=== PATIENT | female | born 1980 | race Caucasian/White ===

== ENCOUNTER 2020-04-26 18:55 | Emergency (ER) | payer OTHER, SELFPAY ==
[2020-04-26 19:00] VITALS: BP 143/92; PULSE 100; RESP 16; TEMP 36.6; O2SAT 99
--- NOTE | 2020-04-26 19:39 | ED.GENADULT ---
HPI - General Adult General Chief complaint: Wound/Laceration <Marcela Santoyo PA-C - Last Filed: 04/26/20 20:49> Stated complaint: R FOOT WOUND <Marcela Santoyo PA-C - Last Filed: 04/26/20 20:49> Time Seen by Provider: 04/26/20 19:29 <Marcela Santoyo PA-C - Last Filed: 04/26/20 20:49> Mode of arrival: ambulatory <Marcela Santoyo PA-C - Last Filed: 04/26/20 20:49> Limitations: no limitations <Marcela Santoyo PA-C - Last Filed: 04/26/20 20:49> History of Present Illness HPI narrative: Patient is here for evaluation of a blister on the bottom of her right foot that is being treated with clindamycin. She was seen at several other facilities for this, it started approximately 1 week ago after [place] a water park. It is now swollen and painful, located on the bottom of her right foot at the base of her great toe. She denies any fever, it is painful to walk on <Marcela Santoyo PA-C - Last Filed: 04/26/20 20:49> Onset (ago): day(s) <Marcela Santoyo PA-C - Last Filed: 04/26/20 20:49> Associated symptoms: denies other symptoms <Marcela Santoyo PA-C - Last Filed: 04/26/20 20:49> Related Data Allergies/adverse reactions: Allergies Allergy/AdvReac Type Severity Reaction Status Date / Time Penicillins Allergy Unknown Verified 04/26/20 19:05 <Marcela Santoyo PA-C - Last Filed: 04/26/20 20:49> Review of Systems Review of Systems: All systems reviewed & are unremarkable except as noted in HPI and below <Marcela Santoyo PA-C - Last Filed: 04/26/20 20:49> PMFSH Past Medical History Medical History: Medical History HTN (hypertension) <Marcela Santoyo PA-C - Last Filed: 04/26/20 20:49> Surgical History Surgical History: Surgical History No significant past surgical history <Marcela Santoyo PA-C - Last Filed: 04/26/20 20:49> Social History Social History: Social History Smoking packs per day: 0.5 Smoking cigarettes per day: 10.0 Smoking status: Current every day smoker <Marcela Santoyo PA-C - Last Filed: 04/26/20 20:49> Exam Const: General: no acute distress <Marcela Santoyo PA-C - Last Filed: 04/26/20 20:49> Resp: Effort & Inspection: normal respiratory effort <Marcela Santoyo PA-C - Last Filed: 04/26/20 20:49> Skin: Wounds: wounds noted (right foot, plantar surface, base of great toe. erythema and swelling, fluc) <Marcela Santoyo PA-C - Last Filed: 04/26/20 20:49> Neuro: General: moves all extremities <Marcela Santoyo PA-C - Last Filed: 04/26/20 20:49> Psych: Mental Status: mental status grossly normal <Marcela Santoyo PA-C - Last Filed: 04/26/20 20:49> Course Vital Signs Vital signs: Vital Signs Temperature 97.9 F 04/26/20 19:00 Pulse Rate 100 04/26/20 19:00 Respiratory Rate 16 04/26/20 19:00 Blood Pressure 143/92 H 04/26/20 19:00 Pulse Oximetry 99 04/26/20 19:00 Temperature 97.9 F 04/26/20 19:00 Pulse Rate 80 04/26/20 21:29 Respiratory Rate 20 04/26/20 21:29 Blood Pressure 138/76 04/26/20 21:29 Pulse Oximetry 99 04/26/20 21:29 <Marcela Santoyo PA-C - Last Filed: 04/26/20 20:49> Vital Signs Temperature 97.9 F 04/26/20 19:00 Pulse Rate 100 04/26/20 19:00 Respiratory Rate 16 04/26/20 19:00 Blood Pressure 143/92 H 04/26/20 19:00 Pulse Oximetry 99 04/26/20 19:00 Temperature 97.9 F 04/26/20 19:00 Pulse Rate 80 04/26/20 21:29 Respiratory Rate 20 04/26/20 21:29 Blood Pressure 138/76 04/26/20 21:29 Pulse Oximetry 99 04/26/20 21:29 <Lotus Shepard MD - Last Filed: 04/27/20 00:54> Procedures Abscess I/D foot: Date of Incision: 04/26/20 <Marcela Santoyo PA-C - Last Filed: 04/26/20 20:49> Time of Incision: 20:42 <Marcela Benson
[2020-04-26] MEDS: LIDOCAINE/PRILOCAINE 2.5-2.5% KIT 1 EACH TOPICAL (19:56)
[2020-04-26 21:29] VITALS: BP 138/76; PULSE 80; RESP 20; O2SAT 99
== END 2020-04-26 21:30 | disposition home or self-care (01) ==
PROVIDERS: Emergency Provider Emergency Medicine; PCP Physician Assistant
DX: L02.611 Cutaneous abscess of right foot (principal); I10 Essential (primary) hypertension
CPT/HCPCS: 10060; 99282

== ENCOUNTER 2020-07-08 17:24 | Emergency (ER) | payer OTHER, SELFPAY ==
--- NOTE | ~2020-07-08 | XR_ITS ---
EXAMINATION: XR chest 1V portable EXAM DATE: 07/08/2020 17:45 INDICATION: Bilateral chest pain. High blood pressure. TECHNIQUE: Portable AP frontal chest x-ray was obtained. Comparison is made to prior examination from 09/19/2019. FINDINGS: The lungs are clear. There are no pleural effusions. The cardiomediastinal silhouette is within normal limits. There is no pneumothorax suspected. The bones and soft tissues are unremarkab le. IMPRESSION: No acute cardiopulmonary findings. Reviewed, dictated and finalized at location A.
[2020-07-08 17:27] VITALS: BP 167/112; PULSE 99; RESP 20; TEMP 36.6; O2SAT 100
--- NOTE | 2020-07-08 17:32 | ED.CHESTPAIN ---
HPI - Chest Pain General Chief Complaint: Recheck/Abnormal Lab/Rx Stated Complaint: hypertension Time Seen by Provider: 07/08/20 17:27 Source: patient Mode of arrival: ambulatory Limitations: no limitations History of Present Illness HPI narrative: Patient is a 39-year-old female who presents complaining of hypertension, chest pain, shortness of breath and headache starting this a.m. She reports a history of hypertension. She denies fever, nausea, vomiting or diarrhea. She reports medication compliance. She denies all other complaints. MD complaint: chest heaviness Related Data Allergies Allergy/AdvReac Type Severity Reaction Status Date / Time Penicillins Allergy Unknown Verified 04/26/20 19:05 Review of Systems Review of Systems: Narrative: CONSTITUTIONAL: Denies fever, chills, or sweats. EYES: Denies visual changes, redness, or discharge. ENT: Denies rhinorrhea, congestion, sore throat, or otalgia. CARDIOVASCULAR: Reports chest pain, denies palpitations or edema. RESPIRATORY: Denies cough, reports mild dyspnea. GASTROINTESTINAL: Denies abdominal pain, nausea, vomiting, or diarrhea. GENITOURINARY: Denies dysuria or hematuria. SKIN: Denies rash or itching. MUSCULOSKELETAL: Denies back pain, joint pain, or myalgia. NEUROLOGIC: Reports headache, denies numbness, dizziness, or weakness. PSYCHIATRIC: Denies anxiety or depression. 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 HEAD: Normocephalic, atraumatic. EYES: No redness or drainage. ENT: Mucous membranes pink and moist. NECK: AROM. Supple. No lymphadenopathy. CHEST: No respiratory distress. Clear to auscultation. HEART: Regular rate and rhythm. No murmur appreciated. Normal peripheral pulses. GI: Soft, nontender without rebound, or guarding. No distention. Bowel sounds normal in all quadrants. MUSCULOSKELETAL: No bony tenderness. EXTREMITIES: Normal range of motion. No edema. SKIN: Warm, dry, no rash. NEURO: No focal deficits. Alert and oriented x3. Gait steady. PSYCH: Normal affect. No signs of depression or anxiety. Course Vital Signs Vital signs: Vital Signs Temperature 36.6 C 07/08/20 17: Pulse Rate 99 07/08/20 17: Respiratory Rate 20 07/08/20 17:27 Blood Pressure 167/112 H 07/08/20 17:27 Pulse Oximetry 100 07/08/20 17:27 Temperature 36.6 C 07/08/20 17:27 Pulse Rate 99 07/08/20 17:27 Respiratory Rate 20 07/08/20 17:27 Blood Pressure 167/112 H 07/08/20 17:27 Pulse Oximetry 100 07/08/20 17:27 MDM - Chest Pain MDM Narrative Medical decision making narrative: EKG and troponin x 2 completed for patient. Patient has a heart score of 2. Patient reports that she feels better and chest pain is resolved at this time. Patient has yearly appointment with pcp in 2 days. Patient is stable for discharge to home with outpatient follow up. Patient is aware that if she has increased chest pain or sob that she needs to return for further evaluation. Differential Diagnosis Differential diagnosis: Likely atypical chest pain, chest pain and other Critical Care Time Critical Care Time Critical Care Time: No
--- NOTE | 2020-07-08 17:39 | ECG_ITS ---
Measurements Intervals [place] Rate: 87 P: 65 FL: 144 QRS: 55 QRSD: 92 T: 49 QT: 385 QTc: 465 Interpretive Statements SINUS RHYTHM LOW QRS VOLTAGE IN PRECORDIAL LEADS CANNOT RULE OUT SEPTAL INFARCT, AGE INDETERMINATE BORDERLINE T WAVE ABNORMALITY- ANT/INF LEADS ABNORMAL ECG Electronically Signed On 07-08-2020 20:42:44 CDT by Jesus Macias D.O.
--- NOTE | 2020-07-08 17:41 | PC.NURSE ---
patient told to go to [facility] because she had several blood pressure readings of SBP over 150. patient also reports some chest pain and shortness of breath
[2020-07-08 17:43] LABS: Basophils Absolute Auto 0.1 K/mm3 (0.0-0.1); Basophils Percent Auto 0.8 % (0.2-1.2); Eosinophils Absolute Auto 0.2 K/mm3 (0-0.3); Eosinophils Percent Auto 1.5 % (0-4.4); Hematocrit 37.9 % (37.0-47.0); Hemoglobin 12.6 g/dL (12.0-15.0); Immature Granulocyte Absolute 0.08 K/mm3 (0.00-0.031); Immature Granulocyte Percent A 0.6 % (0-0.5); Lymphocytes Absolute Auto 5.25 K/mm3 (0.9-3.2); Lymphocytes Percent Auto 41.6 % (18.3-44.2); Mean Corpuscular HGB Conc 33.2 g/dl (32-36); Mean Corpuscular Hemoglobin 31.8 pg (26-34); Mean Corpuscular Volume 95.7 fl (80-100); Mean Platelet Volume 9.6 fl (7.4-10.4); Monocytes Absolute Auto 1.7 K/mm3 (0.1-0.6); Monocytes Percent Auto 13.6 % (2.6-8.5); Neutrophils Absolute Auto 5.3 K/mm3 (1.3-6.7); Neutrophils Percent Auto 41.9 % (45.5-73.1); Platelet Count Result 576 k/mm3 (150-375); Red Blood Count 3.96 M/mm3 (4.2-5.4); Red Cell Distribution Width 15.9 % (11.5-14.5); White Blood Count 12.6 K/mm3 (4.5-10.0)
[2020-07-08] MEDS: ASPIRIN 81 MG CHEWABLE TABLET 324 MG PO (17:52)
[2020-07-08 18:10] LABS: Basophils Absolute Auto 0.1 K/mm3 (0.0-0.1); Basophils Percent Auto 0.7 % (0.2-1.2); Eosinophils Absolute Auto 0.2 K/mm3 (0-0.3); Eosinophils Percent Auto 1.7 % (0-4.4); Hematocrit 36.7 % (37.0-47.0); Hemoglobin 12.2 g/dL (12.0-15.0); Immature Granulocyte Absolute 0.11 K/mm3 (0.00-0.031); Immature Granulocyte Percent A 0.9 % (0-0.5); Lymphocytes Absolute Auto 5.35 K/mm3 (0.9-3.2); Lymphocytes Percent Auto 42.2 % (18.3-44.2); Mean Corpuscular HGB Conc 33.2 g/dl (32-36); Mean Corpuscular Hemoglobin 31.3 pg (26-34); Mean Corpuscular Volume 94.1 fl (80-100); Mean Platelet Volume 9.5 fl (7.4-10.4); Monocytes Absolute Auto 1.8 K/mm3 (0.1-0.6); Monocytes Percent Auto 13.9 % (2.6-8.5); Neutrophils Absolute Auto 5.2 K/mm3 (1.3-6.7); Neutrophils Percent Auto 40.6 % (45.5-73.1); Platelet Count Result 547 k/mm3 (150-375); Red Cell Distribution Width 15.9 % (11.5-14.5); White Blood Count 12.7 K/mm3 (4.5-10.0)
[2020-07-08 18:22] LABS: Alanine Aminotransferase 25 U/L (4-35); Albumin Level 4.6 g/dL (3.5-5.1); Alkaline Phosphatase 78 U/L (38-126); Anion Gap 7 mmol/L (8-16); Aspartate Amino Transferase 44 U/L (14-36); Bilirubin,Total 0.3 mg/dL (0.2-1.3); Blood Urea Nitrogen 2 mg/dL (7-17); Calcium 9.4 mg/dL (8.4-10.2); Carbon Dioxide 31 mmol/L (22-30); Chloride 94 mmol/L (98-107); Estimated Glomerular Filt Rate > 60; Glucose 98 mg/dL (65-105); Potassium 3.3 mmol/L (3.4-5.0); Sodium 132 mmol/L (137-145)
[2020-07-08 18:30] VITALS: BP 150/103; PULSE 83; RESP 20; O2SAT 99
[2020-07-08 18:33] LABS: Add Urine Microscopic? NO; Appearance Urine Clear (Clear); Bilirubin Urine Negative (Negative); Blood Urine Negative (Negative); Color Urine Yellow (Yellow); Glucose Urine UA Negative (Negative); Ketones Urine Negative (Negative); Leukocyte Esterase Ur Negative LEU/UL (Negative); Nitrate Urine Negative (Negative); Protein Urine Negative (Negative); Specific Grav Ur 1.005 (1.001-1.035); Urobilinogen Urine Negative mg/dL (<2.0)
[2020-07-08 18:34] LABS: Troponin I < 0.012 ng/mL (0.000-0.034)
[2020-07-08 19:15] VITALS: BP 154/96
[2020-07-08 20:08] LABS: D Dimer 0.24 ug/mL (<0.48)
[2020-07-08 20:37] LABS: Troponin I < 0.012 ng/mL (0.000-0.034)
[2020-07-08 20:50] VITALS: BP 148/73; PULSE 86
== END 2020-07-08 20:57 | disposition home or self-care (01) ==
PROVIDERS: Emergency Provider Nurse Practitioner; PCP Physician Assistant
DX: R07.9 Chest pain, unspecified (principal); I10 Essential (primary) hypertension; E89.0 Postprocedural hypothyroidism; F17.210 Nicotine dependence, cigarettes, uncomplicated
CPT/HCPCS: 36415; 71045; 80053; 81003; 81025; 84484; 85025; 85380; 93005; 96374; 99284; A9270; J0131

== ENCOUNTER 2021-03-10 17:51 | Emergency (ER) | payer OTHER, SELFPAY ==
--- NOTE | ~2021-03-10 | XR_ITS ---
EXAMINATION: XR hip LT min 3V w AP pelvis DATE: 03/10/2021 19:40 INDICATION: Left lower limb pain. TECHNIQUE: An anteroposterior view pelvis and 3 views of left hip were obtained. COMPARISON: None. FINDINGS: Bone alignment is normal. No fracture. There is mild osteoarthritis of the hips. IMPRESSION: 1. Mild osteoarthritis of the hips. Reviewed, dictated and finalized at location A.
[2021-03-10 18:03] VITALS: BP 140/84; PULSE 95; RESP 16; TEMP 36.6; O2SAT 98
[2021-03-10] MEDS: KETOROLAC (*BKC) 60 MG/2 ML VIAL 30 MG IM (19:55)
--- NOTE | 2021-03-10 20:02 | ED.GENADULT ---
HPI - General Adult General Chief complaint: Extremity Injury, Lower Stated complaint: Pain L upper leg with ambulation Time Seen by Provider: 03/10/21 18:56 Source: patient, family and RN notes reviewed Mode of arrival: ambulatory Limitations: no limitations History of Present Illness HPI narrative: Patient is a 40-year-old female who presents to emergency department for evaluation of left hip pain laterally that is been present for the last week patient believes she injured the hip getting out of her 's truck patient also has history of arthritis patient notes aching pain worse with activity and movement that does not radiate denies any swelling or deformity or similar occurrence in the past. Has been taking ibuprofen and Tylenol with minimal improvement Related Data Home Medications Medication Instructions Recorded Confirmed azathioprine 03/10/21 bupropion HCl PO 03/10/21 bupropion HCl mg PO 03/10/21 calcium carbonate-vitamin D3 tablet PO 03/10/21 cyanocobalamin (vitamin B-12) 03/10/21 estradiol mg 03/10/21 famotidine 03/10/21 fenofibrate mg 03/10/21 hydroxychloroquine 03/10/21 leflunomide mg 03/10/21 levothyroxine 03/10/21 losartan 03/10/21 multivitamin tablet 03/10/21 venlafaxine mg PO 03/10/21 venlafaxine mg PO 03/10/21 Allergies Allergy/AdvReac Type Severity Reaction Status Date / Time Penicillins Allergy Unknown Verified 03/10/21 19:26 Review of Systems Review of Systems: All systems reviewed & are unremarkable except as noted in HPI and below PMFSH Past Medical History Medical History (Updated 03/10/21 @ 20:06 by Chidi Graves PA-C) Arthritis HTN (hypertension) Surgical History Surgical History H/O partial thyroidectomy H/O splenectomy 2006 per patient History of hysterectomy Hx of cholecystectomy No significant past surgical history Family History Family History Other Hypertension Social History Social History Smoking packs per day: 0.5 Smoking cigarettes per day: 10.0 Smoking status: Current every day smoker Tobacco type: cigarettes Alcohol intake: current Substance use: never Exam Narrative: Exam Narrative: GENERAL: Well-appearing, well-nourished, and in no acute distress. HEAD: Normocephalic, atraumatic. EYES: PERRLA and EOMI. ENT: Nares clear, no rhinorrhea or epistaxis. Mucous membranes moist. CHEST: Clear to auscultation. No respiratory distress. No wheezes rales or rhonchi HEART: Regular rate and rhythm. No murmur heard. Normal peripheral pulses. EXTREMITIES: Normal range of motion. No edema. Tenderness of the left lateral thigh and hip with no deformities noted remainder of extremity nontender no deformity SKIN: Warm, dry, no rash. NEURO: No focal deficits. Alert and oriented x3. Cranial nerves II through XII grossly intact. Neurovascularly intact. Capillary refill less than 2 seconds PSYCH: Normal mood and affect. Course Course Emergency Course: Patient will be treated medically aware of case findings treatment plan and diagnosis provided with primary care and orthopedic follow-up agreeing to do so made aware of her imaging findings felt appropriate for outpatient reevaluation patient is agreeing with this plan and will be discharged with outpatient follow-up Vital Signs Vital signs: Vital Signs Temperature 97.8 F 03/10/21 18:03 Pulse Rate 95 03/10/21 18:03 Respiratory Rate 16 03/10/21 18:03 Blood Pressure 140/84 03/10/21 18:03 Pulse Oximetry 98 03/10/21 18:03 Temperature 97.8 F 03/10/21 18:03 Pulse Rate 95 03/10/21 18:03 Respiratory Rate 16 03/10/21 18:03 Blood Pressure 140/84 03/10/21 18:03 Pulse Oximetry 98 03/10/21 18:03 Medical Decision Making MDM Narrative Medical decision making narrative: Patients inj
== END 2021-03-10 20:41 | disposition home or self-care (01) ==
PROVIDERS: Emergency Provider Emergency Medicine; PCP Physician Assistant
DX: M25.552 Pain in left hip (principal); I10 Essential (primary) hypertension; E89.0 Postprocedural hypothyroidism; Z90.81 Acquired absence of spleen; F17.210 Nicotine dependence, cigarettes, uncomplicated; M16.0 Bilateral primary osteoarthritis of hip
CPT/HCPCS: 73502; 96372; 99283; J1885

== ENCOUNTER 2021-05-04 17:20 | Emergency (ER) | payer OTHER, SELFPAY ==
--- NOTE | ~2021-05-04 | CT_ITS ---
EXAMINATION: CT abdomen pelvis w con DATE: 05/05/2021 01:18 INDICATION: Abdominal pain TECHNIQUE: Computed tomography (CT) of the abdomen and pelvis was performed with 100 cc Omnipaque 350 intravenous contrast. The dose-length product was 447.20 mGy-cm. Automated exposure control and iter ative reconstruction technique were employed. COMPARISON: None. FINDINGS: Lung bases are unremarkable. Heart size normal. No significant pleural or pericardial effus ion. There is mild thickening of the stomach wall, likely due to underdistention. There are cholecyst ectomy clips. There is mild thickening of the ascending colon. No obstruction. No evidence for divert iculitis. There are surgical changes of the cecum, possibly prior appendectomy. No free air or free f luid. The liver, pancreas, adrenal glands and kidneys are unremarkable. The spleen is likely surgically abs ent. IMPRESSION: 1. Mild thickening of the ascending colon. Clinically correlate for colitis. Mild thickening of the s tomach, most likely due to underdistention, although gastritis should be considered in the appropriat e clinical setting. Reviewed, dictated and finalized at location A. IMPRESSION: 1. Mild thickening of the ascending colon. Clinically correlate for colitis. Mi ld thickening of the stomach, most likely due to underdistention, although uziel ritis should be considered in the appropriate clinical setting.
[2021-05-04 17:31] VITALS: BP 147/96; PULSE 99; RESP 20; TEMP 36.3; O2SAT 100
[2021-05-04 19:18] VITALS: BP 151/95; PULSE 95; RESP 18; TEMP 37.1; O2SAT 99
[2021-05-04 19:37] LABS: Basophils Absolute Auto 0.2 K/mm3 (0.0-0.1); Eosinophils Absolute Auto 0.4 K/mm3 (0-0.3); Eosinophils Percent Auto 2.3 % (0-4.4); Hematocrit 33.8 % (37.0-47.0); Hemoglobin 11.1 g/dL (12.0-15.0); Immature Granulocyte Absolute 0.24 K/mm3 (0.00-0.031); Immature Granulocyte Percent A 1.5 % (0-0.5); Lymphocytes Percent Auto 15.7 % (18.3-44.2); Mean Corpuscular HGB Conc 32.8 g/dl (32-36); Mean Corpuscular Hemoglobin 33.1 pg (26-34); Mean Corpuscular Volume 100.9 fl (80-100); Mean Platelet Volume 8.9 fl (7.4-10.4); Monocytes Absolute Auto 1.9 K/mm3 (0.1-0.6); Monocytes Percent Auto 11.6 % (2.6-8.5); Neutrophils Absolute Auto 10.8 K/mm3 (1.3-6.7); Neutrophils Percent Auto 67.9 % (45.5-73.1); Nucleated Red Blood Cells Absolute Auto 0.2 K/mm3 (0.0-0.012); Nucleated Red Blood Cells Perc 0.9 % (0.0-0.2); Platelet Count Result 866 k/mm3 (150-375); Red Blood Count 3.35 M/mm3 (4.2-5.4); Red Cell Distribution Width 19.1 % (11.5-14.5); White Blood Count 15.9 K/mm3 (4.5-10.0)
[2021-05-04 19:39] LABS: Add Urine Microscopic? NO; Appearance Urine Clear (Clear); Bilirubin Urine Negative (Negative); Blood Urine Negative (Negative); Color Urine Straw (Yellow); Glucose Urine UA Negative (Negative); Ketones Urine Negative (Negative); Leukocyte Esterase Ur Negative LEU/UL (Negative); Nitrate Urine Negative (Negative); Protein Urine Negative (Negative); Urobilinogen Urine Negative mg/dL (<2.0)
[2021-05-04 20:01] LABS: Alanine Aminotransferase 22 U/L (4-35); Albumin Level 4.5 g/dL (3.5-5.1); Alkaline Phosphatase 114 U/L (38-126); Anion Gap 7 mmol/L (8-16); Aspartate Amino Transferase 38 U/L (14-36); Bilirubin,Total 0.2 mg/dL (0.2-1.3); Blood Urea Nitrogen 3 mg/dL (7-17); Calcium 9.1 mg/dL (8.4-10.2); Carbon Dioxide 26 mmol/L (22-30); Chloride 97 mmol/L (98-107); Estimated Glomerular Filt Rate > 60; Glucose 117 mg/dL (65-110); Lipase 67 U/L (23-300); Potassium 2.8 mmol/L (3.4-5.0); Sodium 130 mmol/L (137-145)
[2021-05-04 20:05] LABS: Specific Grav Ur 1.002 (1.001-1.035)
[2021-05-05] MEDS: SODIUM CHLORIDE 0.9% IV 1,000 ML 999 ML IV CONT (01:04)
[2021-05-05] MEDS: ONDANSETRON INJ 4 MG/2 ML VIAL IV PUSH (01:05)
[2021-05-05 01:45] VITALS: BP 127/77; PULSE 95; RESP 18; O2SAT 100
--- NOTE | 2021-05-05 02:02 | ED.GENADULT ---
HPI - General Adult General Chief complaint: Abdominal Pain Stated complaint: LOOSE STOOLS Time Seen by Provider: 05/05/21 00:29 History of Present Illness HPI narrative: Patient is a 40-year-old female who presents the emergency department with chief complaint of abdominal pain. The patient reports she has history of Crohn's and reports that she has had some diarrhea and reports that her stool has been black. Patient states that her abdomen is been aching reports that she talk to her back hand to recommend that she come to the emergency department to be evaluated for possible GI bleed or infection. Patient reports symptoms are worse with movement and improved with rest Related Data Home Medications Medication Instructions Recorded Confirmed azathioprine 03/10/21 bupropion HCl PO 03/10/21 bupropion HCl mg PO 03/10/21 calcium carbonate-vitamin D3 tablet PO 03/10/21 cyanocobalamin (vitamin B-12) 03/10/21 estradiol mg 03/10/21 famotidine 03/10/21 fenofibrate mg 03/10/21 hydroxychloroquine 03/10/21 leflunomide mg 03/10/21 levothyroxine 03/10/21 losartan 03/10/21 multivitamin tablet 03/10/21 venlafaxine mg PO 03/10/21 venlafaxine mg PO 03/10/21 Allergies Allergy/AdvReac Type Severity Reaction Status Date / Time Penicillins Allergy Unknown Verified 05/05/21 00:34 Review of Systems Review of Systems: A 10 system review of systems was completed on the patient and is negative except for what is stated in the HPI. Nursing and ancillary documentation was reviewed. [facility] Past Medical History Medical History Arthritis HTN (hypertension) Surgical History Surgical History H/O partial thyroidectomy H/O splenectomy 2007 per patient History of hysterectomy Hx of cholecystectomy No significant past surgical history Family History Family History Other Hypertension Social History Social History Smoking packs per day: 0.5 Smoking cigarettes per day: 10.0 Smoking status: Current every day smoker Tobacco type: cigarettes Alcohol intake: current Alcohol use details: occasional Substance use: never Gender identity (if verbalized by the patient): Female Exam Narrative: GENERAL: Well-appearing, well-nourished, and in no acute distress. HEAD: Normocephalic, atraumatic. EYES: PERRLA and EOMI. ENT: Nares clear, no rhinorrhea or epistaxis. Mucous membranes moist. NECK: Supple. CHEST: Clear to auscultation. No respiratory distress. HEART: Regular rate and rhythm. No murmur heard. Normal peripheral pulses. ABDOMEN: Soft, nontender, nondistended, normal active bowel sounds. EXTREMITIES: Normal range of motion. No edema. SKIN: Warm, dry, no rash. NEURO: No focal deficits. Alert and oriented x3. PSYCH: Normal mood and affect. Course Vital Signs Vital signs: Vital Signs Temperature 36.3 C L 05/04/21 17:31 Pulse Rate 99 05/04/21 17:31 Respiratory Rate 20 05/04/21 17:31 Blood Pressure 147/96 H 05/04/21 17:31 Pulse Oximetry 100 05/04/21 17:31 Temperature 37.1 C 05/04/21 19:18 Pulse Rate 95 05/05/21 01:45 Respiratory Rate 18 05/05/21 01:45 Blood Pressure 127/77 05/05/21 01:45 Pulse Oximetry 100 05/05/21 01:45 Medical Decision Making Vital Signs Vital Signs: Vital Signs Temperature 36.3 C L 05/04/21 17:31 Pulse Rate 99 05/04/21 17:31 Respiratory Rate 20 05/04/21 17:31 Blood Pressure 147/96 H 05/04/21 17:31 Pulse Oximetry 100 05/04/21 17:31 Temperature 37.1 C 05/04/21 19:18 Pulse Rate 95 05/05/21 01:45 Respiratory Rate 18 05/05/21 01:45 Blood Pressure 127/77 05/05/21 01:45 Pulse Oximetry 100 05/05/21 01:45 Lab Data Result diagrams: 04/19
[2021-05-05] MEDS: CIPROFLOXACIN 500 MG TAB PO (03:06)
[2021-05-05] MEDS: metroNIDAZOLE 250 MG TABLET 500 MG PO (03:06)
--- NOTE | 2021-05-05 03:18 | PC.NURSE ---
pt not wanting to stay for all of the potassium to be infused. EDP aware and states it is okay to discharge her.
[2021-05-05 03:19] VITALS: BP 154/94; PULSE 102; RESP 19; O2SAT 100
== END 2021-05-05 03:21 | disposition home or self-care (01) ==
PROVIDERS: Emergency Medicine; Emergency Provider Emergency Medicine; PCP Physician Assistant
DX: K52.9 Noninfective gastroenteritis and colitis, unspecified (principal); K50.90 Crohn's disease, unspecified, without complications; I10 Essential (primary) hypertension; M19.90 Unspecified osteoarthritis, unspecified site; E89.0 Postprocedural hypothyroidism; Z90.81 Acquired absence of spleen; F17.220 Nicotine dependence, chewing tobacco, uncomplicated
CPT/HCPCS: 36415; 74177; 80053; 81003; 83690; 85025; 96365; 96366; 96375; 99284; A9270; J2405; J3480; J7030; Q9967

== ENCOUNTER 2022-02-23 15:48 | Emergency (ER) | payer OTHER, SELFPAY ==
--- NOTE | ~2022-02-23 | XR_ITS ---
EXAMINATION: XR chest 2V Exam Date/Time: 02/23/2022 18:20 CDT HISTORY: wheezing, LUQ pain,X3 DAYS,HX SMOKER Comparison: 07/08/2020. RESULT: Lines, tubes, and devices: None. Lungs and pleura: Clear. Cardiomediastinal silhouette: Stable cardiomediastinal silhouette. Other: No acute osseous or upper abdominal finding. IMPRESSION: No acute cardiopulmonary process. Reviewed, dictated and finalized at location K.
--- NOTE | ~2022-02-23 | CT_ITS ---
EXAMINATION: CT abdomen pelvis wo con DATE: 02/23/2022 17:44 INDICATION: Left upper quadrant abdominal pain for 2 days, nausea. Leukocytosis. History of diverticu litis and Crohn's disease. TECHNIQUE: Computed tomography (CT) of the abdomen and pelvis was performed without intravenous contr ast. Automated exposure control and iterative reconstruction technique were employed. Exam dose: 820 .15 mGy-cm total exam DLP. COMPARISON: 05/05/2021 CT abdomen pelvis FINDINGS: Minimal discoid atelectasis is noted in the lingula and the lower lobes. No infiltrate or c onsolidation at the included lower lung zones. Normal heart size. Small pericardial effusion. Diffuse hepatic steatosis. No hepatic space-occupying mass lesion is evident. Status post cholecystec chaya. No bile duct or pancreatic duct dilatation. No pancreatic mass lesion is noted. Focal high dens ity at the pancreatic tail is noted, also present on 05/05/2021, possibly surgical clips. Recommend co rrelation with surgical history. Normal morphology of the adrenal glands. No renal mass lesion or urinary tract calculus or hydroureteronephrosis is noted. The urinary bladder is unremarkable. Status post hysterectomy. Normal caliber of the abdominal aorta. There are scattered poorly right lower quadrant nonenlarged lymph nodes, also present on 05/05/2021. N o intraperitoneal or retroperitoneal or pelvic mass lesion or adenopathy or ascites. Postoperative change is noted at the proximal cecum, likely due to appendectomy. No bowel obstruction , pneumatosis or intraperitoneal free air. Bilateral L5 pars interarticularis defects without spondylolisthesis. No suspicious osteolytic or ost eoblastic lesions. IMPRESSION: Status post cholecystectomy and appendectomy Probable postoperative change of the pancreatic tail Hepatic steatosis Bilateral L5 pars interarticularis defects Reviewed, dictated and finalized at Location A. Reviewed, dictated and finalized at location A.
[2022-02-23 16:08] VITALS: BP 146/96; PULSE 108; RESP 18; TEMP 37.2; O2SAT 98
[2022-02-23 16:19] LABS: Basophils Absolute Auto 0.2 K/mm3 (0.0-0.1); Basophils Percent Auto 0.9 % (0.2-1.2); Eosinophils Absolute Auto 0.2 K/mm3 (0-0.3); Hematocrit 33.5 % (37.0-47.0); Hemoglobin 11.3 g/dL (12.0-15.0); Immature Granulocyte Absolute 0.23 K/mm3 (0.00-0.031); Immature Granulocyte Percent A 1.2 % (0-0.5); Lymphocytes Absolute Auto 3.19 K/mm3 (0.9-3.2); Lymphocytes Percent Auto 17.3 % (18.3-44.2); Mean Corpuscular HGB Conc 33.7 g/dl (32-36); Mean Corpuscular Hemoglobin 32.8 pg (26-34); Mean Corpuscular Volume 97.4 fl (80-100); Mean Platelet Volume 8.7 fl (7.4-10.4); Monocytes Absolute Auto 2.4 K/mm3 (0.1-0.6); Monocytes Percent Auto 12.9 % (2.6-8.5); Neutrophils Absolute Auto 12.3 K/mm3 (1.3-6.7); Neutrophils Percent Auto 66.7 % (45.5-73.1); Nucleated Red Blood Cells Absolute Auto 0.1 K/mm3 (0.0-0.012); Nucleated Red Blood Cells Perc 0.3 % (0.0-0.2); Platelet Count Result 638 k/mm3 (150-375); Red Blood Count 3.44 M/mm3 (4.2-5.4); Red Cell Distribution Width 15.6 % (11.5-14.5); White Blood Count 18.4 K/mm3 (4.5-10.0)
[2022-02-23 16:29] LABS: Alanine Aminotransferase 32 U/L (6-35); Albumin Level 3.9 g/dL (3.5-5.1); Alkaline Phosphatase 129 U/L (38-126); Anion Gap 4 mmol/L (8-16); Aspartate Amino Transferase 48 U/L (14-36); Bilirubin,Total 0.2 mg/dL (0.2-1.3); Blood Urea Nitrogen 4 mg/dL (7-17); Carbon Dioxide 28 mmol/L (22-30); Chloride 103 mmol/L (98-107); Estimated Glomerular Filt Rate > 60; Glucose 104 mg/dL (65-110); Lipase 266 U/L (23-300); Sodium 135 mmol/L (137-145)
--- NOTE | 2022-02-23 17:32 | ED.ABDPAIN ---
HPI - Abdominal Pain General Chief Complaint: Abdominal Pain <Violet Welch PA-C - Last Filed: 02/24/22 01:36> Stated Complaint: LUQ ABD PAIN <Violet Welch PA-C - Last Filed: 02/24/22 01:36> Time Seen by Provider: 02/23/22 17:18 <Violet Welch PA-C - Last Filed: 02/24/22 01:36> History of Present Illness HPI narrative: Patient is a 41-year-old female with a history of Crohn's disease, diverticulitis, Sjogren's, cholecystitis status postcholecystectomy, status post splenectomy, appendicitis status post appendectomy, here for evaluation of left-sided abdominal pain for the past 2 days. She states the pain began as a mild cramping sensation, but is progressed in severity and is now severe, worse after eating. Reports similar presentation with previous diverticulitis and crohns flareups. She has not attempted any medication for pain. Patient additionally reporting nausea but no vomiting, and she had 1 loose nonbloody stool today. No constipation, fevers, chills, chest pain, shortness of breath, sick contacts, new foods. Patient is following with a GI doctor at [place], Dr. Saba, and she was reportedly taken off her Crohn's medications about 1 month ago. She was reevaluated by this doctor last week, and the decision was made to restart her on different biologic medications for her Crohn's, which she is set to start next week. <Violet Welch PA-C - Last Filed: 02/24/22 01:36> Related Data Home Medications: Home Medications Medication Instructions Recorded Confirmed azathioprine 50 mg tablet 03/10/21 bupropion HCl 150 mg tablet,12 hr PO 03/10/21 sustained-release bupropion HCl 300 mg 24 hr tablet, mg PO 03/10/21 extended release calcium carbonate 600 mg-vitamin tablet PO 03/10/21 D3 10 mcg (400 unit) tablet cyanocobalamin (vitamin B-12) 03/10/21 1,000 mcg/mL injection solution estradiol 2 mg tablet mg 03/10/21 famotidine 40 mg tablet 03/10/21 fenofibrate 160 mg tablet mg 03/10/21 hydroxychloroquine 200 mg tablet 03/10/21 leflunomide 20 mg tablet mg 03/10/21 levothyroxine 137 mcg tablet 03/10/21 losartan 50 mg tablet 03/10/21 multivitamin tablet 03/10/21 venlafaxine 150 mg mg PO 03/10/21 capsule,extended release 24 hr venlafaxine 75 mg capsule,extended mg PO 03/10/21 release 24 hr <Violet Welch PA-C - Last Filed: 02/24/22 01:36> Allergies/Adverse Reactions: Allergies Allergy/AdvReac Type Severity Reaction Status Date / Time Penicillins Allergy Unknown Verified 05/05/21 00:34 <Violet Welch PA-C - Last Filed: 02/24/22 01:36> Review of Systems Review of Systems: Gen: Denies fevers or chills Eyes: Denies eye pain or visual change ENT: Denies congestion Respiratory: Denies shortness of breath or cough CV: Denies chest pain or palpitations GI: Reports abdominal pain, nausea, one loose stool. Denies emesis. : denies burning, urgency, frequency or hematuria Musculoskeletal: Denies back pain or muscle pain Neuro: Denies numbness, tingling, weakness or focal weakness Skin: Denies rash Except as documented, all other systems reviewed and negative <Violet Welch PA-C - Last Filed: 02/24/22 01:36> [facility] Past Medical History Medical History: Medical History Arthritis HTN (hypertension) <Violet Welch PA-C - Last Filed: 02/24/22 01:36> Surgical History Surgical History: Surgical History H/O partial thyroidectomy H/O splenectomy 2007 per patient History of hysterectomy Hx of cholecystectomy No significant past surgical history <Violet Welch PA-C - Last Filed: 02/24/22 01:36> Family History Family History: Family History Other Hypertension <Violet Savage
[2022-02-23] MEDS: ALBUTEROL SULFATE NEB 2.5 MG/3 ML INH 1.25 MG INHALATION (18:09)
[2022-02-23 18:14] LABS: Bacteria Urine Trace /hpf; Mucus Urine Rare /lpf; Squamous Epithelial Cell Urine Few /hpf (Few); WBC Urine 0-3 /hpf
[2022-02-23 18:17] LABS: Add Urine Microscopic? NO; Appearance Urine Clear (Clear); Bilirubin Urine Negative (Negative); Blood Urine Negative (Negative); Color Urine Yellow (Yellow); Glucose Urine UA Negative (Negative); Ketones Urine Negative (Negative); Leukocyte Esterase Ur Negative LEU/UL (Negative); Nitrate Urine Negative (Negative); Protein Urine Negative (Negative); Specific Grav Ur 1.015 (1.001-1.035); Urobilinogen Urine 0.2 mg/dL (<2.0); pH Urine 7.5 (5.0-9.0)
--- NOTE | 2022-02-23 19:13 | PC.NURSE ---
Report received from Amarilis AGUIRRE and care of pt assumed at this time.
[2022-02-23 19:14] VITALS: BP 134/79; PULSE 92; RESP 16; O2SAT 95
[2022-02-23] MEDS: predniSONE 20 MG TABLET 40 MG PO (19:28)
[2022-02-23] MEDS: DICYCLOMINE HCL INJ 20 MG/2 ML VIAL IM (19:28)
[2022-02-23 20:56] VITALS: BP 134/86; PULSE 76; RESP 18; O2SAT 97
== END 2022-02-23 20:57 | disposition home or self-care (01) ==
PROVIDERS: Emergency Medicine; Emergency Provider Emergency Medicine; PCP Physician Assistant
DX: K50.90 Crohn's disease, unspecified, without complications (principal); I10 Essential (primary) hypertension; M35.00 Sjogren syndrome, unspecified; M19.90 Unspecified osteoarthritis, unspecified site; Z90.81 Acquired absence of spleen; E89.0 Postprocedural hypothyroidism; F17.210 Nicotine dependence, cigarettes, uncomplicated; K76.0 Fatty (change of) liver, not elsewhere classified
CPT/HCPCS: 36415; 71046; 74176; 80053; 81003; 83690; 85025; 94640; 96372; 99284; J0500; J7512

== ENCOUNTER 2022-04-23 12:15 | Inpatient (IN) | payer OTHER, SELFPAY ==
--- NOTE | ~2022-04-23 | CT_ITS ---
EXAMINATION: CT brain wo con DATE: 04/23/2022 13:37 INDICATION: Dizziness TECHNIQUE: Computed tomography (CT) of the head was performed without intravenous contrast. The mA wa s adjusted according to patient size. Iterative reconstruction technique was employed. Exam dose: 60 5.33 mGy-cm total exam DLP. COMPARISON: None FINDINGS: No intracranial mass lesion or hemorrhage or cerebrovascular accident. No midline shift or mass effect effect. Ventricular size is within normal limits. Normal barcenas-white matter differentiatio n. No subdural or epidural hematoma. Nearly complete opacification of the right sphenoid sinus. Mild mucosal periosteal thickening of the left sphenoid sinus. The left frontal sinus is not developed. Normal aeration of the mastoid air cells. No fracture or bone destruction of the cranial vault. IMPRESSION: No significant intracranial abnormality Complete opacification of right sphenoid sinus, mild mucoperiosteal thickening of left sphenoid sinus Reviewed, dictated and finalized at [facility]. Reviewed, dictated and finalized at [facility].
[2022-04-23 12:21] VITALS: BP 137/94; PULSE 109; RESP 16; TEMP 36.8; O2SAT 98
--- NOTE | 2022-04-23 12:26 | ECG_ITS ---
Measurements Intervals [place] Rate: 93 P: 71 VT: 144 QRS: 43 QRSD: 91 T: 15 QT: 371 QTc: 463 Interpretive Statements SINUS RHYTHM NONSPECIFIC T-WAVE ABNORMALITY COMPARED TO ECG 07/08/2020 17:39:54 T-WAVE ABNORMALITY NOW PRESENT Electronically Signed On 04-23-2022 16:31:52 CDT by Andrew Llanos M.D.
[2022-04-23 12:43] LABS: Basophils Absolute Auto 0.1 K/mm3 (0.0-0.1); Basophils Percent Auto 0.7 % (0.2-1.2); Eosinophils Absolute Auto 0.1 K/mm3 (0-0.3); Eosinophils Percent Auto 0.4 % (0-4.4); Hemoglobin 13.6 g/dL (12.0-15.0); Immature Granulocyte Absolute 0.29 K/mm3 (0.00-0.031); Immature Granulocyte Percent A 1.6 % (0-0.5); Lymphocytes Absolute Auto 3.75 K/mm3 (0.9-3.2); Lymphocytes Percent Auto 20.9 % (18.3-44.2); Mean Corpuscular Hemoglobin 32.4 pg (26-34); Mean Corpuscular Volume 95.2 fl (80-100); Mean Platelet Volume 8.6 fl (7.4-10.4); Monocytes Absolute Auto 2.5 K/mm3 (0.1-0.6); Monocytes Percent Auto 13.8 % (2.6-8.5); Neutrophils Absolute Auto 11.2 K/mm3 (1.3-6.7); Neutrophils Percent Auto 62.6 % (45.5-73.1); Platelet Count Result 672 k/mm3 (150-375); Red Cell Distribution Width 15.1 % (11.5-14.5)
[2022-04-23 13:01] LABS: Alanine Aminotransferase 34 U/L (6-35); Albumin Level 4.8 g/dL (3.5-5.1); Alkaline Phosphatase 143 U/L (38-126); Anion Gap 13 mmol/L (8-16); Aspartate Amino Transferase 51 U/L (14-36); Bilirubin,Total 0.5 mg/dL (0.2-1.3); Blood Urea Nitrogen 5 mg/dL (7-17); Calcium 9.8 mg/dL (8.4-10.2); Carbon Dioxide 26 mmol/L (22-30); Chloride 85 mmol/L (98-107); Estimated Glomerular Filt Rate > 60; Glucose 115 mg/dL (65-110); Sodium 124 mmol/L (137-145)
--- NOTE | 2022-04-23 13:13 | ED.GENADULT ---
HPI - General Adult General Chief complaint: Recheck/Abnormal Lab/Rx Stated complaint: low potassium from PCP Time Seen by Provider: 04/23/22 12:26 Source: RN notes reviewed History of Present Illness HPI narrative: Patient presents emergency department from home for hypokalemia. Patient states she went to her PCP on Tuesday as her blood pressure has been running high in the been try to get her blood pressure under check she states that she is currently on losartan hydrochlorothiazide had drawn blood work on Tuesday and she is called today to come to the ER because her potassium was low. She states she has been having intermittent dizziness she denies any fevers or chills numbness or tingling in the extremities vision changes chest pain shortness of breath abdominal pain nausea vomiting or any other symptoms Related Data Home Medications Medication Instructions Recorded Confirmed azathioprine 50 mg tablet 03/10/21 bupropion HCl 150 mg tablet,12 hr PO 03/10/21 sustained-release bupropion HCl 300 mg 24 hr tablet, mg PO 03/10/21 extended release calcium carbonate 600 mg-vitamin tablet PO 03/10/21 D3 10 mcg (400 unit) tablet cyanocobalamin (vitamin B-12) 03/10/21 1,000 mcg/mL injection solution estradiol 2 mg tablet mg 03/10/21 famotidine 40 mg tablet 03/10/21 fenofibrate 160 mg tablet mg 03/10/21 hydroxychloroquine 200 mg tablet 03/10/21 leflunomide 20 mg tablet mg 03/10/21 levothyroxine 137 mcg tablet 03/10/21 losartan 50 mg tablet 03/10/21 multivitamin tablet 03/10/21 venlafaxine 150 mg mg PO 03/10/21 capsule,extended release 24 hr venlafaxine 75 mg capsule,extended mg PO 03/10/21 release 24 hr Allergies Allergy/AdvReac Type Severity Reaction Status Date / Time Penicillins Allergy Unknown Verified 04/23/22 12:23 Review of Systems Review of Systems: Gen.: Denies fevers or chills Eyes: Denies eye pain or visual change ENT: Denies congestion Respiratory: Denies shortness of breath or cough CV: Denies chest pain or palpitations GI: Denies abdominal pain nausea, emesis or diarrhea Musculoskeletal: Denies back pain or muscle pain Neuro: Reports intermittent dizziness Skin: Denies rash Except as documented, all other systems reviewed and negative PMFSH Past Medical History Medical History Arthritis HTN (hypertension) Surgical History Surgical History H/O partial thyroidectomy H/O splenectomy 2006 per patient History of hysterectomy Hx of cholecystectomy No significant past surgical history Family History Family History Other Hypertension Social History Social History Smoking packs per day: 0.5 Smoking cigarettes per day: 10.0 Smoking status: Current every day smoker Tobacco type: cigarettes Alcohol intake: current Alcohol use details: occasional Substance use: never Gender identity (if verbalized by the patient): Female Exam Narrative: APPEARANCE: No acute distress, nontoxic, resting in bed EYES: EOMI HEENT: Normocephalic, atraumatic, OMM RESPIRATORY: No respiratory distress Clear to auscultation bilaterally with no rhonchi wheezing or rales. CARDIOVASCULAR: Regular rate and rhythm without murmurs rubs or gallops. ABDOMINAL: Soft, nontender, nondistended, no rebound or guarding MUSCULOSKELETAl: Moves all extremities. No clubbing, cyanosis or edema. NEURO: Awake and alert. Following commands, speech normal, no focal deficits muscle strength 5 out of 5 bilateral upper and lower extremities SKIN:: Warm, dry. No rashes lesions or abrasions PSYCHIATRIC: Normal affect/mood, Course Course Emergency Course: Discussed with CAMPBELL Monson for Dr Saba presentation work-up agrees with admission Discussed with patient and
[2022-04-23 13:27] LABS: Appearance Urine Slightly Cloudy (Clear); Bilirubin Urine Negative (Negative); Blood Urine Negative (Negative); Color Urine Yellow (Yellow); Glucose Urine UA Negative (Negative); Ketones Urine Negative (Negative); Leukocyte Esterase Ur Negative LEU/UL (Negative); Nitrate Urine Negative (Negative); Protein Urine Negative (Negative); Urobilinogen Urine 0.2 mg/dL (<2.0)
[2022-04-23 13:38] LABS: Bacteria Urine Trace /hpf; Mucus Urine Rare /lpf; RBC Urine 0-2 /hpf (0-2); Squamous Epithelial Cell Urine Many /hpf (Few)
[2022-04-23 13:39] LABS: Add Urine Microscopic? YES
[2022-04-23] MEDS: POTASSIUM CHLORIDE 20 MEQ TABLET 40 MEQ PO (13:56)
[2022-04-23 14:25] LABS: SARS-CoV-2 RNA PCR Negative
--- NOTE | 2022-04-23 14:40 | PM.IMHP ---
H&P: HPI History of Present Illness Date/Time: 04/23/22 14:40 Chief Complaint: Abnormal labs. Narrative: This is a very pleasant 41-year-old female with rheumatoid arthritis, Crohn's disease, Sjogren's syndrome, hypothyroidism, hypertension, and dyslipidemia who presented to the emergency department from home at the direction of her doctor for evaluation of abnormal labs. She has been having issues with her blood pressure recently and she was started on hydrochlorothiazide several weeks ago, which was doubled on Tuesday. Also on Tuesday she had routine labs drawn and she received a call today that she needed to come to the ER as her potassium level was reportedly quite low. On labs today her potassium was 3.0, sodium 124, and chloride of 85 and she is being admitted in this setting. With further questioning she has had other medication changes recently, having been started on Lexapro within the last several weeks and taken off of bupropion. She was also on prednisone for about a month due to her Crohn's flare and she was tapered off of that and started on budesonide, she estimates around 3 weeks ago. Her appetite has not been great this week but she denies nausea and vomiting. She has been trying to stay hydrated as she has not been eating much, and she has been drinking between 60 and 80 oz of water a day which is at least 3 times the amount of water that she normally drinks. Also she has had a few loose stool in the last 24 hours but not in significant quantities. Review of Systems Review of Systems: Twelve systems were reviewed. No fever, chills, or sweats. No syncope or presyncope. No cold or flu symptoms. No sick contacts. No chest pain or shortness of breath. No confusion. She has had some mild dizziness, mainly with position changes. No vertigo. Except as documented, all other systems were reviewed and are negative. [facility] Past Medical History Medical History (Updated 04/23/22 @ 22:37 by Iona Jean PA-C) Crohn's disease Depression with anxiety Dyslipidemia Hemolytic anemia Status post splenectomy. Hypertension Hypothyroidism Rheumatoid arthritis Sjogren's syndrome Surgical History Surgical History (Updated 04/23/22 @ 22:26 by Iona Jean PA-C) History of cholecystectomy History of hysterectomy History of partial thyroidectomy History of splenectomy (2006) History of ventral hernia repair Family History Family History Other Hypertension Social History Social History (Updated 04/23/22 @ 22:26 by Iona Jean PA-C) Social History: Surrogate medical decision maker: Enrique Del Toro, significant other. Code status: Full code. Smoking packs per day: 0.5 Smoking cigarettes per day: 10.0 Years smoked: 25 Smoking pack-years: 12.50 Smoking status: Current every day smoker Tobacco type: cigarettes Alcohol intake: never Alcohol use details: occasional Substance use: never Living arrangements: with family Additional occupation/education comments: On disability. Spiritual care concerns: No Meds Home Medications and Allergies Home Medications Medication Instructions Recorded Confirmed Type estradiol 2 mg tablet 2 mg PO DAILY 03/10/21 04/23/22 History famotidine 40 mg tablet 40 mg PO DAILY 03/10/21 04/23/22 History fenofibrate 160 mg tablet 160 mg PO DAILY 03/10/21 04/23/22 History hydroxychloroquine 200 mg tablet 200 mg PO DAILY 03/10/21 04/23/22 History levothyroxine 137 mcg tablet 137 mcg PO DAILY 03/10/21 04/23/22 History losartan 50 mg tablet 50 mg PO DAILY 03/10/21 04/23/22 History venlafaxine 150 mg 150 mg PO DAILY 03/10/21 04/23/22 History capsule,extended release 24 hr venlafaxine 75 mg capsule,extended 75 mg PO DAILY 03/10/21 04/23/22 History release 24 hr budesonide 3 mg 3 mg PO DAILY 04/23/22 04/23/22 History capsule,delayed,extended release escitalopram oxalate 20 mg tablet 20 mg PO D
[2022-04-23 14:45] VITALS: BP 145/99; PULSE 89; RESP 16; O2SAT 99
[2022-04-23 15:45] VITALS: BMI 35.7
[2022-04-23 16:00] VITALS: PULSE 100
--- NOTE | 2022-04-23 16:02 | ADMGEN ---
This patient, Mely Francois, was admitted to Medical Room 341-01. Patient/family oriented to hospital policies and general routines including ID bracelet, bed and alarms, visiting hours, pain management, procedures, bathroom and other care routines, personal items, smoking policy, room service/diet, and visiting hours. Information on how to activate the Rapid Response Team has been discussed. Patient/Family are encouraged to report perceived risks to care and to ask questions if they do not understand what they are told or what they should do.
[2022-04-23 16:16] VITALS: BP 138/98; PULSE 98; RESP 16; TEMP 36.7; O2SAT 97
[2022-04-23 16:57] LABS: Anion Gap 10 mmol/L (8-16); Blood Urea Nitrogen 4 mg/dL (7-17); Calcium 9.5 mg/dL (8.4-10.2); Carbon Dioxide 26 mmol/L (22-30); Chloride 86 mmol/L (98-107); Estimated Glomerular Filt Rate > 60; Glucose 100 mg/dL (65-110); Magnesium 1.8 mg/dL (1.6-2.3); Potassium 3.2 mmol/L (3.4-5.0); Sodium 122 mmol/L (137-145)
[2022-04-23 20:00] VITALS: PULSE 98
[2022-04-23 20:54] VITALS: BP 134/88; PULSE 98; RESP 16; TEMP 36.6; O2SAT 97
[2022-04-23 21:32] LABS: Anion Gap 11 mmol/L (8-16); Blood Urea Nitrogen 4 mg/dL (7-17); Calcium 9.5 mg/dL (8.4-10.2); Carbon Dioxide 27 mmol/L (22-30); Chloride 88 mmol/L (98-107); Estimated Glomerular Filt Rate > 60; Glucose 120 mg/dL (65-110); Potassium 3.5 mmol/L (3.4-5.0); Sodium 126 mmol/L (137-145)
[2022-04-23] MEDS: QUEtiapine FUMARATE 100 MG TABLET 300 MG PO (22:44)
[2022-04-23] MEDS: ZOLPIDEM TARTRATE (*CRX) 5 MG TABLET 10 MG PO (22:44)
[2022-04-23 22:46] LABS: Free T4 Free Thyroxine Reflex 1.22 ng/dL (0.78-2.19)
[2022-04-23 23:01] LABS: Creatinine Urine 98.4 mg/dL
[2022-04-23] MEDS: VENLAFAXINE HCL XR 75 MG CAP.ER.24H PO (23:03)
[2022-04-23 23:04] LABS: Sodium Urine Random 21 meq/L
[2022-04-23 23:43] LABS: Total Triiodothyronine (T3) 1.17 NG/ML (0.97-1.69)
[2022-04-24] VITALS (12 sets, daily range): BP systolic 126–146; BP diastolic 84–94; PULSE 97–122; RESP 16–18; TEMP 36.6–36.8; O2SAT 93–97
[2022-04-24] MEDS: LEVOTHYROXINE SODIUM 112 MCG TABLET PO (05:32)
[2022-04-24] MEDS: LEVOTHYROXINE SODIUM 25 MCG TABLET PO (05:32)
[2022-04-24 06:36] LABS: Basophils Absolute Auto 0.1 K/mm3 (0.0-0.1); Basophils Percent Auto 0.7 % (0.2-1.2); Eosinophils Absolute Auto 0.1 K/mm3 (0-0.3); Eosinophils Percent Auto 0.8 % (0-4.4); Hematocrit 36.9 % (37.0-47.0); Hemoglobin 12.4 g/dL (12.0-15.0); Immature Granulocyte Absolute 0.28 K/mm3 (0.00-0.031); Immature Granulocyte Percent A 1.7 % (0-0.5); Lymphocytes Absolute Auto 5.24 K/mm3 (0.9-3.2); Lymphocytes Percent Auto 31.2 % (18.3-44.2); Mean Corpuscular HGB Conc 33.6 g/dl (32-36); Mean Corpuscular Hemoglobin 32.3 pg (26-34); Mean Corpuscular Volume 96.1 fl (80-100); Mean Platelet Volume 9.1 fl (7.4-10.4); Monocytes Absolute Auto 1.6 K/mm3 (0.1-0.6); Monocytes Percent Auto 9.6 % (2.6-8.5); Neutrophils Absolute Auto 9.4 K/mm3 (1.3-6.7); Platelet Count Result 679 k/mm3 (150-375); Red Blood Count 3.84 M/mm3 (4.2-5.4); Red Cell Distribution Width 15.1 % (11.5-14.5); White Blood Count 16.8 K/mm3 (4.5-10.0)
[2022-04-24 07:04] LABS: Anion Gap 10 mmol/L (8-16); Blood Urea Nitrogen 4 mg/dL (7-17); Calcium 9.3 mg/dL (8.4-10.2); Carbon Dioxide 23 mmol/L (22-30); Chloride 89 mmol/L (98-107); Estimated Glomerular Filt Rate > 60; Glucose 106 mg/dL (65-110); Magnesium 1.9 mg/dL (1.6-2.3); Potassium 3.2 mmol/L (3.4-5.0); Sodium 122 mmol/L (137-145)
[2022-04-24] MEDS: FENOFIBRATE 160 MG TABLET PO (09:03)
[2022-04-24] MEDS: estradioL 1 MG TABLET 2 MG PO (09:03)
[2022-04-24] MEDS: MULTIVITAMINS THERAPEUTIC TAB (*BKC) 1 TABLET PO (09:04)
[2022-04-24] MEDS: VENLAFAXINE HCL XR 75 MG CAP.ER.24H 150 MG PO (09:04)
[2022-04-24] MEDS: PANTOPRAZOLE 40 MG TABLET PO (09:04)
[2022-04-24] MEDS: FOLIC ACID 1 MG TABLET PO (09:04)
[2022-04-24] MEDS: LOSARTAN POTASSIUM 50 MG TABLET PO (09:04)
[2022-04-24] MEDS: HYDROXYCHLOROQUINE SULFATE 200 MG TABLET PO (09:04)
[2022-04-24] MEDS: GABAPENTIN 100 MG CAPSULE PO (09:04)
[2022-04-24] MEDS: BUDESONIDE 3 MG CAP.SR.24H PO (09:05)
[2022-04-24] MEDS: FAMOTIDINE 20 MG TABLET 40 MG PO (09:10)
[2022-04-24] MEDS: ONDANSETRON HCL ODT 4 MG TABLET 8 MG PO (11:47)
--- NOTE | 2022-04-24 12:01 | PM.CNNEP ---
Assessment and Plan Additional Plan 1. The patient has hyponatremia. Some of this is chronic. Her sodium was 129, 132, 130, and 135 in Sep through February of 2022. CT brain negative. Chest x-ray unremarkable. Fractional excretion of sodium is reflective of pre renal azotemia. She has several issues which may contribute to this. She drinks a lot of water because of her Sjogren syndrome. Normally without anything wrong she should be able to handle this amount of free water. Her TSH is elevated so she needs an adjustment of her thyroid medication. Hypothyroidism can lead to hyponatremia. The patient is on escitalopram and venlafaxine, both of which can cause hyponatremia. The escitalopram is a new medication for her within the last few months. the patient patient is on omeprazole as well which can sometimes do this. The patient was newly placed on hydrochlorothiazide within the last few weeks. She is up-to-date on cancer screening. Chest x-ray and CT Brain are okay. Her urine sodium electrolytes show pre renal azotemia. However, her physical exam does not reflect dehydration. Part of the mechanism for hyponatremia from hydrochlorothiazide involves mild dehydration. Will try some IV fluids. Will check serum and urine osmolality. Will check an SPEP as well. Will check a Cortrosyn stim test since her cortisol level it was below 15. She is already off the hydrochlorothiazide and the escitalopram. will increase the thyroid supplement. consider change PPI to famotidine. Currently on twice the dose she was on at home. This is probably not a big player in this whole scenario so will leave things be for now. Will try some IV fluids. Will continue fluid restriction. Will check another sodium level this afternoon. The patient is asking to be able to go home tomorrow. I can not predict how quickly her sodium will correct or whether she will overcorrect at this point. Since we are stopping medications might take a while for them to get out of her system. 2. Hypothyroidism. adjust levothyroxine 3. Crohn's disease. 4. Hypertension. Her blood pressure is doing pretty well right now. 5. Sjogren syndrome 6. rheumatoid arthritis 7. depression History of Present Illness Reason for Consult Consult date: 04/24/22 Chief Complaint Chief complaint: hyponatremia,hypokalemia,dizziness History of Present Illness Narrative: Mely is a very pleasant 41-year-old lady who has multiple medical problems including Sjogren syndrome, Crohn's disease, depression, hemolytic anemia, hypertension, hypothyroidism, rheumatoid arthritis. The patient has been seeing her primary care physician for her blood pressure because the blood pressure is a bit high. She was started on hydrochlorothiazide a few weeks ago and was increased on Tuesday. She had some blood work done and her sodium and potassium were low so she was sent to the emergency room. she says that she has been drinking about 4 or 5 quarts of water per day. This is her usual with her Sjogren syndrome. She has been taking her thyroid medications as prescribed. She takes it on an empty stomach a while before she eats. She does take venlafaxine and escitalopram at home. She is also on omeprazole. She has no history of cancer. She has Crohn's disease so she has had a colonoscopy. She is up-to-date with cancer screening otherwise as well. No history of pulmonary or TIG WELDER disorders. Review of Systems Constitutional: Constitutional: Reports no additional constitutional complaints Eyes: Eyes: Reports no additional eye complaints ENT: Reports system reviewed and no additional complaints, except as documented Cardiovascular: Cardiovascular: Reports no additional cardiovascular complaints Respiratory: Respiratory: Reports no additional respiratory complaints Gastrointestinal: Gastrointestinal: Reports no additional gastrointe
[2022-04-24] MEDS: COSYNTROPIN 0.25 MG/ML VIAL IV PUSH (13:17)
[2022-04-24] MEDS: SODIUM CHLORIDE 0.9% IV 1,000 ML 75 ML IV CONT (13:19)
[2022-04-24 13:30] LABS: Sodium 125 mmol/L (137-145)
--- NOTE | 2022-04-24 15:08 | PM.IMPN ---
Progress Note: A&P Assessment and Plan (1) Hyponatremia: Code(s): E87.1 - Hypo-osmolality and hyponatremia Status: Acute Assessment and Plan: Appreciate nephrology consultation, hydrochlorothiazide Lexapro currently being held, originally fluid restriction was ordered, now some slight fluids are being ordered (2) Hypokalemia: Code(s): E87.6 - Hypokalemia Status: Acute Assessment and Plan: Stable (3) Hypothyroidism: Code(s): E03.9 - Hypothyroidism, unspecified Status: Acute Assessment and Plan: Stable (4) Hypertension: Code(s): I10 - Essential (primary) hypertension Status: Acute Assessment and Plan: Stable, continue losartan, hold hydrochlorothiazide (5) Rheumatoid arthritis: Code(s): M06.9 - Rheumatoid arthritis, unspecified Status: Acute Assessment and Plan: No acute issues. Continue hydroxychloroquine. (6) Crohn's disease: Code(s): K50.90 - Crohn's disease, unspecified, without complications Status: Acute Assessment and Plan: No acute issues. Continue budesonide. (7) Depression with anxiety: Code(s): F41.8 - Other specified anxiety disorders Status: Acute Assessment and Plan: Continue venlafaxine as she has been on it for many years. Escitalopram is on hold as that is a more recent medication and could be contributing to her recent drop in sodium. (8) Leukocytosis: Code(s): D72.829 - Elevated white blood cell count, unspecified Status: Acute Assessment and Plan: Seems to be a chronic, ongoing finding for the patient. May be related to post splenectomy state though that was done many years ago. She is on chronic steroids as well. She gives no history to suggest underlying infection. (9) Thrombocytosis: Code(s): D75.839 - Thrombocytosis, unspecified Status: Acute Assessment and Plan: Likely reactive from splenectomy. Should be monitored as an outpatient. (10) Sjogren's syndrome: Code(s): M35.00 - Sjogren syndrome, unspecified Status: Acute Assessment and Plan: Stable Subjective Date/time seen: 04/24/22 15:08 Interval history: Patient is really upset she is here because she feels fine, she really wants to go home and continue monitoring outpatient. No overnight events noted. No chest pain or shortness of breath. No nausea, vomiting or diarrhea. No fevers or chills. Review of Systems Review of Systems: 12 point review of systems was assessed and was negative except as noted in the HPI Exam Narrative: General: No acute distress, alert and oriented per baseline HEENT: Atraumatic, normocephalic, mucous membranes moist CV: Regular rate and rhythm, S1, S2 Lungs: Clear to auscultation bilaterally, no rales or crackles noted, no wheezes, good air entry Abdomen: Soft, nontender, nondistended Extremities: Normal to inspection Skin: No rashes noted, no lesions or wounds seen Psych: Euthymic, normal affect Objective Data Vital Signs Vital Signs: Vital Signs - 24 hr 04/23/22 16:16 04/23/22 16:00 04/23/22 20:54 Temperature 98.1 F 97.8 F Pulse Rate 98 100 98 Respiratory Rate 16 16 Blood Pressure 138/98 H 134/88 Pulse Oximetry 97 97 Oxygen Delivery 04/23/22 20:00 04/23/22 20:00 04/24/22 00:00 Temperature Pulse Rate 98 108 H Respiratory Rate Blood Pressure Pulse Oximetry Oxygen Delivery Room Air 04/24/22 04:00 04/24/22 04:33 04/24/22 08:05 Temperature 97.8 F Pulse Rate 106 H 103 H 122 H Respiratory Rate 18 Blood Pressure 126/84 Pulse Oximetry 96 Oxygen Delivery 04/24/22 08:00 04/24/22 14:00 Temperature 98.2 F Pulse Rate 97 Respiratory Rate 16 Blood Pressure 139/91 H Pulse Oximetry 96 97 Oxygen Delivery Room Air Intake/Output Intake/Output: Intake & Output 04/21/22 04/22/22 04/23/22 04/24/22 23:59 23:
[2022-04-24 15:17] LABS: Anion Gap 8 mmol/L (8-16); Blood Urea Nitrogen 4 mg/dL (7-17); Calcium 9.6 mg/dL (8.4-10.2); Carbon Dioxide 28 mmol/L (22-30); Chloride 91 mmol/L (98-107); Estimated Glomerular Filt Rate > 60; Glucose 119 mg/dL (65-110); Potassium 3.3 mmol/L (3.4-5.0); Sodium 127 mmol/L (137-145)
[2022-04-24] MEDS: POTASSIUM CHLORIDE 20 MEQ TABLET 40 MEQ PO (18:00)
--- NOTE | 2022-04-27 07:22 | PM.DS ---
DS: Admitting Diagnosis Discharge Date 04/24/22 Admitting Diagnosis Hyponatremia DS: Discharge Diagnosis Discharge Diagnosis (1) Hyponatremia: Code(s): E87.1 - Hypo-osmolality and hyponatremia Status: Acute Assessment and Plan: Appreciate nephrology consultation, hydrochlorothiazide Lexapro currently being held, originally fluid restriction was ordered, now some slight fluids are being ordered (2) Hypokalemia: Code(s): E87.6 - Hypokalemia Status: Acute Assessment and Plan: Stable (3) Hypothyroidism: Code(s): E03.9 - Hypothyroidism, unspecified Status: Acute Assessment and Plan: Stable (4) Hypertension: Code(s): I10 - Essential (primary) hypertension Status: Acute Assessment and Plan: Stable, continue losartan, hold hydrochlorothiazide (5) Rheumatoid arthritis: Code(s): M06.9 - Rheumatoid arthritis, unspecified Status: Acute Assessment and Plan: No acute issues. Continue hydroxychloroquine. (6) Crohn's disease: Code(s): K50.90 - Crohn's disease, unspecified, without complications Status: Acute Assessment and Plan: No acute issues. Continue budesonide. (7) Depression with anxiety: Code(s): F41.8 - Other specified anxiety disorders Status: Acute Assessment and Plan: Continue venlafaxine as she has been on it for many years. Escitalopram is on hold as that is a more recent medication and could be contributing to her recent drop in sodium. (8) Leukocytosis: Code(s): D72.829 - Elevated white blood cell count, unspecified Status: Acute Assessment and Plan: Seems to be a chronic, ongoing finding for the patient. May be related to post splenectomy state though that was done many years ago. She is on chronic steroids as well. She gives no history to suggest underlying infection. (9) Thrombocytosis: Code(s): D75.839 - Thrombocytosis, unspecified Status: Acute Assessment and Plan: Likely reactive from splenectomy. Should be monitored as an outpatient. (10) Sjogren's syndrome: Code(s): M35.00 - Sjogren syndrome, unspecified Status: Acute Assessment and Plan: Stable DS: Summary Hospital Course Hospital Course: This is a very pleasant 41-year-old female with rheumatoid arthritis, Crohn's disease, Sjogren's syndrome, hypothyroidism, hypertension, and dyslipidemia who presented to the emergency department from home at the direction of her doctor for evaluation of abnormal labs. She has been having issues with her blood pressure recently and she was started on hydrochlorothiazide several weeks ago, which was doubled on Tuesday. Also on Tuesday she had routine labs drawn and she received a call today that she needed to come to the ER as her potassium level was reportedly quite low. On labs today her potassium was 3.0, sodium 124, and chloride of 85 and she is being admitted in this setting. With further questioning she has had other medication changes recently, having been started on Lexapro within the last several weeks and taken off of bupropion. She was also on prednisone for about a month due to her Crohn's flare and she was tapered off of that and started on budesonide, she estimates around 3 weeks ago. Her appetite has not been great this week but she denies nausea and vomiting. She has been trying to stay hydrated as she has not been eating much, and she has been drinking between 60 and 80 oz of water a day which is at least 3 times the amount of water that she normally drinks. Also she has had a few loose stool in the last 24 hours but not in significant quantities. Most likely due to a combination of factors. It looks like she has a chronic, mild hyponatremia on review of her previous labs. She has been on venlafaxine and was previously on bupropion for many years though that was recently discontinued and she was s
[2022-04-27 17:44] LABS: Alpha 1 Globulin 0.4 g/dL (0.2-0.3); Alpha 2 Globulin 1.2 g/dL (0.5-0.9); Beta 1 Globulin 0.6 g/dL (0.4-0.6); Gamma Globulin 0.7 g/dL (0.8-1.7); Protein, Total 7.2 g/dL (6.1-8.1)
[2022-04-28 16:42] LABS: Osmolality, Urine 254 mOsm/kg (50-1200)
== END 2022-04-24 18:20 | disposition home or self-care (01) | DRG 426 ==
LOC: ANHED 13:54 → ANH3MED 15:19
PROVIDERS: Internal Medicine Nephrology; Physician Assistant; Admitting Provider Family Medicine; Emergency Provider Emergency Medicine; PCP Physician Assistant; Visit Provider Student in an Organized Health Care Education/Training Program
DX: E87.1 Hypo-osmolality and hyponatremia (principal); E87.6 Hypokalemia; M06.9 Rheumatoid arthritis, unspecified; M35.00 Sjogren syndrome, unspecified; K50.90 Crohn's disease, unspecified, without complications; I10 Essential (primary) hypertension; E89.0 Postprocedural hypothyroidism; D72.829 Elevated white blood cell count, unspecified; D75.839 Thrombocytosis, unspecified; F17.210 Nicotine dependence, cigarettes, uncomplicated; F41.8 Other specified anxiety disorders; D59.9 Acquired hemolytic anemia, unspecified; R79.89 Other specified abnormal findings of blood chemistry; Z79.899 Other long term (current) drug therapy; Z20.822 Contact with and (suspected) exposure to COVID-19; Z90.49 Acquired absence of other specified parts of digestive tract; T43.225A Adverse effect of selective serotonin reuptake inhibitors, initial encounter; T50.2X5A Adverse effect of carbonic-anhydrase inhibitors, benzothiadiazides and other diuretics, initial encounter; Z90.710 Acquired absence of both cervix and uterus; Z90.81 Acquired absence of spleen
CPT/HCPCS: 36415; 70450; 80048; 80053; 81001; 82533; 82570; 83735; 83930; 83935; 84155; 84165; 84295; 84300; 84439; 84443; 84480; 85025; 93005; 99285; A9270; C9803; G0378; G0379; J0834; J7030; U0003; U0005

== ENCOUNTER 2022-04-27 10:07 | Outpatient (CLI) | payer OTHER, SELFPAY ==
[2022-04-27 10:45] LABS: Anion Gap 8 mmol/L (8-16); Blood Urea Nitrogen 7 mg/dL (7-17); Calcium 9.5 mg/dL (8.4-10.2); Carbon Dioxide 26 mmol/L (22-30); Chloride 96 mmol/L (98-107); Estimated Glomerular Filt Rate > 60; Glucose 130 mg/dL (65-110); Potassium 3.5 mmol/L (3.4-5.0); Sodium 130 mmol/L (137-145)
== END 2022-04-27 10:08 | disposition home or self-care (01) ==
LOC: ANHLAB 10:09
PROVIDERS: PCP Physician Assistant; Visit Provider Student in an Organized Health Care Education/Training Program
DX: E87.1 Hypo-osmolality and hyponatremia (principal); E87.6 Hypokalemia
CPT/HCPCS: 36415; 80048

== ENCOUNTER 2023-04-11 14:08 | Emergency (ER) | payer OTHER, SELFPAY ==
--- NOTE | ~2023-04-11 | CT_ITS ---
EXAMINATION: CT abdomen pelvis w con DATE: 04/11/2023 16:21 INDICATION: Right upper quadrant abdominal pain, diarrhea and nausea for a week. History of Crohn's d isease. Status post cholecystectomy. TECHNIQUE: Computed tomography (CT) of the abdomen and pelvis was performed with 100 CC Omnipaque 350 intravenous contrast. Automated exposure control and iterative reconstruction technique were employe d. Exam dose: 733.98 mGy-cm total exam DLP. COMPARISON: 02/23/2022 CT abdomen FINDINGS: The lung bases are clear of infiltrate or consolidation. Normal heart size. No pericardial or pleural effusion. Status post cholecystectomy. The spleen is surgically absent. No pancreatic mass lesion or calcification or pancreatic duct dilatation. No abnormal bile duct dilat ation. Normal morphology of the adrenal glands. Several very small renal cysts. No suspicious renal mass les ion or renal scarring. No urinary tract calculus or hydroureteronephrosis. The urinary bladder is unr emarkable. Status post hysterectomy. Normal caliber of the abdominal aorta. No intraperitoneal or retroperitoneal or pelvic mass lesion or adenopathy or ascites. There is fluid distention but no abnormal dilatation throughout much of the small bowel, with small b owel air-fluid levels. There air-fluid levels in the ascending, transverse and descending colon as we ll. The findings are consistent with clinical presentation of diarrhea. No bowel obstruction, bowel w all thickening, pneumatosis, intraperitoneal free air or portal venous gas is detected. Small sliding hiatal hernia. Bilateral L5 pars interarticularis defects. No spondylolisthesis. No suspicious osteolytic or osteobl astic lesions. IMPRESSION: Air-fluid levels of small and large bowel suggesting enterocolitis no small bowel or col on strictures noted Status post cholecystectomy, splenectomy, appendectomy and hysterectomy Reviewed, dictated and finalized at [facility]. Reviewed, dictated and finalized at [facility]. IMPRESSION: Air-fluid levels of small and large bowel suggesting enterocolitis no small bowel or colon strictures noted Status post cholecystectomy, splenectomy, appendectomy and hysterectomy
[2023-04-11 14:31] VITALS: BP 117/71; PULSE 77; RESP 18; TEMP 36.3; O2SAT 97
[2023-04-11 14:50] LABS: Hematocrit 35.3 % (37.0-47.0); Hemoglobin 11.7 g/dL (12.0-15.0); Mean Corpuscular HGB Conc 33.1 g/dl (32-36); Mean Corpuscular Hemoglobin 31.6 pg (26-34); Mean Corpuscular Volume 95.4 fl (80-100); Mean Platelet Volume 8.6 fl (7.4-10.4); Platelet Count Result 669 k/mm3 (150-375); Red Cell Distribution Width 17.7 % (11.5-14.5); White Blood Count 17.7 K/mm3 (4.5-10.0)
[2023-04-11 15:08] LABS: Alanine Aminotransferase 23 U/L (6-35); Albumin Level 4.6 g/dL (3.5-5.1); Alkaline Phosphatase 108 U/L (38-126); Anion Gap 8 mmol/L (8-16); Aspartate Amino Transferase 32 U/L (14-36); Bilirubin,Total 0.2 mg/dL (0.2-1.3); Blood Urea Nitrogen 5 mg/dL (7-17); Calcium 9.3 mg/dL (8.4-10.2); Carbon Dioxide 21 mmol/L (22-30); Chloride 110 mmol/L (98-107); Estimated Glomerular Filt Rate > 60; Glucose 95 mg/dL (65-110); Lipase 71 U/L (23-300); Potassium 4.2 mmol/L (3.4-5.0); Sodium 139 mmol/L (137-145)
[2023-04-11 15:08] LABS: Appearance Urine Cloudy (Clear); Bacteria Urine 1+ /hpf; Bilirubin Urine Negative (Negative); Blood Urine Negative (Negative); Color Urine Yellow (Yellow); Glucose Urine UA Negative (Negative); Ketones Urine Negative (Negative); Leukocyte Esterase Ur Negative LEU/UL (Negative); Nitrate Urine Negative (Negative); Non Pathogenic Casts 0-2; Protein Urine Negative (Negative); RBC Urine 0-2 /hpf (0-2); Specific Grav Ur 1.008 (1.001-1.035); Squamous Epithelial Cell Urine Moderate /hpf (Few); Urobilinogen Urine 0.2 mg/dL (<2.0); WBC Urine 0-5 /hpf
[2023-04-11 15:12] LABS: Add Urine Microscopic? YES
[2023-04-11 15:20] LABS: Band Neutrophils Percent 2 % (0-6); Eosinophils Absolute Manual 0.17 K/mm3 (0.02-0.5); Eosinophils Percent Manual 1 % (0-4); Lymphocytes Absolute Manual 7.25 K/mm3 (1.1-4.5); Monocytes Absolute Manual 1.41 K/mm3 (0.1-0.90); Monocytes Percent Manual 8 % (3-9); Neutrophils Absolute Manual 8.85 K/mm3 (1.7-7.2); Neutrophils Percent Manual 48 % (46-73); Platelet Estimate Increased (Adequate); Total Cells Counted 100
[2023-04-11 15:21] LABS: Anisocytosis 2+ (NORMAL); Schistocytes None Seen (NORMAL)
--- NOTE | 2023-04-11 15:31 | ED.ABDPAIN ---
HPI - Abdominal Pain General Chief Complaint: Abdominal Pain Stated Complaint: abd pain Time Seen by Provider: 04/11/23 15:27 History of Present Illness HPI narrative: 42-year-old female presents to the emergency room today for complaints of right upper quadrant abdominal pain that started about a week ago. She has had diarrhea stools for the past week. No blood in her stools. She has had nausea but no vomiting. No fever or chills. She has a history of ulcerative colitis. She has previously had her appendix, spleen and gallbladder removed. Related Data Home Medications Medication Instructions Recorded Confirmed estradiol 2 mg tablet 2 mg PO DAILY 03/10/21 04/23/22 famotidine 40 mg tablet 40 mg PO DAILY 03/10/21 04/23/22 fenofibrate 160 mg tablet 160 mg PO DAILY 03/10/21 04/23/22 hydroxychloroquine 200 mg tablet 200 mg PO DAILY 03/10/21 04/23/22 losartan 50 mg tablet 50 mg PO DAILY 03/10/21 04/23/22 venlafaxine 150 mg 150 mg PO DAILY 03/10/21 04/23/22 capsule,extended release 24 hr budesonide 3 mg 3 mg PO DAILY 04/23/22 04/23/22 capsule,delayed,extended release folic acid 1 mg tablet 1 mg PO DAILY 04/23/22 04/23/22 gabapentin 100 mg capsule 100 mg PO DAILY 04/23/22 04/23/22 multivitamin with folic acid 400 400 tablet PO DAILY 04/23/22 04/23/22 mcg tablet (Daily-Solomon (with folic acid)) omeprazole 40 mg capsule,delayed 40 mg PO DAILY 04/23/22 04/23/22 release ondansetron 8 mg disintegrating 8 mg PO DAILY 04/23/22 04/23/22 tablet quetiapine 300 mg tablet 300 mg PO DAILY 04/23/22 04/23/22 zolpidem 10 mg tablet 10 mg PO DAILY 04/23/22 04/23/22 Allergies Allergy/AdvReac Type Severity Reaction Status Date / Time Penicillins Allergy Unknown Verified 04/23/22 12:23 Review of Systems Review of Systems: CONSTITUTIONAL: Denies fever, chills, or sweats. EYES: Denies visual changes, redness, or discharge. ENT: Denies rhinorrhea, congestion, sore throat, or otalgia. CARDIOVASCULAR: Denies chest pain, palpitations, or edema. RESPIRATORY: Denies cough or dyspnea. GASTROINTESTINAL: as per HPI GENITOURINARY: Denies dysuria or hematuria. SKIN: Denies rash or itching. MUSCULOSKELETAL: Denies back pain, joint pain, or myalgia. NEUROLOGIC: Denies headache, numbness, dizziness, or weakness. PSYCHIATRIC: Denies anxiety or depression. PMFSH Past Medical History Medical History Crohn's disease Depression with anxiety Dyslipidemia Hemolytic anemia Status post splenectomy. Hypertension Hypothyroidism Rheumatoid arthritis Sjogren's syndrome Surgical History Surgical History History of cholecystectomy History of hysterectomy History of partial thyroidectomy History of splenectomy (2006) History of ventral hernia repair Family History Family History Other Hypertension Social History Social History Social History: Surrogate medical decision maker: Enrique Del Toro, significant other. Code status: Full code. Smoking packs per day: 0.5 Smoking cigarettes per day: 10.0 Years smoked: 25 Smoking pack-years: 12.50 Smoking status: Current every day smoker Tobacco type: cigarettes Alcohol intake: never Alcohol use details: occasional Substance use: never Living arrangements: with family Additional occupation/education comments: On disability. Spiritual care concerns: No Exam Narrative: GENERAL: Well-appearing, well-nourished, and in no acute distress. HEAD: Normocephalic, atraumatic. NECK: Supple. No adenopathy or masses. CHEST: Clear to auscultation. No respiratory distress. No wheezes rales or rhonchi HEART: Regular rate and rhythm. No murmur heard. Normal peripheral pulses. ABDOMEN: Soft, tender RUQ, nondistended, normal active bowel so
== END 2023-04-11 17:23 | disposition home or self-care (01) ==
PROVIDERS: Emergency Medicine; Emergency Provider Nurse Practitioner Family; PCP Physician Assistant
DX: K52.9 Noninfective gastroenteritis and colitis, unspecified (principal); K50.90 Crohn's disease, unspecified, without complications; I10 Essential (primary) hypertension; E03.9 Hypothyroidism, unspecified; D58.9 Hereditary hemolytic anemia, unspecified; M06.9 Rheumatoid arthritis, unspecified; M35.00 Sjogren syndrome, unspecified; F41.8 Other specified anxiety disorders; F17.210 Nicotine dependence, cigarettes, uncomplicated; Z90.81 Acquired absence of spleen; Z90.49 Acquired absence of other specified parts of digestive tract; Z90.711 Acquired absence of uterus with remaining cervical stump
CPT/HCPCS: 36415; 74177; 80053; 81001; 81025; 83690; 85025; 99284; Q9967

== ENCOUNTER 2024-05-04 18:14 | Emergency (ER) | payer OTHER, SELFPAY ==
[2024-05-04 18:52] VITALS: BP 123/79; PULSE 78; RESP 20; TEMP 35.9; O2SAT 100
--- NOTE | 2024-05-04 19:58 | ED.SKABFB ---
HPI - Skin/Abscess/Foreign Bdy General Chief complaint: Skin/Abscess/Foreign Body Stated complaint: bug bite Time Seen by Provider: 05/04/24 19:56 Source: patient and family (daughter) Mode of arrival: ambulatory Limitations: no limitations History of Present Illness HPI narrative: patient presents with concern which she believes is a bug bite to her left arm sustained over though last weekend after camping. She did not visualize something but has had the same wound at her left elbow. She denies any fevers but she has been having chills and itchiness to the site as well as headaches ever since. She also notes that her blood pressure has been quite variable and she called her primary care physician to discuss both things with them. She is on metoprolol and losartan with no dose changes recently. She notes that her blood pressure readings have been as follows: 115/54, 104/79, 141/95, 127/92. PCP Moises Buchanan @ [facility] in [place]. she denies any paresthesias. Related Data Home Medications Medication Instructions Recorded Confirmed estradiol 2 mg tablet 2 mg PO DAILY 03/10/21 04/23/22 famotidine 40 mg tablet 40 mg PO DAILY 03/10/21 04/23/22 fenofibrate 160 mg tablet 160 mg PO DAILY 03/10/21 04/23/22 hydroxychloroquine 200 mg tablet 200 mg PO DAILY 03/10/21 04/23/22 losartan 50 mg tablet 50 mg PO DAILY 03/10/21 04/23/22 venlafaxine 150 mg 150 mg PO DAILY 03/10/21 04/23/22 capsule,extended release 24 hr budesonide 3 mg 3 mg PO DAILY 04/23/22 04/23/22 capsule,delayed,extended release folic acid 1 mg tablet 1 mg PO DAILY 04/23/22 04/23/22 gabapentin 100 mg capsule 100 mg PO DAILY 04/23/22 04/23/22 multivitamin with folic acid 400 400 tablet PO DAILY 04/23/22 04/23/22 mcg tablet (Daily-Solomon (with folic acid)) omeprazole 40 mg capsule,delayed 40 mg PO DAILY 04/23/22 04/23/22 release ondansetron 8 mg disintegrating 8 mg PO DAILY 04/23/22 04/23/22 tablet quetiapine 300 mg tablet 300 mg PO DAILY 04/23/22 04/23/22 zolpidem 10 mg tablet 10 mg PO DAILY 04/23/22 04/23/22 Allergies Allergy/AdvReac Type Severity Reaction Status Date / Time Penicillins Allergy Unknown Verified 04/23/22 12:23 [facility] Past Medical History Medical History Crohn's disease Depression with anxiety Dyslipidemia Hemolytic anemia Status post splenectomy. Hypertension Hypothyroidism Rheumatoid arthritis Sjogren's syndrome Surgical History Surgical History History of cholecystectomy History of hysterectomy History of partial thyroidectomy History of splenectomy (2006) History of ventral hernia repair Family History Family History Other Hypertension Social History Social History Social History: Surrogate medical decision maker: Enrique Del Toro, significant other. Code status: Full code. Smoking packs per day: 0.5 Smoking cigarettes per day: 10.0 Years smoked: 25 Smoking pack-years: 12.50 Smoking status: Current every day smoker Tobacco type: cigarettes Alcohol intake: never Alcohol use details: occasional Substance use: never Living arrangements: with family Additional occupation/education comments: On disability. Spiritual care concerns: No Exam Narrative: GENERAL: Well-appearing, well-nourished, and in no acute distress. HEAD: Normocephalic, atraumatic. EYES: Non injected, non icteric ENT: Nares clear, no rhinorrhea or epistaxis. NECK: Supple. CHEST: Speaking in full sentences. No respiratory distress. HEART: Regular rate and rhythm. . ABDOMEN: Soft, nondistended. EXTREMITIES: Normal range of motion. No lower extremity edema. SKIN: Warm, dry. Subcentimeter lesion in flexor surface of left elbow. Very mildly ulcerated but without eryt
[2024-05-04] MEDS: DOXYCYCLINE HYCLATE 100 MG TABLET PO (20:19)
[2024-05-04 20:57] VITALS: BP 120/86; PULSE 86; RESP 16; TEMP 37.2; O2SAT 98
== END 2024-05-04 20:58 | disposition home or self-care (01) ==
PROVIDERS: Emergency Provider Student in an Organized Health Care Education/Training Program; PCP Physician Assistant Medical
DX: S50.362A Insect bite (nonvenomous) of left elbow, initial encounter (principal); I10 Essential (primary) hypertension; E89.0 Postprocedural hypothyroidism; E78.5 Hyperlipidemia, unspecified; M06.9 Rheumatoid arthritis, unspecified; M35.00 Sjogren syndrome, unspecified; K50.90 Crohn's disease, unspecified, without complications; F41.8 Other specified anxiety disorders; F17.210 Nicotine dependence, cigarettes, uncomplicated; Z90.49 Acquired absence of other specified parts of digestive tract; Z90.710 Acquired absence of both cervix and uterus; Z90.81 Acquired absence of spleen; Z79.899 Other long term (current) drug therapy; W57.XXXA Bitten or stung by nonvenomous insect and other nonvenomous arthropods, initial encounter
CPT/HCPCS: 99283; A9270

== ENCOUNTER 2024-08-13 02:20 | Inpatient (IN) | payer OTHER, SELFPAY ==
[2024-08-13] VITALS (27 sets, daily range): BP systolic 122–155; BP diastolic 65–102; PULSE 88–118; RESP 14–37; TEMP 36.7–37.4; O2SAT 95–100; BMI 31.4
--- NOTE | ~2024-08-13 | CT_ITS ---
EXAMINATION: CT brain wo con DATE: 08/13/2024 03:19 INDICATION: Altered mental status. TECHNIQUE: Computed tomography (CT) of the head was performed without intravenous contrast. The mA wa s adjusted according to patient size. Iterative reconstruction technique was employed. The dose-lengt h product was 1362.00 mGy-cm. COMPARISON: Head CT 04/23/2022 FINDINGS: There is no intracranial hemorrhage, acute infarction, or abnormal intracranial mass lesion . The ventricles are normal in size. There is mucosal thickening in the paranasal sinuses. The orbits are normal. The mastoid air cells are normal. IMPRESSION: 1. Normal brain. Reviewed, dictated and finalized at location A. RMATION TECHNOLOGY SPECIALIST IMPRESSION: 1. Normal brain.
--- NOTE | ~2024-08-13 | XR_ITS ---
EXAMINATION: XR chest 1V portable DATE: 08/13/2024 06:22 INDICATION: Pneumonia. TECHNIQUE: A single frontal view of the chest was obtained. COMPARISON: Chest 2 views 02/23/2022, CT abdomen and pelvis 04/11/2023 FINDINGS: There is no pneumonia, pleural effusion, or pneumothorax. The heart size is normal. IMPRESSION: 1. No acute cardiopulmonary disease. Reviewed, dictated and finalized at location A. E SPLICER HELPER
--- NOTE | ~2024-08-13 | XR_ITS ---
EXAMINATION: XR lumbar puncture diagnostic DATE: 08/13/2024 17:47 INDICATION: Immunosuppressed patient positioning with sepsis and confusion TECHNIQUE: The procedure including the risks and benefits was discussed with the patient. Risks discu ssed included spinal headache, cerebrospinal fluid leak, bleeding, and infection. The patient underst ood the risks and agreed to proceed. A timeout was performed to verify the patient's name, date of , and procedure to be performed. The skin overlying the L4-L5 level was prepped and draped in usual sterile fashion. Subcutaneous 1% lidocaine was used for local anesthesia. A 22 gauge spinal n eedle was advanced under fluoroscopic guidance. The needle was removed and the entry site was cleaned and dressed. There were no immediate complications. A total of 1 fluoroscopic image and one overhea d radiograph were obtained. The amount of fluoroscopy time used during this procedure was 0.1 minutes . Total DAP was 0.199 Gycm^2. The patient was returned to the floor in unchanged condition. FINDINGS: Real-time fluoroscopy demonstrates the needle at the L4-L5 level. Opening pressure was 24 c m water. (Normal range is variably defined as 6-20 cm water and up to 25 cm water in obese patients. Pressure >25 cm water is one of the modified Dandy criteria for idiopathic intracranial hypertension) . 12 mL of clear, colorless fluid was collected in 4 tubes. IMPRESSION: 1. Successful fluoro-guided lumbar puncture with borderline elevated opening pressure of 24 cm water. Reviewed, dictated and finalized at location A. D PARTY MANAGER IMPRESSION: 1. Successful fluoro-guided lumbar puncture with borderline elevated opening pr essure of 24 cm water.
--- NOTE | ~2024-08-13 | MR_ITS ---
EXAMINATION: MR brain/brain stem wo/w con DATE: 08/13/2024 16:28 INDICATION: Confusion TECHNIQUE: Magnetic resonance imaging (MRI) of the brain and brainstem was performed without and with 13 mL Multihance intravenous contrast. Sequences included sagittal and axial T1-weighted SE, axial d iffusion-weighted FS SE, axial T2*-weighted GRE, axial 3D SWAN, axial T2-weighted FLAIR, and axial T2 -weighted FSE. Postcontrast axial and coronal T1-weighted SE was obtained. Apparent diffusion coeffic ient (ADC) maps were created. COMPARISON: Head CT dated 08/13/2024 FINDINGS: There are no areas of restricted diffusion to suggest acute infarction. No intracranial hemorrhage or abnormal intracranial mass lesion. There are a few small foci of nonspecific increased T2-weighted s ignal intensity in the cerebral white matter which is within normal limits for age. There are no intr aparenchymal signal abnormalities seen on the other pulse sequences. The ventricles are symmetric and normal in size. There are no abnormal extra-axial fluid collections. Flow voids are seen in the cere bral arteries on the T2-weighted sequences consistent with their expected patency. Mucosal thickening and nonenhancing mucous throughout the paranasal sinuses most prominent in the right maxillary sphen oid and ethmoid sinuses. Visualized orbits and soft tissues are unremarkable. There are no areas of a bnormal enhancement on the post contrast images. IMPRESSION: 1. Normal for age brain with no acute intracranial process or abnormally enhancing brain lesions. 2. Mucosal thickening and mucous in the paranasal sinuses suggestive of acute sinusitis. Reviewed, dictated and finalized at location A. ICE STATION EQUIPMENT MECHANIC IMPRESSION: 1. Normal for age brain with no acute intracranial process or abnormally enhanc ing brain lesions. 2. Mucosal thickening and mucous in the paranasal sinuses suggestive of acute s inusitis.
--- NOTE | ~2024-08-13 | CT_ITS ---
EXAMINATION: CT chest abdomen pelvis w con DATE: 08/13/2024 13:41 INDICATION: Abdominal pain and sepsis TECHNIQUE: Computed tomography (CT) of the chest, abdomen, and pelvis was performed with 100 mL Omnip aque-350 intravenous contrast. Automated exposure control and iterative reconstruction technique were employed. The dose-length product was 570.35 mGy-cm. COMPARISON: None FINDINGS: CHEST CT: Chronic volume loss in the right upper lobe. No pneumonia, pulmonary edema, pleural effusion or pneum othorax. Heart size is normal. No pericardial effusion. Thoracic aorta is normal in caliber with no d issection. No pathologically enlarged thoracic lymphadenopathy. Mild thoracic spondylosis. ABDOMEN/PELVIS CT: Cholecystectomy clips the gallbladder fossa. Liver, bilateral adrenal glands and kidneys are normal. Status post splenectomy. Density at the distal tip of the tail the pancreas which could represent eden cific lesions or more likely surgical clips versus small suture line. Status post appendectomy with s uture line at the tip of the cecum. No bowel obstruction or abnormal bowel wall thickening. Bladder i s normal. The uterus is not identified and has likely been surgically resected. No free intraperitone al gas or fluid. No pathologically enlarged abdominal or pelvic lymphadenopathy. L5 spondylolysis wit h bilateral pars interarticularis defects but no spondylolisthesis. There is diffuse sclerosis of the bones IMPRESSION: 1. No acute cardiopulmonary disease or acute intra-abdominal/pelvic process. 2. Status post cholecystectomy, splenectomy, appendectomy and hysterectomy. 3. Nonspecific diffuse sclerosis of the bones. Differential would include malignancy (lymphoma, leuke ady or metastatic disease in the appropriate clinical setting), myelofibrosis, mastocytosis, sickle c ell disease, hyperthyroidism and hyperparathyroidism. Reviewed, dictated and finalized at location A. RTISING ACCOUNT EXECUTIVE IMPRESSION: 1. No acute cardiopulmonary disease or acute intra-abdominal/pelvic process. 2. Status post cholecystectomy, splenectomy, appendectomy and hysterectomy. 3. Nonspecific diffuse sclerosis of the bones. Differential would include malig wilberto (lymphoma, leukemia or metastatic disease in the appropriate clinical set ting), myelofibrosis, mastocytosis, sickle cell disease, hyperthyroidism and hy perparathyroidism.
--- NOTE | 2024-08-13 02:22 | ECG_ITS ---
Test Date: 2024-08-13 02:40:27 Measurements Intervals [place] Rate: 107 P: 71 MT: 152 QRS: 74 QRSD: 98 T: -68 QT: 273 QTc: 364 Interpretive Statements SINUS TACHYCARDIA ST-T WAVE ABNORMALITY IN ANTEROLAT/INF LEADS- CONSIDER ISCHEMIA BASELINE ARTIFACT- I, II, III, AVR, AVL, AVF, V1-V2 ABNORMAL ECG No previous ECG available for comparison Electronically Signed On 08-13-2024 06:25:52 [employer] by Jesus Macias D.O.
[2024-08-13 02:48] LABS: Basophils Absolute Auto 0.2 K/mm3 (0.0-0.1); Basophils Percent Auto 1.1 % (0.2-1.2); Eosinophils Absolute Auto 0.1 K/mm3 (0-0.3); Eosinophils Percent Auto 0.3 % (0-4.4); Hematocrit 31.1 % (37.0-47.0); Immature Granulocyte Absolute 0.36 K/mm3 (0.00-0.031); Immature Granulocyte Percent A 1.9 % (0-0.5); Lymphocytes Absolute Auto 4.62 K/mm3 (0.9-3.2); Lymphocytes Percent Auto 24.8 % (18.3-44.2); Mean Corpuscular HGB Conc 35.4 g/dl (32-36); Mean Corpuscular Hemoglobin 33.2 pg (26-34); Mean Platelet Volume 8.5 fl (7.4-10.4); Monocytes Absolute Auto 1.8 K/mm3 (0.1-0.6); Monocytes Percent Auto 9.5 % (2.6-8.5); Neutrophils Absolute Auto 11.6 K/mm3 (1.3-6.7); Neutrophils Percent Auto 62.4 % (45.5-73.1); Platelet Count Result 676 k/mm3 (150-375); Red Blood Count 3.31 M/mm3 (4.2-5.4); Red Cell Distribution Width 14.6 % (11.5-14.5); White Blood Count 18.6 K/mm3 (4.5-10.0)
[2024-08-13 03:02] LABS: INR 1.2; Prothrombin Time 15.6 Seconds (11.1-14.7)
[2024-08-13 03:03] LABS: Alanine Aminotransferase 54 U/L (6-35); Albumin Level 3.8 g/dL (3.5-5.1); Alkaline Phosphatase 133 U/L (38-126); Anion Gap 13 mmol/L (4-12); Aspartate Amino Transferase 61 U/L (14-36); Bilirubin,Total 0.9 mg/dL (0.2-1.3); Blood Urea Nitrogen 10 mg/dL (7-17); Calcium 9.2 mg/dL (8.4-10.2); Carbon Dioxide 17 mmol/L (22-30); Chloride 100 mmol/L (98-107); Estimated Glomerular Filt Rate > 60; Glucose 108 mg/dL (65-110); Partial Thromboplastin Time 30.4 Seconds (22.3-36.8); Potassium 2.8 mmol/L (3.4-5.0); Sodium 130 mmol/L (137-145)
[2024-08-13] MEDS: POTASSIUM CHLORIDE INJ 40 MEQ in SODIUM CHLORIDE 0.9% IV 500 ML 130 MEQ IVPB (03:39)
[2024-08-13] MEDS: POTASSIUM CHLORIDE 20 MEQ PACKET (FOR LIQUID) 40 MEQ PO ×2 (03:44→18:35)
[2024-08-13 04:52] LABS: Amphetamine Screen Urine Negative (Negative); Barbiturate Screen Urine Negative (Negative); Benzodiazepines Screen Urine Negative (Negative); Cannabinoid Screen Urine Negative (Negative); Cocaine Screen Urine Negative (Negative); Methadone Screen Urine Negative (Negative); Opiate Screen Urine Negative (Negative); Phencyclidine Screen Urine Negative (Negative)
[2024-08-13 05:45] LABS: Add Urine Microscopic? YES; Appearance Urine Cloudy (Clear); Bilirubin Urine 2+ (Negative); Blood Urine Negative (Negative); Color Urine Dark Yellow (Yellow); Glucose Urine UA Negative (Negative); Ketones Urine 1+ mg/dL (Negative); Leukocyte Esterase Ur Trace LEU/UL (Negative); Nitrate Urine Negative (Negative); Protein Urine 1+ mg/dL (Negative); Specific Grav Ur 1.029 (1.001-1.035)
[2024-08-13 05:49] LABS: WBC Urine 0-5 /hpf (0-3)
[2024-08-13 05:50] LABS: Acetaminophen < 10 ug/mL (10-30); Ethanol < 10 mg/dL (<10); Salicylate < 1.0 mg/dL (2-20)
[2024-08-13 06:18] LABS: Thyroid Stimulating Hormone Reflex 0.019 uIU/mL (0.465-4.68)
[2024-08-13] MEDS: LACTATED RINGERS 1,000 ML 999 ML IV CONT (06:40)
--- NOTE | 2024-08-13 06:47 | PC.NURSE ---
Patient used BSC with stand by assist. Patient had steady gait. Patient saying yes and no to questions that are asked but still not making sense when speaking sentences. Patient back in bed with stand by assist. Patient has call ight within reach.
--- NOTE | 2024-08-13 06:50 | ED.AMS ---
HPI - Altered Mental Status General Chief Complaint: Altered Mental Status Stated Complaint: she is out of her mind babbling words; Time Seen by Provider: 08/13/24 05:17 History of Present Illness HPI narrative: 43-year-old female with a past medical history significant for hypothyroidism, rheumatoid arthritis, Crohn's disease, Sjogren syndrome. Today patient presents to the emergency depart with a chief complaint of hypokalemia and transient altered mental status according to the family who accompanies her. Patient was recently seen and discharged from [facility] at around midnight. They were there for similar complaints and after workup were found to have a potential urinary tract infection as well as hypokalemia. There discharged with therapies for both but proceeded to this ER for 2nd opinion. Patient herself has intermittent episodes where she is lucid and able answer all my questions appropriately but also seems to have intermittent episodes where she only nods yes or no and that does not verbalize. states that this happens to her several times but is not sure why. No reported history of alcohol or drug use. and biter at bedside for collateral information. Patient denies any injuries. Family reports no suspected injuries or traumas or any ingestions. On review of the EMR patient has had several visits for electrolyte disturbances and thyroid issues in the past. She is on medications for anxiety as well as sleep and medications for her autoimmune disorders including hydroxychloroquine. no recent reported changes to these medications. Related Data Home Medications Medication Instructions Recorded Confirmed estradiol 2 mg tablet 2 mg PO DAILY 03/10/21 04/23/22 famotidine 40 mg tablet 40 mg PO DAILY 03/10/21 04/23/22 fenofibrate 160 mg tablet 160 mg PO DAILY 03/10/21 04/23/22 hydroxychloroquine 200 mg tablet 200 mg PO DAILY 03/10/21 04/23/22 losartan 50 mg tablet 50 mg PO DAILY 03/10/21 04/23/22 venlafaxine 150 mg 150 mg PO DAILY 03/10/21 04/23/22 capsule,extended release 24 hr budesonide 3 mg 3 mg PO DAILY 04/23/22 04/23/22 capsule,delayed,extended release folic acid 1 mg tablet 1 mg PO DAILY 04/23/22 04/23/22 gabapentin 100 mg capsule 100 mg PO DAILY 04/23/22 04/23/22 multivitamin with folic acid 400 400 tablet PO DAILY 04/23/22 04/23/22 mcg tablet (Daily-Solomon (with folic acid)) omeprazole 40 mg capsule,delayed 40 mg PO DAILY 04/23/22 04/23/22 release ondansetron 8 mg disintegrating 8 mg PO DAILY 04/23/22 04/23/22 tablet quetiapine 300 mg tablet 300 mg PO DAILY 04/23/22 04/23/22 zolpidem 10 mg tablet 10 mg PO DAILY 04/23/22 04/23/22 Allergies Allergy/AdvReac Type Severity Reaction Status Date / Time Penicillins Allergy Unknown Verified 08/13/24 02:35 Review of Systems Review of Systems: As reviewed above in [facility] Past Medical History Medical History Crohn's disease Depression with anxiety Dyslipidemia Hemolytic anemia Status post splenectomy. Hypertension Hypothyroidism Rheumatoid arthritis Sjogren's syndrome Surgical History Surgical History History of cholecystectomy History of hysterectomy History of partial thyroidectomy History of splenectomy (2006) History of ventral hernia repair Family History Family History Other Hypertension Social History Social History Social History: Surrogate medical decision maker: Enrique Del Toro, significant other. Code status: Full code. Smoking packs per day: 0.5 Smoking cigarettes per day: 10.0 Years smoked: 25 Smoking pack-years: 12.50 Smoking status: Current every day smoker Tobacco type: cigarettes Alcohol intake: never Alcohol use details: occasional Substance use: never Living arrangements: with family Additional occupation/education comments: On disability. Spiritual care concerns: No Exam Narrative: GENERAL: overall well-appearing, slightly disheveled but not any acute distress. Intermittent episodes where she is awake and oriented able answer questions and then intermittent episodes where she only nods yes or no or speaks nonsense HEAD: [Normocephalic, atraumatic.] EYES: [PERRLA and EOMI.] ENT: Nares clear, no rhinorrhea or epistaxis. Mucous membranes moist. NECK: Supple. CHEST: [Clear to auscultation. No respiratory distress.] HEART: [Regular rate and rhythm]. No murmur heard. [Normal peripheral pulses.] ABDOMEN: [Soft, nondistended], [nontender], [No rigidity or guarding] EXTREMITIES: Normal range of motion. [No edema.] SKIN: Warm, dry, no rash. NEURO: no obvious appreciable focal deficits, no facial asymmetries, extraocular movements are full, no nystagmus. Symmetric strength and sensation throughout both arms and legs. No ataxia. PSYCH: difficult to fully assess, unclear she has volitional intermittent episodes of these mental status changes or if they organic in nature. Does not appear emotionally labile or expressing any kind of suicidality or homicidality or seem to be responding to any kind of internal stimulus Course Vital Signs Vital signs: Vital Signs Temperature 37.4 C 08/13/24 02:27 Pulse Rate 108 H 08/13/24 02:27 Respiratory Rate 20 08/13/24 02:27 Blood Pressure 131/102 H 08/13/24 02:27 Pulse Oximetry 97 08/13/24 02:27 Oxygen Delivery Room Air 08/13/24 02:27 Temperature 37.4 C 08/13/24 02:27 Pulse Rate 114 H 08/13/24 06:15 Respiratory Rate 25 H 08/13/24 06:15 Blood Pressure 155/91 H 08/13/24 06:01 Pulse Oximetry 97 08/13/24 06:15 Oxygen Delivery Room Air 08/13/24 02:45 MDM - Altered Mental Status MDM Narrative Medical decision making narrative: 43-year-old female presenting to the emergency department for evaluation of acute hypokalemia and transient mental status changes throughout the day. She was just discharged from [facility] with a diagnosis of urinary tract infection and acute hypokalemia and given medications until to follow-up outpatient. She was discharged at midnight and family immediately drove her to the emergency department here for 2nd opinion. Patient has had these transient episodes where she goes between acting appropriately and then talking gibberish. Family states that this is somewhat happen before but not to this extent. They deny any kind of alcohol or drugs or any kind of toxins. Patient has intermittent episodes of lucidity and able to answer my questions but then apparently has episodes where she only is able to nod yes or no and seem UA volitionally uncooperative with examination or history taking further. There is no apparent focal deficits on her examination she has symmetric strength and sensation able to move all extremities equally without any facial asymmetries or obvious signs or symptoms of a stroke. Symptoms are going on and off throughout the day. Symptoms could be secondary to the urinary tract infection she was told she had or secondary to electrolyte disturbances which are less likely. Psychiatric illness or disturbances or more likely at this time. She does have some autoimmune disorders which could be contributing as well as hypothyroidism. ultimately a very broad workup was ordered including a CT of the head, toxicological screen, urine drug screen, CBC, CMP, lipase, TSH, EKG and chest x-ray. Workup revealed a leukocytosis of 18.6 which is chronic and at her baseline according to the previous EMR previous admissions to the hospital this is thought to be secondary to her chronic steroids or other Potential chronic causes. she is hypokalemic at 2.8 with some other electrolyte disturbances including chronic hyponatremia which is similar to her previous levels. Normal renal function panel. Normal glucose. Slightly elevated ALT and AST but not markedly elevated. Negative lipase. TSH was low at 0.019 with reflex T4 that is still pending. She previously elevated TSH levels and unclear if she had any recent medication changes with her thyroid medication. Urinalysis did not show any signs or symptoms of urinary tract infection as there are no convincing markers of infection at this time. Toxicological screens were negative and urine drug screen is negative. Tylenol salicylate and ethanol levels were all negative. CT of the head showed no acute cranial process such as a stroke or brain bleed. Chest x-ray showed no acute cardiothoracic process. Patient was given repletion of her hypokalemia with both intravenous and p.o. potassium. Ultimately patient or at admission to the hospital for continued evaluation and treatment on inpatient basis given the unexplained mental status changes which could be organic or psychiatric in nature. She does need continuation monitoring given the hypokalemia. EKG does not show any kind of acute arrhythmia or disturbances from electrolyte derangement. I discussed the case with the admitting hospitalist Dr. Ha who accepted the patient after we went over patient's imaging studies, laboratory assessment, plan of care. He recommended consult Neurology for potential assessment and maybe even an MRI on inpatient basis. She was admitted to a telemetry monitored bed and this was ordered. Medical Records Attestation: I reviewed the patient's medical records. Lab Data Attestation: I reviewed the patient's lab results. 08/13/24 02:40 08/13/24 02:40 Labs: Lab Results 08/13/24 08/13/24 Range/Units 02:40 04:11 WBC 18.6 H (4.5-10.0) K/mm3 RBC 3.31 L (4.2-5.4) M/mm3 Hgb 11.0 L (12.0-15.0) g/dL Hct 31.1 L (37.0-47.0) % MCV 94.0 (80-100) fl MCH 33.2 (26-34) pg MCHC 35.4 (32-36) g/dl RDW 14.6 H (11.5-14.5) % Plt Count 676 H (150-375) k/mm3 MPV 8.5 (7.4-10.4) fl Immature Gran % (Auto) 1.9 H (0-0.5) % Neut % (Auto) 62.4 (45.5-73.1) % Lymph % (Auto) 24.8 (18.3-44.2) % Sequoyah % (Auto) 9.5 H (2.6-8.5) % Eos % (Auto) 0.3 (0-4.4) % Baso % (Auto) 1.1 (0.2-1.2) % Lymph # (Auto) 4.62 H (0.9-3.2) K/mm3 Sequoyah # (Auto) 1.8 H (0.1-0.6) K/mm3 Eos # (Auto) 0.1 (0-0.3) K/mm3 Baso # (Auto) 0.2 H (0.0-0.1) K/mm3 Abs Immat Gran (auto) 0.36 H (0.00-0.031) K/mm3 Absolute Neuts (auto) 11.6 H (1.3-6.7) K/mm3 Absolute Nucleated RBC 0.000 (0.0-0.012) K/mm3 Nucleated RBC % 0.0 (0.0-0.2) % PT 15.6 H (11.1-14.7) Seconds INR 1.2 APTT 30.4 (22.3-36.8) Seconds Sodium 130 L (137-145) mmol/L Potassium 2.8 L* (3.4-5.0) mmol/L Chloride 100 (98-107) mmol/L Carbon Dioxide 17 L (22-30) mmol/L Anion Gap 13 H (4-12) mmol/L BUN 10 D (7-17) mg/dL Creatinine 0.50 L (0.7-1.0) mg/dL Estim Creat Clear Calc Not Reportable Estimated GFR > 60 (59 - ) Glucose 108 (65-110) mg/dL Calcium 9.2 (8.4-10.2) mg/dL Total Bilirubin 0.9 (0.2-1.3) mg/dL AST 61 H (14-36) U/L ALT 54 H (6-35) U/L Alkaline Phosphatase 133 H (38-126) U/L Total Protein 7.0 (6.3-8.2) g/dL Albumin 3.8 (3.5-5.1) g/dL TSH (Reflex) 0.019 L (0.465-4.68) uIU/mL Free T4 Pending Urine Color Dark yellow (Yellow) Urine Appearance Cloudy H (Clear) Urine pH 7.0 (5.0-9.0) Ur Specific [place] 1.029 (1.001-1.035) Urine Protein 1+ H (Negative) mg/dL Urine Glucose (UA) Negative (Negative) mg/dL Urine Ketones 1+ H (Negative) mg/dL Ur Blood (Man) Negative (Negative) Urine Nitrate Negative (Negative) Urine Bilirubin 2+ H (Negative) Urine Urobilinogen 1.0 (<2.0) mg/dL Leukocyte Esterase Rfl Trace H (Negative) JEFFERY/UL Urine RBC 3-5 H (0-2) /hpf Urine WBC 0-5 (0-3) /hpf Salicylates < 1.0 L (2-20) mg/dL Urine Opiates Screen Negative (Negative) Urine Methadone Screen Negative (Negative) Acetaminophen < 10 L (10-30) ug/mL Ur Barbiturates Screen Negative (Negative) Ur Phencyclidine Scrn Negative (Negative) Ur Amphetamine Screen Negative (Negative) U Benzodiazepines Scrn Negative (Negative) Urine Cocaine Screen Negative (Negative) U Cannabinoids Screen Negative (Negative) Ethyl Alcohol < 10 (<10) mg/dL Imaging Data Attestation: I personally reviewed and interpreted this imaging study as follows: My impression: Impressions Head CT 08/13/24 06:17 IMPRESSION: 1. Normal brain. Chest X-Ray 08/13/24 06:25 IMPRESSION: 1. No acute cardiopulmonary disease. Critical Care Time Critical Care Time Critical Care Time: Yes Total Critical Care Time: 35 Discharge Plan Discharge Clinical Impression: Acute hypokalemia, AMS (altered mental status) Patient Disposition: Still a Patient Condition: Stable Prescriptions: No Action losartan 50 mg tablet 50 mg PO DAILY famotidine 40 mg tablet 40 mg PO DAILY venlafaxine 150 mg capsule,extended release 24hr 150 mg PO DAILY estradiol 2 mg tablet 2 mg PO DAILY hydroxychloroquine 200 mg tablet 200 mg PO DAILY fenofibrate 160 mg tablet 160 mg PO DAILY budesonide 3 mg capsule,delayed,extend.release 3 mg PO DAILY quetiapine 300 mg tablet 300 mg PO DAILY omeprazole 40 mg capsule,delayed release(DR/EC) 40 mg PO DAILY ondansetron 8 mg tablet,disintegrating 8 mg PO DAILY folic acid 1 mg tablet 1 mg PO DAILY gabapentin 100 mg capsule 100 mg PO DAILY zolpidem 10 mg tablet 10 mg PO DAILY multivitamin with folic acid [Daily-Solomon (with folic acid)] 400 mcg tablet 400 tablet PO DAILY levothyroxine [Synthroid] 150 mcg Tablet 150 mcg PO DAILY@0630 30 Days Qty: 30 0RF sulfamethoxazole-trimethoprim 800-160 mg tablet 1 tablet PO Q12H 10 Days Qty: 20 0RF hydrocodone-acetaminophen 5-325 mg tablet 1 tablet PO Q6H PRN (Reason: pain) Qty: 14 0RF sulfamethoxazole-trimethoprim 800-160 mg tablet 1 tablet PO Q12H 10 Days Qty: 20 0RF doxycycline hyclate 100 mg capsule 100 mg PO BID 10 Days Qty: 19 0RF Rx Instructions: start 05/05 AM; received first dose in ED 05/04 Follow-up/Referrals: Leander,CAMPBELL Stevens [Primary Care Provider] - Time of Disposition: 07:14
[2024-08-13 07:39] LABS: Free T4 Free Thyroxine Reflex 2.14 ng/dL (0.78-2.19)
--- NOTE | 2024-08-13 08:18 | PM.IMHP ---
H&P: HPI History of Present Illness Date/Time: 08/13/24 08:18 Chief Complaint: Altered mental status Narrative: 43yo female with Crohn's disease, depression with anxiety, hemolytic anemia, HTN, hypothyroidism, RA and Sjogrens on immunosuppressive agents here for altered mental status. Patient is awake and able to answer 'I got sick' when asked why she was here but otherwise, she answers simple yes/no questions and unable to provide details with garbled speech. She is having a productive cough. Cmplains of headache and puts her hand on her upper forehead. No vision or hearing changes. Having chest pain without radiation or SOB. No nausea of vomiting (Enrique said she had n/v 1 week ago). Having diarrhea but unclear how severe. Complains of dysuria. No hematuria. Having upper abdominal pain. Called the number in the chart and spoke with Enrique. She has been 'sick for 2 weeks'. Dtr was ill recently with dry cough but improving; she was given Amoxicillin without clear etiology. Patient was feeling well until 2 weeks ago when she started to feel ill after a flu shot with diarrhea and stool incontience. She did not speak with her GI doctor. Also somnolent. She was seen in UC in [place] where COVID negative. She does Crohns with diarrhea but not had confusion before. No chills but low grade fevers. No abx recently. Rare alcohol use but no drug use. No trauma. No melana or hematochezia. Symptoms worsened and she was noted to be confused. She was taken to ED at [place] where they diagnosed a UTI and hypokalemia and then discharged her home. Enrique is not sure how the patient got home. He took her to the ED here at [place]. In the ED, patient had a BP 131/102 and was tachycardic (108). She was not tachypneic or hypoxic. EKG showing sinus tachycardia with ST-T wave changes diffusely. Head CT showing normal brain. CXR was clear. WBC was 18.6K but has chronic leukocytosis. Hgb 11. Plt count elevated at 676K but also chronic. Sodium 130 with potassium 2.8, bicarb 17 (AG 13) and normal renal function. AST 61 and ALT 54 with AlkPhos 133 but normal bili. TSH low at 0.19 with normal FT4. UA with 1+ protein, 1+ ketones, 2+ bili and trace LE. No WBC but 3-5 RBC. Salicylates, EtOH and Acetaminophen levels negative. UDS negative. She was treated with IV fluids and admitted for further care. Review of Systems Review of Systems: ROS unobtainable: Yes unobtainable due to mental status PMFSH Past Medical History Medical History (Updated 08/13/24 @ 11:41 by Juan Jose Ha MD) Crohn's disease Depression with anxiety Dyslipidemia Hemolytic anemia Status post splenectomy. Hypertension Hypothyroidism Rheumatoid arthritis Sjogren's syndrome Surgical History Surgical History History of cholecystectomy History of hysterectomy History of partial thyroidectomy History of splenectomy (2006) History of ventral hernia repair Family History Family History Other Hypertension Social History Social History Social History: Surrogate medical decision maker: Enrique Del Toro, significant other. Code status: Full code. Smoking packs per day: 0.5 Smoking cigarettes per day: 10.0 Years smoked: 25 Smoking pack-years: 12.50 Smoking status: Current every day smoker Tobacco type: cigarettes Alcohol intake: never Alcohol use details: occasional Substance use: never Living arrangements: with family Additional occupation/education comments: On disability. Spiritual care concerns: No Meds Home Medications and Allergies Home Medications Medication Instructions Recorded Confirmed Type estradiol 2 mg tablet 2 mg PO DAILY 03/10/21 04/23/22 History famotidine 40 mg tablet 40 mg PO DAILY 03/10/21 04/23/22 History fenofibrate 160 mg tablet 160 mg PO DAILY 03/10/21 04/23/22 History hydroxychloroquine 200 mg tablet 200 mg PO DAILY 03/10/21 04/23/22 History losartan 50 mg tablet 50 mg PO DAILY 03/10/21 04/23/22 History venlafaxine 150 mg 150 mg PO DAILY 03/10/21 04/23/22 History capsule,extended release 24 hr budesonide 3 mg 3 mg PO DAILY 04/23/22 04/23/22 History capsule,delayed,extended release folic acid 1 mg tablet 1 mg PO DAILY 04/23/22 04/23/22 History gabapentin 100 mg capsule 100 mg PO DAILY 04/23/22 04/23/22 History multivitamin with folic acid 400 400 tablet PO DAILY 04/23/22 04/23/22 History mcg tablet (Daily-Solomon (with folic acid)) omeprazole 40 mg capsule,delayed 40 mg PO DAILY 04/23/22 04/23/22 History release ondansetron 8 mg disintegrating 8 mg PO DAILY 04/23/22 04/23/22 History tablet quetiapine 300 mg tablet 300 mg PO DAILY 04/23/22 04/23/22 History zolpidem 10 mg tablet 10 mg PO DAILY 04/23/22 04/23/22 History levothyroxine 150 mcg tablet 150 mcg PO DAILY@0630 1 month #30 04/24/22 Rx (Synthroid) tabs hydrocodone 5 mg-acetaminophen 325 1 tablet PO Q6H PRN pain #14 tabs 04/11/23 Rx mg tablet sulfamethoxazole 800 1 tablet PO Q12H 10 days #20 tabs 04/11/23 Rx mg-trimethoprim 160 mg tablet sulfamethoxazole 800 1 tablet PO Q12H 10 days #20 tabs 04/11/23 Rx mg-trimethoprim 160 mg tablet doxycycline hyclate 100 mg capsule 100 mg PO BID 10 days #19 caps 05/04/24 Rx Allergies Allergy/AdvReac Type Severity Reaction Status Date / Time Penicillins Allergy Unknown Verified 08/13/24 02:35 Vital Signs Vital Signs - 24 hr 08/13/24 02:27 08/13/24 02:45 08/13/24 02:50 Temperature 99.4 F Pulse Rate 108 H 107 H Respiratory Rate 20 31 H Blood Pressure 131/102 H Pulse Oximetry 97 99 Oxygen Delivery Room Air Room Air 08/13/24 03:05 08/13/24 03:27 08/13/24 03:30 Temperature Pulse Rate 107 H 115 H 112 H Respiratory Rate 16 21 H 19 Blood Pressure Pulse Oximetry Oxygen Delivery 08/13/24 03:54 08/13/24 04:00 08/13/24 04:15 Temperature Pulse Rate 112 H 104 H 108 H Respiratory Rate 34 H 37 H 19 Blood Pressure Pulse Oximetry Oxygen Delivery 08/13/24 04:30 08/13/24 04:31 08/13/24 05:06 Temperature Pulse Rate 113 H 113 H 110 H Respiratory Rate 21 H 24 H 14 Blood Pressure 137/82 Pulse Oximetry 95 99 100 Oxygen Delivery 08/13/24 05:15 08/13/24 05:16 08/13/24 05:45 Temperature Pulse Rate 114 H 113 H 114 H Respiratory Rate 18 19 22 H Blood Pressure 137/73 Pulse Oximetry 100 100 Oxygen Delivery 08/13/24 06:01 08/13/24 06:02 08/13/24 06:15 Temperature Pulse Rate 116 H 118 H 114 H Respiratory Rate 31 H 25 H 25 H Blood Pressure 155/91 H Pulse Oximetry 100 100 97 Oxygen Delivery 08/13/24 08:02 Temperature Pulse Rate 114 H Respiratory Rate 20 Blood Pressure 128/84 Pulse Oximetry 98 Oxygen Delivery Exam Narrative: AF 99.4 128/84 114 20 98% ra Gen - ill appearing female in no acute respiratory distress who is nontoxic-appearing lying semi recumbent in bed with dwarfism features HEENT - normocephalic. Atraumatic. Pupils equal round and reactive. Extraocular motions intact. Sclera clear and anicteric. Nares patent. Oropharynx was poorly visualized No oral lesions. Moist mucous membranes. Tongue was midline. Palate avelino symmetrically. No facial asymmetry. Neck - neck was supple with menigismus. No dominant adenopathy or masses. Smooth thyroid. Chest - lungs are clear to auscultation bilaterally. No wheezes or crackles. Breast exam was deferred. CV - heart was regular rate and rhythm and tachycardic. S1-S2. No murmurs gallops or rubs. Abd - abdomen was soft. Diffusely tender without guarding. Nondistended. Positive bowel sounds. No organomegaly or masses. Ext - no clubbing, cyanosis or edema. 2+ DP pulses bilaterally. Negative psoas sign. Normal ROM hips and knees. Neuro - patient is alert. No focal weakness. Can say yes/no clearly but with garbled speech. Psych - anxious and frustrated at times Skin - warm and dry. No rashes noted. small dried eschars noted to her toes. H&P: Results Labs Labs: Short CBC 08/13/24 Range/Units 02:40 WBC 18.6 H (4.5-10.0) K/mm3 Hgb 11.0 L (12.0-15.0) g/dL Hct 31.1 L (37.0-47.0) % Plt Count 676 H (150-375) k/mm3 BMP 08/13/24 02:40 Sodium 130 L Potassium 2.8 L* Chloride 100 Carbon Dioxide 17 L BUN 10 D Creatinine 0.50 L Glucose 108 Calcium 9.2 Liver Function 08/13/24 Range/Units 02:40 Total Bilirubin 0.9 (0.2-1.3) mg/dL AST 61 H (14-36) U/L ALT 54 H (6-35) U/L Alkaline Phosphatase 133 H (38-126) U/L Albumin 3.8 (3.5-5.1) g/dL Urine 08/13/24 Range/Units 04:11 Urine Color Dark yellow (Yellow) Urine Appearance Cloudy H (Clear) Urine pH 7.0 (5.0-9.0) Ur Specific [place] 1.029 (1.001-1.035) Urine Protein 1+ H (Negative) mg/dL Urine Glucose (UA) Negative (Negative) mg/dL Assessment and Plan Assessment and plan (1) Sepsis: Code(s): A41.9 - Sepsis, unspecified organism Status: Acute Assessment and Plan: Patient brought in for confusion after having 2 weeks of diarrhea, low grade fever and cough. She has elevated WBC but this seems to be chronic. Metabolic gap acidosis noted and tachycardic related to sepsis and/or dehydration from the diarrhea. Consider diarrhea/dehydration vs colitis vs bacteremia vs less likely FORENSIC LOCKSMITH infection. Check BCx. Check UCx. Check LA, CRP and PCT. Check CT Ch/A/P. Check stool studies. Start broad spectrum abx. (2) Diarrhea: Code(s): R19.7 - Diarrhea, unspecified Status: Acute Assessment and Plan: As above. Could be related to Crohns that has worsened. (3) AMS (altered mental status): Code(s): R41.82 - Altered mental status, unspecified Status: Acute Assessment and Plan: Patient appears slightly better than when described by Enrique possibly related to the IV fluids. CT brain showing no acute findings. UDS negative. No focal weakness. Suspect related to sepsis. Neurology consult. Workup as above. If no clear source, then proceed with MRI, EEG and/or LP (4) Hypokalemia: Code(s): E87.6 - Hypokalemia Status: Acute Assessment and Plan: Potassium 2.8 on admission. She is not on diuretics Probably related to diarrhea. Potassium replaced. Repeat K+ level and check Mg as well Continue to replace as needed. (5) Hyponatremia: Code(s): E87.1 - Hypo-osmolality and hyponatremia Status: Acute Assessment and Plan: Sodium low at 130 on admission related to dehydration. Sodium does run low frequently so may not be too far off her baseline. Follow (6) Leukocytosis: Code(s): D72.829 - Elevated white blood cell count, unspecified Status: Acute Assessment and Plan: WBC elevated on admission at 18.6K but this is a chronic issue for her. WBC runs 12-19K over the years and no normal values noted. Also with thrombocytosis with plt count 500-600K range over the years. [place] related to her autoimmune process. Check CRP and follow this if elevated (7) Crohn's disease: Code(s): K50.90 - Crohn's disease, unspecified, without complications Status: Acute Assessment and Plan: On budesonide at home. Home meds on hold. NPO (8) Rheumatoid arthritis: Code(s): M06.9 - Rheumatoid arthritis, unspecified Status: Acute Assessment and Plan: Patient with RA on [place]. Hold home meds (9) Hypothyroidism: Code(s): E03.9 - Hypothyroidism, unspecified Status: Acute Assessment and Plan: TSH low at 0.019 but FT4 normal. Resume levothyroxine when able If prolonged NPo status, then change levothyroxine to IV (10) Depression with anxiety: Code(s): F41.8 - Other specified anxiety disorders Status: Acute Assessment and Plan: As above. Meds on hold (11) Sjogren's syndrome: Code(s): M35.00 - Sjogren syndrome, unspecified Status: Acute Assessment and Plan: As above Plan DVT prophylaxis - SCDs Code status - full Hospitalist MIPS Advance Care Plan I have confirmed that the patient's Advanced Care Plan is present, code status is documented, or surrogate decision maker is listed in patient medical record.: Yes Medication Reconciliation I have utilized all available resources to obtain, update and review the patients current medications (includes all prescriptions, OTC, herbals, cannabis, and nutritional supplements).: Yes
[2024-08-13 08:41] LABS: Total Triiodothyronine (T3) 1.19 NG/ML (0.97-1.69)
[2024-08-13] MEDS: LACTATED RINGERS 1,000 ML 100 ML IV CONT (10:20)
--- NOTE | 2024-08-13 11:47 | P.CONNEU_ITS ---
Assessment and Plan Assessment and plan (1) AMS (altered mental status): Qualifiers: Altered mental status type: disorientation Qualified Code(s): R41.0 - Disorientation, unspecified Code(s): R41.82 - Altered mental status, unspecified Status: Acute Assessment and Plan: The patient appears restless and is probably state of sepsis I examined the patient when Dr. Ha was also here we discussed this. Blood cultures will be drawn. Other investigations for sepsis will be performed. The patient will also undergo an MRI of the brain. EEG will be recommended. Spinal tap will be also be considered as part of the evaluation if we do not find any objective finding for the cause for sepsis or metabolic encephalopathy. Possibly underlying Meningitis or encephalitis should be considered. the patient may partially immunosuppressed because of being on steroids as well as he has history of autoimmune disorders. (2) Sjogren's syndrome: Code(s): M35.00 - Sjogren syndrome, unspecified Status: Acute (3) Leukocytosis: Code(s): D72.829 - Elevated white blood cell count, unspecified Status: Acute Assessment and Plan: According to the notes the patient has been found to have chronic leukocytosis and this is attributed to being on steroids (4) Depression with anxiety: Code(s): F41.8 - Other specified anxiety disorders Status: Acute (5) Crohn's disease: Code(s): K50.90 - Crohn's disease, unspecified, without complications Status: Acute (6) Rheumatoid arthritis: Code(s): M06.9 - Rheumatoid arthritis, unspecified Status: Acute (7) Hypothyroidism: Code(s): E03.9 - Hypothyroidism, unspecified Status: Acute (8) Hypertension: Code(s): I10 - Essential (primary) hypertension Status: Acute Plan Neurology will follow-up the results of MRI of brain and if necessity a spinal tap would be in order investigate her further. Consult date: 08/13/24 HPI: Mely Francois is a 43 year old female with history of changes in mental status brought to the hospital. She initially went to [facility] emergency room around midnight and to was discharged and then she came to [place] emergency room because she was not satisfied. She came with her . She has history of Crohn's disease, depression with anxiety, rheumatoid arthritis, and is on steroids. Her records also indicate that she has history of psychiatric problems and she has been on psychiatric medications. She was mumbling and sometimes unclear. Her white cell count was high at 18.6 and potassium was low at 2.8. Serum sodium was 130. The patient complains of pain all over and does not feel well and feels restless. She also complains of pain in the abdomen and headache and she has been nauseous she has not had any vomiting. Temperature was 100.1. No diplopia no weakness in upper lower limbs. No rash. No spells of unresponsiveness. Family members were not available at the time of this examination. she smokes half pack of severe day. Her records indicate that she has history of chronic leukocytosis. Or this has been attributed to being on steroids. Her heart rate is somewhat faster extending over 105 but goes up to 117. She has 3 treated with IV fluids. Review of Systems Review of Systems: ROS unobtainable: Yes unobtainable due to mental status PMFSH Past Medical History Medical History Crohn's disease Depression with anxiety Dyslipidemia Hemolytic anemia Status post splenectomy. Hypertension Hypothyroidism Rheumatoid arthritis Sjogren's syndrome Surgical History Surgical History History of cholecystectomy History of hysterectomy History of partial thyroidectomy History of splenectomy (2006) History of ventral hernia repair Family History Family History Other Hypertension Social History Social History Social History: Surrogate medical decision maker: Enrique Del Toro, significant other. Code status: Full code. Smoking packs per day: 0.5 Smoking cigarettes per day: 10.0 Years smoked: 25 Smoking pack-years: 12.50 Smoking status: Current every day smoker Tobacco type: cigarettes Alcohol intake: never Alcohol use details: occasional Substance use: never Living arrangements: with family Additional occupation/education comments: On disability. Spiritual care concerns: No Meds Home Medications and Allergies Home Medications Medication Instructions Recorded Confirmed Type estradiol 2 mg tablet 2 mg PO DAILY 03/10/21 04/23/22 History famotidine 40 mg tablet 40 mg PO DAILY 03/10/21 04/23/22 History fenofibrate 160 mg tablet 160 mg PO DAILY 03/10/21 04/23/22 History hydroxychloroquine 200 mg tablet 200 mg PO DAILY 03/10/21 04/23/22 History losartan 50 mg tablet 50 mg PO DAILY 03/10/21 04/23/22 History venlafaxine 150 mg 150 mg PO DAILY 03/10/21 04/23/22 History capsule,extended release 24 hr budesonide 3 mg 3 mg PO DAILY 04/23/22 04/23/22 History capsule,delayed,extended release folic acid 1 mg tablet 1 mg PO DAILY 04/23/22 04/23/22 History gabapentin 100 mg capsule 100 mg PO DAILY 04/23/22 04/23/22 History multivitamin with folic acid 400 400 tablet PO DAILY 04/23/22 04/23/22 History mcg tablet (Daily-Solomon (with folic acid)) omeprazole 40 mg capsule,delayed 40 mg PO DAILY 04/23/22 04/23/22 History release ondansetron 8 mg disintegrating 8 mg PO DAILY 04/23/22 04/23/22 History tablet quetiapine 300 mg tablet 300 mg PO DAILY 04/23/22 04/23/22 History zolpidem 10 mg tablet 10 mg PO DAILY 04/23/22 04/23/22 History levothyroxine 150 mcg tablet 150 mcg PO DAILY@0630 1 month #30 04/24/22 Rx (Synthroid) tabs hydrocodone 5 mg-acetaminophen 325 1 tablet PO Q6H PRN pain #14 tabs 04/11/23 Rx mg tablet sulfamethoxazole 800 1 tablet PO Q12H 10 days #20 tabs 04/11/23 Rx mg-trimethoprim 160 mg tablet sulfamethoxazole 800 1 tablet PO Q12H 10 days #20 tabs 04/11/23 Rx mg-trimethoprim 160 mg tablet doxycycline hyclate 100 mg capsule 100 mg PO BID 10 days #19 caps 05/04/24 Rx Allergies Allergy/AdvReac Type Severity Reaction Status Date / Time Penicillins Allergy Unknown Verified 08/13/24 02:35 Vital Signs Vital Signs - 24 hr 08/13/24 02:27 08/13/24 02:45 08/13/24 02:50 Temperature 99.4 F Pulse Rate 108 H 107 H Respiratory Rate 20 31 H Blood Pressure 131/102 H Pulse Oximetry 97 99 Oxygen Delivery Room Air Room Air Fraction of Inspired Oxygen 08/13/24 03:05 08/13/24 03:27 08/13/24 03:30 Temperature Pulse Rate 107 H 115 H 112 H Respiratory Rate 16 21 H 19 Blood Pressure Pulse Oximetry Oxygen Delivery Fraction of Inspired Oxygen 08/13/24 03:54 08/13/24 04:00 08/13/24 04:15 Temperature Pulse Rate 112 H 104 H 108 H Respiratory Rate 34 H 37 H 19 Blood Pressure Pulse Oximetry Oxygen Delivery Fraction of Inspired Oxygen 08/13/24 04:30 08/13/24 04:31 08/13/24 05:06 Temperature Pulse Rate 113 H 113 H 110 H Respiratory Rate 21 H 24 H 14 Blood Pressure 137/82 Pulse Oximetry 95 99 100 Oxygen Delivery Fraction of Inspired Oxygen 08/13/24 05:15 08/13/24 05:16 08/13/24 05:45 Temperature Pulse Rate 114 H 113 H 114 H Respiratory Rate 18 19 22 H Blood Pressure 137/73 Pulse Oximetry 100 100 Oxygen Delivery Fraction of Inspired Oxygen 08/13/24 06:01 08/13/24 06:02 08/13/24 06:15 Temperature Pulse Rate 116 H 118 H 114 H Respiratory Rate 31 H 25 H 25 H Blood Pressure 155/91 H Pulse Oximetry 100 100 97 Oxygen Delivery Fraction of Inspired Oxygen 08/13/24 08:02 08/13/24 08:54 08/13/24 08:37 Temperature 99.1 F Pulse Rate 114 H 117 H Respiratory Rate 20 20 Blood Pressure 128/84 136/85 Pulse Oximetry 98 98 100 Oxygen Delivery Room Air Fraction of Inspired Oxygen 21 Exam Narrative: The patient appears restless however she is fully conscious and alert. No aphasia or dysarthria. she does not answer to many of the questions or appears awake. Examination head and neck did not show any evidence for external injuries. No nuchal rigidity. Cranial nerves pupils were equal reacting to light. Visual sales questionable right hemifield loss but the patient does not appear to be reliable. No facial asymmetry. Tongue was midline. Soft palate appear to move symmetrically. Other cranials were grossly within normal limits. Motor system moving both upper and lower limb. Deep tendon reflexes did not show any significant asymmetry. Plantars were downgoing. Sensory examination could not reliably performed. However this appears Grossly normal. No involuntary movements are seen. Results Labs 08/13/24 02:40 08/13/24 02:40 Labs: Short CBC 08/13/24 Range/Units 02:40 WBC 18.6 H (4.5-10.0) K/mm3 Hgb 11.0 L (12.0-15.0) g/dL Hct 31.1 L (37.0-47.0) % Plt Count 676 H (150-375) k/mm3 BMP 08/13/24 02:40 Sodium 130 L Potassium 2.8 L* Chloride 100 Carbon Dioxide 17 L BUN 10 D Creatinine 0.50 L Glucose 108 Calcium 9.2 Liver Function 08/13/24 Range/Units 02:40 Total Bilirubin 0.9 (0.2-1.3) mg/dL AST 61 H (14-36) U/L ALT 54 H (6-35) U/L Alkaline Phosphatase 133 H (38-126) U/L Albumin 3.8 (3.5-5.1) g/dL Urine 08/13/24 Range/Units 04:11 Urine Color Dark yellow (Yellow) Urine Appearance Cloudy H (Clear) Urine pH 7.0 (5.0-9.0) Ur Specific [place] 1.029 (1.001-1.035) Urine Protein 1+ H (Negative) mg/dL Urine Glucose (UA) Negative (Negative) mg/dL
[2024-08-13 12:32] LABS: Influenza A QL RT-PCR Negative (Negative); Influenza B QL RT-PCR Negative (Negative); RSV RNA, RT-PCR Negative (Negative); SARS-CoV-2 RNA PCR Negative (Negative)
[2024-08-13 12:49] LABS: Glucose Point of Care 91 mg/dl (65-105)
[2024-08-13 12:53] LABS: Lactic Acid Reflex 0.7 mmol/L (0.7-2.0)
[2024-08-13] MEDS: CEFEPIME 2 GM/NS 50 ML 2 GM/50 ML BAG IVPB (12:54)
[2024-08-13] MEDS: metroNIDAZOLE 500 MG/ISO 100ML 500 MG/100 ML BAG 100 MG IVPB (12:56)
[2024-08-13 12:58] LABS: Alanine Aminotransferase 45 U/L (6-35); Albumin Level 3.4 g/dL (3.5-5.1); Alkaline Phosphatase 108 U/L (38-126); Anion Gap 8 mmol/L (4-12); Aspartate Amino Transferase 49 U/L (14-36); Bilirubin,Total 0.8 mg/dL (0.2-1.3); Blood Urea Nitrogen 8 mg/dL (7-17); CRP < 0.5 mg/dL (<1.0); Calcium 8.8 mg/dL (8.4-10.2); Carbon Dioxide 19 mmol/L (22-30); Chloride 103 mmol/L (98-107); Estimated Glomerular Filt Rate > 60; Glucose 93 mg/dL (65-110); Magnesium 1.6 mg/dL (1.6-2.3); Potassium 3.2 mmol/L (3.4-5.0); Sodium 130 mmol/L (137-145)
[2024-08-13 13:08] LABS: Troponin I 0.013 ng/mL (0.000-0.034)
[2024-08-13 14:06] LABS: Folic Acid > 20.0 ng/mL (2.76->20)
[2024-08-13 14:13] LABS: Hepatitis B Surface Antigen Negative (Negative)
[2024-08-13 14:19] LABS: HAV RESULT Negative (Negative); Hepatitis B Core IgM Result Negative (Negative)
[2024-08-13] MEDS: ONDANSETRON INJ 4 MG/2 ML VIAL IV PUSH (14:25)
[2024-08-13] MEDS: VANCOMYCIN 1,000 MG/NS 250 ML BAG 250 MG IVPB (14:30)
[2024-08-13 14:31] LABS: Hepatitis C Virus Antibody Negative (Negative)
[2024-08-13 15:02] LABS: Procalcitonin 0.1 ng/mL
[2024-08-13 17:22] LABS: Glucose Point of Care 82 mg/dl (65-105)
[2024-08-13] MEDS: VANCOMYCIN 750 MG/NS 250 ML BAG 250 MG IVPB (17:22)
[2024-08-13 17:45] LABS: Glucose CSF 44 mg/dL (40-70); Total Protein CSF 148 mg/dL (12-60)
[2024-08-13 18:17] LABS: Glucose Point of Care 82 mg/dl (65-105)
[2024-08-13 18:29] LABS: Appearance CSF Clear (Clear); CSF source CSF; Color CSF Colorless (Colorless); Nucleated Cell CSF 171 /uL (0-5)
[2024-08-13 18:30] LABS: Lymphocytes CSF 78 % (40-80); Monocytes CSF 19 % (15-45); Neutrophils CSF 3 % (0-6); Red Blood Cell CSF 4 (0-2)
[2024-08-13] MEDS: DEXTROSE 5% IVPB (18:35)
[2024-08-13] MEDS: WATER IVPB (18:35)
[2024-08-13] MEDS: ACYCLOVIR SODIUM IVPB (18:35)
[2024-08-13] MEDS: cefTRIAXone 2 GM/NS 100 ML 2 GM/100 ML BAG IVPB (21:10)
[2024-08-14] VITALS (10 sets, daily range): BP systolic 113–139; BP diastolic 72–88; PULSE 80–110; RESP 18–20; TEMP 36.6–37.2; O2SAT 100
[2024-08-14 00:02] LABS: Glucose Point of Care 85 mg/dl (65-105)
[2024-08-14] MEDS: DEXTROSE 5% IVPB ×3 (01:42→17:14)
[2024-08-14] MEDS: WATER IVPB ×3 (01:42→17:14)
[2024-08-14] MEDS: ACYCLOVIR SODIUM IVPB ×3 (01:42→17:14)
[2024-08-14] MEDS: ONDANSETRON INJ 4 MG/2 ML VIAL IV PUSH ×3 (03:19→17:17)
[2024-08-14] MEDS: VANCOMYCIN 1,000 MG/NS 250 ML 1,000 MG/250 ML BAG 250 MG IVPB ×2 (03:20→15:42)
--- NOTE | 2024-08-14 05:16 | PCRCNOTE ---
RT arrived to patients room to complete 0500 sputum induction to find patient vomiting at her bedside. Patient has been nauseous for the last hour. RT informed the patient she could come back in about 30 minutes to attempt and complete, or the treatment will resume tomorrow morning. Pt wants therapist to try again tomorrow morning. RN aware.
[2024-08-14 05:37] LABS: Glucose Point of Care 81 mg/dl (65-105)
[2024-08-14] MEDS: LACTATED RINGERS 1,000 ML 100 ML IV CONT ×2 (06:12→21:15)
[2024-08-14] MEDS: PROCHLORPERAZINE EDISYLATE 10 MG/2 ML VIAL IV PUSH ×3 (06:49→20:35)
[2024-08-14 07:09] LABS: Basophils Absolute Auto 0.2 K/mm3 (0.0-0.1); Eosinophils Absolute Auto 0.1 K/mm3 (0-0.3); Eosinophils Percent Auto 0.3 % (0-4.4); Hematocrit 29.1 % (37.0-47.0); Immature Granulocyte Absolute 0.35 K/mm3 (0.00-0.031); Lymphocytes Absolute Auto 4.37 K/mm3 (0.9-3.2); Mean Corpuscular HGB Conc 34.4 g/dl (32-36); Mean Corpuscular Hemoglobin 33.2 pg (26-34); Mean Corpuscular Volume 96.7 fl (80-100); Mean Platelet Volume 8.8 fl (7.4-10.4); Monocytes Percent Auto 11.3 % (2.6-8.5); Neutrophils Absolute Auto 10.6 K/mm3 (1.3-6.7); Neutrophils Percent Auto 60.4 % (45.5-73.1); Platelet Count Result 516 k/mm3 (150-375); Red Blood Count 3.01 M/mm3 (4.2-5.4); Red Cell Distribution Width 14.9 % (11.5-14.5); White Blood Count 17.5 K/mm3 (4.5-10.0)
[2024-08-14 07:18] LABS: Alanine Aminotransferase 39 U/L (6-35); Albumin Level 3.2 g/dL (3.5-5.1); Alkaline Phosphatase 100 U/L (38-126); Anion Gap 9 mmol/L (4-12); Aspartate Amino Transferase 48 U/L (14-36); Bilirubin,Total 0.6 mg/dL (0.2-1.3); Blood Urea Nitrogen 4 mg/dL (7-17); Calcium 8.5 mg/dL (8.4-10.2); Carbon Dioxide 23 mmol/L (22-30); Chloride 101 mmol/L (98-107); Estimated Glomerular Filt Rate > 60; Glucose 93 mg/dL (65-110); Lipase 136 U/L (23-300); Magnesium 1.6 mg/dL (1.6-2.3); Phosphorus 2.7 mg/dL (2.5-4.5); Sodium 133 mmol/L (137-145)
[2024-08-14 07:46] LABS: Atypical Lymphocytes Present
[2024-08-14 07:47] LABS: Target Cells 1+
[2024-08-14 07:48] LABS: Platelet Estimate Increased (Adequate)
[2024-08-14 07:49] LABS: Schistocytes None Seen
[2024-08-14] MEDS: cefTRIAXone 2 GM/NS 100 ML 2 GM/100 ML BAG IVPB ×2 (09:38→20:35)
[2024-08-14] MEDS: MAGNESIUM SULF 2 GM/WATER 50ML 2 GM/50 ML BAG IVPB (09:43)
[2024-08-14] MEDS: POTASSIUM CHLORIDE 20 MEQ PACKET (FOR LIQUID) 40 MEQ PO (09:48)
[2024-08-14] MEDS: POTASSIUM CHLORIDE 20 MEQ ER TABLET 40 MEQ PO (11:16)
[2024-08-14 11:55] LABS: Creatinine Urine 79.2 mg/dL
[2024-08-14 12:05] LABS: Sodium Urine Random 41 meq/L
[2024-08-14 12:08] LABS: Glucose Point of Care 92 mg/dl (65-105)
--- NOTE | 2024-08-14 13:22 | PM.IMPN ---
Progress Note: A&P Assessment and Plan (1) Sepsis: Code(s): A41.9 - Sepsis, unspecified organism Status: Acute Assessment and Plan: Patient brought in for confusion after having 2 weeks of diarrhea, low grade fever and cough. She has elevated WBC but this seems to be chronic. Metabolic gap acidosis noted and tachycardic related to sepsis and/or dehydration from the diarrhea. CT Ch/A/P showing no acute findings but shows nonspecific diffuse sclerosis on the bones with long differential. Brain MRI showing no acute findings. LP performed. EEG showing normal record. WBC elevated chronically but CRP <0.5. PCT 0.1. CDiff negative. BCx NGTD. 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 Better today. Continue broad spectrum abx. (2) AMS (altered mental status): Code(s): R41.82 - Altered mental status, unspecified Status: Acute Assessment and Plan: Patient with altered mental status on admission. She appeared to have mild improvement with IV fluids. CT brain showing no acute findings. UDS negative. Brain MRI showing no acute process. EEG showing normal record. Neurology consulted and appreciated their input. LP performed with elevated opening pressure of 24cm H2O. Cell count: 2RBC, 171 WBC, 78% lymphocytes. Glucose 44 with TP 148. Gram stain showing many WBCs but no organisms. Other studies pending. Acyclovir started and abx changed to meningitic dosing. Passed swallow eval and diet started. Mental status better. Follow on cx results. (3) Diarrhea: Code(s): R19.7 - Diarrhea, unspecified Status: Acute Assessment and Plan: As above. CDiff negative. Stool Cx pending. Could be related to Crohns that has worsened. Diarrhea improved. Flagyl stopped. (4) Hypokalemia: Code(s): E87.6 - Hypokalemia Status: Acute Assessment and Plan: Potassium 2.8 on admission. She is not on diuretics Probably related to diarrhea. Potassium replaced. Repeat K+ level and continue to replace. (5) Hyponatremia: Code(s): E87.1 - Hypo-osmolality and hyponatremia Status: Acute Assessment and Plan: Sodium low at 130 on admission related to dehydration. Sodium does run low frequently so may not be too far off her baseline. Repeat sodium better/stable. Follow (6) Leukocytosis: Code(s): D72.829 - Elevated white blood cell count, unspecified Status: Acute Assessment and Plan: WBC elevated on admission at 18.6K but this is a chronic issue for her. WBC runs 12-19K over the years and no normal values noted. Also with thrombocytosis with plt count 500-600K range over the years. [place] related to her autoimmune process. Follow periodically (7) Crohn's disease: Code(s): K50.90 - Crohn's disease, unspecified, without complications Status: Acute Assessment and Plan: On budesonide at home. Budesonide on hold until stool cultures return negative. (8) Rheumatoid arthritis: Code(s): M06.9 - Rheumatoid arthritis, unspecified Status: Acute Assessment and Plan: Patient with RA on Plaquinal. This is on hold. (9) Hypothyroidism: Code(s): E03.9 - Hypothyroidism, unspecified Status: Acute Assessment and Plan: TSH low at 0.019 but FT4 normal. Resume levothyroxine (10) Depression with anxiety: Code(s): F41.8 - Other specified anxiety disorders Status: Acute Assessment and Plan: As above. Review and resume some home meds (11) Sjogren's syndrome: Code(s): M35.00 - Sjogren syndrome, unspecified Status: Acute Assessment and Plan: As above Plan DVT prophylaxis - SCDs Code status - full Subjective Date/time seen: 08/14/24 13:22 Interval history: 43yo female with Crohn's disease, depression with anxiety, hemolytic anemia, HTN, hypothyroidism, RA and Sjogrens on immunosuppressive agents here for altered mental status. Patient more awake and alert. No neck pain but complains of headache. No cold sores or genital herpes outbreak recently. No CP or SOB. No n/v. Had diarrhea yesterday but not today. Exam Narrative: AF 99.0 113/77 85 20 100% ra Gen - NARD Chest - CTA bilaterally, nml RR CV - RRR. S1-S2. Abd - soft. nontender. Nondistended. Positive bowel sounds. Ext - no pedal edema. Neuro - patient is alert and oriented x4 Psych - normal mood Skin - warm and dry. Objective Data Vital Signs Vital Signs: Vital Signs - 24 hr 08/13/24 14:00 08/13/24 16:21 08/13/24 16:37 Temperature 98.1 F Pulse Rate 110 H 100 Respiratory Rate 18 20 Blood Pressure 128/68 122/69 Pulse Oximetry 98 96 Oxygen Delivery Room Air 08/13/24 17:03 08/13/24 19:50 08/13/24 20:00 Temperature 99 F Pulse Rate 100 88 98 Respiratory Rate 20 18 Blood Pressure 130/65 136/71 Pulse Oximetry 99 100 Oxygen Delivery 08/14/24 04:35 08/14/24 00:00 08/14/24 04:00 Temperature 99 F Pulse Rate 98 80 90 Respiratory Rate 20 Blood Pressure 113/77 Pulse Oximetry 100 Oxygen Delivery 08/14/24 08:00 Temperature Pulse Rate 85 Respiratory Rate Blood Pressure Pulse Oximetry Oxygen Delivery Intake/Output Intake/Output: Intake & Output 08/11/24 08/12/24 08/13/24 08/14/24 23:59 23:59 23:59 23:59 Intake Total 1013.2 1626.4 Output Total 52 301 Balance 961.2 1325.4 Meds/Results Medications: Active Medications Generic Name Dose Route Start Last Admin Trade Name Freq PRN Reason Stop Dose Admin Lactated Ringer's 1,000 mls @ 100 mls/hr 08/13/24 07:00 08/14/24 06:12 Lr - Lactated Ringers Iv IV CONT 100 mls/hr .Q10H BITA Administration Acyclovir Sodium 660 mg/ 263.2 mls @ 250 mls/hr 08/13/24 18:00 08/14/24 11:44 Dextrose IVPB Infused Q8H BITA Infusion Ceftriaxone Sodium 2 gm in 100 mls @ 200 mls/hr 08/13/24 19:00 08/14/24 10:08 Rocephin 2 Gm/Ns 100 Ml IVPB Infused Q12HR BITA Infusion Vancomycin HCl 1,000 mg in 250 mls @ 250 mls/hr 08/14/24 03:00 08/14/24 03:20 Vancomycin 1,000 Mg/Ns 250 Ml IVPB 250 mls/hr Q12H BITA Administration Ondansetron HCl 4 mg 08/13/24 14:07 08/14/24 11:19 Ondansetron Inj 4 Mg/2 Ml Vial IV PUSH 4 mg Q6H PRN Administration Nausea And Vomiting Prochlorperazine Edisylate 10 mg 08/14/24 05:37 08/14/24 06:49 Prochlorperazine Edisylate 10 Mg/2 Ml Vial IV PUSH 10 mg Q6H PRN Administration Nausea And Vomiting Sodium Chloride 6 ml 08/14/24 05:00 08/14/24 09:33 Sodium Chlor 3% 15 Ml Neb (Respiratory Therapy) INHALATION 08/16/24 05:01 Not Given DAILY@0500 [facility] Radiology Results: ITS Impressions Head CT 08/13/24 06:17 IMPRESSION: 1. Normal brain. Chest X-Ray 08/13/24 06:25 IMPRESSION: 1. No acute cardiopulmonary disease. Chest/Abdomen/Pelvis CT 08/13/24 13:49 IMPRESSION: 1. No acute cardiopulmonary disease or acute intra-abdominal/pelvic process. 2. Status post cholecystectomy, splenectomy, appendectomy and hysterectomy. 3. Nonspecific diffuse sclerosis of the bones. Differential would include malignancy (lymphoma, leukemia or metastatic disease in the appropriate clinical setting), myelofibrosis, mastocytosis, sickle cell disease, hyperthyroidism and hyperparathyroidism. Brain MRI 08/13/24 16:31 IMPRESSION: 1. Normal for age brain with no acute intracranial process or abnormally enhancing brain lesions. 2. Mucosal thickening and mucous in the paranasal sinuses suggestive of acute sinusitis. Lumbar Puncture Fluoroscopy 08/13/24 17:52 IMPRESSION: 1. Successful fluoro-guided lumbar puncture with borderline elevated opening pressure of 24 cm water. Labs Labs: Laboratory Results - last 24 hr 08/13/24 08/13/24 08/13/24 12:20 12:24 16:30 WBC RBC Hgb Hct MCV MCH MCHC RDW Plt Count MPV Immature Gran % (Auto) Neut % (Auto) Lymph % (Auto) [place] % (Auto) Eos % (Auto) Baso % (Auto) Lymph # (Auto) [place] # (Auto) Eos # (Auto) Baso # (Auto) Abs Immat Gran (auto) Absolute Neuts (auto) Absolute Nucleated RBC Nucleated RBC % Atypical Lymphocytes Platelet Estimate Target Cells Schistocytes Sodium Potassium Chloride Carbon Dioxide Anion Gap BUN Creatinine Estim Creat Clear Calc Estimated GFR Glucose POC Capillary Glucose Calcium Phosphorus Magnesium Total Bilirubin AST ALT Alkaline Phosphatase Total Protein Albumin Lipase Vitamin B12 333.0 Folate > 20.0 H Procalcitonin 0.1 Ur Random Sodium Urine Creatinine CSF Source Csf CSF Appearance Clear CSF Color Colorless CSF RBC 4 H CSF Tot Nucleated Cells 171 H CSF Neutrophils 3 CSF Lymphocytes 78 CSF Monocytes 19 CSF Glucose 44 CSF Total Protein 148 H Hepatitis A IgM Ab Negative Hep Bs Antigen Negative Hep B Core IgM Ab Negative Hepatitis C Ab Screen Negative 08/13/24 08/13/24 08/13/24 17:16 18:15 23:59 WBC RBC Hgb Hct MCV MCH MCHC RDW Plt Count MPV Immature Gran % (Auto) Neut % (Auto) Lymph % (Auto) [place] % (Auto) Eos % (Auto) Baso % (Auto) Lymph # (Auto) [place] # (Auto) Eos # (Auto) Baso # (Auto) Abs Immat Gran (auto) Absolute Neuts (auto) Absolute Nucleated RBC Nucleated RBC % Atypical Lymphocytes Platelet Estimate Target Cells Schistocytes Sodium Potassium Chloride Carbon Dioxide Anion Gap BUN Creatinine Estim Creat Clear Calc Estimated GFR Glucose POC Capillary Glucose 82 82 85 Calcium Phosphorus Magnesium Total Bilirubin AST ALT Alkaline Phosphatase Total Protein Albumin Lipase Vitamin B12 Folate Procalcitonin Ur Random Sodium Urine Creatinine CSF Source CSF Appearance CSF Color CSF RBC CSF Tot Nucleated Cells CSF Neutrophils CSF Lymphocytes CSF Monocytes CSF Glucose CSF Total Protein Hepatitis A IgM Ab Hep Bs Antigen Hep B Core IgM Ab Hepatitis C Ab Screen 08/14/24 08/14/24 08/14/24 05:34 06:52 11:19 WBC 17.5 H RBC 3.01 L Hgb 10.0 L Hct 29.1 L MCV 96.7 MCH 33.2 MCHC 34.4 RDW 14.9 H Plt Count 516 H MPV 8.8 Immature Gran % (Auto) 2.0 H Neut % (Auto) 60.4 Lymph % (Auto) 25.0 [place] % (Auto) 11.3 H Eos % (Auto) 0.3 Baso % (Auto) 1.0 Lymph # (Auto) 4.37 H [place] # (Auto) 2.0 H Eos # (Auto) 0.1 Baso # (Auto) 0.2 H Abs Immat Gran (auto) 0.35 H Absolute Neuts (auto) 10.6 H Absolute Nucleated RBC 0.000 Nucleated RBC % 0.0 Atypical Lymphocytes Present Platelet Estimate Increased Target Cells 1+ Schistocytes None seen Sodium 133 L Potassium 3.0 L Chloride 101 Carbon Dioxide 23 Anion Gap 9 BUN 4 L Creatinine 0.50 L Estim Creat Clear Calc Not Reportable Estimated GFR > 60 Glucose 93 POC Capillary Glucose 81 Calcium 8.5 Phosphorus 2.7 Magnesium 1.6 Total Bilirubin 0.6 AST 48 H ALT 39 H Alkaline Phosphatase 100 Total Protein 6.0 L Albumin 3.2 L Lipase 136 Vitamin B12 Folate Procalcitonin Ur Random Sodium 41 Urine Creatinine 79.2 CSF Source CSF Appearance CSF Color CSF RBC CSF Tot Nucleated Cells CSF Neutrophils CSF Lymphocytes CSF Monocytes CSF Glucose CSF Total Protein Hepatitis A IgM Ab Hep Bs Antigen Hep B Core IgM Ab Hepatitis C Ab Screen 08/14/24 12:05 WBC RBC Hgb Hct MCV MCH MCHC RDW Plt Count MPV Immature Gran % (Auto) Neut % (Auto) Lymph % (Auto) [place] % (Auto) Eos % (Auto) Baso % (Auto) Lymph # (Auto) [place] # (Auto) Eos # (Auto) Baso # (Auto) Abs Immat Gran (auto) Absolute Neuts (auto) Absolute Nucleated RBC Nucleated RBC % Atypical Lymphocytes Platelet Estimate Target Cells Schistocytes Sodium Potassium Chloride Carbon Dioxide Anion Gap BUN Creatinine Estim Creat Clear Calc Estimated GFR Glucose POC Capillary Glucose 92 Calcium Phosphorus Magnesium Total Bilirubin AST ALT Alkaline Phosphatase Total Protein Albumin Lipase Vitamin B12 Folate Procalcitonin Ur Random Sodium Urine Creatinine CSF Source CSF Appearance CSF Color CSF RBC CSF Tot Nucleated Cells CSF Neutrophils CSF Lymphocytes CSF Monocytes CSF Glucose CSF Total Protein Hepatitis A IgM Ab Hep Bs Antigen Hep B Core IgM Ab Hepatitis C Ab Screen
[2024-08-14] MEDS: PANTOPRAZOLE 40 MG TABLET PO (14:02)
[2024-08-14] MEDS: VENLAFAXINE HCL XR 75 MG CAP.ER.24H 150 MG PO (14:02)
[2024-08-14] MEDS: MULTIVITAMINS THERAPEUTIC TAB (*BKC) 1 TABLET PO (14:02)
[2024-08-14] MEDS: METOPROLOL SUCCINATE EXT REL 25 MG TABCR PO (14:02)
[2024-08-14] MEDS: FOLIC ACID 1 MG TABLET PO (14:02)
--- NOTE | 2024-08-14 14:08 | P.NEURO_ITS ---
Neurology EEG Report General Information Date of Study: 08/14/24 TEST EEG DIAGNOSIS confusion CONDITION OF RECORDING awake ,drowsy and asleep EEG NUMBER [id number] CLINICAL HISTORY patient is not sure why she would be having this test. Say she is here because she was sick with nausea and vomiting. EEG DESCRIPTION Basic resting occipital frequency consists of a moderate amount of fairly well-organized low voltage 8 to 10 hertz per 2nd alpha admixed with low-voltage 15 to 18 hertz per 2nd beta. Good anteroposterior gradient is noted. Low- voltage beta activity is seen diffusely admixed with posterior alpha rhythm waxing and waning during drowsiness. Bilateral symmetrical sleep activity is noted with mixture of alpha theta and beta activity evolving into bilateral sleep spindles. Hyperventilation not done. Photic stimulation not done. Non paroxysmal. Nonfocal. Nonlateralizing. IMPRESSION Normal record.
--- NOTE | 2024-08-14 15:09 | PCSTNOTE ---
Please refer to the Bedside Swallow Evaluation in the EMR. Please note, silent aspiration cannot be ruled out at bedside.
[2024-08-14] MEDS: busPIRone HCL 5 MG TABLET 15 MG BY MOUTH (17:12)
[2024-08-14 17:42] LABS: Glucose Point of Care 112 mg/dl (65-105)
[2024-08-14 17:45] LABS: Toxigenic C. Diff NEGATIVE (NEGATIVE)
[2024-08-14] MEDS: QUEtiapine FUMARATE 100 MG TABLET 300 MG PO (20:37)
[2024-08-14] MEDS: IBUPROFEN 600 MG TABLET PO (21:11)
[2024-08-14 23:37] LABS: Glucose Point of Care 109 mg/dl (65-105)
[2024-08-15] VITALS (10 sets, daily range): BP systolic 110–133; BP diastolic 58–63; PULSE 71–104; RESP 14–19; TEMP 36.1–37.3; O2SAT 94–100
[2024-08-15] MEDS: DEXTROSE 5% IVPB ×3 (02:08→18:33)
[2024-08-15] MEDS: WATER IVPB ×3 (02:08→18:33)
[2024-08-15] MEDS: ACYCLOVIR SODIUM IVPB ×3 (02:08→18:33)
[2024-08-15 02:23] LABS: Basophils Absolute Auto 0.1 K/mm3 (0.0-0.1); Basophils Percent Auto 0.9 % (0.2-1.2); Eosinophils Absolute Auto 0.2 K/mm3 (0-0.3); Eosinophils Percent Auto 1.4 % (0-4.4); Hematocrit 25.4 % (37.0-47.0); Hemoglobin 8.8 g/dL (12.0-15.0); Immature Granulocyte Absolute 0.18 K/mm3 (0.00-0.031); Immature Granulocyte Percent A 1.2 % (0-0.5); Lymphocytes Absolute Auto 4.47 K/mm3 (0.9-3.2); Lymphocytes Percent Auto 30.7 % (18.3-44.2); Mean Corpuscular HGB Conc 34.6 g/dl (32-36); Mean Corpuscular Hemoglobin 33.6 pg (26-34); Mean Corpuscular Volume 96.9 fl (80-100); Mean Platelet Volume 8.7 fl (7.4-10.4); Monocytes Absolute Auto 1.7 K/mm3 (0.1-0.6); Monocytes Percent Auto 11.7 % (2.6-8.5); Neutrophils Absolute Auto 7.9 K/mm3 (1.3-6.7); Neutrophils Percent Auto 54.1 % (45.5-73.1); Platelet Count Result 403 k/mm3 (150-375); Red Blood Count 2.62 M/mm3 (4.2-5.4); Red Cell Distribution Width 15.1 % (11.5-14.5); White Blood Count 14.6 K/mm3 (4.5-10.0)
[2024-08-15 02:37] LABS: Alanine Aminotransferase 30 U/L (6-35); Albumin Level 2.5 g/dL (3.5-5.1); Alkaline Phosphatase 87 U/L (38-126); Anion Gap 3 mmol/L (4-12); Aspartate Amino Transferase 40 U/L (14-36); Bilirubin,Total 0.4 mg/dL (0.2-1.3); Calcium 7.8 mg/dL (8.4-10.2); Carbon Dioxide 25 mmol/L (22-30); Chloride 106 mmol/L (98-107); Estimated Glomerular Filt Rate > 60; Glucose 103 mg/dL (65-110); Magnesium 2.4 mg/dL (1.6-2.3); Phosphorus 2.7 mg/dL (2.5-4.5); Potassium 2.7 mmol/L (3.4-5.0); Sodium 134 mmol/L (137-145)
[2024-08-15 02:56] LABS: Vancomycin Trough 7.8 ug/mL (10.0-20.0)
[2024-08-15] MEDS: POTASSIUM CHLORIDE 20 MEQ ER TABLET 80 MEQ PO (03:09)
[2024-08-15 03:21] LABS: Platelet Estimate Increased (Adequate); Schistocytes None Seen; Target Cells 1+
[2024-08-15 03:24] LABS: Ovalocytes 1+
[2024-08-15] MEDS: VANCOMYCIN 1,750 MG/NS 500 ML 1,750 MG/500 ML BAG 250 MG IVPB ×2 (04:20→17:14)
[2024-08-15 04:22] LABS: Blood Urea Nitrogen < 2 mg/dL (7-17)
[2024-08-15] MEDS: SODIUM CHLOR 3% 15 ML NEB (RESPIRATORY THERAPY) 6 ML INHALATION (05:10)
[2024-08-15 05:53] LABS: Glucose Point of Care 82 mg/dl (65-105)
[2024-08-15] MEDS: LEVOTHYROXINE SODIUM 150 MCG TABLET PO (06:31)
[2024-08-15] MEDS: MULTIVITAMINS THERAPEUTIC TAB (*BKC) 1 TABLET PO (09:23)
[2024-08-15] MEDS: busPIRone HCL 5 MG TABLET 15 MG BY MOUTH ×2 (09:23→17:04)
[2024-08-15] MEDS: METOPROLOL SUCCINATE EXT REL 25 MG TABCR PO (09:23)
[2024-08-15] MEDS: cefTRIAXone 2 GM/NS 100 ML 2 GM/100 ML BAG IVPB ×2 (09:23→20:01)
[2024-08-15] MEDS: FOLIC ACID 1 MG TABLET PO (09:23)
[2024-08-15] MEDS: VENLAFAXINE HCL XR 75 MG CAP.ER.24H 150 MG PO (09:23)
[2024-08-15] MEDS: PANTOPRAZOLE 40 MG TABLET PO (09:23)
[2024-08-15 09:41] LABS: Potassium 3.3 mmol/L (3.4-5.0)
[2024-08-15 09:42] LABS: Estimated Glomerular Filt Rate > 60
--- NOTE | 2024-08-15 10:47 | PM.IMPN ---
Progress Note: A&P Assessment and Plan (1) Sepsis: Code(s): A41.9 - Sepsis, unspecified organism Status: Acute Assessment and Plan: Patient brought in for confusion after having 2 weeks of diarrhea, low grade fever and cough. She has elevated WBC but this seems to be chronic. Metabolic gap acidosis noted and tachycardic related to sepsis and/or dehydration from the diarrhea. CT Ch/A/P showing no acute findings but shows nonspecific diffuse sclerosis on the bones with long differential. Brain MRI showing no acute findings. LP performed. EEG showing normal record. WBC elevated chronically but CRP <0.5. PCT 0.1. CDiff negative. BCx NGTD. 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 Better today. Continue broad spectrum abx. 08/15/2004 Feeling much better today. Plan is to continue current treatment possible discharge home in the morning. (2) AMS (altered mental status): Code(s): R41.82 - Altered mental status, unspecified Status: Acute Assessment and Plan: Patient with altered mental status on admission. She appeared to have mild improvement with IV fluids. CT brain showing no acute findings. UDS negative. Brain MRI showing no acute process. EEG showing normal record. Neurology consulted and appreciated their input. LP performed with elevated opening pressure of 24cm H2O. Cell count: 2RBC, 171 WBC, 78% lymphocytes. Glucose 44 with TP 148. Gram stain showing many WBCs but no organisms. Other studies pending. Acyclovir started and abx changed to meningitic dosing. Passed swallow eval and diet started. Mental status better. Follow on cx results. 08/15/2024 Resolved. Will continue current treatment possible discharge in am. (3) Diarrhea: Code(s): R19.7 - Diarrhea, unspecified Status: Acute Assessment and Plan: As above. CDiff negative. Stool Cx pending. Could be related to Crohns that has worsened. Diarrhea improved. Flagyl stopped. 08/15/2024 Improved and resolved (4) Hypokalemia: Code(s): E87.6 - Hypokalemia Status: Acute Assessment and Plan: Potassium 2.8 on admission. She is not on diuretics Probably related to diarrhea. Potassium replaced. Repeat K+ level and continue to replace. 08/15/2027 Still low. Will replace and repeat (5) Hyponatremia: Code(s): E87.1 - Hypo-osmolality and hyponatremia Status: Acute Assessment and Plan: Sodium low at 130 on admission related to dehydration. Sodium does run low frequently so may not be too far off her baseline. Repeat sodium better/stable. Follow 08/15/2024 Stable (6) Leukocytosis: Code(s): D72.829 - Elevated white blood cell count, unspecified Status: Acute Assessment and Plan: WBC elevated on admission at 18.6K but this is a chronic issue for her. WBC runs 12-19K over the years and no normal values noted. Also with thrombocytosis with plt count 500-600K range over the years. [place] related to her autoimmune process. Follow periodically 08/15/2024 Clinically patient improved. Will continue to follow-up (7) Crohn's disease: Code(s): K50.90 - Crohn's disease, unspecified, without complications Status: Acute Assessment and Plan: On budesonide at home. Budesonide on hold until stool cultures return negative. (8) Rheumatoid arthritis: Code(s): M06.9 - Rheumatoid arthritis, unspecified Status: Acute Assessment and Plan: Patient with RA on Plaquinal. This is on hold. (9) Hypothyroidism: Code(s): E03.9 - Hypothyroidism, unspecified Status: Acute Assessment and Plan: TSH low at 0.019 but FT4 normal. Resume levothyroxine (10) Depression with anxiety: Code(s): F41.8 - Other specified anxiety disorders Status: Acute Assessment and Plan: As above. Review and resume some home meds (11) Sjogren's syndrome: Code(s): M35.00 - Sjogren syndrome, unspecified Status: Acute Assessment and Plan: As above Plan DVT prophylaxis - SCDs Code status - full Subjective Date/time seen: 08/15/24 10:47 Interval history: 43yo female with Crohn's disease, depression with anxiety, hemolytic anemia, HTN, hypothyroidism, RA and Sjogrens on immunosuppressive agents here for altered mental status. Patient was seen during the morning rounds today. Patient is more alert and awake. Patient is feeling much better. No shortness of breath or chest pain. Mental status has improved. Diarrhea is also better. Review of Systems Review of Systems: All systems reviewed & are unremarkable except as noted in HPI and below (the current notes) Exam Narrative: Vital signs stable, afebrile Gen - NARD Chest - CTA bilaterally, air enrty is good CV - RRR. S1-S2. Abd - soft. nontender. Nondistended. Positive bowel sounds. Ext - no pedal edema. Neuro - patient is alert and oriented x4, moves all extremities Psych - normal mood Skin - warm and dry. Objective Data Vital Signs Vital Signs: Vital Signs - 24 hr 08/14/24 14:02 08/14/24 14:00 08/14/24 12:00 Temperature 36.8 C Pulse Rate 105 H 97 97 Respiratory Rate 18 Blood Pressure 128/72 Pulse Oximetry 100 08/14/24 16:00 08/14/24 21:15 08/14/24 20:00 Temperature 36.6 C Pulse Rate 110 H 92 110 H Respiratory Rate 18 Blood Pressure 139/88 Pulse Oximetry 100 08/15/24 00:00 08/15/24 05:13 08/15/24 05:23 Temperature Pulse Rate 76 80 81 Respiratory Rate 18 19 Blood Pressure Pulse Oximetry 08/15/24 05:18 08/15/24 04:00 08/15/24 08:03 Temperature 36.1 C L Pulse Rate 82 71 104 H Respiratory Rate 14 Blood Pressure 110/58 L Pulse Oximetry 94 Intake/Output Intake/Output: Intake & Output 08/12/24 08/13/24 08/14/24 08/15/24 23:59 23:59 23:59 23:59 Intake Total 1013.2 3609.6 850 Output Total 52 1103 1050 Balance 961.2 2506.6 -200 Meds/Results Medications: Active Medications Generic Name Dose Route Start Last Admin Trade Name Freq PRN Reason Stop Dose Admin Buspirone HCl 15 mg 08/14/24 17:00 08/15/24 09:23 Buspirone Hcl 5 Mg Tablet BY MOUTH 15 mg BID BITA Administration Folic Acid 1 mg 08/14/24 13:40 08/15/24 09:23 Folic Acid 1 Mg Tablet PO 1 mg DAILY BITA Administration Lactated Ringer's 1,000 mls @ 100 mls/hr 08/13/24 07:00 08/14/24 21:15 Lr - Lactated Ringers Iv IV CONT 100 mls/hr .Q10H BITA Administration Acyclovir Sodium 660 mg/ 263.2 mls @ 250 mls/hr 08/13/24 18:00 08/15/24 02:08 Dextrose IVPB 250 mls/hr Q8H BITA Administration Ceftriaxone Sodium 2 gm in 100 mls @ 200 mls/hr 08/13/24 19:00 08/15/24 09:23 Rocephin 2 Gm/Ns 100 Ml IVPB 200 mls/hr Q12HR BITA Administration Vancomycin HCl 1,750 mg in 500 mls @ 250 mls/hr 08/15/24 04:00 08/15/24 04:20 Vancomycin 1,750 Mg/Ns 500 Ml IVPB 250 mls/hr Q12H BITA Administration Potassium Chloride 40 meq/ 520 mls @ 130 mls/hr 08/15/24 10:46 Sodium Chloride IVPB 08/15/24 14:45 ONCE ONE Ibuprofen 600 mg 08/14/24 20:51 08/14/24 21:11 Ibuprofen 600 Mg Tablet PO 600 mg Q6H PRN Administration Cramping Levothyroxine Sodium 150 mcg 08/15/24 06:30 08/15/24 06:31 Levothyroxine Sodium 150 Mcg Tablet PO 150 mcg DAILY@0630 BITA Administration Metoprolol Succinate 25 mg 08/14/24 13:25 08/15/24 09:23 Metoprolol Succinate Ext Rel 25 Mg Tabcr PO 25 mg DAILY BITA Administration Miscellaneous Information 0 each 08/14/24 00:01 Topiramate Xr 25mg Non Formulary, Check If Patient Can Use From Home XX 09/13/24 00:00 CLARIFY BITA Miscellaneous Information 0 each 08/14/24 00:01 Ldhdyz-Xgwepyze-Scxrkol [Creon] 36,000-114,000- 180,000 Unit Capsule Not Stocked, Please O XX 09/13/24 00:00 CLARIFY BITA Multivitamins Therapeutic 1 tablet 08/14/24 13:45 08/15/24 09:23 Multivitamins Therapeutic Tab (*Bkc) PO 1 tablet DAILY BITA Administration Non-Formulary Medication 2 cap 08/14/24 17:00 Bmwjgc-Oapmrgxq-Dtqbeap [Creon] PO 09/13/24 16:59 TID BITA Non-Formulary Medication 25 mg 08/15/24 09:00 Topiramate PO 09/14/24 08:59 DAILY BITA Ondansetron HCl 4 mg 08/13/24 14:07 08/14/24 17:17 Ondansetron Inj 4 Mg/2 Ml Vial IV PUSH 4 mg Q6H PRN Administration Nausea And Vomiting Pantoprazole Sodium 40 mg 08/14/24 13:40 08/15/24 09:23 Pantoprazole 40 Mg Tablet PO 40 mg DAILY BITA Administration Prochlorperazine Edisylate 10 mg 08/14/24 05:37 08/14/24 20:35 Prochlorperazine Edisylate 10 Mg/2 Ml Vial IV PUSH 10 mg Q6H PRN Administration Nausea And Vomiting Quetiapine Fumarate 300 mg 08/14/24 21:00 08/14/24 20:37 Quetiapine Fumarate 100 Mg Tablet PO 300 mg HS BITA Administration Sodium Chloride 6 ml 08/14/24 05:00 08/15/24 05:10 Sodium Chlor 3% 15 Ml Neb (Respiratory Therapy) INHALATION 08/16/24 05:01 6 ml DAILY@0500 BITA Administration Venlafaxine HCl 150 mg 08/14/24 13:40 08/15/24 09:23 Venlafaxine Hcl Xr 75 Mg Cap.Er.24h PO 150 mg DAILY BITA Administration Radiology Results: ITS Impressions Head CT 08/13/24 06:17 IMPRESSION: 1. Normal brain. Chest X-Ray 08/13/24 06:25 IMPRESSION: 1. No acute cardiopulmonary disease. Chest/Abdomen/Pelvis CT 08/13/24 13:49 IMPRESSION: 1. No acute cardiopulmonary disease or acute intra-abdominal/pelvic process. 2. Status post cholecystectomy, splenectomy, appendectomy and hysterectomy. 3. Nonspecific diffuse sclerosis of the bones. Differential would include malignancy (lymphoma, leukemia or metastatic disease in the appropriate clinical setting), myelofibrosis, mastocytosis, sickle cell disease, hyperthyroidism and hyperparathyroidism. Brain MRI 08/13/24 16:31 IMPRESSION: 1. Normal for age brain with no acute intracranial process or abnormally enhancing brain lesions. 2. Mucosal thickening and mucous in the paranasal sinuses suggestive of acute sinusitis. Lumbar Puncture Fluoroscopy 08/13/24 17:52 IMPRESSION: 1. Successful fluoro-guided lumbar puncture with borderline elevated opening pressure of 24 cm water. Labs Labs: Laboratory Results - last 24 hr 08/14/24 08/14/24 08/14/24 11:19 12:05 16:06 WBC RBC Hgb Hct MCV MCH MCHC RDW Plt Count MPV Immature Gran % (Auto) Neut % (Auto) Lymph % (Auto) Eagle % (Auto) Eos % (Auto) Baso % (Auto) Lymph # (Auto) [place] # (Auto) Eos # (Auto) Baso # (Auto) Abs Immat Gran (auto) Absolute Neuts (auto) Absolute Nucleated RBC Nucleated RBC % Platelet Estimate Target Cells Ovalocytes Schistocytes Sodium Potassium Chloride Carbon Dioxide Anion Gap BUN Creatinine Estim Creat Clear Calc Estimated GFR Glucose POC Capillary Glucose 92 Calcium Phosphorus Magnesium Total Bilirubin AST ALT Alkaline Phosphatase Total Protein Albumin Ur Random Sodium 41 Urine Creatinine 79.2 Vancomycin Trough C. difficile (PCR) Negative 08/14/24 08/14/24 08/15/24 17:39 23:33 02:18 WBC 14.6 H RBC 2.62 L Hgb 8.8 L Hct 25.4 L MCV 96.9 MCH 33.6 MCHC 34.6 RDW 15.1 H Plt Count 403 H MPV 8.7 Immature Gran % (Auto) 1.2 H Neut % (Auto) 54.1 Lymph % (Auto) 30.7 Eagle % (Auto) 11.7 H Eos % (Auto) 1.4 Baso % (Auto) 0.9 Lymph # (Auto) 4.47 H Eagle # (Auto) 1.7 H Eos # (Auto) 0.2 Baso # (Auto) 0.1 Abs Immat Gran (auto) 0.18 H Absolute Neuts (auto) 7.9 H Absolute Nucleated RBC 0.000 Nucleated RBC % 0.0 Platelet Estimate Increased Target Cells 1+ Ovalocytes 1+ Schistocytes None seen Sodium 134 L Potassium 2.7 L* Chloride 106 Carbon Dioxide 25 Anion Gap 3 L BUN < 2 L Creatinine 0.40 L Estim Creat Clear Calc Not Reportable Estimated GFR > 60 Glucose 103 POC Capillary Glucose 112 H 109 H Calcium 7.8 L Phosphorus 2.7 Magnesium 2.4 H Total Bilirubin 0.4 AST 40 H ALT 30 Alkaline Phosphatase 87 Total Protein 5.0 L Albumin 2.5 L Ur Random Sodium Urine Creatinine Vancomycin Trough 7.8 L C. difficile (PCR) 08/15/24 08/15/24 05:49 09:01 WBC RBC Hgb Hct MCV MCH MCHC RDW Plt Count MPV Immature Gran % (Auto) Neut % (Auto) Lymph % (Auto) [place] % (Auto) Eos % (Auto) Baso % (Auto) Lymph # (Auto) [place] # (Auto) Eos # (Auto) Baso # (Auto) Abs Immat Gran (auto) Absolute Neuts (auto) Absolute Nucleated RBC Nucleated RBC % Platelet Estimate Target Cells Ovalocytes Schistocytes Sodium Potassium 3.3 L Chloride Carbon Dioxide Anion Gap BUN Creatinine 0.60 L Estim Creat Clear Calc Not Reportable Estimated GFR > 60 Glucose POC Capillary Glucose 82 Calcium Phosphorus Magnesium Total Bilirubin AST ALT Alkaline Phosphatase Total Protein Albumin Ur Random Sodium Urine Creatinine Vancomycin Trough C. difficile (PCR)
[2024-08-15] MEDS: POTASSIUM CHLORIDE INJ 40 MEQ in SODIUM CHLORIDE 0.9% IV 500 ML 130 MEQ IVPB (11:52)
[2024-08-15] MEDS: ACETAMINOPHEN 325 MG TABLET 650 MG PO ×2 (14:19→23:24)
[2024-08-15] MEDS: QUEtiapine FUMARATE 100 MG TABLET 300 MG PO (20:02)
[2024-08-15] MEDS: IBUPROFEN 600 MG TABLET PO (20:07)
[2024-08-15] MEDS: LACTATED RINGERS 1,000 ML 100 ML IV CONT (23:25)
[2024-08-16] VITALS (7 sets, daily range): BP systolic 102; BP diastolic 74; PULSE 76–105; RESP 16–22; TEMP 36.6; O2SAT 96
[2024-08-16 00:12] LABS: Glucose Point of Care 111 mg/dl (65-105)
[2024-08-16] MEDS: WATER IVPB (01:59)
[2024-08-16] MEDS: DEXTROSE 5% IVPB (01:59)
[2024-08-16] MEDS: ACYCLOVIR SODIUM IVPB (01:59)
[2024-08-16] MEDS: VANCOMYCIN 1,750 MG/NS 500 ML 1,750 MG/500 ML BAG 250 MG IVPB (03:55)
[2024-08-16] MEDS: SODIUM CHLOR 3% 15 ML NEB (RESPIRATORY THERAPY) 6 ML INHALATION (05:29)
[2024-08-16] MEDS: LEVOTHYROXINE SODIUM 150 MCG TABLET PO (06:05)
[2024-08-16 06:12] LABS: Glucose Point of Care 79 mg/dl (65-105)
[2024-08-16 07:03] LABS: Hematocrit 31.8 % (37.0-47.0); Hemoglobin 10.7 g/dL (12.0-15.0); Mean Corpuscular HGB Conc 33.6 g/dl (32-36); Mean Corpuscular Hemoglobin 34.3 pg (26-34); Mean Corpuscular Volume 101.9 fl (80-100); Platelet Count Result 444 k/mm3 (150-375); Red Blood Count 3.12 M/mm3 (4.2-5.4); Red Cell Distribution Width 15.9 % (11.5-14.5); White Blood Count 18.8 K/mm3 (4.5-10.0)
[2024-08-16 07:14] LABS: Alanine Aminotransferase 29 U/L (6-35); Albumin Level 2.9 g/dL (3.5-5.1); Alkaline Phosphatase 79 U/L (38-126); Anion Gap 3 mmol/L (4-12); Aspartate Amino Transferase 68 U/L (14-36); Bilirubin,Total 0.5 mg/dL (0.2-1.3); Calcium 8.4 mg/dL (8.4-10.2); Carbon Dioxide 21 mmol/L (22-30); Chloride 111 mmol/L (98-107); Estimated Glomerular Filt Rate 30; Glucose 92 mg/dL (65-110); Potassium 4.5 mmol/L (3.4-5.0); Sodium 135 mmol/L (137-145)
[2024-08-16 07:15] LABS: Blood Urea Nitrogen < 2 mg/dL (7-17)
[2024-08-16] MEDS: busPIRone HCL 5 MG TABLET 15 MG BY MOUTH (08:30)
[2024-08-16] MEDS: FOLIC ACID 1 MG TABLET PO (08:30)
[2024-08-16] MEDS: PANTOPRAZOLE 40 MG TABLET PO (08:30)
[2024-08-16] MEDS: VENLAFAXINE HCL XR 75 MG CAP.ER.24H 150 MG PO (08:30)
[2024-08-16] MEDS: MULTIVITAMINS THERAPEUTIC TAB (*BKC) 1 TABLET PO (08:30)
[2024-08-16] MEDS: METOPROLOL SUCCINATE EXT REL 25 MG TABCR PO (08:31)
[2024-08-16] MEDS: cefTRIAXone 2 GM/NS 100 ML 2 GM/100 ML BAG IVPB (08:32)
--- NOTE | 2024-08-16 09:33 | P.DS_ITS ---
DS: Admitting Diagnosis Discharge Date 08/16/2024 Admitting Diagnosis Sepsis DS: Discharge Diagnosis Discharge Diagnosis (1) Sepsis: Code(s): A41.9 - Sepsis, unspecified organism Status: Acute Assessment and Plan: Patient brought in for confusion after having 2 weeks of diarrhea, low grade fever and cough. She has elevated WBC but this seems to be chronic. Metabolic gap acidosis noted and tachycardic related to sepsis and/or dehydration from the diarrhea. CT Ch/A/P showing no acute findings but shows nonspecific diffuse sclerosis on the bones with long differential. Brain MRI showing no acute findings. LP performed. EEG showing normal record. WBC elevated chronically but CRP <0.5. PCT 0.1. CDiff negative. BCx NGTD. 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 Better today. Continue broad spectrum abx. 08/15/2004 Feeling much better today. Plan is to continue current treatment possible discharge home in the morning. (2) AMS (altered mental status): Code(s): R41.82 - Altered mental status, unspecified Status: Acute Assessment and Plan: Patient with altered mental status on admission. She appeared to have mild improvement with IV fluids. CT brain showing no acute findings. UDS negative. Brain MRI showing no acute process. EEG showing normal record. Neurology consulted and appreciated their input. LP performed with elevated opening pressure of 24cm H2O. Cell count: 2RBC, 171 WBC, 78% lymphocytes. Glucose 44 with TP 148. Gram stain showing many WBCs but no organisms. Other studies pending. Acyclovir started and abx changed to meningitic dosing. Passed swallow eval and diet started. Mental status better. Follow on cx results. 08/15/2024 Resolved. Will continue current treatment possible discharge in am. (3) Diarrhea: Code(s): R19.7 - Diarrhea, unspecified Status: Acute Assessment and Plan: As above. CDiff negative. Stool Cx pending. Could be related to Crohns that has worsened. Diarrhea improved. Flagyl stopped. 08/15/2024 Improved and resolved (4) Hypokalemia: Code(s): E87.6 - Hypokalemia Status: Acute Assessment and Plan: Potassium 2.8 on admission. She is not on diuretics Probably related to diarrhea. Potassium replaced. Repeat K+ level and continue to replace. 08/15/2027 Still low. Will replace and repeat (5) Hyponatremia: Code(s): E87.1 - Hypo-osmolality and hyponatremia Status: Acute Assessment and Plan: Sodium low at 130 on admission related to dehydration. Sodium does run low frequently so may not be too far off her baseline. Repeat sodium better/stable. Follow 08/15/2024 Stable (6) Leukocytosis: Code(s): D72.829 - Elevated white blood cell count, unspecified Status: Acute Assessment and Plan: WBC elevated on admission at 18.6K but this is a chronic issue for her. WBC runs 12-19K over the years and no normal values noted. Also with thrombocytosis with plt count 500-600K range over the years. [place] related to her autoimmune process. Follow periodically 08/15/2024 Clinically patient improved. Will continue to follow-up (7) Crohn's disease: Code(s): K50.90 - Crohn's disease, unspecified, without complications Status: Acute Assessment and Plan: On budesonide at home. Budesonide on hold until stool cultures return negative. (8) Rheumatoid arthritis: Code(s): M06.9 - Rheumatoid arthritis, unspecified Status: Acute Assessment and Plan: Patient with RA on Plaquinal. This is on hold. (9) Hypothyroidism: Code(s): E03.9 - Hypothyroidism, unspecified Status: Acute Assessment and Plan: TSH low at 0.019 but FT4 normal. Resume levothyroxine (10) Depression with anxiety: Code(s): F41.8 - Other specified anxiety disorders Status: Acute Assessment and Plan: As above. Review and resume some home meds (11) Sjogren's syndrome: Code(s): M35.00 - Sjogren syndrome, unspecified Status: Acute Assessment and Plan: As above Plan DVT prophylaxis - SCDs Code status - full DS: Summary Hospital Course Reason for hospitalization: Sepsis Hospital Course: 43 years old female with history of multiple medical problems admitted with complaint of generalized weakness. Patient was found electrolyte imbalance and possible sepsis. Workup with urine culture and CSF was negative. Patient b aseline WBC patient is always high stayed high. Patient received acyclovir and antibiotics. Today patient is feeling better and was discharged home in stable condition. Patient advised to follow-up with infectious disease and hematology oncology for high WBC count. Patient will continue to follow-up with GI and primary care physician. Neurology follow-up is also schedule for evaluation of pending CSF test. Patient advised to come back to ER if she has some change in her condition at home. Status at Discharge Cognitive/behavioral status at discharge: Stable Time Spent with Patient Time attestation: Total time spent providing and/or coordinating discharge services: 30 minutes Exam Narrative: Vital signs stable, afebrile Gen - NARD Chest - CTA bilaterally, air enrty is good CV - RRR. S1-S2. Abd - soft. nontender. Nondistended. Positive bowel sounds. Ext - no pedal edema. Neuro - patient is alert and oriented x4, moves all extremities Psych - normal mood Skin - warm and dry. DS: Data Data Completed and Pending Completed studies during hospitalization: Pending at discharge 08/13/24 14:10 Cytology [PTH] Routine Labs on day of discharge: Labs from last 24 hours 08/16/24 08/16/24 08/16/24 06:56 06:11 00:09 WBC 18.8 H RBC 3.12 L Hgb 10.7 L Hct 31.8 L MCV 101.9 H D MCH 34.3 H MCHC 33.6 RDW 15.9 H Plt Count 444 H MPV 9.0 Sodium 135 L Potassium 4.5 Chloride 111 H Carbon Dioxide 21 L Anion Gap 3 L BUN < 2 L Creatinine 1.80 H Estim Creat Clear Calc Not Reportable Estimated GFR 30 L Glucose 92 POC Capillary Glucose 79 111 H Calcium 8.4 Total Bilirubin 0.5 AST 68 H ALT 29 Alkaline Phosphatase 79 Total Protein 6.0 L Albumin 2.9 L 08/15/24 09:01 WBC RBC Hgb Hct MCV MCH MCHC RDW Plt Count MPV Sodium Potassium 3.3 L Chloride Carbon Dioxide Anion Gap BUN Creatinine 0.60 L Estim Creat Clear Calc Not Reportable Estimated GFR > 60 Glucose POC Capillary Glucose Calcium Total Bilirubin AST ALT Alkaline Phosphatase Total Protein Albumin Preliminary micro results at discharge 08/13/24 16:30 CSF Culture - Preliminary Cerebral Spinal Fluid 08/13/24 16:30 Fungal Culture and Stain - Preliminary Cerebral Spinal Fluid 08/13/24 12:24 Blood Culture - Preliminary Blood 08/13/24 12:20 Blood Culture - Preliminary Blood Discharge Plan Discharge Attending physician on discharge: Victor Hugo Tadeo Consulting providers: Boris Lutz Discharging Clinician: Victor Hugo Tadeo Patient Disposition: Home, Self-Care Activity: as tolerated Diet: as tolerated Patient Instructions: Antibiotic Form Stand Alone Forms: General Discharge Information Follow-up/Referrals: Carlee,America Yarbrough APRN [Non-Staff] - Linda,Jaleel Cheema MD [Physician] - Boris Lutz MD [Physician] - Machine Farmworker,Sid Colin MD [Non-Staff] - Discharge Medications: New cefdinir 300 mg Capsule 300 mg PO DAILY@1200 Qty: 14 0RF Continued losartan 50 mg tablet 50 mg PO DAILY famotidine 40 mg tablet 40 mg PO DAILY venlafaxine 150 mg capsule,extended release 24hr 150 mg PO DAILY estradiol 2 mg tablet 1 mg PO DAILY hydroxychloroquine 200 mg tablet 200 mg PO DAILY fenofibrate 160 mg tablet 160 mg PO DAILY budesonide 3 mg capsule,delayed,extend.release 3 mg PO DAILY quetiapine 300 mg tablet 300 mg PO HS ondansetron 8 mg tablet,disintegrating 8 mg PO DAILY folic acid 1 mg tablet 1 mg PO DAILY zolpidem 10 mg tablet 10 mg PO HS PRN (Reason: Insomnia) multivitamin with folic acid [Daily-Solomon (with folic acid)] 400 mcg tablet 400 tablet PO DAILY levothyroxine [Synthroid] 150 mcg Tablet 150 mcg PO DAILY@0630 30 Days Qty: 30 0RF metoprolol succinate 50 mg tablet extended release 24 hr 50 mg PO DAILY pantoprazole 40 mg tablet,delayed release (DR/EC) 40 mg PO DAILY cyanocobalamin (vitamin B-12) 1,000 mcg/mL solution 1,000 mcg IM WEEKLY ferrous sulfate 325 mg (65 mg iron) tablet 325 mg PO DAILY buspirone 15 mg tablet 15 mg BID Creon 36,000-114,000- 180,000 unit capsule,delayed release(DR/EC) 2 cap PO TID Rx Instructions: with meals topiramate 25 mg Capsule,Extended Release 24hr 25 mg PO DAILY Date of admission: 08/13/24 06:57 Primary Care Provider: Leander,Moises Yarbrough Admitting Provider: Juan Jose Ha Attending physician on admission: Juan Jose Ha Condition: Stable
[2024-08-16 11:44] LABS: Glucose Point of Care 79 mg/dl (65-105)
[2024-08-17 18:23] LABS: Source CEREBROSPINAL FLUID
[2024-08-18 03:08] LABS: Herpes Simplex Type 1 DNA PCR NOT DETECTED; Herpes Simplex Type 2 DNA PCR NOT DETECTED
[2024-08-19 14:14] LABS: Epstein Barr Virus DNA PCR DETECTED; Source Epstein Barr Virus CEREBROSPINAL FLUID
[2024-08-21 23:59] LABS: VDRL Quantitative CSF NON-REACTIVE
[2024-08-22 20:14] LABS: Lyme AB IgG, Immunoblot NO BANDS DETECTED; Lyme AB IgM, Immunoblot NO BANDS DETECTED
[2024-08-23 12:53] LABS: Cryptococcus Antigen NOT DETECTED; Cryptococcus Specimen Source CEREBROSPINAL FLUID
== END 2024-08-16 12:43 | disposition home or self-care (01) | DRG 422 ==
LOC: ANHED 07:14 → ANH3MEDSUR 08:14
PROVIDERS: Internal Medicine; Psychiatry & Neurology Neurology; Admitting Provider Internal Medicine; Emergency Provider Student in an Organized Health Care Education/Training Program; PCP Physician Assistant Medical; Visit Provider Internal Medicine
DX: E87.6 Hypokalemia (principal); E87.1 Hypo-osmolality and hyponatremia; K50.90 Crohn's disease, unspecified, without complications; D72.829 Elevated white blood cell count, unspecified; E03.9 Hypothyroidism, unspecified; F41.8 Other specified anxiety disorders; M35.00 Sjogren syndrome, unspecified; M06.9 Rheumatoid arthritis, unspecified; D75.838 Other thrombocytosis; M35.9 Systemic involvement of connective tissue, unspecified; E86.0 Dehydration; F17.210 Nicotine dependence, cigarettes, uncomplicated; Z90.49 Acquired absence of other specified parts of digestive tract; Z90.710 Acquired absence of both cervix and uterus; Z90.81 Acquired absence of spleen
CPT/HCPCS: 36415; 62328; 70450; 70553; 71045; 71260; 74177; 80053; 80074; 80143; 80179; 80202; 80307; 81001; 82077; 82565; 82570; 82607; 82746; 82945; 82948; 83605; 83690; 83735; 84100; 84132; 84145; 84157; 84300; 84439; 84443; 84480; 84484; 85025; 85027; 85610; 85730; 86140; 86403; 86592; 86617; 87015; 87040; 87045; 87070; 87086; 87102; 87116; 87205; 87206; 87427; 87449; 87493; 87529; 87637; 87798; 88108; 89051; 92507; 93005; 94640; 95816; 96374; 99285; A9270; A9577; J0133; J0692; J0696; J0780; J1836; J2405; J3370; J3475; J3480; J7040; J7060; J7120; Q9967

== ENCOUNTER 2024-12-30 20:26 | Emergency (ER) | payer OTHER, SELFPAY ==
--- OUTSIDE RECORDS SUMMARY | 2024-12-30 20:28 | XMS_ITS | Continuity of Care Document ---
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 Machine Operator Name Role Phone Unavailable Unavailable Unavailable Medications Medication Instructions Dosage Effective Dates (start - stop) Status Comments prednisone 10 mg tablet take 4 tablet by oral route every day x 7 days, then take 3 tablets daily x 7 days, then take 2 tablets daily x 7 days, then take 1 tablet daily x 7 days, then off - Active hydrochlorothiazide 12.5 mg tablet take 1 tablet (12.5MG) by oral route every day 12.5 MG - Active levothyroxine 50 mcg capsule take 1 capsule (50MCG) by oral route every day 50 MCG - Active ranitidine 150 mg tablet take 1 tablet (150MG) by oral route 2 times every day - Active Procedures Procedure Date COLLECTION OF VENOUS BLOOD BY BRE ACEVEDO OFFICE/OUTPATIENT VISIT, NEW Advance Directives Directive Yes / No Effective Date File Name No Information Encounters Encounter Description Practice Location Reason(s) For Visit Diagnoses Date Provider Providers Copied on Encounter [facility], [address], [place], [place], [id number] , [place] tel: [phone] [facility] No Information No Information [facility], [address], [place], [place], [id number] , [place] tel: [phone] [facility] No Information 3 No Information OFFICE/OUTPA TIENT VISIT, NEW [facility], [address], [place], [place], [id number] , [place] tel: [phone] [facility] physical exam (chief complaint) Other acquired absence of organOther acquired absence of organUnspecified acquired hypothyroidismUn specified essential hypertensionAnem ia, unspecifiedNause a with vomitingAbdomina l pain, unspecified siteUnspecified essential hypertensionUnsp ecified acquired hypothyroidism 201 3 No Information Family History Family Member Type Diagnosis Age At Onset Mother Problem (finding) Lymphoma Problem (finding) Family history of Cance r Problem (finding) Family history of crohn s Payers Payer name Insurance type Covered republican ID Authoriza tion(s) No Information Social History Type Description Quantity Date Captured Comments Sex Female Smoking Status No Information Chief Complaint And Reason For Visit No Information Reason For Referral Reason For Referral No Information Plan Of Treatment Date Type Action Status Goal BMP fasting. Due on 013 due Referral Referred To: [address], [phone] Ordered: Referral: [facility]. Colonoscopy. Diagnostic testing. ordered History Of Present Illness Encounter Date Complaint History Of Prese nt Illness No Information Functional Status Date Functional Assessmen t No Information Instructions Date Instruction Additional Infor mation No Information Assessments Type Assessment Date No Information Patient Care Teams Name Effective Dates (start - stop) Status Members No Information
--- OUTSIDE RECORDS SUMMARY | 2024-12-30 20:28 | XMS_ITS ---
Author Organization [facility] Address [address] [place] [address] Phone Care Team Providers Care Pc Tech Name Role Phone Niall Beard MD Unavailable [phone] Homar Zee MD Unavailable [phone] Madeline Hillman Primary Care Provider [phone] Monique Shook APRN, DIRECTOR OF MARKETING Unavailable Yue Saba MD Unavailable [phone] [facility] Status:Enrolled (Active) Start date:10/17/2024 Enrollment date:10/17/2024 Related social drivers of health:Social Connections, Alcohol Use, Tobacco Use, Financial Resource Strain, Depression, Stress, Physical Activity, Food Insecurity, Transportation Needs, Housing Stability, Utilities Continued Care and Services Coordination
--- OUTSIDE RECORDS SUMMARY | 2024-12-30 20:29 | XMS_ITS | Encounter Summary ---
[facility] Organization [facility] Address [address] [place] [address] Phone Care Team Providers Care Montessori Teacher Name Role Phone Niall Beard MD Unavailable Homar Zee MD Unavailable Madeline Hillman Primary Care Provider Monique Shook APRN, JOE Unavailable Yue Saba MD Unavailable [phone] Reason for Visit * Reason Comments Medication Refill Encounter Details Date Type Department Care Team (Late st Contact Info) Description 01/24/2024 Refill [facility] [address] [place] [address] Yanick Newman MD [address] [place] [address] Medication Refill Social History Tobacco Use Types Packs/Day Years Used Date Smoking Tobacco: Every Day Cigarettes 0.5 24.4 Started: 08/02/2000 Smokeless Tobacco: Never Alcohol Use Standard Drinks/Week Comments No 0 (1 standard drink = 0.6 oz pur e alcohol) Sexually Active Control Partners Comments Not Currently Comments No Sex and Gender Information Value Date Recorded Sex Assigned at Not on file Legal Sex Female 5:39 PM CDT Gender Identity Not on file Sexual Orientation Not on file 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 Please fill if appropriate. No follow up scheduled documented in this encounter Plan of Treatment Upcoming Encounters Date Type Department Care Team (Latest Contact Info) Description 02/06/2025 10:30 AM CDT Clinical Support [facility] [address] [place] [address] Discharge Disposition: Discharged to home or Selfcare documented as of this encounter Visit Diagnoses Diagnosis Thrombocytosis Essential thrombocythemia documented in this encounter Additional Health Concerns Assessment Noted Time PHQ-9 Depression Total Score: 0 06/16/20 17 11:53 AM CDT documented as of this encounter Care Teams Montessori Teacher Relationship Specialty Start Date End Date Madeline Hillman PAC [address] [place] [address] PCP - General Physician Bar Steward 10/08/19 [place] [address] [place] [address] Internal Medicine 09/30/15 Homar Zee MD [address] [place] [address] Rheumatology 03/15/19 Monique Shook APRN, CURRICULUM COORDINATOR [address] [place] [address] Nurse Practitioner Advanced Practice Nurse 06/17/23 Yue Saba MD [address] [place] [address] Consulting Physician Gastroenterology 04/21/23 documented as of this encounter
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
--- OUTSIDE RECORDS SUMMARY | 2024-12-30 20:29 | XMS_ITS | Clinical Summary ---
Author Organization [facility] Address [address] [place] [address] Care Team Providers Care Breakdown Man Name Role Phone None, Provider MD Primary Care Provider Unavaila ble Social History Tobacco Use Types Packs/Day Years Used Date Smoking Tobacco: Never Assessed Comments Unknown Sex and Gender Information Value Date Recorded Sex Assigned at Not on file Legal Sex Female 4:07 PM CDT Gender Identity Not on file Sexual Orientation Not on file Last Filed Vital Signs Vital Sign Reading Time Taken Comments Blood Pressure 122/68 02/17/2017 2:01 PM CDT Pulse 84 02/17/2017 2:01 PM CDT Temperature - - Respiratory Rate - - Oxygen Saturation - - Inhaled Oxygen Concentration - - Weight 69.4 kg (153 lb) 02/17/2017 2:01 PM CDT Height 142.2 cm (4' 8 ) 04/19/2016 2:09 PM CDT Body Mass Index 34.3 04/19/2016 2:09 PM CDT Plan of Treatment Health Maintenance Due Date Last Done Comments Cervical Cancer Screening Pap Smear (Age 30 to 64) Every 3 Years 1978 Colorectal Cancer Screening Colonoscopy (10 Years) 1978 Annual Physical 1981 Hepatitis C 1996 Cervical Cancer Screening Pap with HPV Testing (Age 30 to 64) Every 5 Years 2008 Cervical Cancer Screening with HPV 2008 Mammogram Screening 2018 COVID-19 Vaccine ( season) 2024 PHQ-2 (Physician [place]) 09/19/2024 DTaP, Tdap and Td Vaccines (8 - Td or Tdap) 04/27/2026 04/27/2016, 04/27/2016, 05/17/1994, Additional history exists Hepatitis B Vaccines Completed 07/24/1997, 07/22/1997, 09/04/1996, Additional history exists Pneumococcal Vaccine: Pediatrics (0 to 5 Years) and At-Risk Patients (6 to 49 Years) Aged Out 01/19/2021, 04/27/2016 No longer eligibl e based on patient's age to complete this topic HPV Vaccines Aged Out No longer eligi ble based on patient's age to complete this topic Meningococcal B Vaccine Aged Out No l onger eligible based on patient's age to complete this topic Meningococcal Vaccine Aged Out No [place] eligible based on patient's age to complete this topic RSV Immunizations Under 20 Months Aged Out No longer eligible based on patient's age to complete this topic Procedures Procedure Name Priority Date/Time Associated Diagnosis Comments COLONOSCOPY Routine LIFE MANAGER from Last 3 Months or Most Recently Relevant to Health Maintenance Results * Colonoscopy ( LIFE MANAGER) Narrative [facility] TO EPIC CONVERSION - LIFE MANAGER Documented hx of procedure Procedure Note Md Generic MD Alon - 07/23/2018 Documented hx of procedure us Generic Conversion Md BATEMAN GI PROCEDURE ORDERABLES Final Result [facility] TO EPIC CONVERSION from Last 3 Months or Most Recently Relevant to Health Maintenance Insurance Care Teams Breakdown Man Relationship Specialty Start Date End Date None, Provider, PCP - General UNKNOWN PHYSICIAN SPECIALTY 08/10/23
--- OUTSIDE RECORDS SUMMARY | 2024-12-30 20:29 | XMS_ITS | Encounter Summary ---
Author Organization [facility] Address [address] [place] [address] Phone Care Team Providers Care Flatwork Assembler Name Role Phone Niall Beard MD Unavailable Yanick Law DO Unavailable [phone] Yesica Castle APRN, WARPMAN Unavailable [phone] Homar Zee MD Unavailable Madeline Hillman PAC Primary Care Provider Monique Shook APRN, WARPMAN Unavailable Yue Saba MD Unavailable [phone] Reason for Visit * Reason Comments Medication Refill Encounter Details Date Type Department Care Team (Late st Contact Info) Description 03/03/2022 Refill [facility] - Gastroenterology [facility] [address] [place] [address] Yue Saba MD [address] [place] [address] Medication Refill Social History Tobacco Use Types [...] file Not on file Not on file COVID-19 Exposure Response Date Recorded In the last 10 days, have yo u been in contact with someone who was confirmed or suspected to have Coronavirus/COVID-19? No / Unsure 03/04/2022 9:47 AM CDT documented as of this encounter Miscellaneous Notes * Telephone Encounter - Radha Lou RN - 03/05/2022 8:34 AM CDT Refill request for prednisone taper dose. Patient only received a quantity of 50 tabs on last prednisone prescription sent in on 03/01/2022. Please review and approve pended prednisone. documented in this encounter Plan of Treatment Upcoming Encounters Date Type Department Care Team (Latest Contact Info) Description 02/06/2025 10:30 AM CDT Clinical Support [facility] Oncology Services [address] [place] [address] Discharge Disposition: Discharged to home or Selfcare documented as of this encounter Visit Diagnoses Diagnosis Crohn's disease of small intestine without complication (HCC) Regional enteritis of small intestine documented in this encounter Additional Health Concerns Infection Onset Date Last Indicated Resolved Time C. difficile Rule-Out 06/24/2023 06/24/20232022 12:18 AM CDT Assessment Noted Time PHQ-9 Depression Total Score: 0 06/16/20 17 11:53 AM CDT documented as of this encounter Care Teams Flatwork Assembler Relationship Specialty Start Date End Date Madeline Hillman PAC [address] [place] [address] PCP - General Physician Rim Roller Setter 10/08/19 [place] [address] [place] [address] Internal Medicine 09/30/15 [place] [address] [place] [address] Gastroenterology 03/12/16 08/29/23 Yesica Castle APRN, WARPMAN [address] [place] [address] Nurse Practitioner Advanced Practice Nurse 03/12/16 Homar Zee MD [address] [place] [address] Rheumatology 03/15/19 Monique Shook APRN, WARPMAN [address] [place] [address] Nurse Practitioner Advanced Practice Nurse 06/17/23 Yue Saba MD [address] [place] [address] Consulting Physician Gastroenterology 04/21/23 documented as of this encounter
--- OUTSIDE RECORDS SUMMARY | 2024-12-30 20:29 | XMS_ITS | Encounter Summary ---
Author Organization [facility] Address [address] [place] [address] Phone Care Team Providers Care Loan Review Analyst Name Role Phone Niall Beard MD Unavailable [phone] Yanick Law DO Unavailable [phone] Yesica Castle APRN, BOBBIN FIXER Unavailable Homar Zee MD Unavailable Madeline Hillman PAC Primary Care Provider [phone] Monique Shook APRN, BOBBIN FIXER Unavailable Yue Saba MD Unavailable [phone] Reason for Visit * Reason Comments Medication Refill Encounter Details Date Type Department Care Team (Late st Contact Info) Description 05/21/2022 Refill [facility] - [facility] - [place] [address] [place] [address] Kaley Mcqueen Viola, PAC [address] [place] [address] Medication Refill Social History Tobacco Use Types [...] suspected to have Coronavirus/COVID-19? No / Unsure 04/30/2022 9:42 AM CDT documented as of this encounter Miscellaneous Notes * Telephone Encounter - Radha Lou RN - 05/25/2022 11:33 AM CDT Pharmacy requesting refill of: Requested Prescriptions Pending Prescriptions Disp Refills ??? ondansetron (ZOFRAN-ODT) 8 MG TABLET DISPERSIBLE [Pharmacy Med Name: ONDANSETRON ODT 8 MG TABLET] 15 Tablet 3 Sig: DISSOLVE 1 TABLET ON THE TONGUE ONCE EVERY 8 HOURS NEEDED FOR NAUSEA *FIRST LINE* Last fill: 04/08/2022 Patients last OV with GI: 02/18/2022 Next Office Visit with GI: 06/11/2022 Medication cannot be delegated. zofran order pended, please review. documented in this encounter Plan of Treatment Upcoming Encounters Date Type Department Care Team (Latest Contact Info) Description 02/06/2025 10:30 AM CDT Clinical Support [facility] Oncology Services [address] [place] [address] Discharge Disposition: Discharged to home or Selfcare documented as of this encounter Visit Diagnoses Diagnosis Gastroesophageal reflux disease, unspecified whether esophagitis present documented in this encounter Additional Health Concerns Infection Onset Date Last Indicated Resolved Time C. difficile Rule-Out 06/24/2023 06/24/20232022 12:18 AM CDT Assessment Noted Time PHQ-9 Depression Total Score: 0 06/16/20 17 11:53 AM CDT documented as of this encounter Care Teams Loan Review Analyst Relationship Specialty Start Date End Date Madeline Hillman, [facility] [address] [place] [address] PCP - General Physician Senior Web Architect 10/08/19 [place] [address] [place] [address] Internal Medicine 09/30/15 [place] [address] [place] [address] Gastroenterology 03/12/16 08/29/23 Yesica Castle APRN, BOBBIN FIXER [address] [place] [address] Nurse Practitioner Advanced Practice Nurse 03/12/16 Homar Zee MD [address] [place] [address] Rheumatology 03/15/19 Monique Shook APRN, BOBBIN FIXER [address] [place] [address] Nurse Practitioner Advanced Practice Nurse 06/17/23 Yue Saba MD [address] [place] [address] Consulting Physician Gastroenterology 04/21/23 documented as of this encounter
--- OUTSIDE RECORDS SUMMARY | 2024-12-30 20:29 | XMS_ITS | Encounter Summary ---
Author Organization [facility] Address [address] [place] [address] Phone Care Team Providers Care Parts Cataloguer Name Role Phone Niall Beard MD Unavailable Yanick Law DO Unavailable [phone] Yesica Castle APRN, MAJOR LEAGUE BASEBALL PLAYER Unavailable Homar Zee MD Unavailable [phone] Madeline Hillman PAC Primary Care Provider Monique Shook APRN, MAJOR LEAGUE BASEBALL PLAYER Unavailable Yue Saba MD Unavailable [phone] Reason for Visit * Reason Comments Medication Refill Encounter Details Date Type Department Care Team (Late st Contact Info) Description 01/01/2022 Refill [facility] - [facility]astroenterology - [place] [address] [place] [address] Kaley Mcqueen Viola, PAC [address] [place] [address] Medication Refill Social History Tobacco Use Types [...] suspected to have Coronavirus/COVID-19? No / Unsure 12/03/2021 9:10 AM CDT documented as of this encounter Miscellaneous Notes * Telephone Encounter - Radha Lou RN - 01/04/2022 10:30 AM CDT Patient requesting refill too soon. Medication refused. documented in this encounter Plan of Treatment Upcoming Encounters Date Type Department Care Team (Latest Contact Info) Description 02/06/2025 10:30 AM CDT Clinical Support [facility] Oncology Services [address] [place] [address] Discharge Disposition: Discharged to home or Selfcare documented as of this encounter Visit Diagnoses Not on filedocumented in this encounter Additional Health Concerns Infection Onset Date Last Indicated Resolved Time C. difficile Rule-Out 06/24/2023 06/24/20232022 12:18 AM CDT Assessment Noted Time PHQ-9 Depression Total Score: 0 06/16/20 17 11:53 AM CDT documented as of this encounter Care Teams Parts Cataloguer Relationship Specialty Start Date End Date Madeline Hillman PAC [address] [place] [address] PCP - General Physician Title Department Manager 10/08/19 [place] [address] [place] [address] Internal Medicine 09/30/15 [place] [address] [place] [address] Gastroenterology 03/12/16 08/29/23 Yesica Castle APRN, MAJOR LEAGUE BASEBALL PLAYER [address] [place] [address] Nurse Practitioner Advanced Practice Nurse 03/12/16 Homar Zee MD [address] [place] [address] Rheumatology 03/15/19 Monique Shook APRN, MAJOR LEAGUE BASEBALL PLAYER [address] [place] [address] Nurse Practitioner Advanced Practice Nurse 06/17/23 Yue Saba MD [address] [place] [address] Consulting Physician Gastroenterology 04/21/23 documented as of this encounter
--- OUTSIDE RECORDS SUMMARY | 2024-12-30 20:29 | XMS_ITS | Encounter Summary ---
Author Organization [facility] Address [address] [place] [address] Phone Care Team Providers Care Chemistry Tutor Name Role Phone Niall Beard MD Unavailable Yanick Law DO Unavailable [phone] Yesica Castle APRN, WHEAT CLEANER Unavailable Homar Zee MD Unavailable Madeline Hillman PAC Primary Care Provider Monique Shook APRN, WHEAT CLEANER Unavailable Yue Saba MD Unavailable [phone] Reason for Visit * Reason Comments Medication Refill Encounter Details Date Type Department Care Team (Late st Contact Info) Description 07/26/2023 Refill [facility] - Gastroenter[facility] [address] [place] [address] Yue Saba MD [address] [place] [address] Medication Refill Social History Tobacco Use Types [...] Telephone Encounter - Radha Lou RN - 07/26/2023 8:31 AM AMMON[place] SOLUTION PREPARER Medication failed the protocol, provider to review and approve the medication order if appropriate. Requested Prescriptions Pending Prescriptions Disp Refills ondansetron (ZOFRAN-ODT) 8 MG TABLET DISPERSIBLE [Pharmacy Med Name: ONDANSETRON ODT 8 MG TABLET] 15 Tablet 3 Sig: DISSOLVE 1 TABLET ON THE TONGUE ONCE EVERY 8 HOURS NEEDED FOR NAUSEA *FIRST LINE* Not Delegated - 5-HT3 Antagonists Protocol Failed - 07/26/2023 5:40 AM Failed - This refill cannot be delegated Passed - Visit with relevant provider in past 12 months or upcoming 90 days Recent Visits Date Type Provider Dept 04/21/23 Office Visit Yue Saba MD [facility] [place] Showing recent visits within past 365 days and meeting all other requirements Future Appointments No visits were found meeting these conditions. Showing future appointments within next 90 days and meeting all other requirements NIA SOLUTION PREPARER documented in this encounter Plan of Treatment Upcoming Encounters Date Type Department Care Team (Latest Contact Info) Description 02/06/2025 10:30 AM CDT Clinical Support [facility] Oncology Services [address] [place] [address] Discharge Disposition: Discharged to home or Selfcare documented as of this encounter Visit Diagnoses Diagnosis Gastro-esophageal reflux disease without esophagitis Esophageal reflux documented in this encounter Additional Health Concerns Assessment Noted Time PHQ-9 Depression Total Score: 0 06/16/20 17 11:53 AM CDT documented as of this encounter Care Teams Chemistry Tutor Relationship Specialty Start [place] [address] [place] [address] PCP - General Physician Oven Laborer 10/08/19 [place] [address] [place] [address] Internal Medicine 09/30/15 [place] [address] [place] [address] Gastroenterology 03/12/16 08/29/23 Yesica Castle APRN, WHEAT CLEANER [address] [place] [address] Nurse Practitioner Advanced Practice Nurse 03/12/16 Homar Zee MD [address] [place] [address] Rheumatology 03/15/19 Monique Shook APRN, WHEAT CLEANER [address] [place] [address] Nurse Practitioner Advanced Practice Nurse 06/17/23 Yue Saba MD [address] [place] [address] Consulting Physician Gastroenterology 04/21/23 documented as of this encounter
--- OUTSIDE RECORDS SUMMARY | 2024-12-30 20:29 | XMS_ITS | Encounter Summary ---
Author Organization [facility] Address [address] [place] [address] Care Team Providers Care Electronics Assembler Name Role Phone No, Physician Primary Care Provider [phone] Encounter Details Date Type Department Care Team (Late st Contact Info) Description 12/24/2012 Orders Only [facility] Health Information Management [address] [place] [address] Scanning, Provider Social History Tobacco Use Types Packs/Day Years Used Date Smoking Tobacco: Never Assessed Comments Unknown Sex and Gender Information Value Date Recorded Sex Assigned at Not on file Legal Sex Female 3:04 AM SOFTWARE QA SYSTEM SPECIALIST Gender Identity Female 09/14/2022 10:54 AM SOFTWARE QA SYSTEM SPECIALIST Sexual Orientation Straight 09/14/2022 10 :54 AM SOFTWARE QA SYSTEM SPECIALIST documented as of this encounter Plan of Treatment Not on file documented as of this encounter Procedures Procedure Name Priority Date/Time Associated Diagnosis Comments SCAN - RADIOLOGY/IMAGING 12/24/2012 documented in this encounter Results * SCAN - RADIOLOGY/IMAGING (12/24/2012) Anatomical Region Laterality Modality Other us Provider Scanning Final Result documented in this encounter Visit Diagnoses Not on filedocumented in this encounter Care Teams Electronics Assembler Relationship Specialty Start Date End Date No, Physician PCP - General 09/29/22 documented as of this encounter
--- OUTSIDE RECORDS SUMMARY | 2024-12-30 20:29 | XMS_ITS | Encounter Summary ---
Author Organization [facility] Address [address] [place] [address] Phone Care Team Providers Care Tray Room Worker Name Role Phone Niall Beard MD Unavailable Yanick Law DO Unavailable [phone] Yesica Castle APRN, SHOVEL MECHANIC Unavailable [phone] Homar Zee MD Unavailable Madeline Hillman PAC Primary Care Provider Monique Shook APRN, SHOVEL MECHANIC Unavailable Yue Saba MD Unavailable [phone] Reason for Visit * Reason Comments Medication Refill Encounter Details Date Type Department Care Team (Late st Contact Info) Description 11/13/2022 Refill [facility] - Gastroenterology [facility] [address] [place] [address] Yue Saba MD [address] [place] [address] Medication Refill Social History Tobacco Use Types [...] suspected to have Coronavirus/COVID-19? No / Unsure 10/29/2022 12:49 PM DIRECTOR TELEVISION NEWS documented as of this encounter Miscellaneous Notes * Telephone Encounter - Alivia Saleh RN - 11/15/2022 8:19 AM CST Pharmacy requesting refill of: Requested Prescriptions Pending Prescriptions Disp Refills ??? ondansetron (ZOFRAN-ODT) 8 MG TABLET DISPERSIBLE [Pharmacy Med Name: ONDANSETRON ODT 8 MG TABLET] 15 Tablet 3 Sig: DISSOLVE 1 TABLET ON THE TONGUE ONCE EVERY 8 HOURS NEEDED FOR NAUSEA *FIRST LINE* Refill cannot be delegated, please sign if you approve. Last fill: 08/16/22 Patients last OV with GI: 07/15/22 Next Office Visit with GI: n/a CTOR TELEVISION NEWS documented in this encounter Plan of Treatment Upcoming Encounters Date Type Department Care Team (Latest Contact Info) Description 02/06/2025 10:30 AM CDT Clinical Support [facility] Oncology Services [address] [place] [address] Discharge Disposition: Discharged to home or Selfcare [...] documented as of this encounter Care Teams Tray Room Worker Relationship Specialty Start Date End Date Madeline Hillman, PAC [address] [place] [address] PCP - General Physician Motor Operator 10/08/19 [place] [address] [place] [address] Internal Medicine 09/30/15 [place] [address] [place] [address] Gastroenterology 03/12/16 08/29/23 Yesica Castle APRN, SHOVEL MECHANIC [address] [place] [address] Nurse Practitioner Advanced Practice Nurse 03/12/16 Homar Zee MD [address] [place] [address] Rheumatology 03/15/19 Monique Shook APRN, SHOVEL MECHANIC [address] [place] [address] Nurse Practitioner Advanced Practice Nurse 06/17/23 Yue Saba MD [address] [place] [address] Consulting Physician Gastroenterology 04/21/23 documented as of this encounter
--- OUTSIDE RECORDS SUMMARY | 2024-12-30 20:29 | XMS_ITS | Encounter Summary ---
Author Organization [facility] Address [address] [place] [address] Care Team Providers Care Fashion Consultant Name Role Phone No, Physician Primary Care Provider [phone] Encounter Details Date Type Department Care Team (Late st Contact Info) Description 07/04/2011 Orders Only [facility] Health Information Management [address] [place] [address] Scanning, Provider Social History Tobacco Use Types Packs/Day Years Used Date Smoking Tobacco: Never Assessed Comments Unknown Sex and Gender Information Value Date Recorded Sex Assigned at Not on file Legal Sex Female 3:04 AM STATE APPELLATE CLERK Gender Identity Female 09/14/2022 10:54 AM STATE APPELLATE CLERK Sexual Orientation Straight 09/14/2022 10 :54 AM STATE APPELLATE CLERK documented as of this encounter Plan of Treatment Not on file documented as of this encounter Procedures Procedure Name Priority Date/Time Associated Diagnosis Comments SCAN - RADIOLOGY/IMAGING 07/04/2011 documented in this encounter Results * SCAN - RADIOLOGY/IMAGING (07/04/2011) Anatomical Region Laterality Modality Other us Provider Scanning Final Result documented in this encounter Visit Diagnoses Not on filedocumented in this encounter Care Teams Fashion Consultant Relationship Specialty Start Date End Date No, Physician PCP - General 09/29/22 documented as of this encounter
--- OUTSIDE RECORDS SUMMARY | 2024-12-30 20:29 | XMS_ITS | Encounter Summary ---
Author Organization [facility] Address [address] [place] [address] Care Team Providers Care Coordinator Of Health Services Name Role Phone No, Physician Primary Care Provider [phone] Encounter Details Date Type Department Care Team (Late st Contact Info) Description 12/04/2012 Orders Only [facility] [address] [place] [address] Scanning, Provider Social History Tobacco Use Types Packs/Day Years Used Date Smoking Tobacco: Never Assessed Comments Unknown Sex and Gender Information Value Date Recorded Sex Assigned at Not on file Legal Sex Female 3:04 AM IRONING WORKER Gender Identity Female 09/14/2022 10:54 AM IRONING WORKER Sexual Orientation Straight 09/14/2022 10 :54 AM IRONING WORKER documented as of this encounter Plan of Treatment Not on file documented as of this encounter Procedures Procedure Name Priority Date/Time Associated Diagnosis Comments GI - RESULT 12/04/2012 SCAN - PATHOLOGY 12/04/2012 documented in this encounter Results * SCAN - PATHOLOGY (12/04/2012) us Provider Scanning Final Result * GI - RESULT (12/04/2012) Anatomical Region Laterality Modality Other us Provider Scanning Final Result documented in this encounter Visit Diagnoses Not on filedocumented in this encounter Care Teams Coordinator Of Health Services Relationship Specialty Start Date End Date No, Physician PCP - General 09/29/22 documented as of this encounter
--- OUTSIDE RECORDS SUMMARY | 2024-12-30 20:29 | XMS_ITS | Encounter Summary ---
Author Organization [facility] Address [address] [place] [address] Phone Care Team Providers Care Perch Machine Inspector Name Role Phone Niall Beard MD Unavailable [phone] Yanick Law DO Unavailable [phone] Yesica Castle APRN, ORTHOPEDIC NURSE PRACTITIONER Unavailable Homar Zee MD Unavailable Madeline Hillman PAC Primary Care Provider Monique Shook APRN, ORTHOPEDIC NURSE PRACTITIONER Unavailable Yue Saba MD Unavailable [phone] Reason for Visit * Reason Comments Medication Refill Encounter Details Date Type Department Care Team (Late st Contact Info) Description 02/01/2023 Refill [facility] - Gastroenterology [facility] [address] [place] [phone] Yue Saba MD [address] [place] [address] Medication Refill Social History Tobacco Use Types [...] suspected to have Coronavirus/COVID-19? No / Unsure 01/17/2023 9:54 AM CDT documented as of this encounter Miscellaneous Notes * Telephone Encounter - Radha Lou RN - 02/01/2023 2:45 PM CDT Medication failed the protocol, provider to review and approve the medication order if appropriate. Requested Prescriptions Pending Prescriptions Disp Refills metoclopramide (REGLAN) 5 MG Tablet [Pharmacy Med Name: METOCLOPRAMIDE 5 MG TABLET] 120 Tablet 11 Sig: Take 1 Tablet by mouth 4 times daily (before meals and nightly). Not Delegated - GI Stimulants Protocol Failed - 02/01/2023 2:10 PM Failed - This refill cannot be delegated Passed - Visit with relevant provider in past 12 months or upcoming 90 days Recent Visits Date Type Provider Dept 07/15/22 Office Visit Yue Saba MD [facility] [place] 06/17/22 Office Visit Yue Saba MD [facility] [place] 02/18/22 Office Visit Yue Saba MD [facility]astro [place] Showing recent visits within past 365 days and meeting all other requirements Future Appointments No visits were found meeting these conditions. Showing future appointments within next 90 days and meeting all other requirements documented in this encounter Plan of Treatment Upcoming Encounters Date Type Department Care Team (Latest Contact Info) Description 02/06/2025 10:30 AM CDT Clinical Support [facility] Oncology Services [address] [place] [address] Discharge Disposition: Discharged to home or Selfcare documented as of this encounter Visit Diagnoses Not on filedocumented in this encounter Additional Health Concerns Infection Onset Date Last Indicated Resolved Time C. difficile Rule-Out 06/24/2023 06/24/20232022 12:18 AM CDT Assessment Noted Time PHQ-9 Depression Total Score: 0 06/16/20 17 11:53 AM CDT documented as of this encounter Care Teams Perch Machine Inspector Relationship Specialty Start Date End Date Madeline Hillman PAC [address] [place] [address] PCP - General Physician Gameplay Engineer 10/08/19 [place] [address] [place] [address] Internal Medicine 09/30/15 [place] [address] [place] [address] Gastroenterology 03/12/16 08/29/23 Yesica Castle APRN, ORTHOPEDIC NURSE PRACTITIONER [address] [place] [address] Nurse Practitioner Advanced Practice Nurse 03/12/16 Homar Zee MD [address] [place] [address] Rheumatology 03/15/19 Monique Shook APRN, ORTHOPEDIC NURSE PRACTITIONER [address] [place] [address] Nurse Practitioner Advanced Practice Nurse 06/17/23 Yue Saba MD [address] [place] [address] Consulting Physician Gastroenterology 04/21/23 documented as of this encounter
--- OUTSIDE RECORDS SUMMARY | 2024-12-30 20:29 | XMS_ITS | Encounter Summary ---
Author Organization [facility] Address [address] [place] [id number] Care Team Providers Care Government Relations Director Name Role Phone Cammy Beard MD Primary Care Provider [phone] None, Provider Primary Care Provider Unavaila ble Encounter Details Date Type Department Care Team (Late st Contact Info) Description 05/08/2015 Abstract [facility] CONVERSION [address] [place] [address] , Generic Conversion, Social History Tobacco Use Types Packs/Day Years Used Date Smoking Tobacco: Never Assessed Comments Unknown Sex and Gender Information Value Date Recorded Sex Assigned at Not on file Legal Sex Female 4:07 PM CDT Gender Identity Not on file Sexual Orientation Not on file documented as of this encounter Plan of Treatment Not on file documented as of this encounter Visit Diagnoses Not on filedocumented in this encounter Care Teams Government Relations Director Relationship Specialty Start Date End Date Cammy Beard MD PCP - General 10/11/14 08/09/23 None, ProviderMD PCP - General UNKNOWN PHYSICIAN SPECIALTY 08/10/23 documented as of this encounter
--- OUTSIDE RECORDS SUMMARY | 2024-12-30 20:29 | XMS_ITS | Encounter Summary ---
Author Organization [facility] Address [address] [place] [address] Phone Care Team Providers Care Sand Digger Name Role Phone Niall Beard MD Unavailable [phone] Yanick Law DO Unavailable [phone] Yesica Castle APRN, FIELD SERVICES ANALYST Unavailable [phone] Homar Zee MD Unavailable Madeline Hillman PAC Primary Care Provider [phone] Monique Shook APRN, FIELD SERVICES ANALYST Unavailable Yue Saba MD Unavailable [phone] Reason for Visit * Reason Comments Medication Refill Encounter Details Date Type Department Care Team (Late st Contact Info) Description 04/11/2023 Refill [facility] - Gastroenterology [facility] [address] [place] [phone] Yue Saba MD [address] [place] [address] Medication Refill Social History Tobacco Use Types [...] suspected to have Coronavirus/COVID-19? No / Unsure 04/08/2023 9:32 AM CDT documented as of this encounter Miscellaneous Notes * Telephone Encounter - Radha Lou RN - 04/11/2023 2:22 PM CDT Medication failed the protocol, provider to review and approve the medication order if appropriate. Requested Prescriptions Pending Prescriptions Disp Refills ondansetron (ZOFRAN-ODT) 8 MG TABLET DISPERSIBLE [Pharmacy Med Name: ONDANSETRON ODT 8 MG TABLET] 15 Tablet 3 Sig: DISSOLVE 1 TABLET ON THE TONGUE ONCE EVERY 8 HOURS NEEDED FOR NAUSEA *FIRST LINE* Not Delegated - 5-HT3 Antagonists Protocol Failed - 04/11/2023 12:55 PM Failed - This refill cannot be delegated Passed - Visit with relevant provider in past 12 months or upcoming 90 days Recent Visits Date Type Provider Dept 07/15/22 Office Visit Yue Saba MD [facility] Gastro [place] 06/17/22 Office Visit Yue Saba MD [facility] Gastro [place] Showing recent visits within past 365 days and meeting all other requirements Future Appointments No visits were found meeting these conditions. Showing future appointments within next 90 days and meeting all other requirements documented in this encounter Plan of Treatment Upcoming Encounters Date Type Department Care Team (Latest Contact Info) Description 02/06/2025 10:30 AM CDT Clinical Support [facility] Oncology Services [address] [place] [address] Discharge Disposition: Discharged to home [...] documented as of this encounter Care Teams Sand Digger Relationship Specialty Start Date End Date Madeline Hillman [facility] [address] [place] [address] PCP - General Physician Clinical Product Specialist 10/08/19 [place] [address] [place] [address] Internal Medicine 09/30/15 [place] [address] [place] [address] Gastroenterology 03/12/16 08/29/23 Yesica Castle APRN, FIELD SERVICES ANALYST [address] [place] [address] Nurse Practitioner Advanced Practice Nurse 03/12/16 Homar Zee MD [address] [place] [address] Rheumatology 03/15/19 Monique Shook APRN, FIELD SERVICES ANALYST [address] [place] [address] Nurse Practitioner Advanced Practice Nurse 06/17/23 Yue Saba MD [address] [place] [address] Consulting Physician Gastroenterology 04/21/23 documented as of this encounter
--- OUTSIDE RECORDS SUMMARY | 2024-12-30 20:29 | XMS_ITS | Encounter Summary ---
Author Organization [facility] Address [address] [place] [address] Care Team Providers Care Occupational Therapist Per Diem Name Role Phone No, Physician Primary Care Provider [phone] Encounter Details Date Type Department Care Team (Late st Contact Info) Description 01/09/2014 Orders Only [facility] Health Information Management [address] [place] [address] Scanning, Provider Social History Tobacco Use Types Packs/Day Years Used Date Smoking Tobacco: Every Day Comments Unknown Sex and Gender Information Value Date Recorded Sex Assigned at Not on file Legal Sex Female 3:04 AM FIELD SPEC Gender Identity Female 09/14/2022 10:54 AM FIELD SPEC Sexual Orientation Straight 09/14/2022 10 :54 AM FIELD SPEC documented as of this encounter Plan of Treatment Not on file documented as of this encounter Procedures Procedure Name Priority Date/Time Associated Diagnosis Comments SCAN - LABS 01/09/2014 documented in this encounter Results * SCAN - LABS (01/09/2014) us Provider Scanning Final Result documented in this encounter Visit Diagnoses Not on filedocumented in this encounter Care Teams Occupational Therapist Per Diem Relationship Specialty Start Date End Date No, Physician PCP - General 09/29/22 documented as of this encounter
--- OUTSIDE RECORDS SUMMARY | 2024-12-30 20:29 | XMS_ITS | Encounter Summary ---
Author Organization [facility] Address [address] [place] [address] Phone Care Team Providers Care Hotel Maintenance Worker Name Role Phone Niall Beard MD Unavailable [phone] Yanick Law DO Unavailable [phone] Yesica Castle APRN, ELEMENTARY ESL TEACHER Unavailable Homar Zee MD Unavailable [phone] Madeline Hillman PAC Primary Care Provider Monique Shook APRN, ELEMENTARY ESL TEACHER Unavailable Yue Saba MD Unavailable [phone] Reason for Visit * Reason Comments Medication Refill Encounter Details Date Type Department Care Team (Late st Contact Info) Description 12/17/2021 Refill [facility] - Gastroenterology - [place] [address] [place] [address] Kaley Mcqueen Viola, PAC [address] [place] [address] Medication Refill Social History Tobacco Use Types [...] Telephone Encounter - Radha Lou RN - 12/17/2021 3:58 PM CDT Patient requesting refill too soon. Medication refused. documented in this encounter Plan of Treatment Upcoming Encounters Date Type Department Care Team (Latest Contact Info) Description 02/06/2025 10:30 AM CDT Clinical Support [facility] Oncology Services [address] [place] [address] Discharge Disposition: Discharged to home or Selfcare documented as of this encounter Visit Diagnoses Not on filedocumented in this encounter Additional Health Concerns Infection Onset Date Last Indicated Resolved Time C. difficile Rule-Out 06/24/2023 06/24/20232022 12:18 AM CDT Assessment Noted Time PHQ-9 Depression Total Score: 0 06/16/20 17 11:53 AM CDT documented as of this encounter Care Teams Hotel Maintenance Worker Relationship Specialty Start Date End Date Madeline Hillman PAC [address] [place] [address] PCP - General Physician Head Of Operation And Logistics 10/08/19 [place] [address] [place] [address] Internal Medicine 09/30/15 [place] [address] [place] [address] Gastroenterology 03/12/16 08/29/23 Yesica Castle APRN, ELEMENTARY ESL TEACHER [address] [place] [address] Nurse Practitioner Advanced Practice Nurse 03/12/16 Homar Zee MD [address] [place] [address] Rheumatology 03/15/19 Monique Shook APRN, ELEMENTARY ESL TEACHER [address] [place] [address] Nurse Practitioner Advanced Practice Nurse 06/17/23 Yue Saba MD [address] [place] [address] Consulting Physician Gastroenterology 04/21/23 documented as of this encounter
--- OUTSIDE RECORDS SUMMARY | 2024-12-30 20:29 | XMS_ITS | Encounter Summary ---
Author Organization [facility] Address [address] [place] [address] Phone Care Team Providers Care Avionics Repair Technician Name Role Phone Niall Beard MD Unavailable Yanick Law DO Unavailable [phone] Yesica Castle APRN, ENDOSCOPY REGISTERED NURSE Unavailable Homar Zee MD Unavailable Madeline Hillman PAC Primary Care Provider Monique Shook APRN, ENDOSCOPY REGISTERED NURSE Unavailable Yue Saba MD Unavailable [phone] Reason for Visit * Reason Comments Medication Refill Encounter Details Date Type Department Care Team (Late st Contact Info) Description 08/10/2022 Refill [facility] - Gastroenterology [facility] [address] [place] [phone] Yue Saba MD [address] [place] [address] Medication Refill Social History Tobacco Use Types [...] suspected to have Coronavirus/COVID-19? No / Unsure 07/15/2022 9:53 AM CDT documented as of this encounter Miscellaneous Notes * Telephone Encounter - Radha Lou RN - 08/11/2022 8:47 AM COLD HEADER OPERATOR Pharmacy requesting refill of: Requested Prescriptions Pending Prescriptions Disp Refills ??? ondansetron (ZOFRAN-ODT) 8 MG TABLET DISPERSIBLE [Pharmacy Med Name: ONDANSETRON ODT 8 MG TABLET] 15 Tablet 3 Sig: DISSOLVE 1 TABLET ON THE TONGUE ONCE EVERY 8 HOURS NEEDED FOR NAUSEA *FIRST LINE* Last fill: 05/25/2022 Patients last OV with GI: 07/15/2022 Next Office Visit with GI: None scheduled Medication cannot be delegated. zofran order pended, please review and approve. HEADER OPERATOR documented in this encounter Plan of Treatment Upcoming Encounters Date Type Department Care Team (Latest Contact Info) Description 02/06/2025 10:30 AM CDT Clinical Support [facility] Oncology Services [address] [place] [address] Discharge Disposition: Discharged to home or [...] documented as of this encounter Care Teams Avionics Repair Technician Relationship Specialty Start Date End Date Madeline Hillman, [facility] [address] [place] [address] PCP - General Physician Pulmonary Fellow 10/08/19 [place] [address] [place] [address] Internal Medicine 09/30/15 [place] [address] [place] [address] Gastroenterology 03/12/16 08/29/23 Yesica Castle APRN, ENDOSCOPY REGISTERED NURSE [address] [place] [address] Nurse Practitioner Advanced Practice Nurse 03/12/16 Homar Zee MD [address] [place] [address] Rheumatology 03/15/19 Monique Shook APRN, ENDOSCOPY REGISTERED NURSE [address] [place] [address] Nurse Practitioner Advanced Practice Nurse 06/17/23 Yue Saba MD [address] [place] [address] Consulting Physician Gastroenterology 04/21/23 documented as of this encounter
--- OUTSIDE RECORDS SUMMARY | 2024-12-30 20:29 | XMS_ITS | Continuity of Care Document ---
Author Organization [facility] Address [address] [facility] [place] [address] [place] [address] Phone Care Team Providers Care Junior Qa Analyst Name Role Phone Micky Bailey MD Unavailable Unavailable Allergies, Adverse Reactions, Alerts Substance Reaction Status Criticality Penicillins Active No Information Medications Medication Instructions Dosage Effective Dates (start - stop) Status Comments Topamax 25 mg tablet take 1 Tablet by or al route 2 times every day 25 MG - Active estradiol 2 mg tablet take 1 tablet by o ral route every day 2 MG - Active Protonix 40 mg tablet,delayed release take 1 tablet by oral route every day 40 MG - Active Entyvio Pen 108 mg/0.68 mL subcutaneous pen injector inject (108MG) by subcutaneous route every 2 weeks 108 MG - Active Effexor XR 150 mg capsule,extended release take 1 capsule by oral route every day 150 MG - Active Seroquel 200 mg tablet take 1 tablet by oral route every bedtime 200 MG - Active fenofibrate 160 mg tablet take 1 tablet by oral route every day 160 MG - Active buspirone 15 mg tablet take 1 tablet by oral route 2 times every day 15 MG - Active metoprolol succinate ER 50 mg tablet,extended release 24 hr take 1 tablet by oral route every day 50 MG - Active Effexor XR 75 mg capsule,extended release take 1 capsule by oral route every day with food 75 MG - Active Plaquenil 200 mg tablet take 1 tablet by oral route 2 times every day 200 MG - Active losartan 50 mg tablet take 1 tablet by o ral route every day 50 MG - Active Ambien 10 mg tablet take 1 tablet by ora l route every day at bedtime 10 MG - Active Pepcid 40 mg tablet take 1 tablet by ora l route every day 40 MG - Active Synthroid 150 mcg tablet take 1 tablet by oral route every day 150 MCG - Active pilocarpine 5 mg tablet take 1 tablet by oral route 3 times every day 5 MG - Active prednisone 20 mg tablet take 3 Tablet by oral route every day 60 MG - Active Procedures Procedure Date OFFICE/OUTPATIENT VISIT, EST OFFICE/OUTPATIENT VISIT, EST OFFICE/OUTPATIENT VISIT, EST PREV VISIT, EST, AGE 40-64 OFFICE/OUTPATIENT VISIT, EST OFFICE/OUTPATIENT VISIT, EST OFFICE/OUTPATIENT VISIT, EST OFFICE/OUTPATIENT VISIT, EST OFFICE/OUTPATIENT VISIT, EST OFFICE/OUTPATIENT VISIT, EST OFFICE/OUTPATIENT VISIT, EST OFFICE/OUTPATIENT VISIT, EST OFFICE/OUTPATIENT VISIT, EST OFFICE/OUTPATIENT VISIT, EST OFFICE/OUTPATIENT VISIT, EST PREV VISIT, EST, AGE 18-39 OFFICE/OUTPATIENT VISIT, EST OFFICE/OUTPATIENT VISIT, EST OFFICE/OUTPATIENT VISIT, EST OFFICE/OUTPATIENT VISIT, EST OFFICE/OUTPATIENT VISIT, EST OFFICE/OUTPATIENT VISIT, EST OFFICE/OUTPATIENT VISIT, EST OFFICE/OUTPATIENT VISIT, EST OFFICE/OUTPATIENT VISIT, EST OFFICE/OUTPATIENT VISIT, EST OFFICE/OUTPATIENT VISIT, EST OFFICE/OUTPATIENT VISIT, EST OFFICE/OUTPATIENT VISIT, EST OFFICE/OUTPATIENT VISIT, EST PREV VISIT, NEW, AGE 18-39 Advance Directives Directive Yes / No Effective Date File Name No Information Encounters Encounter Description Practice Location Reason(s) For Visit Diagnoses Date Provider Providers Copied on Encounter [facility], [address], [address], tel:[phone] [facility] No Information Dec-0 5 Leo Weeks. [address], [place], [place], [address] , [place]. tel:[phone] OFFICE/OUTPA TIENT VISIT, [facility], [address] [place], [address], [place] tel:[phone] [facility] cough1 (chief complaint) thyroid1 (chief complaint) HTN (chief complaint) GERD1 (chief complaint) Acute bronchitisHashimoto 's thyroiditisGERD w/o esophagitisEssentia l (primary) hypertensionCrohn's diseaseGeneralized Anxiety Disorder 5 Leo Sousa [address], [place], [place], [address] , [place]. [phone] OFFICE/OUTPA TIENT VISIT, [facility], [address] [place], [address], [place] tel:[phone] [facility] thyroid1 (chief complaint) weight loss1 (chief complaint) chronic pain1 (chief complaint) Remberto's thyroiditisAbnormal weight lossChronic pain syndrome 2-201 9 Leo Sousa [address], [place], [place], [address] , [place]. tel:[phone] Referring Provider: Micky Bailey, [address], [place], [place], [address]. tel:[phone] OFFICE/OUTPA TIENT VISIT, [facility], [address] [place], [address], [place] tel:[phone] [facility] thyroid (chief complaint) HLP (chief complaint) sjogren (chief complaint) Remberto's thyroiditisHyperlip idemiaChronic pain syndrome 9 Leo Weeks. [address], [place], [place], [address] , [place]. tel:[phone] Referring Provider: Sofia Everett [address], [place], [place], [address]. tel:[phone] PREV VISIT, EST, AGE 40-64 [facility], [address], [place], [place], [address], [place] tel:[phone] [facility] Physical (chief complaint) Encntr for general adult medical exam w/o abnormal findings 9 Leo Weeks. [address], [place], [place], [address] , [place]. [phone] Referring Provider: Sofia Everett [address], [place], [place], [address]. tel:[phone] OFFICE/OUTPA TIENT VISIT, [facility], [address], [place], [place], [address], [place] tel:[phone] [facility] breast1 (chief complaint) chronic pain (chief complaint) sick (chief complaint) Inconclusive mammogramChronic pain syndromeViral infection 9 Leo Weeks. [address], [place], [place], [address] , [place]. [phone] Referring Provider: [address], [place], [place], [address]. tel:[phone] OFFICE/OUTPA TIENT VISIT, [facility], [address], [place], [place], [address], [place] tel:[phone] [facility] mammogram1 (chief complaint) sjogren1 (chief complaint) b12 (chief complaint) Inconclusive mammogramSicca syndrome, unspecifiedLeukocyt osisThrombocytopeni aPostmenopausal status NOS 9 Leo Weeks. [address], [place], [place], [address] , [place]. [phone] Referring Provider: Sofia Everett [address], [place], [place], [address]. tel:[phone] OFFICE/OUTPA TIENT VISIT, [facility], [address], [place], [place], [address], [place] tel:[phone] [facility] chronic pain1 (chief complaint) hypothyroi dism1 (chief complaint) headache1 (chief complaint) anxiety1 (chief complaint) Remberto's thyroiditisHeadache Sicca syndrome, unspecifiedGenerali zed Anxiety Disorder 9 Leo Weeks. [address], [place], [place], [address] , [place]. tel:[phone] Referring Provider: Sofia Evreett [address] [facility] [address], [place], [place], [address]. tel:[phone] OFFICE/OUTPA TIENT VISIT, [facility], [address], [place], [place], [address], [place] tel:[phone] [facility] fatty liver1 (chief complaint) diveriticu litis1 (chief complaint) sjogren1 (chief complaint) HTN (chief complaint) Sicca syndrome, unspecifiedDivertic ulitis of large intestine without perforation without bleedingFatty liverEssential (primary) hypertensionEncount er for oth screening for malignant neoplasm of breast 9 Leo Weeks. [address], [place], [place], [address] , [place]. tel:[phone] Referring Provider: Sofia Everett [address], [place], [place], [address]. tel:[phone] OFFICE/OUTPA TIENT VISIT, [facility], [address] [place], [address], [place] tel:[phone] [facility] chronic pain1 (chief complaint) diverticul itis1 (chief complaint) Diverticulitis of large intestine without perforation without bleedingSicca syndrome, unspecified 9 Leo Weeks. [address], [place], [place], [address] , [place]. tel:[phone] Referring Provider: Micky Bailey [address], [place], [place], [address]. tel:[phone] OFFICE/OUTPA TIENT VISIT, [facility], [address], [place], [place], [address], [place] tel:[phone] [facility] diverticul itis1 (chief complaint) tinnitus1 (chief complaint) HLP (chief complaint) Body mass index (BMI) 35.0-35.9, adultDiverticulitis of large intestine without perforation without bleedingTinnitus, bilateralHyperlipid emiaSicca syndrome, unspecifiedInsomnia 9 Leo Weeks. [address], [place], [place], [address] , [place]. tel:[phone] Referring Provider: Sofia Everett [facility] [address], [place], [place], [address]. tel:[phone] OFFICE/OUTPA TIENT VISIT, [facility], [address], [place], [place], [address], [place] tel:[phone] [facility] dizziness1 (chief complaint) Tobacco1 (chief complaint) HTN (chief complaint) fatigue1 (chief complaint) Epidemic vertigoInsomniaEsse ntial (primary) hypertensionFatigue Tinnitus, bilateral 9 Leo Sousa [address], [place], [place], [address] , [place]. tel:[phone] Referring Provider: Sofia Everett [address], [place], [place], [address]. tel:[phone] OFFICE/OUTPA TIENT VISIT, [facility], [address] [place], [address], [place] tel:[phone] [facility] head injury1 (chief complaint) tobacco1 (chief complaint) Sjogren1 (chief complaint) HLP (chief complaint) HeadacheTobacco useSicca syndrome, unspecifiedHyperlip idemia 8 Leo Sousa [address], [place], [place], [address] , [place]. tel:[phone] Referring Provider: Sofia Everett [facility] [address], [place], [place], [address]. tel:[phone] OFFICE/OUTPA TIENT VISIT, [facility], [address], [place], [place], [address], [place] tel:[phone] [facility] sick (chief complaint) postmeno1 (chief complaint) tobacco1 (chief complaint) Acute bronchitisPostmenop ausal statusTobacco useSicca syndrome, unspecified 8 Leo Sousa [address], [place], [place], [address] , [place]. [phone] Referring Provider: [facility] [place], [place], [address]. tel:[phone] OFFICE/OUTPA TIENT VISIT, [facility], [address], [place], [place], [address], [place] tel:[phone] [facility] HLP (chief complaint) chronic pain1 (chief complaint) postmenopa usal (chief complaint) Sicca syndrome, unspecifiedHyperlip idemiaPostmenopausa l statusHormone replacement therapy 8 Leo Sousa [address], [place], [place], [address] , [place]. [phone] Referring Provider: Sofia Everett [address], [place], [place], [address]. tel:[phone] OFFICE/OUTPA TIENT VISIT, [facility], [address], [place], [place], [address], [place] tel:[phone] [facility] fever1 (chief complaint) HLP (chief complaint) leukocytos is1 (chief complaint) HyperlipidemiaLeuko cytosisFeverEssenti al (primary) hypertension 8 Leo Sousa [address], [place], [place], [address] , [place]. tel:[phone] Referring Provider: Sofia Everett [address], [place], [place], [address]. tel:[phone] PREV VISIT, EST, AGE 18-39 [facility], [address], [place], [place], [address], [place] [phone] [facility] Physical (chief complaint) Encounter for general adult medical exam w abnormal findingsLeukocytosi sSicca syndrome, unspecifiedAnemiaHa shimoto's thyroiditis 8 Leo Weeks. [address], [place], [place], [address] , [place]. [phone] Referring Provider: Sofia Everett [address], [place], [place], [address]. tel:[phone] OFFICE/OUTPA TIENT VISIT, [facility], [address], [place], [place], [address], [place] tel:[phone] [facility] sjogren1 (chief complaint) thyroid nodule1 (chief complaint) HTN1 (chief complaint) Sicca syndrome, unspecifiedHashimot o's thyroiditisEssentia l (primary) hypertensionCrohn's disease of large intestine without complications 8 Leo Weeks. [address], [place], [place], [address] , [place]. [phone] Referring Provider: Sofia Everett [address], [place], [place], [address]. tel:[phone] OFFICE/OUTPA TIENT VISIT, [facility], [address], [place], [place], [address], [place] tel:[phone] [facility] HTN (chief complaint) hypothyroi dism (chief complaint) sjogren1 (chief complaint) Essential (primary) hypertensionSicca syndrome, unspecified 8 Leo Weeks. [address], [place], [place], [address] , [place]. [phone] Referring Provider: Micky Bailey, [address], [place], [place], [address]. tel:[phone] OFFICE/OUTPA TIENT VISIT, [facility], [address], [place], [place], [address], [place] tel:[phone] [facility] thyroid nodule1 (chief complaint) sjogen1 (chief complaint) crohn disease1 (chief complaint) Remberto's thyroiditisSicca syndrome, unspecifiedCrohn's disease of large intestine without complicationsGERD w/ esophagitis 8201 8 Leo Sousa [address], [place], [place], [address] , [place]. tel:[phone] OFFICE/OUTPA TIENT VISIT, [facility], [address], [place], [place], [address], [place] tel:[phone] [facility] thyroid1 (chief complaint) GERD1 (chief complaint) sjogen1 (chief complaint) gastropare sis1 (chief complaint) Body mass index (BMI) 32.0-32.9, adultHashimoto's thyroiditisGastropa resisSicca syndrome, unspecifiedGERD w/ esophagitis 2 0 8 Leo Sousa [address], [place], [place], [address] , [place]. tel:[phone] Referring Provider: Sofia Everett [address], [place], [place], [address]. tel:[phone] OFFICE/OUTPA TIENT VISIT, [facility], [address], [place], [place], [address], [place] tel:[phone] [facility] toothache1 (chief complaint) thyroid nodule1 (chief complaint) crohn disease1 (chief complaint) fall1 (chief complaint) Remberto's thyroiditisSicca syndrome, unspecifiedEssentia l (primary) hypertensionAtypica l facial painCrohn's disease of large intestine without complications Nov-2 3201 8 Leo Sousa [address], [place], [place], [address] , [place]. tel:[phone] Referring Provider: Sofia Everett [address], [place], [place], [address]. tel:[phone] OFFICE/OUTPA TIENT VISIT, [facility], [address], [place], [place], [address], [place] tel:[phone] [facility] GERD1 (chief complaint) jont pain1 (chief complaint) thyroid1 (chief complaint) sick1 (chief complaint) Remberto's thyroiditisGastropa resisSicca syndrome, unspecifiedAcute bronchitis, unspecified 8 Leo Weeks. [address], [place], [place], [address] , [place]. [phone] Referring Provider: Sofia Everett [address], [place], [place], [address]. tel:[phone] OFFICE/OUTPA TIENT VISIT, [facility], [address], [place], [place], [address], [place] tel:[phone] [facility] jonit pain1 (chief complaint) thyroid1 (chief complaint) glucose1 (chief complaint) Remberto's thyroiditisHypergly cemiaSicca syndrome, unspecifiedLeukocyt osis 8 Leo Weeks. [address], [place], [place], [address] , [place]. [phone] Referring Provider: Sofia Everett [address], [place], [place], [address]. tel:[phone] OFFICE/OUTPA TIENT VISIT, [facility], [address], [place], [place], [address], [place] tel:[phone] [facility] foot pain1 (chief complaint) sjogren1 (chief complaint) hypothyroi dism1 (chief complaint) GERD1 (chief complaint) Other specified congenital deformities of feetHashimoto's thyroiditisSicca syndrome, unspecifiedGastropa resis 7 Leo Weeks. [address], [place], [place], [address] , [place]. tel:[phone] Referring Provider: Sofia Everett [address], [place], [place], [address]. tel:[phone] OFFICE/OUTPA TIENT VISIT, [facility], [address], [place], [place], [address], [place] tel:[phone] [facility] HTn (chief complaint) gastropare sis1 (chief complaint) hasthimoto (chief complaint) sjogren (chief complaint) sick1 (chief complaint) Essential (primary) hypertensionSicca syndrome, unspecifiedHashimot o's thyroiditisAcute upper respiratory infection, unspecified 7 Leo Weeks. [address], [place], [place], [address] , [place]. tel:[phone] Referring Provider: Sofia Everett [facility] [address], [place], [place], [address]. tel:[phone] OFFICE/OUTPA TIENT VISIT, [facility], [address], [place], [place], [address], [place] tel:[phone] [facility] gastropare sis1 (chief complaint) hypothyroi dism (chief complaint) kcl (chief complaint) Rebmerto's thyroiditisHypokale miaGastroparesis 7 Leo Sousa [address], [place], [place], [address] , [place]. tel:[phone] Referring Provider: Sofia Everett [address], [place], [place], [address]. tel:[phone] OFFICE/OUTPA TIENT VISIT, [facility], [address] [place], [address], [place] tel:[phone] [facility] GERD1 (chief complaint) C diff (chief complaint) sinus1 (chief complaint) thyroid (chief complaint) Remberto's thyroiditisSicca syndrome, unspecifiedEnteroco litis due to Clostridium difficile, recurrentAcute upper respiratory infection, unspecified 7 Bailey Micky. [address], [place], [place], [address] , [place]. tel:[phone] Referring Provider: Sofia Everett [address], [place], [place], [address]. tel:[phone] OFFICE/OUTPA TIENT VISIT, [facility], [address], [place], [place], [address], [place] tel:[phone] [facility] hypothyroi dism1 (chief complaint) weight loss1 (chief complaint) kcl (chief complaint) Remberto's thyroiditisSicca syndrome, unspecifiedAbnormal wt lossHypokalemia Leo Sousa [address], [place], [place], [address] , [place]. tel:[phone] Referring Provider: Sofia Everett [address], [place], [place], [address]. tel:[phone] OFFICE/OUTPA TIENT VISIT, [facility], [address], [place], [place], [address], [place] tel:[phone] [facility] WBC (chief complaint) UTI1 (chief complaint) thyroid1 (chief complaint) HLP (chief complaint) Sjogren1 (chief complaint) Other specified disease of bloodHashimoto's thyroiditisHyperlip idemiaSicca syndrome, unspecified 7 Leo [address], [place], [place], [address] , [place]. tel:[phone] Referring Provider: Sofia Everett [address], [place], [place], [address]. tel:[phone] PREV VISIT, NEW, AGE 18-39 [facility], [address], [place], [place], [address], [place] tel:[phone] [facility] Physical. (chief complaint) Encntr for general adult medical exam w/o abnormal findings 7 Leo [address], [place], [place], [address] , [place]. tel:[phone] Referring Provider: [place]ia [place], [address]. tel:[phone] Family History Family Member Type Diagnosis Age At Onset Father Problem (finding) Unknown Sister Problem (finding) Alive and well Mother Problem (finding) Lymphoma Payers Payer name Insurance type Covered libertarian ID Hubert muniz(s) [facility] CI [id number] Social History Type Description Quantity Date Captured Comments Alcohol Use Details Unknown Caffeine Use Details Unknown Tobacco Use Status Smoking Status No Information Sex Female Chief Complaint And Reason For Visit No Information Plan Of Treatment Date Type Action Status Goal Special diet education compl eted Goal Tobacco cessation counseling completed Goal Special diet education compl eted Goal Tobacco cessation counseling completed Goal Special diet education compl eted Goal Tobacco cessation counseling completed Goal Special diet education compl eted Goal Tobacco cessation counseling completed Goal Special diet education compl eted Goal Tobacco cessation counseling completed Goal Special diet education compl eted Goal Tobacco cessation counseling completed Goal Tobacco cessation counseling completed Goal Special diet education compl eted Goal Tobacco cessation counseling completed Goal Special diet education compl eted Goal Special diet education compl eted Goal Tobacco cessation counseling completed Goal Tobacco cessation counseling completed Goal Special diet education compl eted Goal Tobacco cessation counseling completed Goal Special diet education compl eted Goal Special diet education compl eted Goal Special diet education compl eted Goal Special diet education compl eted Goal Special diet education compl eted Goal Special diet education compl eted Goal Special diet education compl eted Goal Special diet education compl eted Goal Prescribed dietary intake co mpleted Goal Special diet education compl eted Referral Ordered: MAMMOGRAM, ONE BREAST ordered Referral Ordered: MAMMOGRAM, BOTH BREASTS ordered Referral Ordered: MAMMOGRAM, SCREENING ordered Referral Ordered: Otolaryngology (related to Tinnitus, bilateral) ordered Referral Ordered: Referrals: Otolaryngology. Evaluate and treat ordered Referral Ordered: DXA BONE DENSITY, AXIAL ordered Referral Ordered: BRANDY MILES (related to Other specified congenital deformities of feet) ordered Referral Referred To: BRANDY MILES [address] [facility] [place], [place], [phone] Ordered: Referrals: BRANDY MILES. Evaluate and treat ordered Referral Ordered: Hemal Kinsey (related to Remberto's thyroiditis) ordered Referral Referred To: Hemal Kinsey [address] [place], [place] [id number] Ordered: Referrals: Hmeal Kinsey. Evaluate and treat ordered Referral Ordered: SMALL BOWEL SERIES ordered Referral Ordered: US THYROID ordered History Of Present Illness Encounter Date Complaint History Of Prese nt Illness HTN Pt has HTN Pt ta kes losartan and his bp is stable. cough1 Pt c/o productiv e cough with wheezing for one week Pt denies any chest pain Pt feels slightly sob Pt denies any fever Pt denies any sinus symptoms or ear pain Pt went to urgent care several days ago and tested negative for COVID and flu and was given albuterol only thyroid1 Pt has hypothyro idism Pt denies any dysphagia or neck pain. Pt takes synthroid GERD1 Pt has chronic G ERD Pt takes protonix and pepcid and doing ok. Pt takes zofran PRN for occasional nausea weight loss1 Pt lost some renata ght pt states that she has slight poor appetite and she feels sick to her stomach after food since taking higher dose of synthroid thyroid1 Pt is on 137 mcg synthroid. Pt denies any palpitation or chest pain Pt feels slightly poor appetite and also early satiety since taking higher dose of thyroid chronic pain1 Pt has sjogren a nd joint pain Pt sees rheumatology pt told me she has RA but I do not see it on rheumatology note thyroid Pt patient has H ashimoto thyroiditis. Patient takes Synthroid. She is slightly under replaced. Patient denies any fatigue or weight gain. HLP Patient has not ever triglyceride. Patient takes fenofibrate. Patient denies myalgia. sjogren Patient has Sjog dorothy's disease. Patient has multiple joint pain. Patient takes [place] PRN for pain. Patient failed NSAID and tramadol. Physical Pt needs annual physical. pt has remberto disease. Pt had total vs partial thyroidectomy. pt is on synthroid Pt has HLP pt takes feno pt denies any myalgia. Pt has crohn disease and sjogren disease Pt takes norco for joint pain pt denies any other complaints breast1 Pt has abnormal mammo and diagnostic and ultrasound showed benign finding Pt denies any breast pain or nodule or discharge or discoloration Pt just had manual breast exam done by her [employer] last week. 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 pt needs norco refilled Pt failed NSAID and ultram sick Pt c/o acute ons et of malaise, abdominal pain, nonbloody diarrhea, mild nausea without vomiting, ear pain since yesterday. pt denies any fever. Her daughter has similar symptoms Pt is able to keep fluid down. pt denies any headache or rash mammogram1 Pt had mammogram done recently and was abnormal. Pt denies any breast pain, nodule or nipple discharge. sjogren1 Pt has sjogren. Pt has joint pain pt takes immunomodulator. Pt sees rheumatology. Pt states that norco 7.5 is helping her daily joint pain b12 Pt has low b12, leukocytosis and also thrombocytosis, which is chronic Pt sees hematology pt is getting b12 shot monthly anxiety1 Pt has chronic a nxiety and depression. Pt is on effexor 150 mg in Am and 75 mg at night Pt also was started on wellbutrin by her psychiatrist recently for smoking cessation and for depression. pt states that she does not feel happy on effexor Pt denies any suicidal or homicidal thought headache1 Pt c/o intermitt ent migraine headache for several years. Pt denies any head injury or waking up at night with headache. Pt never had MRI of brain. pt sometimes notices headache from back of neck radiating to scalp. Pt c/o photophobia with nausea with headache. Pt has headache 2-3 per month. pt notices more headache lately since starting wellbutrin. chronic pain1 Pt has chronic j oint pain due to sjogren disease Pt takes norco PRN for pain but not working anymore Pt states that it does not help with pain at all hypothyroidism1 Pt has low thyro id. pt takes synthroid. Pt denies any dysphagia Pt just had vocal cord cyst removed which was benign. Pt denies any hoarseness. diveriticulitis1 Pt has acute le ft lower quadrant abdominal pain since 4 days ago. Pt went to ER and was diagnosed with acute diverticulitis Pt is on levaquin and flagyl now. Pt denies any nausea, vomiting Pt denies any blood in stool. pt had colonoscopy last month which did not show any signs of diverticulitis. sjogren1 Pt has sjogren d isease. Pt sees rheumatology. Pt has joint pain and she takes norco PRN for pain HTN Pt has borderlin e HTn today Pt is in pain. Pt denies any chest pain or headache fatty liver1 Pt has fatty geraldine er Pt denies any abdominal pain chronic pain1 Pt has Sjogren a nd chronic joint pain. pt sees rheumatology Pt takes Plaquenil and azathioprine/ Pt takes norco PRn for pain Pt failed NSAID and ultram diverticulitis1 Pt denies any ab d pain. Pt just had colonoscopy 2 days ago and was told ok. No acute diverticulitis. Pt does have crohn disease. Pt takes Lialda per GI. Pt denies any diarrhea or blood in stool diverticulitis1 Pt recently went to ER for abdominal pain and she was diagnosed with acute diverticulitis. Pt was treated with levaquin and flagyl and her symptoms resolved. Pt had benign EGD last week. Pt will do colonoscopy soon tinnitus1 Pt has bilateral tinnitus and she seen ENT and had hearing study which showed low pitch hearing loss and she will have hearing aid soon HLP Pt has HLP Pt ta camdens feno. Pt denies any myalgia. pt doing ok fatigue1 Pt feels more fa tigue lately. Pt denies any sob. Pt states that she toss and turns and she has difficult time falling asleep. Pt usually takes 4 hours to fall asleep. Pt takes seroquel 50 mg qhs and ambien PRn for insomnia from her psychiatrist. Pt denies any snoring. dizziness1 Pt states that s he had one episode of vertigo last week. Pt denies any headache. Pt did not notice symptoms when standing up. Pt felt the vertigo while standing. Pt has chronic tinnitus. Pt denies any hearing loss. Pt denies any ear pain. pt did not pass out Tobacco1 Pt is on nicoder m 7 mg patch now and she still smokes about 4-5 per day. Pt is working on stopping smoking completely HTN Pt has mild HTn today. pt denies any chest pain or headache. Pt has been off metoprolol for a while. Sjogren1 Pt has sjogren a nd joint pain Pt needs norco refilled. Pt failed NSAID and ultram tobacco1 Pt has been on t he patch and she smokes about 4-5 cig per day now. HLP Pt has HLP Pt ta kes feno pt denies any myalgia Pt is on low fat and low carb diet head injury1 Pt tripped and f ell from two steps and fell on her right orbital area 5 days ago. pt went to Er and she had negative Ct of neck and also CT of brain. Pt has mild right periorbital edema. Pt c/o persistent throbbing headache around right orbital area and also neck pain and she notices right radiculopathy with some right arm numbness and tingling and right arm weakness. Pt denies any vision change. pt denies any sinus drainage tobacco1 Pt smokes close to 1 PPD daily pt wants to try patch to quit smoking postmeno1 Pt had bone dens ity done which was normal. Pt is on HRT Pt takes calcium and D sick Pt c/o running n ose with yellow drainage, productive coughing with yellow phlegm and right ear ache for one week Pt cannot stop cough. pt feels slightly sob with coughing. Pt been to ER and had negative influenza and strep testing. Pt had normal chest x ray from hospital also Pt did take Zpak and steroid but her coughing persisted Pt denies any fever. Pt denies any recent travel or sick contact HLP Pt has HLP Pt [facility] last month pt denies any myalgia. pt is trying low fat and low carb diet chronic pain1 pt has sjogren s yndrome and crohn disease. Pt has joint pain. Pt take [place] PRn for pain. Pt denies any worsening pain. Pt sees pole lift operator postmenopausal Pt is postmenopa usal. Pt had total hysterectomy due to fibroid. Pt is on estradiol daily. Pt still smokes about 1/2 PPD. pt denies any h/o clotting HLP Pt has high TG a nd mildly high TC Pt drinks a lot of soda and sweet tea. Pt also eats a lot of carbs leukocytosis1 Pt has chronic l eukocytosis and high MCV and thrombocytosis. Pt seen hematology in the past. Pt was told that her lab basically is due to splenectomy. Pt denies any fever, chill. illness fever1 Pt has been havi ng fever as high as 102 for 2-3 days but she states that she does NOT feel sick at all Pt denies any sore throat, coughing, any malaise or fatigue. Pt denies any GI issue Pt has normal appetite Pt denies any sick contact. pt denies any headache. Pt took tylenol this morning and she does not have any fever now. Pt denies any calf pain Pt denies any recent travel or bedrest. Pt denies any calf pain Physical Pt needs annual physical. Pt has sjogren and crohn disease Pt sees rheumatology. Pt has history of chronic leukocytosis and thrombocytosis. Pt had total thyroidectomy recently pt also has history of b12 and folate deficiency Pt used to get injection but not anymore. Pt has chronic anxiety and depression and insomnia Pt takes effexor and Ambien and seroquel. Pt sees psychiatrist Pt denies any suicidal or homicidal thought Pt denies any crying spells sjogren1 Pt has sjogren d isease and crohn disease. Pt just had benign EGD and colonoscopy. Pt is on omeprazole and also azathioprine , Plaquenil and also mesalamine. pt has joint pain. Pt takes norco PRN for pain Pt denies any worsening symptoms thyroid nodule1 Pt has thyroid n odule s/p complete thyroidectomy. Pt is on synthroid HTN1 Pt weaned hersel f off metoprolol Her BP is stable without BP meds. Pt denies any tachycardia or chest pain sjogren1 Pt has sjogren d isease and she has chronic joint pain. Pt takes norco PRN for pain pt failed NSAID. Pt doing ok hypothyroidism Pt is on synthro id Pt will have left thyroidectomy in 3 weeks HTN Pt does not have any heart disease Pt is taking metoprolol 25 mg once per day for several months now. Her BP is rather low. pt denies any dizziness. Pt was started on metoprolol by previous MD for HTN. thyroid nodule1 Pt had thyroid b iopsy done which is not cancerous but she will have left partial thyroidectomy due to recurrent cyst sjogen1 Pt has sjogen di sease. Pt is on plaquenil and azathioprine for it. Pt sees rheumatology. Pt has joint pain Pt takes norco PRN for pain. crohn disease1 Pt has crohn dis ease. Pt takes mesalamine and also azathioprine and doing ok. Pt sees GI. Pt also has GERD with esophagitis with gastroparesis. Pt takes omeprazole and sucralfate. Pt is off reglan since not working. Pt currently doing ok gastroparesis1 Pt has gastropar esis. Pt has been taking reglan which is not working. pt is on omeprazole. Pt was told to stop reglan by GI and she was started on something else which helps better but she does not remember the name sjogen1 Pt has sjogen di sease and joint pain. Pt takes norco PRN for pain. Pt sees rheumatology GERD1 Pt has daily LAURA D with esophagitis. Pt is on omeprazole daily. Pt denies any GI symptoms her GI is giving her omeprazole now thyroid1 Pt takes synthro id. Pt has remberto disease Pt has thyroid nodule. Pt just seen endo and she supposes to have thyroid biopsy next week. Pt denies any dysphagia fall1 Pt states that s he fell down steps twice last week. Pt states that this only occurs when she goes down the step. Pt did not pass out. Pt does not think her leg became weak or gave out. Pt states that she feels slightly dizzy and vertigo when she goes down step which made her fall. pt denies any syncope Pt denies any chest pain or palpitation. Pt denies falling while walking. Pt feels dizzy sometimes when she stand up from sitting. Pt does not have any heart disease crohn disease1 Pt has crohn dis ease. Pt told me she had benign colonoscopy last year. pt is on sulfasalazine and some other pills for it. Pt has chronic constipation and diarrhea without blood. Pt sees GI thyroid nodule1 Pt has thyroid n odule. Pt takes synthroid. pt missed her appointment with thyroid doctor. toothache1 Pt c/o left uppe r toothache for several days with facial pain. pt could not get into dentist until next month pt denies any fever, ear pain GERD1 Pt has GERD with gastric delaying and also esophagitis. Pt just had EGD recenlty. Pt takes omerpzole and reglan and doing ok. Pt deneis any nauea or abd pain jont pain1 Pt has sjogren d isease and she has joint pain. Pt takes norco PRN for pain. Pt denies any wrosening pain Pt denies any joint swelling or erythema thyroid1 Pt takes synthro id. Pt has thyroid cyst Pt has jammie with endo in november sick1 Pt c/o productiv e coughign with green phlegm for 2 days. Pt denies any sob or chest pain. pt denies any sore throat Pt has sinus congestion Pt denies any fever Pt denies any GI issue glucose1 Pt has mild high glucose on recnet lab. Pt denies any polyuria polydipsia. 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 Pt sees hematology thyroid1 Pt has thyroid c yst and hypothyroidism. Pt is on synthroid. Her TSH is ok now. Pt still has not heard from endo jonit pain1 Pt has diffuse j oint pain and foot pain. Pt has sjogren and fibromylaiga, Pt is seeing foot dotor now. Pt sees rheumatology. Pt takes plaqunil and aziothioprine. 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 Pt recenlty went to ER for foot pain. Pt wants to be referred to risk adjustment specialist. 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 Pt takes norco PRn for pain. Pt sees pole lift operator hypothyroidism1 Pt has remberto disease Pt takes synthroid. Pt also has thyroid nodule. Pt has not done lab yet. Pt also has not heard from endo yet about the nodule GERD1 Pt has GERD and gastroparesis. Pt is doing ok with omeprazole and also reglan. Her EGD was delayed by GI. Pt denies any nausea, vomiting HTn Pt has HTn. pt t akes metoprolol 25 mg BID. Pt needs refill gastroparesis1 Pt has gastropar esis. Pt has mild nausea. Pt states taht omeprazole and reglan really helps her nausa, ad pain and also bowel movement. Pt is off zofran. Pt will do EGD soon hasthimoto Pt has remberto . Pt takes synthroid and she had ultrasound done which showed large cyst on left side. sjogren Pt has sjogren s yndrome and joint pain. pt takes norco PRn for pain. Pt sees rheumatology and she is on plaqunil and also azothioprine. sick1 pt c/o sinus con gestion, purulent sinus drainage, productive coughing with ear pain and sore throat for two weeks. Pt failed OTC meds Pt deneis any fever or recent travel kcl Pt had mild low kcl. Pt denies any chest pain or headache. her KCL is ok now along with mag hypothyroidism Pt has remberto . Pt takes synthroid. her TSH is slighlty suppressed Pt denies any chset pain or headache gastroparesis1 Pt has chronic g astroparesis and postprandial nausea. Pt is on omeprazole. Pt will do EGD soon. Pt takes zofran PRN for nausea. thyroid Pt has low thyro id. Pt had thyroid ultrsound done but not availab today. Pt has not done lab yet. Pt is on synthroid GERD1 Pt states that o meprazole is helping her with GERD Pt still has postprandial nausea. pt had gastric empty study but results not available. C diff Pt was admited [facility] and she was admitted to hospital for C diff by GI recently.. Pt deneis any abd pain or diarrhea. Pt denies any bleeding sinus1 Pt c/o acute sin us congestion, sore throat, running nose , ear congestion for two days. Pt denies any fever or headahe Pt denies travel weight loss1 Pt has been losi ng weight. Pt states that whenever she eats, she feels sick and she feels nauseated. Pt had EGD several years ago which showed hiatel hernia and also stricture. Pt is on zantac only. Pt had colonosocpy two months ago which was normal per patient. Pt already had gallbladder removed. Pt states that she has diffuxe abdominal pain also. Pt just had a CT scan doen by GI last week kcl Pt did have low KCL. Pt did not do Mg and KCL yet. Pt denies any chest pain or palpitation hypothyroidism1 Pt is on 137 syn throid. Pt has not done thyroid ultrasound yet. Pt denies any chest pain or headache WBC Pt has mild high WBC and mild anemia. Pt has high MCV. Pt states that she does not drink alcohol. Pt used to drink alcohol long time ago. Pt has mild low serum protein, Pt denies any fever, chill UTI1 Pt has UTI. Pt t ook bactrim and she denies any UTi symptoms now thyroid1 Pt has most like ly remberto disease Pt is on synthroid. Her TSH is slighlty suppressed. Pt denies any chest pain or headache HLP Pt has high TG P t is not on any diet Pt does eat a lot of starchy food. . Pt does not drink alcohol Sjogren1 Pt has sjogren a nd crhon disease Pt sees rheumatology and GI now. Pt has diffuse joint pain. Pt states that tylenol #3 made her sick to her stomach. Pt could not tolerate ultram either. Physical. Pt needs annual physical. Pt has crohn disease and gERD. Pt takes folic acid and lialda and zanac. Pt sees GI. Pt denies any active symptoms. Pt has low thryoid. Pt takes syntyhorid 150 mcg daily. Pt has chronic anxiety and depression. Pt takes effexor and also seroquel at night. Pt has sjogren disease and she sees rheumatology and takes azathiprine and also plaqunil. Her previous PCP no longer takes her insuarnce. Pt states that she has diffuse joint pain due to sjogren and fibromyalgia. her rheumatology will not treat her for pain Instructions Date Instruction Additional Infor dorota Special diet education Related t o Body mass index (BMI) 32.0-32.9, adult Weight management Related to Has himoto's thyroiditis Special diet education Related t o Body mass index (BMI) 34.0-34.9, adult Increase physical activity Relat ed to Remberto's thyroiditis Quit smoking Related to Curt corona's thyroiditis Special diet education Related t o Body mass index (BMI) 34.0-34.9, adult Perform monthly self breast examinations. Related to Encntr for general adult medical exam w/o abnormal findings Quit smoking. Related to Encnt r for general adult medical exam w/o abnormal findings Increase activity. Related to En cntr for general adult medical exam w/o abnormal findings Special diet education Related t o Body mass index (BMI) 34.0-34.9, adult Increase physical activity Relat ed to Inconclusive mammogram Weight management Related to Inc onclusive mammogram Weight management Related to Inc onclusive mammogram Quit smoking Related to Incon clusive mammogram Increase physical activity Relat ed to Inconclusive mammogram Special diet education Related t o Body mass index (BMI) 34.0-34.9, adult Quit smoking Related to Curt coorna's thyroiditis Special diet education Related t o Body mass index (BMI) 34.0-34.9, adult Special diet education Related t o Body mass index (BMI) 35.0-35.9, adult Increase physical activity Relat ed to Sicca syndrome, unspecified Quit smoking Related to Sicca syndrome, unspecified Weight management Related to Sic ca syndrome, unspecified Special diet education Related t o Body mass index (BMI) 34.0-34.9, adult Avoid high residue f oods(seeds, nuts, corn, raisins). Related to Diverticulitis of large intestine without perforation without bleeding Special diet education Related t o Body mass index (BMI) 35.0-35.9, adult Weight management Related to Div erticulitis of large intestine without perforation without bleeding Quit smoking Related to Diver ticulitis of large intestine without perforation without bleeding Increase physical activity Relat ed to Diverticulitis of large intestine without perforation without bleeding Increase physical activity Relat ed to Epidemic vertigo Special diet education Related t o Body mass index (BMI) 34.0-34.9, adult Quit smoking Related to Epide pato vertigo Weight management Related to Epi demic vertigo Quit smoking Related to Heada luís Increase physical activity Relat ed to Headache Weight management Related to Hea dache Special diet education Related t o Body mass index (BMI) 34.0-34.9, adult Special diet education Related t o Body mass index (BMI) 32.0-32.9, adult Quit smoking Related to Acute bronchitis Quit smoking Related to Acute bronchitis Stop smoking. Related to Hyper lipidemia Increase physical activity Relat ed to Sicca syndrome, unspecified Quit smoking Related to Sicca syndrome, unspecified Weight management Related to Sic ca syndrome, unspecified Special diet education Related t o Body mass index (BMI) 33.0-33.9, adult Special diet education Related t o Body mass index (BMI) 32.0-32.9, adult Quit smoking Related to Hyper lipidemia Special diet education Related t o Body mass index (BMI) 33.0-33.9, adult Quit smoking Related to Encou nter for general adult medical exam w abnormal findings Weight management Related to Sic ca syndrome, unspecified Special diet education Related t o Body mass index (BMI) 32.0-32.9, adult Weight management Related to Sic ca syndrome, unspecified Special diet education Related t o Body mass index (BMI) 32.0-32.9, adult Increase activity. Related to Es sential (primary) hypertension Stop smoking. Related to Essen tial (primary) hypertension Follow a low sodium diet. Relate d to Essential (primary) hypertension Increase physical activity Relat ed to Remberto's thyroiditis Quit smoking Related to Curt corona's thyroiditis Weight management Related to Has himoto's thyroiditis Special diet education Related t o Body mass index (BMI) 32.0-32.9, adult Prescribed dietary intake Relate d to Body mass index (BMI) 32.0-32.9, adult Increase physical activity Relat ed to Remberto's thyroiditis Quit smoking Related to Curt corona's thyroiditis Weight management Related to Has himoto's thyroiditis Weight management Related to Has himoto's thyroiditis Special diet education Related t o Body mass index (BMI) 32.0-32.9, adult Quit smoking Related to Sicca syndrome, unspecified Prescribed Activity and Exercise Education Related to Dietary Surveillance and Counseling Prescribed Diet Educ ation/Lifestyle Education Regarding Diet Related to Dietary Surveillance and Counseling Increase physical activity Relat ed to Remberto's thyroiditis Quit smoking Related to Curt corona's thyroiditis Weight management Related to Has himoto's thyroiditis Prescribed Diet Educ ation/Lifestyle Education Regarding Diet Related to Dietary Surveillance and Counseling Increase physical activity Relat ed to Remberto's thyroiditis Quit smoking Related to Curt corona's thyroiditis Weight management Related to Has himoto's thyroiditis Prescribed Activity and Exercise Education Related to Dietary Surveillance and Counseling Prescribed Activity and Exercise Education Related to Dietary Surveillance and Counseling Weight management Related to Oth er specified congenital deformities of feet Increase physical activity Relat ed to Other specified congenital deformities of feet Prescribed Diet Educ ation/Lifestyle Education Regarding Diet Related to Dietary Surveillance and Counseling Prescribed Activity and Exercise Education Related to Dietary Surveillance and Counseling Prescribed Diet Educ ation/Lifestyle Education Regarding Diet Related to Dietary Surveillance and Counseling Increase activity. Related to Es sential (primary) hypertension Follow a low sodium diet. Relate d to Essential (primary) hypertension Prescribed Activity and Exercise Education Related to Dietary Surveillance and Counseling Prescribed Diet Educ ation/Lifestyle Education Regarding Diet Related to Dietary Surveillance and Counseling Increase physical activity Relat ed to Remberto's thyroiditis Weight management Related to Has himoto's thyroiditis Increase physical activity Relat ed to Remberto's thyroiditis Quit smoking Related to Curt corona's thyroiditis Prescribed Activity and Exercise Education Related to Dietary Surveillance and Counseling Prescribed Diet Educ ation/Lifestyle Education Regarding Diet Related to Dietary Surveillance and Counseling Prescribed Activity and Exercise Education Related to Dietary Surveillance and Counseling Prescribed Diet Educ ation/Lifestyle Education Regarding Diet Related to Dietary Surveillance and Counseling Increase physical activity Relat ed to Remberto's thyroiditis Quit smoking Related to Curt corona's thyroiditis Weight management Related to Has himoto's thyroiditis Prescribed Diet Educ ation/Lifestyle Education Regarding Diet Related to Dietary Surveillance and Counseling Increase physical activity Relat ed to Other specified disease of blood Quit smoking Related to Other specified disease of blood Weight management Related to Oth er specified disease of blood Prescribed Activity and Exercise Education Related to Dietary Surveillance and Counseling Increase physical activity Relat ed to Other specified disease of blood Quit smoking Related to Other specified disease of blood Quit smoking. Related to Encnt r for general adult medical exam w/o abnormal findings Perform monthly self breast examinations. Related to Encntr for general adult medical exam w/o abnormal findings Quit smoking. Related to Encnt r for general adult medical exam w/o abnormal findings Perform monthly self breast examinations. Related to Encntr for general adult medical exam w/o abnormal findings Prescribed Activity and Exercise Education Related to Dietary Surveillance and Counseling Prescribed Diet Educ ation/Lifestyle Education Regarding Diet Related to Dietary Surveillance and Counseling Assessments Type Assessment Date No Information
--- OUTSIDE RECORDS SUMMARY | 2024-12-30 20:29 | XMS_ITS | Encounter Summary ---
Author Organization [facility] Address [address] [place] [address] Care Team Providers Care Potato Seed Cutter Name Role Phone Unknown, Provider Primary Care Provider Micky Engle MD Primary Care Provider [phone] Madeline Hillman PA-C Primary Care Provider + Moises Tabor Primary Care Provider [phone] Encounter Details Date Type Department Care Team (Late st Contact Info) Description 12/09/2015 Lab Requisition [facility] Ce - Lab Cytogenetics [address] [place] [address] Beata Bernardo MD [address] [facility] 5th [place] [phone] Avila's syndrome Social History Tobacco Use Types Packs/Day Years Used Date Smoking Tobacco: Every Day Cigarettes 0.5 15 Smokeless Tobacco: Never Alcohol Use Standard Drinks/Week Comments No 0 (1 standard drink = 0.6 oz pur e alcohol) Comments Unknown Sex and Gender Information Value Date Recorded Sex Assigned at Female 06/06/2023 12:06 PM CDT Legal Sex Female 9:33 AM CDT Gender Identity Female 06/06/2023 12:06 PM CDT Sexual Orientation Not on file documented as of this encounter Plan of Treatment Upcoming Encounters Date Type Department Care Team (Late st Contact Info) Description 07/17/2025 10:40 AM CDT Office Visit [facility] - Rheumatology [address] [facility] [place] [address] Luis Eduardo North MD [address] [facility] 2L DIV [place] [address] documented as of this encounter Procedures Procedure Name Priority Date/Time Associated Diagnosis Comments CYTOGENETICS CANCER PANEL Routine 12/09/2015 1:36 PM CDT Avila's syndrome documented in this encounter Results * CYTOGENETICS CANCER PANEL (12/09/2015 1:36 PM CDT) Indication for Study Short Stature / Myalgia / Arthralgia / R/O Avila Syndrome 12/23/2015 7:48 AM [facility] Results Cytogenetics Analysis of 200 interphase cells hybridized to X, Y and SHOX specific fluorescent labeled probes* showed the following results: nuc daily (DXZ1x2,DYZ1x0,SH OXx2)Normal ========= Analysis of 5 cells and count of 30 cells (6 cells karyotyped, GTL-banding) from 2 different types of stimulated peripheral blood cultures 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 12/23/2015 7:48 AM T [facility] Interpretation FISH was negative for the SHOX and Y probes and showed XX in almost all cells. Chromosome analysis is in progress. 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 Female chromosome analysis showing 46,XX with no evidence for any clonal structural or numerical abnormality in all cells examined at 550 average band resolution. Thirty cells were analyzed to rule out 10% level of mosaicism at 95% confidence limits. 12/23/2015 7:48 AM T [facility] Preliminary result electronically signed by Geeta Jurado, PhD [facility] on 12/17/2015 at 9:11 AM Disclaimer *This test was developed, and its performance characteristics determined by [facility] as required by CLIA '88 Regulations. It has not been cleared or approved for specific uses by the U.S. Food and Drug Administration. The FDA has determined that such clearance or approval is not necessary. This test is used for clinical purposes. It should not be reported as investigational or for research. 12/23/2015 7:48 AM CDT [facility] Client Information [facility] - [id number] [facility] Lab Numbers: [id number] 12/23/2015 7:48 AM CDT [facility] Other BLOOD SPECIMEN / Unknown 12/09/2015 1:36 PM CDT 12/09/2015 3:51 PM CDT Beata Bernardo MD LAB - PATHOLOGY/CYTOLOGY OR DERABLES Final Result Performing Organization Address City/State/[facility] Co de Phone Number [facility] [address] [place] [address] documented in this encounter Visit Diagnoses Diagnosis Avila's syndrome (HCC) Gonadal dysgenesis documented in this encounter Care Teams Potato Seed Cutter Relationship Specialty Start Date End Date Unknown, Provider PCP - General 09/30/16 01/15/18 Micky Bailey MD [address] [facility] [address] [place] [id number] PCP - General 01/16/18 03/03/20 Madeline Hillman PA-C [address] [place] [id number] PCP - General 03/04/20 10/29/24 Moises Tabor [address] [place] [address] [place] [address] PCP - General 10/30/24 documented as of this encounter
--- OUTSIDE RECORDS SUMMARY | 2024-12-30 20:29 | XMS_ITS | Encounter Summary ---
Author Organization [facility] Address [address] [place] [address] Phone Care Team Providers Care Home Service Advisor Name Role Phone Niall Beard MD Unavailable Yanick Law DO Unavailable [phone] Yesica Castle APRN, MANAGER ADMINISTRATION Unavailable [phone] Homar Zee MD Unavailable [phone] Madeline Hillman PAC Primary Care Provider Monique Shook APRN, MANAGER ADMINISTRATION Unavailable Yue Saba MD Unavailable [phone] Reason for Visit * Reason Comments Medication Refill Encounter Details Date Type Department Care Team (Late st Contact Info) Description 07/08/2023 Refill [facility] - Gastroenterology [facility] [address] [place] [phone] Yue Saba MD [address] [place] [address] Medication Refill Social History Tobacco Use Types [...] suspected to have Coronavirus/COVID-19? No / Unsure 06/16/2023 10:55 AM CDT documented as of this encounter Miscellaneous Notes * Telephone Encounter - Radha Lou RN - 07/11/2023 8:56 AM CDT Per nursing clinical judgement, provider to review and approve the medication(s) order(s) if appropriate. Requested Prescriptions Pending Prescriptions Disp Refills cholestyramine (QUESTRAN) 4 GM Pack [Pharmacy Med Name: CHOLESTYRAMINE PACKET] 178 Packet 1 Sig: TAKE 1 PACKET BY MOUTH TWICE DAILY WITH MEALS. IF IT CAUSES CONSTIPATION REDUCE TO ONCE DAILY Bile Acid Sequestrants Protocol Failed - 07/08/2023 1:06 AM Failed - Lipid panel in past year LDL Date Value Ref Range Status 07/17/2021 124 5 - 130 mg/dL Final HDL CHOLESTEROL Date Value Ref Range Status 07/17/2021 54.7 >40 mg/dL Final CHOLESTEROL Date Value Ref Range Status 07/17/2021 224 (H) <=200 mg/dL Final TRIGLYCERIDES Date Value Ref Range Status 07/17/2021 225 (H) <150 mg/dL Final VLDL Date Value Ref Range Status 07/17/2021 45 5 - 55 mg/dL Final CHOL/HDL RATIO Date Value Ref Range Status 07/17/2021 4.1 0.0 - 4.4 Final NON-HDL CHOLESTEROL Date Value Ref Range Status 07/17/2021 169.3 (H) <130 mg/dL Final Passed - Visit with relevant provider in past year or upcoming 90 days Recent Visits Date Type Provider Dept 04/21/23 Office Visit Yue Saba MD [facility] 07/15/22 Office Visit Yue Saba MD [facility] [place] Showing recent visits within past 365 days and meeting all other requirements Future Appointments No visits were found meeting these conditions. Showing future appointments within next 90 days and meeting all other requirements documented in this encounter Plan of Treatment Upcoming Encounters Date Type Department Care Team (Latest Contact Info) Description 02/06/2025 10:30 AM CDT Clinical Support [facility] Oncology Services [address] [place] [address] Discharge Disposition: Discharged to home or Selfcare documented as of this encounter Visit Diagnoses Diagnosis Diarrhea, unspecified type documented in this encounter Additional Health Concerns Assessment Noted Time PHQ-9 Depression Total Score: 0 06/16/20 17 11:53 AM CDT documented as of this encounter Care Teams Home Service Advisor Relationship Specialty Start Date End Date Madeline Hillman PAC [address] [place] [address] PCP - General Physician Certified Medication Aide 10/08/19 [place] [address] [place] [address] Internal Medicine 09/30/15 [place] [address] [place] [address] Gastroenterology 03/12/16 08/29/23 Yesica Castle, MUSHROOM GROWING SUPERVISOR, MANAGER ADMINISTRATION [address] [place] [address] Nurse Practitioner Advanced Practice Nurse 03/12/16 Homar Zee MD [address] [place] [address] Rheumatology 03/15/19 Monique Shook APRN, MANAGER ADMINISTRATION [address] [place] [address] Nurse Practitioner Advanced Practice Nurse 06/17/23 Yue Saba MD [address] [place] [address] Consulting Physician Gastroenterology 04/21/23 documented as of this encounter
--- OUTSIDE RECORDS SUMMARY | 2024-12-30 20:29 | XMS_ITS | CONTINUITY OF CARE DOCUMENT ---
Author Name adamtemo adamtemo Address Unknown Organization [facility] Address [address] [facility] [address] [place] [address] Phone [phone] Care Team Providers Care Tile Installer Name Role Phone Benny Gaspar MD Unavailable RITO HOPSON Unavailable RITO HOPSON Unavailable PROBLEMS Condition Status Date Provider Notes Cardiology examination active Benny hinton MD GERD active Benny Gaspar MD HTN active Benny Gaspar MD Rheumatoid arthritis active Benny Gaspar MD Depression active Benny Gaspar MD Diverticulitis active Benny Gaspar MD GEORGINA active Benny Gaspar MD Hypothyroidism active Benny Gaspar MD Obesity active Benny Gaspar MD Palpitations active Benny Gaspar MD Crohn's Disease active Benny Gaspar MD Shortness of breath ?asthma active Benny Gaspar MD ENCOUNTERS Date Type Provider Location Encounter Diag nosis - In-person encounter Office Visit Benny Gaspar MD [place] [facility] - In-person encounter Office Visit Benny Gaspar MD [place] [facility] Cardiology examinationGERDHTNRheumatoid arthritisDepressionDiverticulitis OSAHypothyroidismObesityPalpitati onsCrohn's DiseaseShortness of breath ?asthma VITAL SIGNS Date Observation Value Provider Body Mass Index (Ratio) 38.30 kg/m2 Breanna Gaspar MD blood pressure, diastolic -1 mm[Hg] Lana nkLog blood pressure, systolic 128 mm[Hg] Kailyn [facility] blood pressure, diastolic 89 mm[Hg] Kaylin peralta Leonardo blood pressure, systolic 128 mm[Hg] Zamzam salvador Leonardo pulse rate 88 /min Ani Leonardo oxygen saturation, oximetry 97 % Ani Leonardo weight E&M 177 [lb_av] Ani Leonardo blood pressure, cuff size large An fabian Leonardo height E&M 57 [in_i] Ani Patterson Body Mass Index (Ratio) 38.95 kg/m2 Breanna Gaspar MD blood pressure, cuff size regular Ke rri Gabe blood pressure, diastolic 86 mm[Hg] Ke rri Gabe blood pressure, systolic 126 mm[Hg] Chet Bernal oxygen saturation, oximetry 97 % Liz Bernal respiratory rate E&M 14 /min Liz silva pulse rate 86 /min Liz bourneer weight E&M 180 [lb_av] Liz Pandya lder height E&M 57 [in_i] Liz Pandya lder ALLERGIES Allergy Name Onset Date Reaction Criticality Status PCN High Criticality active HISTORY OF MEDICATION USE Medication Status Instructions Dates Provider Indications Com ments metoprolol succinate 25 mg tablet extended release 24 hr active TAKE 1 TABLET BY MOUTH TWICE DAILY 03/08 Leiza Brown RN metoprolol succinate 25 mg tablet extended release 24 hr completed - 03/08 Harry Corcoran RN hydralazine 25 mg tablet completed 02/16 - 02/16 Benny Gaspar MD Daily-Solomon (with folic acid) 400 mcg tablet active Liz Bernal fenofibrate 160 mg tablet active Liz Bernal Symbicort 160-4.5 mcg/actuation HFA aerosol inhaler completed - 02/16 Benny Gaspar MD levothyroxine 150 mcg tablet active Liz Bernal cyanocobalamin (vitamin B-12) 1,000 mcg/mL solution active Liz Bernal famotidine 40 mg tablet active Liz Bernal fluticasone propionate 50 mcg/actuation spray,suspension active Liz Bernal zolpidem 10 mg tablet active Liz Bernal albuterol sulfate 90 mcg/actuation HFA aerosol inhaler completed - 02/16 Benny Gaspar MD ergocalciferol (vitamin D2) 1,250 mcg (50,000 unit) capsule active Liz Bernal hydroxychloroquine 200 mg tablet active Liz Bernal folic acid 1 mg tablet active Liz Bernal estradiol 1 mg tablet active Liz Bernal metoclopramide HCl 5 mg tablet active Liz Bernal hydralazine 25 mg tablet completed - 02/16 Benny Gaspar MD ondansetron 8 mg tablet,disintegratin g active Liz Bernal omeprazole 40 mg capsule,delayed release(DR/EC) active Liz Bernal topiramate 25 mg tablet active Liz Bernal venlafaxine 150 mg capsule,extended release 24hr active Liz Bernal quetiapine 200 mg tablet active Liz Bernal losartan 50 mg tablet active Liz Bernal SOCIAL HISTORY Date Observation Value Provider social history E&M S moking History: P atient currently smokes every day. Benny Gaspar MD social history reviewed E&M revi ewed - no changes required Benny Gaspar MD number of years as a smoker 15 a Ani Patterson smoking history, tot al pack/day 1/2 ppd Ani Patterson cigarette use yes Ani Patterson smoking status Current every day smoker A nathaniel Patterson number of years as a smoker 15 a Liz Jennifervadim smoking history, tot al pack/day 1/2 ppd Liz Dewittmarisolgiuseppemehranpopeye cigarette use yes Liz Dewittmarisolramy nye smoking status Current every day smoker K jurgen Gabe INSURANCE PROVIDERS Payer name Policy type / Coverage type Jarett red libertarian [employer] MEDICA[employer] (2) Medicaid [id number] ADVANCE DIRECTIVES Name Date DISCUSSED - NO DECISION MADE TREATMENT PLAN Date Name Performer [id number],C, I mproved. She reports her breathing test was negative for both COPD and asthma. Benny Gaspar MD [id number],C, C ontinues to have palpitations. Her telemonitor showed PVC?s, ventricular bigeminy, trigeminy, and PAC?s. As she remains symptomatic, we will start her on metoprolol succinate 25 mg daily. As her BP is well controlled on her current medications and she may become hypotensive with this beta karolina, I will stop her hydralazine. Benny Gaspar MD [id number],S, O n famotidine. Benny Gaspar MD [id number],S, F glenna with rheumatology. On hydroxychloroquine. Benny Gaspar MD [id number],S, N ow on antivia infusions. There has been an improvement of symptoms of abdominal pain and bowel motion. She also has diverticulitis disease/ Benny Gaspar MD [id number],C,B lood pressure control is satisfactory. Benny Gaspar MD [id number],C, O n replacement therapy. Benny Gaspar MD [id number],C,Weight loss a dvised. Benny Gaspar MD [id number],C,F ollows with rheumatology. On hydroxychloroquine. Benny Gaspar MD [id number],C,On famotidine . Benny Gaspar MD [id number],C,On antidepres sants. Benny Gaspar MD [id number],C,N ow on antivia infusions. There has been an improvement of symptoms of abdominal pain and bowel motion. She also has diverticulitis disease/ Benny Gaspar MD [id number],C,B lood pressure control is satisfactory. On losartan and hydralazine. Her diuretics were discontinued because of hyponitremia. Benny Gaspar MD [id number],C,O n bronchodilater inhalers. Recent PFTs as per patient were normal. SHe is planned to undergo methocoholine test. Benny Gaspar MD [id number],C,S he has been having palpitations for 2 years. Has associated dizziness and lightheadedness. No syncope and no CP. Will arrange for a telemonitor and Echo. Benny Gaspar MD Cardiology: I mproved. She reports her breathing test was negative for both COPD and asthma. Benny Gaspar MD Cardiology: C ontinues to have palpitations. Her telemonitor showed PVC?s, ventricular bigeminy, trigeminy, and PAC?s. As she remains symptomatic, we will start her on metoprolol succinate 25 mg daily. As her BP is well controlled on her current medications and she may become hypotensive with this beta karolina, I will stop her hydralazine. Benny Gaspar MD Cardiology: O n famotidine. Benny Gaspar MD Cardiology: F ollows with rheumatology. On hydroxychloroquine. Benny Gaspar MD Cardiology: N ow on antivia infusions. There has been an improvement of symptoms of abdominal pain and bowel motion. She also has diverticulitis disease/ Benny Gaspar MD Cardiology:Blood pre ssure control is satisfactory. Benny Gaspar MD Cardiology: O n replacement therapy. Benny Gaspar MD Cardiology:Weight loss advised. Benny Gaspar MD Cardiology:Follows w ith rheumatology. On hydroxychloroquine. Benny Gaspar MD Cardiology:On famotidine. Ree Gaspar MD Cardiology:On antidepressants. M danita Gaspar MD Cardiology:Now on an tivia infusions. There has been an improvement of symptoms of abdominal pain and bowel motion. She also has diverticulitis disease/ Benny Gaspar MD Cardiology:Blood pre ssure control is satisfactory. On losartan and hydralazine. Her diuretics were discontinued because of hyponitremia. Benny Gaspar MD Cardiology:On bronch odilater inhalers. Recent PFTs as per patient were normal. SHe is planned to undergo methocoholine test. Benny Gaspar MD Cardiology:She has b een having palpitations for 2 years. Has associated dizziness and lightheadedness. No syncope and no CP. Will arrange for a telemonitor and Echo. Benny Gaspar MD Date Name Complete Echo Monitor - Telemetry (Mobile Cardiac) HISTORY OF PROCEDURES Procedure Date Procedure Name Provider Procedure Notes S tatus EKG Benny Gaspar MD complet ed EKG Benny Gaspar MD complet ed
--- OUTSIDE RECORDS SUMMARY | 2024-12-30 20:29 | XMS_ITS | Encounter Summary ---
Author Organization [facility] Address [address] [place] [address] Phone Care Team Providers Care Juice Standardizer Name Role Phone Niall Beard MD Unavailable Yanick Law DO Unavailable [phone] Yesica Castle APRN, CONCRETE PAVING MACHINE OPERATOR Unavailable Homar Zee MD Unavailable [phone] Madeline Hillman [facility] Primary Care Provider Monique Shook APRN, CONCRETE PAVING MACHINE OPERATOR Unavailable Yue Saba MD Unavailable [phone] Reason for Visit * Reason Comments Medication Refill Encounter Details Date Type Department Care Team (Late st Contact Info) Description 01/21/2021 Refill [facility] - Gastroenterology - [place] [address] [place] [address] Yanick Law, DO [address] [address] Medication Refill Social History Tobacco Use Types [...] Exposure Response Date Recorded In the last month, have you been in contact with someone who was confirmed or suspected to have Coronavirus / COVID-19? No / Unsure 01/20/2021 4:45 AM CDT documented as of this encounter Miscellaneous Notes * Telephone Encounter - Danya Velazquez RMA - 01/21/2021 9:07 AM CDT Medication discontinued by Dr. Law on 01/15/21 for med list clean up documented in this encounter Plan of Treatment Upcoming Encounters Date Type Department Care Team (Latest Contact Info) Description 02/06/2025 10:30 AM CDT Clinical Support [facility] Oncology Services [address] [place] [address] Discharge Disposition: Discharged to home or Selfcare documented as of this encounter Visit Diagnoses Not on filedocumented in this encounter Additional Health Concerns Infection Onset Date Last Indicated Resolved Time C. difficile Rule-Out 05/15/2021 05/15/20212020 12:06 PM CDT C. difficile Rule-Out 06/24/2023 06/24/20232022 12:18 AM CDT Assessment Noted Time PHQ-9 Depression Total Score: 0 06/16/20 17 11:53 AM CDT documented as of this encounter Care Teams Juice Standardizer Relationship Specialty Start Date End Date Madeline Hillman PAC [address] [place] [address] PCP - General Physician Twister Operator 10/08/19 [place] [address] [place] [address] Internal Medicine 09/30/15 [place] [address] [place] [address] Gastroenterology 03/12/16 08/29/23 Yesica Castle APRN, CONCRETE PAVING MACHINE OPERATOR [address] [place] [address] Nurse Practitioner Advanced Practice Nurse 03/12/16 Homar Zee MD [address] [place] [address] Rheumatology 03/15/19 Monique Shook APRN, CONCRETE PAVING MACHINE OPERATOR [address] [place] [address] Nurse Practitioner Advanced Practice Nurse 06/17/23 Yue Saba MD [address] [place] [address] Consulting Physician Gastroenterology 04/21/23 documented as of this encounter
--- OUTSIDE RECORDS SUMMARY | 2024-12-30 20:29 | XMS_ITS | Clinical Summary ---
Author Organization [facility] Address [address] [place] [address] Phone Care Team Providers Care [employer] Name Role Phone Niall Beard MD Unavailable [phone] Homar Zee MD Unavailable [phone] Madeline Hillman Primary Care Provider [phone] Monique Shook APRN, TITLE INSURANCE EXAMINER Unavailable Yue Saba MD Unavailable [phone] Allergies Active Allergy Reactions Criticality Noted Date Comments Clindamycin Nausea,Vomiting 01/13/2018 Levofloxacin In D5w Other (see Comments) 2018 Gives Cdiff Penicillin G Hives 12/08/2018 Penicillins Anaphylaxis,Hives,Swelling High 09/04/20 15 Medications estradiol (ESTRACE) 1 MG Tablet Take 2 mg by mouth daily. Reported on 11/11/2016 2 08/13/20 15 Active Multiple Vitamin (MULTI VITAMIN DAILY PO) Take by mouth daily. Active hydroxychloroqui ne (PLAQUENIL) 200 MG Tablet Take 200 mg by mouth 2 times daily. Active fenofibrate 160 MG Tablet Take 160 mg by mouth daily. Active Calcium Carbonate-Vitami n D (CALCIUM-VITAMIN D) 600-125 MG-UNIT Tablet Take by mouth daily. Active Cyanocobalamin 1000 MCG/ML KitIndications:L ow vitamin B12 level 1,000 mcg by Intramuscular route every 30 days. 1 Kit 6 06/23/20 21 Active Calcium Carb-Cholecalcif flakita (calcium carbonate-vitami n D) 600-400 MG-UNIT Tablet Activ e buPROPion SR (WELLBUTRIN SR) 150 MG TABLET SR 12 HR Take 150 mg by mouth daily. 12/23/19 22 Active ibuprofen (MOTRIN) 600 MG Tablet ibuprofen 600 mg tablet TAKE 1 TABLET BY MOUTH THREE TIMES DAILY Active vedolizumab (Entyvio) 300 MG Recon SolnIndications: Crohn's disease of small intestine without complication (HCC) every 8 weeks. Premeds: tylenol 650 mg po x 1, benadryl 25 mg po x 1 Post meds/rescue meds: benadryl 50 mg iv x 1, solumedrol 125mg iv x 1. 1 Each 8 01/13/20 23 Active cyanocobalamin (VITAMIN B-12) 1000 MCG/ML Solution INJECT 1 ML SUBCUTANEOUSLY EVERY MONTH DIRECTED 04/09/20 23 Active ergocalciferol (VITAMIN D) 54504 UNIT Capsule TAKE 1 CAPSULE EVERY WEEK BY ORAL ROUTE DIRECTED FOR 84 DAYS. 04/09/20 23 Active levothyroxine (SYNTHROID) 150 MCG Tablet TAKE 1 TABLET BY MOUTH EVERY DAY AT 6:30 AM 02/12/20 23 Active losartan (COZAAR) 50 MG Tablet TAKE 1 TABLET BY MOUTH EVERY DAY DIRECTED 03/25/20 23 Active ofloxacin (FLOXIN) 0.3 % Solution 03/31/20 23 Active omeprazole (PriLOSEC) 40 MG CAPSULE DELAYED RELEASE Take 1 Capsule by mouth daily. Active PEG 3338-UDp-XlXru-N aCl-NaSulf (PEG 3350/Electrolyte s) 240 g Recon Soln Active Rimegepant Sulfate (Nurtec) 75 MG TABLET DISPERSIBLE Take by oral route for 8 days. 11/15/19 23 Active topiramate (TOPAMAX) 25 MG Tablet Take 25 mg by mouth 2 times daily. 03/11/20 23 Active Calcium Carb-Cholecalcif flakita 600-20 MG-MCG Tablet Take 1 Tablet by mouth. Active folic acid (FOLVITE) 1 MG Tablet Take 1 Tablet by mouth daily. Active metoclopramide (REGLAN) 5 MG Tablet Take 5 mg by mouth. 01/03/20 Active metoprolol Succinate (TOPROL-XL) 50 MG TABLET SR 24 HR TAKE 1 TABLET BY MOUTH EVERY DAY DIRECTED 03/18/20 23 Active metoprolol Succinate (TOPROL-XL) 50 MG TABLET SR 24 HR TAKE 1 TABLET BY MOUTH EVERY DAY DIRECTED Active Daily-Solomon Multivitamin Tablet TAKE 1 TABLET BY MOUTH EVERY DAY DIRECTED 03/14/20 Active QUEtiapine (SEROquel) 200 MG Tablet TAKE 1 TABLET BY MOUTH EVERYDAY AT BEDTIME 03/26/20 Active Venlafaxine HCl XR (EFFEXOR-XR) 150 MG TABLET SR 24 HR Take 150 mg by mouth. Active zolpidem (AMBIEN) 10 MG Tablet Take 10 mg by mouth. 11/13/19 Active VEDOLIZUMAB IV 300 mg by Intravenous route. Active pantoprazole (PROTONIX) 40 MG Tablet Delayed ResponseIndicati ons:Gastro-esoph ageal reflux disease without esophagitis Take 1 Tablet by mouth daily. 90 Tablet 1 04/18/20 Active cholestyramine (QUESTRAN) 4 GM PackIndications: Diarrhea, unspecified type TAKE 1 PACKET BY MOUTH TWICE DAILY WITH MEALS. IF IT CAUSES CONSTIPATION REDUCE TO ONCE DAILY 178 Packet 1 07/13/20 Active Additional Information Patient not taking.Reported on 08/18/2023 ondansetron (ZOFRAN-ODT) 8 MG TABLET DISPERSIBLEIndic ations:Gastro-es ophageal reflux disease without esophagitis DISSOLVE 1 TABLET ON THE TONGUE ONCE EVERY 8 HOURS NEEDED FOR NAUSEA *FIRST LINE* 15 Tablet 3 07/26/20 Active ferrous sulfate 325 (65 Fe) MG TabletIndication s:Thrombocytosis TAKE 1 TABLET BY MOUTH EVERY DAY 30 Tablet 3 01/24/20 24 Active Active Problems Problem Noted Date Diagnosed Date Long-term use of high-risk medication 07/17/2021 Irritable bowel syndrome with constipation 04/08 GEORGINA (obstructive sleep apnea) 02/12/2021 Gastroesophageal reflux disease 02/12/2021 Non morbid obesity 02/12/2021 Tobacco use disorder 02/12/2021 Crohn's disease 03/13/2020 Vocal cord polyps 02/01/2019 Pain in both feet 10/19/2017 Plantar wart of right foot 10/19/2017 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 Hallux valgus of left foot 10/19/2017 Hallux valgus of right foot 10/19/2017 H/O hemolytic anemia 11/11/2016 Leukocytosis, unspecified 10/14/2016 Colitis 01/14/2016 Thrombocytosis 10/23/2015 H/O splenectomy 10/23/2015 B12 deficiency 10/23/2015 Folic acid deficiency 10/23/2015 Positive VLADIMIR (antinuclear antibody) 09/04/2015 Hiatal hernia 09/04/2015 Encounters Date Type Department Care Team Description 12/12/2024 10:30 AM CDT [facility] [address] [place] [id number] Asya Martinez MD Crohn's disease of small intestine without complication (HCC) Discharge Disposition: Discharged to home or Selfcare 12/12/2024 Travel 12/11/2024 Travel from Last 3 Months Immunizations Immunization Administration Dates Next Due DTAP VACCINE 04/27/2016 DTP Vaccine 06/04/1985, 4,05/20/1983,1981,12/11/1979 Hepatitis B Vaccine, Pediatric/adolescent 07/24/1997,07/22/1997,09/04/1996,1995 Influenza Seasonal, Intrader mal, Preservative Free 05/28/2015 Influenza Vaccine 06/21/2017 Influenza Vaccine greater than 3 yrs 05/28/2015 Influenza Vaccine, MDCK,quad rivalent, pres free 06/23/2019 Influenza Vaccine, Quadrivalent, PF 06/17/2021,0 06/04/2016,06/20/2015 Influenza, Injectable, Quadrivalent 06/21/2022 Influenza, Recombinant, Quadrivalent,injectable, Pf 06/21/2022 Influenza, Seasonal, Injecta ble, Undefined 05/28/2015 MMR Vaccine 07/05/1990,05/19/1982 OPV 06/04/1985, 4,05/20/1983,1981,12/11/1979 Pneumococcal Vaccine - 13 Valent 01/19/2021,08/0 05/2016 Pneumococcal Vaccine Adult - 23 Valent 04/27/2016 TD VACCINE 05/17/1994 TDAP Vaccine 04/27/2016 Family History Medical History Relation Name Comments Cancer Maternal Aunt esophageal Heart Disease Maternal Grandmother Cancer Maternal Uncle esophageal Cancer Mother lymphoma Hypertension Mother Cancer Other cousins x3 thyr oid Diabetes Paternal Aunt Relation Name Status Comments Father Other Maternal Aunt Maternal Grandmother Maternal Uncle Mother Alive Other Paternal Aunt Social History Tobacco Use Types Packs/Day Years Used Date Smoking Tobacco: Every Day Cigarettes 0.5 24.4 Started: 08/02/2000 Smokeless Tobacco: Never Tobacco Cessation:Ready to Q uit: Not Asked; Counseling Given: Not Answered Alcohol Use Standard Drinks/Week Comments No 0 [...] file Not on file Not on file Last Filed Vital Signs Vital Sign Reading Time Taken Comments Blood Pressure 119/76 12/12/2024 10:22 AM CDT Pulse 80 12/12/2024 10:22 AM CDT Temperature 36.5 C (97.7 F) 12/12/2024 10:22 AM CDT Respiratory Rate 16 12/12/2024 10:2 2 AM CDT Oxygen Saturation 98% 12/12/2024 10: 22 AM CDT Inhaled Oxygen Concentration - - Weight 64.7 kg (142 lb 11.2 oz) 024 10:26 AM VETERINARY PHARMACOLOGIST Height 144.8 cm (4' 9 ) 10/25/2023 10:0 5 AM VETERINARY PHARMACOLOGIST Body Mass Index 30.88 10/25/2023 10:05 AM VETERINARY PHARMACOLOGIST Plan of Treatment Upcoming Encounters Date Type Department Care Team (Latest Contact Info) Description 02/06/2025 10:30 AM CDT Clinical Support [facility] [address] [place] [address] Discharge Disposition: Discharged to home or Selfcare Health Maintenance Due Date Last Done Comments Mammogram 1978 SARS-COV-2 Immunization (#1) 12/23/1983 Discussion re Starting/Frequency of Mammograms 2018 Colonoscopy 10/27/2023 10/27/2021, 03/2022, 03/18/2021, Additional history exists Colorectal Cancer Screening 10/27/2023 Influenza Immunization (#1) 05/20/202408/19, 06/21/2022, 06/21/2022, Additional history exists DTaP/Tdap/Td Immunization (8 - Td or Tdap) 04/27/2026 04/27/2016, 04/27/2016, 05/17/1994, Additional history exists Pneumococcal Immunization Combined (3 of 3 - PCV20 or PCV21) 2028 01/19/2021, 04/27/2016, 04/27/2016 Respiratory Syncytial Virus (RSV) Immunization (Adult) (1 - 1-dose 75+ series) 2053 10/27/2021, 03/2022, 03/18/2021, Additional history exists Hepatitis B Immunization Completed 997, 07/22/1997, 09/04/1996, Additional history exists Hepatitis C Virus (HCV) Screening Completed 01/15/2021, 02/27/2016, 12/09/2015 Cervical Cancer Screening (CCS) Discontinued Pap Smear Discontinued 10/22/2022 HPV/Cotest Discontinued Meningococcal Immunization (ACWY) Aged Out No longer eligible based on patient's age to complete this topic Rotavirus Immunization Aged Out No lo nger eligible based on patient's age to complete this topic Procedures Procedure Name Priority Date/Time Associated Diagnosis Comments HEPATITIS PANEL ACUTE (AHP) Routine 01/15/2021 4:22 PM CDT High risk medication use from Last 3 Months or Most Recently Relevant to Health Maintenance Results * HEPATITIS PANEL ACUTE (AHP) (01/15/2021 4:22 PM CDT) HEPATITIS A IGM ANTIBODY NON DETECTED NON DETECTED [facility] ARCH [id number] A 01/16/2021 3:[address] [facility] Comment: IGM Antibodies to HAV not detected. Does not exclude early acute or recovered HAV infection. HEP B CORE AB (IGM) NON DETECTED NON DETECTED [facility] ARCH [id number] A 01/16/2021 3:[address] [facility] Comment:IGM anti-HBC not det ected. Does not exclude the possibility of exposure to or infection with HBV. HEPATITIS B SURFACE ANTIGEN NON DETECTED NON DETECTED [facility] ARCH [id number] B 01/16/2021 3:19 PM CDT [facility] Comment:A nonreactive test r esult does not exclude the possibility of exposure to or infection with Hepatitis B virus. A nonreactive test result in individuals with prior exposure to hepatitis B may be due to antigen levels below the detection limit of this assay or lack of antigen reactivity to the antibodies in this assay. hepatitis C antibody 0.13 <1 S/CO [facility] ARCH [id number] B 01/16/2021 3:19 PM CDT [facility] Comment: Signal/Cutoff ratio < 0.79 is Nondetected Signal/Cutoff ratio 0.80-0.99 is Grayzone Signal/Cutoff ratio > 0.99 is Detected Supplemental assays are recommended if signal/cutoff ratio is >/=1.00. Signal/cutoff ratio result >/= 5.00 is 97% predictive of positivity for recombinant immunoblot assay (RIBA) and will be reported to the [place] Department of Public [facility] as required. Blood Venipuncture / Unknown 01/15/2021 4:22 PM CDT 01/15/2021 4:22 PM CDT us Yanick Law DO HEMATOLOGY ORDERABLES Final Res ult Performing Organization Address City/State/[facility] Co de Phone Number [facility] [address] [place] [address], [place] from Last 3 Months or Most Recently Relevant to Health Maintenance Insurance MEDICAID [employer] [facility] [employer] [employer] MEDICAID [facility] [employer] Care Teams [employer] Relationship Specialty Start Date End Date Madeline Hillman PAC [address] [place] [address] PCP - General Physician Operational Risk Analyst 10/08/19 [place] [address] [place] [address] Internal Medicine 09/30/15 Homar Zee MD [address] [place] [address] Rheumatology 03/15/19 Monique Shook APRN, TITLE INSURANCE EXAMINER [address] [place] [address] Nurse Practitioner Advanced Practice Nurse 06/17/23 Yue Saba MD [address] [place] [address] Consulting Physician Gastroenterology 04/21/23
--- OUTSIDE RECORDS SUMMARY | 2024-12-30 20:30 | XMS_ITS | Clinical Summary ---
Author Organization [facility] Address [address] [place] [address] Care Team Providers Care Urgent Care Physician Name Role Phone No, Physician Primary Care Provider [phone] Allergies Active Allergy Reactions Criticality Noted Date Comments Penicillins Hives Medium Medications albuterol HFA (PROVENTIL HFA,VENTOLIN HFA,PROAIR HFA) 90 mcg/actuation inhalerIndications: Acute Asthma Attack Inhale 2 puffs as needed Active calcium carbonate-vitamin D3 1,500 mg (600mg elemental) -800 unit per tabletIndications:H ypocalcemia Prevention Take 1 tablet by mouth every morning Active multivitamin tabletIndications:V itamin Deficiency Prevention Take 1 tablet by mouth every morning Active VEDOLIZUMAB IVIndications:crohn s Infuse 300 mg into a venous catheter every 8 (eight) weeks Active ondansetron ODT (ZOFRAN-ODT) 8 mg disintegrating tablet Take 8 mg by mouth every 8 (eight) hours as needed for nausea or vomiting Active omeprazole (PriLOSEC) 40 mg capsuleIndications: Treatment of Non-Bleeding Gastric Disorder Take 40 mg by mouth every morning Active rimegepant (Nurtec ODT) tablet,disintegrati ngIndications:Migra ine Place 75 mg under the tongue as needed Active fluticasone propionate (FLONASE) 50 mcg/actuation nasal sprayIndications:Al lergic Conjunctivitis Administer 2 sprays into each nostril as needed for rhinitis Active zolpidem (AMBIEN) 10 mg tabletIndications:S belen-Onset Insomnia Take 10 mg by mouth nightly as needed for sleep Active fenofibrate (TRIGLIDE) 160 mg tabletIndications:h yperlipidemia Take 160 mg by mouth every morning Active estradioL (ESTRACE) 1 mg tabletIndications:h ormone replacement Take 1 mg by mouth every morning Active metoprolol XL (TOPROL-XL) 25 mg extended release tabletIndications:h ypertension Take 25 mg by mouth every morning Active ergocalciferol (VITAMIN D) 50,000 unit capsuleIndications: Vitamin D Deficiency Take 50,000 Units by mouth once a week Wednesdays Active venlafaxine 150 mg tablet extended release 24hr 24 hr tabletIndications:m ajor depressive disorder Take 150 mg by mouth every morning Active QUEtiapine (SEROquel) 200 mg tabletIndications:D epression Treatment Adjunct Take 200 mg by mouth nightly Active losartan (COZAAR) 50 mg tabletIndications:h ypertension Take 50 mg by mouth every morning Active levothyroxine (SYNTHROID) 150 mcg tabletIndications:h ypothyroidism Take 150 mcg by mouth customer care voice consultant before breakfast Active hydrOXYchloroQUINE (PLAQUENIL) 200 mg tabletIndications:R heumatoid Arthritis Take 200 mg by mouth every morning Active folic acid (FOLVITE) 1 mg tabletIndications:F olate Deficiency Take 1 mg by mouth every morning Active hydrALAZINE (APRESOLINE) 25 mg tabletIndications:h ypertension Take 25 mg by mouth 3 (three) times a day Active metoclopramide (REGLAN) 5 mg tabletIndications:g astroesophageal reflux disease Take 5 mg by mouth 4 (four) times a day Active famotidine (PEPCID) 40 mg tabletIndications:H eartburn,gastroesop hageal reflux disease Take 40 mg by mouth every morning Active cyanocobalamin, vitamin B-12, 1,000 mcg/mL kitIndications:Yaneth min B12 Deficiency Inject 1,000 mcg as directed every 30 (thirty) days Active lamoTRIgine (LaMICtal) 25 mg tabletIndications:d epression Take 25 mg by mouth every morning Active budesonide-formoter oL (SYMBICORT) 160-4.5 mcg/actuation inhalerIndications: Maintenance Therapy for Asthma Inhale 2 puffs 2 (two) times a day Rinse mouth with water after use. Do not swallow. Active acetaminophen (TYLENOL) 500 mg tablet Take 2 tablets (1,000 mg total) by mouth every 6 (six) hours as needed for pain 30 tablet 12/08/19 23 Active ibuprofen (ADVIL,MOTRIN) 600 mg tablet Take 1 tablet (600 mg total) by mouth every 6 (six) hours as needed for pain 30 tablet 12/08/19 23 Active oxyCODONE (ROXICODONE) 5 mg immediate release tabletIndications:P ain Take 1 tablet (5 mg total) by mouth every 4 (four) hours as needed for pain 10 tablet 12/08/19 23 Active benzocaine-menthoL (DERMOPLAST) 20-0.5 % aerosolIndications: JULIO III (vulvar intraepithelial neoplasia III) Apply topically 4 (four) times a day as needed for pain 56 g 12/14/19 23 Active glycerin-witch Mykel (A.E.R.) 12.5-50 % pads, medicatedIndication s:JULIO III (vulvar intraepithelial neoplasia III) Apply topically 3 (three) times a day as needed (for vulvar pain/burning) 40 each 12/14/19 23 Active Active Problems Problem Noted Date Diagnosed Date Vulvar intraepithelial neoplasia (JULIO) grade 3 0 10/22/2022 Overview (2022): - 07/12/13: Pap negative, (+) HR-HPV. Gentotyping HPV 16 (+), HPV 18 (-) - 08/02/13: Colpo performed per Dr. Edward, no records except ECC result. ECC benign per [facility] review - 08/02/13: JULIO 3 on biopsies left vulvar and perineal. +bilateral margins. 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 Lost to follow up - 09/21/22: [facility] vulvar biopsy obtained 08/2022 (Left perineum, R upper labia majora) with HSIL/VIN3 on [facility] internal path review - 10/22/22: Circumferential hyperpigmentation with minimal acetowhite changes over anterior vulva, labia minora, and posteriorly surrounding perineum consistent with JULIO. No vulvar biopsies taken. Vaginal pap performed. - 12/07/22: vulvar laser, skin tag excision. Pathology of skin tag consistent with lipoma. 12/22/22: Post-op visit, doing well. Excisional area healing well. Discussed continued vulvar hygiene with Sitz baths, etc. Plan: - Colpo clinic visit in 3 months Tobacco use 10/22/2022 Overview (10/22/2022): Patient has been smoking 1/2 packs per day since 16 yo. We discussed the role tobacco use can play in progression iof cancer and wound healing. She is interested in quitting and has been using the patch. She is also working with a counselor. She was offered other smoking cessation resources today and declined. 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 Rutherford. Will be for rectal exam in OR. Human papilloma virus (HPV) infection 11/09/2013 Surgical History Surgery Date Site/Laterality Comments CHOLECYSTECTOMY 09/19/2006 - 09/18/2007 SPLENECTOMY 09/19/2006 - 09/18/2007 ABDOMINAL HYSTERECTOMY 09/19/2015 - 09/18/2016 APPENDECTOMY 09/19/2015 - 09/18/2016 HERNIA REPAIR 09/19/1999 - 09/18/2000 COLONOSCOPY x2 ESOPHAGOGASTRODUODENOSCOPY Medical History Medical History Date Comments PONV (postoperative nausea and vomiting) nausea only Motion sickness Hypothyroid HTN (hypertension) GERD (gastroesophageal reflux disease) Nausea Asthma Crohn disease (HCC) Depression Sjogren's disease Family History Medical History Relation Name Comments Cancer Mother Family history of malignant neoplasm - (Added by TW Conv) Hypertension Mother Family history of hypertension - (Added by TW Conv) Anesthesia problems Neg Hx Relation Name Status Comments Mother Social History Tobacco Use Types Packs/Day Years Used Date Smoking Tobacco: Every Day Cigarettes 0.5 28.3 Started: 1996 AUDIT-C Answer Date Recorded Q1: How often do you have a drink containing alcohol? Never 12/07/2022 Q2: How many drinks containi ng alcohol do you have on a typical day when you are drinking? Patient does not drink Q3: How often do you have si x or more drinks on one occasion? Never 12/07/2022 Personal Safety Answer Date Recorded Have you ever been in or are you currently in a harmful physical or emotional relationship or is someone making you feel afraid or unsafe? Denies 12/07/2022 Comments No Sex and Gender Information Value Date Recorded Sex Assigned at Not on file Legal Sex Female 3:04 AM DIRECTOR OF RESIDENCE LIFE Gender Identity Female 09/14/2022 10:54 AM DIRECTOR OF RESIDENCE LIFE Sexual Orientation Straight 09/14/2022 10 :54 AM DIRECTOR OF RESIDENCE LIFE Obstetrics History Last Filed Vital Signs Vital Sign Reading Time Taken Comments Blood Pressure 132/81 2022 2:03 PM CDT Pulse 72 2022 2:03 PM CDT Temperature 36.2 C (97.1 F) 2022 2:03 PM CDT Respiratory Rate 18 2022 2:03 PM CDT Oxygen Saturation 100% 2022 2:03 PM CDT Inhaled Oxygen Concentration - - Weight 83.2 kg (183 lb 6.4 oz) 2022 2:03 P M CDT Height 144.8 cm (4' 9 ) 2022 2:03 PM CDT Body Mass Index 39.69 2022 2:03 PM CDT Plan of Treatment Health Maintenance Due Date Last Done Comments Breast Cancer Screening-Mammogram 1980 Colon Cancer Screening-Colonoscopy 1980 Depression Screening 1980 Hepatitis C Screening 1980 Meningococcal B Vaccine (1 of 5 - Increased Risk) 1988 Regular Well Visit/Exam 18-64 1996 Zoster Vaccine (1 of 2) 1997 Influenza Vaccine (Season Ended) 2025 06/21/2022, 06/17/2021, 06/23/2019, Additional history exists DTaP/Tdap/Td Vaccine (8 - Td or Tdap) 04/27/2026 04/27/2016, 04/27/2016, 05/17/1994, Additional history exists Pneumococcal vaccine <65 (3 of 3 - PPSV23, PCV20 or PCV21) 07/22/2026 07/22/2021, 01/19/2021, 04/27/2016, Additional history exists Hepatitis B Screening Completed 07/24/1997 , 07/22/1997, 09/04/1996, Additional history exists Cervical Cancer Screening Discontinued 10/22/2022 HPV Vaccines Aged Out No longer eligi ble based on patient's age to complete this topic Procedures Procedure Name Priority Date/Time Associated Diagnosis Comments PAP ONLY Routine 10/22/2022 2:42 PM DIRECTOR OF RESIDENCE LIFE from Last 3 Months or Most Recently Relevant to Health Maintenance Results * (ABNORMAL) Pap Only (10/22/2022 2:42 PM DIRECTOR OF RESIDENCE LIFE) Pap test 10/22/2022 2:42 PM DIRECTOR OF RESIDENCE LIFE 10/22/2022 5:25 PM DIRECTOR OF RESIDENCE LIFE Narrative 11/02/2022 5:27 PM DIRECTOR OF RESIDENCE LIFE EPIC results best viewed via link to PDF [facility] [place] [address] Note to Patients: This report may contain a detailed description of human tissue sent by a health care provider to the laboratory for pathologic evaluation. The content of this report is essential for diagnosis and may provide important critical findings. This information may be unfamiliar to patients to review without a medical professional present. It is advised that the patient review this report in the presence of a health care provider who can answer questions and explain the details. CYTOPATHOLOGY REPORT FINAL WITH ADDENDUM Patient Name: SAVAGE FRANCOIS Gender: F : 1980 (Age: 41) Address: [address] [place], [place] [address] Hospital #: [id number] Service: UNKNOWN Location: Patient Type: [facility] SPECIMEN Taken: 10/22/2022 Received: 10/22/2022 Accessioned: 10/26/2022 Reported: 11/02/2022 Physician(s): Fe Shelton M.D. FINAL INTERPRETATION SOURCE OF SPECIMEN Liquid based Thin Prep pap: STATEMENT OF ADEQUACY - Satisfactory for evaluation, vaginal smear GENERAL CATEGORIZATION: - EPITHELIAL CELL ABNORMALITY DESCRIPTION: - Atypical squamous cells of undetermined significance celt/11/02/2022 09:00 By this signature, I attest that the above diagnosis is based upon my personal examination of the slides(and/or other material indicated in the diagnosis). Amarilis Davey M.D. Report Electronically Reviewed and Signed Out By Amarilis Davey M.D. 11/02/2022 17:27:48 Demi Morse, ALEXIS(ASCP) Cervicovaginal Cytology (Pap Test) Disclaimer: The Pap test is a screening test used to detect cervical cancer and its precursors; it is not a diagnostic procedure. False negative and false positive results do occur. Pap test results should be interpreted in the context of pertinent clinical information and biopsy results as indicated. [facility] Clinical Laboratory Improvement Amendments (CLIA) mandate that cytologic and histologic results be correlated for laboratory quality assurance monitor & improvement standards. FOR ALL HIGH-GRADE CASES we request submission of follow-up histological material and/or reports that have not been previously provided so that we may fulfill said required standards. Gross Description A. Liquid based Thin Prep pap: Vaginal - Screening ThinPrep Clinical Diagnosis and History Last Menstrual Period: n/a Menstrual History: Total Hysterectomy The patient is a 41 year old woman with status post hysterectomy, history of ASCUS/HPV+. Addenda Addendum Ordered:11/06/2022Status:Signed OutAddendum Complete:11/06/2022y:Amarilis Davey M.D.Addendum Signed Out:11/07/2022 Addendum Comment HPV Result: POSITIVE for high risk types of Human Papilloma Virus (HPV) RNA This probe detects the presence of HPV types: 16, 18, 31, 33, 35, 39, 45, 51, 52, 56, 58, 59, 66 and 68. This HPV test was performed at [facility] in [place], [place] utilizing the Gen-Probe Aptima assay. By this signature, I attest that the above diagnosis is based upon my personal examination of the slides(and/or other material indicated in the diagnosis). Amarilis Davey M.D.Report Electronically Reviewed and Signed Out By Amarilis Davey M.D. 11/07/2022 11:04:09 Report Images and scanned documents, if included only viewable in PDF version The performance characteristics of some immunohistochemical stains, in-situ hybridization and fluorescence in-situ hybridization tests and immunophenotyping by flow cytometry cited in this report (if any) were determined by the Surgical Pathology Department at [facility] as part of an ongoing quality process auditor program and in compliance with federally mandated regulations drawn from the Clinical Laboratory Improvement Act of 1988 (CLIA '88). Some of these tests rely on the use of analyte specific reagents and are subject to specific labeling requirements by the US Food and Drug Administration. Such diagnostic tests may only be performed in a facility that is certified by the Department of Health and Human Services as a high complexity laboratory under CLIA '88. The FDA has determined that such clearance or approval is not necessary. This test is used for clinical purposes. It should not be regarded as investigational or for research. Nevertheless, federal rules concerning the medical use of analyte specific reagents require that the following disclaimer be attached to the report: This test was developed and its performance characteristics determined by the Surgical Pathology Department of [facility]. It has not been cleared or approved by the U. S. Food and Drug Administration. Fe Shelton MD LAB CYTOLOGY ORDERABLES F inal Result from Last 3 Months or Most Recently Relevant to Health Maintenance Insurance [facility] Care Teams Urgent Care Physician Relationship Specialty Start Date End Date No, Physician PCP - General 09/29/22
--- OUTSIDE RECORDS SUMMARY | 2024-12-30 20:30 | XMS_ITS | Referral Summary ---
Author Organization [facility] Address [address] [place] [address] Care Team Providers Care Sketch Liner Name Role Phone No, Physician Primary Care Provider [phone] Allergies Active Allergy Reactions Criticality Noted Date [...] tabletIndications:h ypothyroidism Take 150 mcg by mouth early breastfeeding care specialist before breakfast Active hydrOXYchloroQUINE (PLAQUENIL) 200 mg [...] records except ECC result. ECC benign per [facility] review - 08/02/13: JULIO 3 on biopsies left vulvar and perineal. +bilateral margins. 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 Lost to follow up - 09/21/22: [facility] vulvar biopsy obtained 08/2022 (Left perineum, R upper labia majora) with HSIL/VIN3 on [facility] internal path review - 10/22/22: [...] OR. Human papilloma virus (HPV) infection 11/09/2013 Social History Tobacco Use Types Packs/Day Years [...] on file Legal Sex Female 3:04 AM JUDICIAL ADMINISTRATIVE ASSISTANT Gender Identity Female 09/14/2022 10:54 AM JUDICIAL ADMINISTRATIVE ASSISTANT Sexual Orientation Straight 09/14/2022 10 :54 AM JUDICIAL ADMINISTRATIVE ASSISTANT Last Filed Vital Signs Vital Sign Reading [...] 2022 2:03 PM CDT Plan of Treatment Not on file Procedures Procedure Name Priority Date/Time Associated Diagnosis Comments PAP ONLY Routine 10/22/2022 2:42 PM JUDICIAL ADMINISTRATIVE ASSISTANT from Last 3 Months or Most Recently Relevant to Health Maintenance Results * (ABNORMAL) Pap Only (10/22/2022 2:42 PM JUDICIAL ADMINISTRATIVE ASSISTANT) Pap test 10/22/2022 2:42 PM JUDICIAL ADMINISTRATIVE ASSISTANT 10/22/2022 5:25 PM JUDICIAL ADMINISTRATIVE ASSISTANT Narrative 11/02/2022 5:27 PM JUDICIAL ADMINISTRATIVE ASSISTANT EPIC results best viewed via link to PDF [facility] [place], [place] [id number] Note to Patients: This report may contain [...] Gender: F : 1980 (Age: 41) Address: [address] [place] [address] Hospital #: [id number] Service: UNKNOWN Location: Patient Type: [facility] SPECIMEN Taken: 10/22/2022 Received: 10/22/2022 [...] Out By Amarilis Davey M.D. 11/02/2022 17:27:48 ALEXIS Rider(ASCP) Cervicovaginal Cytology (Pap Test) Disclaimer: The Pap test is a screening test used to detect cervical cancer and its precursors; it is not a diagnostic procedure. False negative and false positive results do occur. Pap test results should be interpreted in the context of pertinent clinical information and biopsy results as indicated. [facility] Clinical Laboratory Improvement Amendments (CLIA) mandate that cytologic and histologic results be correlated for laboratory quality assurance supervisor final & improvement standards. FOR ALL HIGH-GRADE CASES [...] 68. This HPV test was performed at [facility] in [place], [place] utilizing the Gen-Probe Aptima assay. By this [...] determined by the Surgical Pathology Department at [facility] as part of an ongoing quality assurance calibrator program and in compliance with federally mandated [...] determined by the Surgical Pathology Department of [facility]. It has not been cleared or approved by the U. S. Food and Drug Administration. Fe Shelton MD LAB CYTOLOGY ORDERABLES F inal Result from Last 3 Months or Most Recently Relevant to Health Maintenance Insurance [facility] Care Teams Sketch Liner Relationship Specialty Start Date End Date No, Physician PCP - General 09/29/22
--- OUTSIDE RECORDS SUMMARY | 2024-12-30 20:30 | XMS_ITS | Data Portability ---
Author Organization [facility], Main Office Address [address] [place] [address] Assessment Encounter Date Assessment Date Assessment LastModified by Organization Details LastModified Time 01/26/2023 01/26/2023 Assessment: Postnasal drip Hypogammaglobuline ady (IgG4) Nicotine smoke: 09/20 ppd 1995-present = 13.5 pack years Dyspnea Plan: The following were reviewed and explained to the patient: Chest 2 views 10/20/22 peribronchial thickening Lab data 11/11/22 low IgG4 PFT 11/30/22 nl FEV1/FVC, FEV1 2.23 L (102%), TLC 4.70 L (130%), DLCO 52%, DLCO/VA 74% Methacholine challenge testing 01/26/23 negative methacholine challenge up to level 5 Patient may need gammaglobulin infusions during times of infection. Nicotine cessation counseling provided. [place] for quitting nicotine include getting ready, getting support and encouragement, learning new skills and behaviors and being prepared to handle slips. Tips for dealing with cravings provided. Prevention of subsequent illnesses from nicotine addiction discussed. Comorbidities include but are not limited to hypertension, cerebrovascular disease, coronary heart disease, congestive heart failure, hyperlipidemia, COPD/asthma, peptic ulcer disease, esophagitis/gastri tis, and osteoporosis. Therapy options offered include: Quitting by total abstinence Receiving nicotine replacement therapy Undergoing hypnosis Filling a bupropion or varenicline prescription Enrolling in Quit For Life program Registering at [email or web address] Making a call to 9-816-CBPT-NOW ( ). A strong, clear, personalized message was given to the patient to quit smoking. The patient was urged to set a quit date. We discussed patient's barriers to quitting and I will be of assistance when patient is ready to quit. I encouraged patient to inform friends and family of plans to quit with a request for support. I encouraged the patient to remove all cigarettes from the environment. We reviewed any previous quit attempts and lessons learned from them. I encouraged total abstinence from smoking and advised the patient that drinking alcohol and/or associating with other smokers are associated with failure or relapse. Patient can enroll in [facility]'s smoking cessation class through Rosita Frye RN at . Enrollment is free and classes are held every tuesday of the month from 1:30 pm to 2:30 pm at the conference room next to the cafeteria on the ground floor. Patient tried nicotine patches in 2019 and was able to cut down smoking for 3 months. Advised to continue not to smoke. Discontinue Symbicort 160/4.5 mcg 2 puffs BID. Continue albuterol HFA as needed for acute bronchitic episodes only. The patient does not know how to accurately administer the inhaler. Today, the patient was shown how to take this medication. The proper technique for delivering this medication was instructed. The patient expressed a clear understanding and demonstrated back how to use this medication. Without the proper technique, the patient will not reap the benefits of this medication as the contents will not reach the lower airways as intended to be. Adherence to therapy is advocated. Nonadherence may lead to treatment failure, further progression of the condition, and other complications. Hospitals admissions are often the result of individuals not taking prescription medications accurately. Alternatively, greater adherence to medication regimens have shown to lower rates of hospitalization and decrease total medical costs in patients with chronic medical conditions. Advocated influenza vaccination annually and pneumonia vaccination in 2043. Advocated weight loss through diet and exercise. Patient's ideal body weight according to height and gender is up to 100 lbs. Encouraged patient to adjust caloric intake to maintain/achieve ideal body weight, emphasizing on fruits, vegetables, whole grains, and fat-free or low-fat products. These include lean meats, poultry, fish, beans, eggs, and nuts and foods that are low in saturated fats, trans-fats, cholesterol, salt (sodium), and glycemic index. Stressed the importance of regular exercise up to the patient's capacity limits. In this case, we recommend 20 min daily walking, 2 days a week of resistance training. Patient to monitor BP daily and bring records to PCP for further management. Follow-up: as needed Not available 01/26/2023 11:55:25 Plan of Treatment Reminders Order Date Submit Date Provider Last Modified By Organization Details Last Modified Time Details Appointments Establisolo hed Patient 15 2024 10:00A M Asya Martinez MD Not available Not available Not available Lab calprote ctin, stool 2023 024 [facility] ([facility]), [address] [place], [address], 02/17/2024 08:05:16 Referral None recorded . Procedures None recorded . Surgeries None recorded . Imaging None recorded . Medication Orders Entyvio 300 mg intraven ous solution 2023 024 [email or web address] 1 [facility], [address] [place], [address], 11/02/2023 13:41:34 Creon 36,000 unit-114 ,000 unit-180 ,000 unit capsule, delayed release 2022 023 [facility]armacy #[id number], [address] [facility] [address] [facility], [place], [address], 08/10/2023 12:18:53 Patient TargetsNo targets recorded. Patient Instructions Encounter Date Encounter Id Patient Instructions Last Modified By Organization Details Last Modified Time 08/10/2023 [id number] LOW FAT DIET . [email or web address] Not availabl e 08/10/2023 12:53:39 PT WITH IBD-CD I N REMISSION ON ENTYVIO . CONTINUE SAME . PT WITH EPI RECOMMEND CREON 36 K , 2 TABS WITH EACH MEAL AND 1 PER SNACK. F/U IN 3 MTHS [email or web address] Not available 08/10/2023 12:55:04 11/02/2023 [id number] PT WITH EPI CONT CREON WITH EACH MEAL . CONT ENTYVIO EVERY 8 WEEKS FOR HER IBD-CD . F/U IN 3 MTHS [email or web address] Not available 11/02/2023 13:34:30 02/08/2024 [id number] ENCOURAGE LOW FA T DIET AT ALL TIMES . Not available 02/08/2024 10:37:54 PT WITH CHRONIC DIARRHEA . THIS MAY BE B/C OF NON COMPLIANT DIET VS IBD -CD EXACERBATION . . RECOMMEND CHECK STOOL CALPROTECTIN . F/U IN 4 WEEKS [email or web address] Not available 02/08/2024 10:38:32 08/27/2024 [id number] PT WITH CROHNS D Z . PT IS ON EVTYVIO. SHE C/O DIARRHEA . NON COMPLIANT WITH HER CREON. PT WITH EPI . CONT CREON . CONT ENTYVIO. [email or web address] Not available 08/27/2024 12:47:42 Reason for Referral None Reported. Results Created Date Observation Date Name Description Value Unit Range Abnormal Flag Note LastModifiedBy Organization Detail LastModifiedTime 01/28/2001/26/2023 san[facility] eric* No observ ation record ed. [facility] ([facility]) [address] [place], [address], 01/27/2023 11:26:01 Result Notes None recorded. Problems Name Problem SNOMED Code Status Onset Date Resolution Date Notes Provider Name and Address Organization Details Recorded Time Plantar fasciitis of left foot 539800395667 Active 2021 Not Available [facility] 3 16:39:45 Plantar wart of left foot 735309459761 Active 2021 Not Available [facility] 3 16:39:45 Plantar wart of right foot 225305149459 Active 2021 Not Available [facility] 3 16:39:45 Pain of right ankle joint 371375030208 Active 2021 Not Available [facility] 3 16:39:45 Neuralgia 83908948 Active 2021 Not Available [facility] 3 16:39:45 Fibromyal dao 431634188 Active 2019 Not Available [facility] 3 16:39:45 Foot callus 347716350 Active 2019 Not Available [facility] 3 16:39:45 Headache 21471678 Active 2019 Not Available [facility] 3 16:39:45 Ear problem 771291378 Active 2019 Not Available [facility] 3 16:39:45 Left Achilles tendiniti s 677301071462 102 Active 2021 Not Available [facility] 3 16:39:45 Bowel problem 624695552 Active 2019 crohns disease Not Available [facility] 3 16:39:45 Pain in right foot 383210025615 107 Active 2019 Not Available [facility] 3 16:39:46 Depressiv e disorder 83028512 Active 2019 Not Available [facility] 3 16:39:46 Gastroint estinal hemorrhag e 78392722 Active 2019 Not Available [facility] 3 16:39:46 Sj gren's syndrome 03052645 Active 2019 Not Available [facility] 3 16:39:46 Gout 94615706 Active 2019 Not Available [facility] 3 16:39:46 Ulcer of foot 77747601 Active 2021 Not Available [facility] 3 16:39:46 Dyspnea on exertion 47566923 Active 2022 Tanner Peryr MD [address], [place], [address] , [facility] 3 11:32:44 Smoker 91551953 Active 2022 Tanner Perry MD [address], [place], [address] , [facility] 3 11:33:08 Hypogamma globuline ady 047310715 Active 2022 Tanner Perry MD [address], [place], [address] , [facility] 3 11:52:33 Crohn's disease of small and large intestine s 18606364 Active 2022 Asya Martinez MD [address], [place], [address] , [facility] 3 11:45:52 Exocrine pancreati c insuffici ency 48408181 Active 2022 Asya Martinez MD [address], [address] , [facility] 3 12:16:38 Crohn's disease of small intestine 29367990 Active 2022 Asya Martinez MD [address], [address] , [facility] 3 12:53:27 Notes:Medical History: Nicot ine use Depression Migraine headaches Bilateral hearing loss/tinnitus Rhinitis Eosinophils 200/uL IgE <2 IU/mL Hypogammaglobulinemia (IgG4) AAT PiMM 173 mg% Obesity Hypothyroidism Mixed hyperlipidemia Hypertension LAURA Hemorrhoids Vit D deficiency Sjogren's syndrome on hydroxychloroquine OA Gout Fibromyalgia Bunions Left Achilles tendinitis Left plantar fasciitis Procedure History: Cholecystectomy 2003 Splenectomy 2004 DENNYS-BSO 2014 High-grade vulval intraepithelial neoplasia (JULIO 3) laser 2014 Appendectomy 2017 Bilateral plantar wart excisions 2021 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 Please review this document and add these problems to the patient's chart manually as needed. Problem Notes None recorded. Procedures Surgical History Date Name Laterality Status Provider Name and Address Organization Details Recorded Time Hysterectomy completed Not Available [facility] 11/17/2022 16:39:21 Appendectomy completed Not Available [facility] 11/17/2022 16:39:21 Imaging Results Imaging Date Name Status LastModified by Organization Details LastModified Time 01/26/2023 methacholine challenge* completed [facility] ([facility]) [address] [place], [address], 01/27/2023 11:26:01 Procedure Notes None recorded. Medical Equipment None Reported. Allergies Allergen ID Allergen Name Allergen Category Reaction Reaction Severity Criticality Documentation Date Start Date Code Code System Note Provider Name and Address Organization Details Recorded Time 84315 Product containin g penicilli n (product) medicatio n Not available Not available Not available 11/17/2022 05973 8001 SNOMED Not Available [facility] 3 16:41:31 83879 Levaquin medicatio n headache Not available Not available 11/17/2022 82245 2 RxNorm Not Available [facility] 3 16:41:31 Medications Name Sig Start Date Stop Date Status Note LastModified by Organization Details LastModified Time multivitami n tablet TAKE 1 TABLET BY MOUTH EVERY DAY 11/03 completed Not Available Not Available Not Available losartan 50 mg tablet TAKE 1 TABLET BY MOUTH EVERY DAY DIRECTED active Not Available Not Available No t Available quetiapine 25 mg tablet TAKE 1 TABLET BY MOUTH TWICE A DAY 11/03 completed Not Available Not Available Not Available cyclobenzap rine 10 mg tablet TAKE 1 TABLET BY MOUTH THREE TIMES A DAY NEEDED active Not Available Not Available No t Available methocarbam ol 500 mg tablet TK 1 T PO Q 6 H PRF MUSCLE SPASMS 05/13 completed Not Available Not Available Not Available silver sulfadiazin e 1 % topical cream APPLY TO AFFECTED AREA TOPICALLY EVERY DAY 01/26 completed Not Available Not Available Not Available hydralazine 10 mg tablet TAKE 1 TABLET BY MOUTH FOUR TIMES A DAY DIRECTED FOR 30 DAYS 11/03 completed Not Available Not Available Not Available bupropion HCl SR 150 mg tablet,12 hr sustained-r elease TAKE 1 TABLET BY MOUTH EVERY DAY 11/03 completed Not Available Not Available Not Available levothyroxi ne 137 mcg tablet TAKE 1 TABLET BY MOUTH EVERY DAY DIRECTED 11/03 completed Not Available Not Available Not Available pilocarpine 5 mg tablet TAKE 1 (ONE) TABLET BY MOUTH 2 TIMES DAILY active Not Available Not Available No t Available prednisone 10 mg tablet TAKE 4 TABS DAILY X3 DAYS, 3 TABS DAILY X2 DAYS, 2 TABS DAILY X1 DAY, 1 TAB DAILY X1 DAY WITH FOOD 11/11 completed Not Available Not Available Not Available venlafaxine ER 75 mg capsule,ext ended release 24 hr TAKE 1 CAPSULE BY MOUTH EVERY DAY IN THE EVENING active Not Available Not Available No t Available doxycycline hyclate 100 mg capsule TAKE 1 CAPSULE BY MOUTH TWICE A DAY FOR 10 DAYS 08/27 completed Not Available Not Available Not Available venlafaxine 75 mg tablet TK 1 T PO TID. 11/03 completed Not Available Not Available Not Available nicotine 14 mg/24 hr daily transdermal patch APPLY 1 PATCH TO THE SKIN QD 11/03 completed Not Available Not Available Not Available sulfasalazi ne 500 mg tablet TAKE 2 TABLETS BY MOUTH FOUR TIMES DAILY 05/13 completed Not Available Not Available Not Available quetiapine 300 mg tablet TAKE 1 TABLET BY MOUTH EVERYDAY AT BEDTIME 01/26 completed Not Available Not Available Not Available Saline Mist 0.65 % nasal spray aerosol SPRAY 1 SPRAY INTO EACH NOSTRIL ONCE DAILY DIRECTED FOR 14 DAYS. 11/02 completed Not Available Not Available Not Available clindamycin HCl 300 mg capsule TAKE 1 CAPSULE BY MOUTH THREE TIMES DAILY 05/13 completed Not Available Not Available Not Available trazodone 50 mg tablet 05/13 completed Not Available Not Available Not Available cetirizine 10 mg tablet TAKE 1 TABLET BY MOUTH EVERY DAY active Not Available Not Available No t Available azithromyci n 250 mg tablet TAKE 1 TABLET BY MOUTH ONCE A DAY DIRECTED ONE TABLET EVERY 24 HOURS UNTIL FINISHED 08/27 completed Not Available Not Available Not Available ibuprofen 800 mg tablet TAKE 1 TABLET BY MOUTH EVERY 6 TO 8 HOURS NEEDED active Not Available Not Available No t Available Lidocaine Viscous 2 % mucosal solution TAKE 5 ML BY MOUTH 4 TIMES DAILY 11/11 completed Not Available Not Available Not Available fluconazole 150 mg tablet TK 1 T PO ONCE FOR 1 DOSE 11/03 completed Not Available Not Available Not Available metoprolol succinate ER 50 mg tablet,exte nded release 24 hr TAKE 1 TABLET BY MOUTH EVERY DAY DIRECTED active Not Available Not Available No t Available ranitidine 300 mg tablet TK 1 T PO QD 11/03 completed Not Available Not Available Not Available hydrocodone 5 mg-acetamin ophen 325 mg tablet TAKE 1 TABLET BY MOUTH EVERY 6 HOURS NEEDED FOR PAIN 11/02 completed Not Available Not Available Not Available urea 40 % topical cream APPLY TO THE AFFECTED AREA(S) callus to feet BY TOPICAL ROUTE 2 TIMES PER DAY 05/13 completed Not Available Not Available Not Available meloxicam 15 mg tablet TAKE 1 TABLET BY MOUTH EVERY DAY active Not Available Not Available No t Available sucralfate 1 gram tablet TK 1 T PO Q 6 H 05/13 completed Not Available Not Available Not Available venlafaxine 25 mg tablet 11/03 completed Not Available Not Available Not Available ondansetron HCl 4 mg tablet TK 1 T PO Q 8 H PRF NAUSEA 11/03 completed Not Available Not Available Not Available famotidine 40 mg tablet TAKE 1 TABLET BY MOUTH EVERY DAY active Not Available Not Available No t Available prednisone 20 mg tablet TAKE 2 TABLETS BY MOUTH EVERY DAY FOR 5 DAYS 08/27 completed Not Available Not Available Not Available prednisone 5 mg tablet CONTINUE TO TAKE 2 MG EVERY OTHER DAY FOR THE NEXT 20 DAYS 05/13 completed Not Available Not Available Not Available quetiapine 200 mg tablet TAKE 1 TABLET BY MOUTH EVERYDAY AT BEDTIME active Not Available Not Available No t Available terconazole 0.8 % vaginal cream I 1 APL VAGINALLY QD FOR 3 DAYS 11/03 completed Not Available Not Available Not Available lidocaine 4 % topical cream JACQUE 30 GRAMS EXT AA TID PRN 05/13 completed Not Available Not Available Not Available clindamycin HCl 150 mg capsule TK ONE C PO Q 6 H FOR 10 DAYS 05/13 completed Not Available Not Available Not Available venlafaxine ER 150 mg capsule,ext ended release 24 hr TAKE 1 CAPSULE BY MOUTH EVERY DAY IN THE MORNING active Not Available Not Available No t Available promethazin e 6.25 mg-codeine 10 mg/5 mL syrup TK 5ML PO Q 4 H PRN FOR COUGH 11/03 completed Not Available Not Available Not Available leflunomide 10 mg tablet TAKE 1 TABLET BY MOUTH EVERY DAY 11/03 completed Not Available Not Available Not Available topiramate 25 mg tablet TAKE 1 TABLET BY MOUTH TWICE A DAY active Not Available Not Available No t Available hydralazine 25 mg tablet TAKE 1 TABLET BY MOUTH EVERY DAY DIRECTED 11/02 completed Not Available Not Available Not Available metronidazo le 500 mg tablet TAKE 1 TABLET BY MOUTH EVERY 8 HOURS 05/13 completed Not Available Not Available Not Available azathioprin e 50 mg tablet TAKE 2 TABLETS BY MOUTH DAILY 11/03 completed Not Available Not Available Not Available acetaminoph en 300 mg-codeine 30 mg tablet TAKE 1 TABLET BY MOUTH EVERY 6 HOURS NEEDED FOR PAIN *NOT ON FORMULARY * active Not Available Not Available No t Available amlodipine 5 mg tablet TAKE 1 TABLET BY MOUTH EVERY DAY IN THE MORNING 11/03 completed Not Available Not Available Not Available prochlorper azine maleate 10 mg tablet TK 1 T PO Q 6 H PRN 11/03 completed Not Available Not Available Not Available ciprofloxac in 500 mg tablet TAKE 1 TABLET BY MOUTH EVERY 12 HOURS 05/13 completed Not Available Not Available Not Available sulfamethox azole 800 mg-trimetho prim 160 mg tablet TAKE 1 TABLET BY MOUTH EVERY 12 HOURS 08/27 completed Not Available Not Available Not Available omeprazole 40 mg capsule,del ayed release TAKE 1 CAPSULE BY MOUTH EVERY DAY 11/02 completed Not Available Not Available Not Available leflunomide 20 mg tablet TAKE 1 TABLET BY MOUTH EVERY DAY 11/03 completed Not Available Not Available Not Available tramadol 50 mg tablet TAKE 1/2 TABLET BY MOUTH EVERY 8 HOURS NEEDED 05/13 completed Not Available Not Available Not Available quetiapine 100 mg tablet 11/03 completed Not Available Not Available Not Available acetaminoph en 500 mg tablet TAKE 2 TABLETS (1,000 MG TOTAL) BY MOUTH EVERY 6 HOURS NEEDED FOR PAIN 01/26 completed Not Available Not Available Not Available triamcinolo ne acetonide 0.1 % topical cream 05/13 completed Not Available Not Available Not Available ondansetron 8 mg disintegrat ing tablet DISSOLVE 1 TABLET ON THE TONGUE EVERY 8 HOURS active Not Available Not Available No t Available lamotrigine 25 mg tablet TAKE 1 TABLET BY MOUTH EVERY DAY 12/28 completed Not Available Not Available Not Available prednisone 10 mg tablets in a dose pack Take 1 tab by mouth, 3 times a day for 3 daysTake 1 tab by mouth 2 times a day for 2 daysTake 1 tab by mouth once a day for 1 day 05/13 completed Not Available Not Available Not Available levothyroxi ne 100 mcg tablet TK 1 T PO D 11/03 completed Not Available Not Available Not Available oxycodone-a cetaminophe n 5 mg-325 mg tablet TAKE 2 TABLETS BY MOUTH ONCE EVERY 6 HOURS NEEDED FOR PAIN 05/13 completed Not Available Not Available Not Available levothyroxi ne 88 mcg tablet 11/03 completed Not Available Not Available Not Available ofloxacin 0.3 % ear drops INSTILL 10 DROPS INTO AFFECTED EAR(S) BY OTIC ROUTE ONCE DAILY X 7 DAYS 11/02 completed Not Available Not Available Not Available citalopram 20 mg tablet 05/13 completed Not Available Not Available Not Available potassium chloride ER 20 mEq tablet,exte nded release(par t/cryst) TAKE 2 TABLETS BY MOUTH ONCE TAKE MORNING OF active Not Available Not Available No t Available metoclopram katherine 5 mg tablet TAKE 1 TABLET BY MOUTH 4 TIMES DAILY (BEFORE MEALS AND NIGHTLY). active Not Available Not Available No t Available estradiol 1 mg tablet TAKE 1 TABLET BY MOUTH EVERY DAY DIRECTED 08/27 completed Not Available Not Available Not Available DOK 100 mg capsule TK ONE C PO BID 05/13 completed Not Available Not Available Not Available trazodone 100 mg tablet 05/13 completed Not Available Not Available Not Available Kenalog 10 mg/mL suspension for injection In office injection administe red by the provider 11/03 completed [facility]: [phone] Not Available Not Available Not Available Proctozone- HC 2.5 % topical cream perineal applicator 11/03 completed Not Available Not Available Not Available benzonatate 100 mg capsule TAKE ONE CAPSULE BY MOUTH THREE TIMES DAILY, MORNING, MIDDAY & IN THE EVENING NEEDED FOR 7 DAYS active Not Available Not Available No t Available doxycycline monohydrate 100 mg capsule 05/13 completed Not Available Not Available Not Available hydrocodone 7.5 mg-acetamin ophen 325 mg tablet 05/13 completed Not Available Not Available Not Available pantoprazol e 40 mg tablet,loren yed release TAKE 1 TABLET BY MOUTH TWICE A DAY 2024 active Not Available Not Available Not Avai lable cyanocobala min (vit B-12) 1,000 mcg/mL injection solution INJECT 1 ML UNDER THE SKIN ONCE A MONTH active Not Available Not Available No t Available ferrous sulfate 325 mg (65 mg iron) tablet TAKE 1 TABLET BY MOUTH EVERY DAY active Not Available Not Available No t Available levothyroxi ne 125 mcg tablet TK 1 T PO D 11/03 completed Not Available Not Available Not Available lisinopril 10 mg tablet 05/13 completed Not Available Not Available Not Available prednisone 50 mg tablet TAKE 1 TABLET BY MOUTH EVERY DAY DIRECTED FOR 10 DAYS 08/27 completed Not Available Not Available Not Available lidocaine 5 % topical patch UNWRAP AND APPLY 1 PATCH TOPICALLY DAILY AND LEAVE ON MOST PAINFUL AREA FOR UP TO 12 HOURS 05/13 completed Not Available Not Available Not Available levothyroxi ne 150 mcg tablet TAKE 1 TABLET BY MOUTH EVERY DAY AT 6:30 AM active Not Available Not Available No t Available losartan 25 mg tablet TAKE 1 TABLET BY MOUTH EVERY DAY DIRECTED 11/03 completed Not Available Not Available Not Available nicotine 21 mg/24 hr daily transdermal patch APPLY 1 PATCH TO SKIN ONCE DAILY DIRECTED FOR 42 DAYS 11/03 completed Not Available Not Available Not Available venlafaxine 50 mg tablet 11/03 completed Not Available Not Available Not Available gabapentin 300 mg capsule TAKE 1 CAPSULE BY MOUTH EVERYDAY AT BEDTIME 11/02 completed Not Available Not Available Not Available estradiol 2 mg tablet TAKE 1 TABLET BY MOUTH EVERY DAY FOR MENOPAUSA L SYMPTOMS active Not Available Not Available No t Available folic acid 1 mg tablet TAKE 1 TABLET BY MOUTH EVERY DAY active Not Available Not Available No t Available hydrochloro thiazide 25 mg tablet TK 1 T PO QD UTD 11/03 completed Not Available Not Available Not Available furosemide 20 mg tablet TAKE 1 TABLET BY MOUTH EVERY DAY X2 DAYS 11/03 completed Not Available Not Available Not Available gabapentin 100 mg capsule TAKE 1 CAPSULE BY MOUTH EVERYDAY AT BEDTIME 11/11 completed Not Available Not Available Not Available estradiol 0.5 mg tablet TAKE 1 TABLET BY MOUTH EVERY DAY DIRECTED 11/02 completed Not Available Not Available Not Available metoprolol succinate ER 25 mg tablet,exte nded release 24 hr TAKE 1 TABLET BY MOUTH EVERY DAY IN THE MORNING 11/02 completed Not Available Not Available Not Available ergocalcife rol (vitamin D2) 1,250 mcg (50,000 unit) capsule TAKE 1 CAPSULE BY MOUTH ONCE WEEKLY DIRECTED active Not Available Not Available No t Available budesonide DR - ER 3 mg capsule,del ayed,extend ed release TAKE 3 CAPSULES BY MOUTH EVERY MORNING. 11/03 completed Not Available Not Available Not Available Cheratussin AC 10 mg-100 mg/5 mL oral liquid 05/13 completed Not Available Not Available Not Available hydroxychlo roquine 200 mg tablet TAKE 1 TABLET BY MOUTH EVERY DAY active Not Available Not Available No t Available ibuprofen 600 mg tablet TAKE 1 TABLET BY MOUTH EVERY 6 HOURS NEEDED FOR PAIN active Not Available Not Available No t Available polyethylen e glycol 3350 17 gram/dose oral powder DIS 255GM IN 64 OUNCES OF CLEAR LIQUID AND DRINK UTD FOR COLONOSCO PY PREP 11/03 completed Not Available Not Available Not Available levofloxaci n 500 mg tablet TAKE 1 TABLET BY MOUTH EVERY DAY active Not Available Not Available No t Available zolpidem 10 mg tablet TAKE 1 TABLET BY MOUTH EVERY DAY AT BEDTIME NEEDED active Not Available Not Available No t Available methylpredn isolone 4 mg tablets in a dose pack PLEASE SEE ATTACHED FOR DETAILED DIRECTION S active Not Available Not Available No t Available albuterol sulfate HFA 90 mcg/actuati on aerosol inhaler TAKE 2 PUFFS BY MOUTH EVERY 4 TO 6 HOURS NEEDED 11/02 completed Not Available Not Available Not Available celecoxib 100 mg capsule TAKE 1 CAPSULE BY MOUTH EVERY DAY NEEDED active Not Available Not Available No t Available ondansetron 4 mg disintegrat ing tablet DISSOLVE 1 T ON TONGUE Q 8 H PRN N 11/03 completed Not Available Not Available Not Available cefdinir 300 mg capsule 300 MG ORALLY DAILY@120 0 08/27 completed Not Available Not Available Not Available fluticasone propionate 50 mcg/actuati on nasal spray,suspe nsion SPRAY 1 SPRAY INTO BOTH NOSTRILS AT BEDTIME active Not Available Not Available No t Available doxycycline hyclate 100 mg tablet TAKE 1 TABLET BY MOUTH TWICE A DAY 08/27 completed Not Available Not Available Not Available naproxen 500 mg tablet TAKE 1 TABLET BY MOUTH TWICE A DAY 11/11 completed Not Available Not Available Not Available metoclopram katherine 10 mg tablet TAKE 1 TABLET BY MOUTH FOUR TIMES A DAY 11/03 completed Not Available Not Available Not Available buspirone 15 mg tablet TAKE 1 TABLET BY MOUTH TWICE A DAY active Not Available Not Available No t Available oxycodone 5 mg tablet TAKE 1 TABLET BY MOUTH EVERY 4 HOURS NEEDED FOR PAIN 11/02 completed Not Available Not Available Not Available neomycin-po lymyxin-hyd rocort 3.5 mg-10,000 unit/mL-1 % ear drops,susp INSTILL 4 DROPS INTO AFFECTED EAR(S) 3 TIMES A DAY active Not Available Not Available No t Available azithromyci n 500 mg tablet TK 1 T PO D TAT 05/13 completed Not Available Not Available Not Available escitalopra m 10 mg tablet TAKE 1 TABLET BY MOUTH EVERY DAY 11/02 completed Not Available Not Available Not Available escitalopra m 20 mg tablet TAKE 1 TABLET BY MOUTH EVERY DAY 11/03 completed Not Available Not Available Not Available Premarin 0.625 mg/gram vaginal cream INSERT 0.5 GRAM VAGINALLY TWICE WEEKLY active Not Available Not Available No t Available cholestyram ine (with sugar) 4 gram powder for susp in a packet TAKE 1 PACKET BY MOUTH TWICE DAILY WITH MEALS. IF IT CAUSES CONSTIPAT ION REDUCE TO ONCE DAILY 11/02 completed Not Available Not Available Not Available bupropion HCl XL 300 mg 24 hr tablet, extended release TAKE 1 TABLET BY MOUTH EVERY DAY IN THE MORNING 11/03 completed Not Available Not Available Not Available bupropion HCl XL 150 mg 24 hr tablet, extended release TAKE 1 TABLET BY MOUTH EVERY MORNING FOR 2 WEEKS AND THEN STOP 11/03 completed Not Available Not Available Not Available metoprolol tartrate 25 mg tablet TK 1 T PO BID 05/13 completed Not Available Not Available Not Available topiramate 50 mg tablet TAKE 1 TABLET BY MOUTH TWICE A DAY active Not Available Not Available No t Available Spiriva with HandiHaler 18 mcg and inhalation capsules INL THE CONTENTS OF 1 C VIA INHALATIO N DEVICE QD UTD 11/03 completed Not Available Not Available Not Available Pentasa 500 mg capsule,con trolled release TAKE 2 CAPSULES PO 3 TIMES DAILY FOR 30 DAYS 11/03 completed Not Available Not Available Not Available fenofibrate 160 mg tablet TAKE 1 TABLET BY MOUTH EVERY DAY DIRECTED active Not Available Not Available No t Available chlorhexidi ne gluconate 0.12 % mouthwash RINSE WITH 15 ML BY MOUTH TWICE A DAY active Not Available Not Available No t Available lidocaine (PF) 10 mg/mL (1 %) injection solution In office injection administe red by the provider 11/03 completed [facility]: [phone] [phone] [phone] Not Available Not Available Not Available quetiapine 50 mg tablet TK 1 T PO HS 11/03 completed Not Available Not Available Not Available calcium 600 mg (as carbonate)- vitamin D3 10 mcg (400 unit) tablet TAKE 1 TABLET BY MOUTH TWICE DAILY 11/03 completed Not Available Not Available Not Available mesalamine 1.2 gram tablet,loren yed release TK 4 TS PO ONCE D active Not Available Not Available No t Available hydrochloro thiazide 12.5 mg tablet TAKE 1 TABLET BY MOUTH EVERY DAY IN THE MORNING 11/03 completed Not Available Not Available Not Available Symbicort 160 mcg-4.5 mcg/actuati on HFA aerosol inhaler INHALE 2 PUFFS INTO THE LUNGS TWICE A DAY DIRECTED FOR 30 DAYS 11/02 completed Not Available Not Available Not Available Creon 12,000-38,0 00-60,000 unit capsule,del ayed release active Not Available Not Available Not Available Creon 36,000 unit-114,00 0 unit-180,00 0 unit capsule,del ayed release TAKE 2 CAPSULES BY MOUTH 3 TIMES A DAY WITH MEALS AND 1 CAPSULE WITH EACH SNACK active Not Available Not Available No t Available Entyvio 300 mg intravenous solution 1 IV in fusion q8w 2024 active Not Available Not Available Not Avai lable Entyvio 08/27 completed Not Available Not Available Not Available Xeljanz XR 11 mg tablet,exte nded release 11/03 completed Not Available Not Available Not Available Humira(CF) Pen 40 mg/0.4 mL subcutaneou s kit 11/03 completed Not Available Not Available Not Available Humira(CF) Pen Crohn's-Ulc Colitis-Hid Sup Strt 80 mg/0.8 mL subcut kt 11/03 completed Not Available Not Available Not Available Flucelvax Quad (PF) 60 mcg (15 mcg x 4)/0.5 mL IM syringe ADM 0.5ML IM UTD 05/13 completed Not Available Not Available Not Available Xeljanz XR 22 mg tablet,exte nded release 11/03 completed Not Available Not Available Not Available Nurtec ODT 75 mg disintegrat ing tablet TAKE 1 TABLET BY MOUTH EVERY DAY NEEDED 11/02 completed Not Available Not Available Not Available Daily-Solomon (with folic acid) 400 mcg tablet TAKE 1 TABLET BY MOUTH EVERY DAY DIRECTED active Not Available Not Available No t Available Vitals Date Recorded Body height Body mass index (BMI) Body weight Body temperature Heart rate Oxygen saturation Oxygen saturation in Arterial blood by Pulse oximetry Systolic blood pressure Diastolic blood pressure Provider Name and Address Organization Details Last Updated DateTime 3 144.78 cm 38.5 kg/m2 62403.4 4 g 98.5 [degF] 91 /min 96 % 96 % 128 mm[Hg] 82 mm[Hg] Renee Simmons MA [facility] 3 11:55:43 Date Recorded Heart rate Respiratory rate Provider N cherise and Address Organization Details Last Updated DateTime 01/26/2023 91 /min 15 /min Tanner Prery MD [address] [facility], [facility] [address], [place], [address], [facility] [employer] 01/26/2023 12:07:15 Date Recorded Body height Body mass index (BMI) Body weight Heart rate Oxygen saturation Oxygen saturation in Arterial blood by Pulse oximetry Systolic blood pressure Diastolic blood pressure Provider Name and Address Organization Details Last Updated DateTime 3 144.78 cm 38.5 kg/m2 85378.4 4 g 90 /min 97 % 97 % 128 mm[Hg] 80 mm[Hg] BROOKS Ledesma [facility] 3 11:33:09 Date Recorded Body height Body mass index (BMI) Body weight Heart rate Oxygen saturation Oxygen saturation in Arterial blood by Pulse oximetry Systolic blood pressure Diastolic blood pressure Provider Name and Address Organization Details Last Updated DateTime 4 144.78 cm 38.5 kg/m2 35553.4 4 g 88 /min 98 % 98 % 126 mm[Hg] 82 mm[Hg] BROOKS Ledesma [facility] 4 10:34:17 Date Recorded Body height Body mass index (BMI) Body weight Heart rate Oxygen saturation Oxygen saturation in Arterial blood by Pulse oximetry Systolic blood pressure Diastolic blood pressure Provider Name and Address Organization Details Last Updated DateTime 4 144.78 cm 34.2 kg/m2 41868.5 9 g 87 /min 98 % 98 % 128 mm[Hg] 86 mm[Hg] BROOKS Ledesma [facility] 4 10:02:53 Date Recorded Body height Body mass index (BMI) Body weight Heart rate Oxygen saturation Oxygen saturation in Arterial blood by Pulse oximetry Systolic blood pressure Diastolic blood pressure Provider Name and Address Organization Details Last Updated DateTime 4 144.78 cm 31.2 kg/m2 91182.3 g 86 /min 99 % 99 % 126 mm[Hg] 84 mm[Hg] BROOKS Ledesma [employer] 12:29:14 Social History Question Answer Notes LastModified by Organization Details LastModified Time Tobacco Smoking Status Current Every Day Smoker Malcolm Wallsguari marlow, [employer] 08/10/2023 11:32:29 What Is Your Level Of Alcohol Consumption? None [id number] Information not available 11/17/2022 In The 14 Days Before Symptom Onset, Have You Had Close Contact With A Laboratory-confi rmed COVID-19 While That Case Was Ill? No Information not available 08/10/2023 In The 14 Days Before Symptom Onset, Have You Had Close Contact With A Person Who Is Under Investigation For COVID-19 While That Person Was Ill? No Information not available 08/10/2023 What Type Of Diet Are You Following? REGULAR [id number] Information not available 11/17/2022 Do You Have An Electrostatic Air Filter? No Information not available 08/10/2023 What Is Your Occupation? None Information not available 08/10/2023 Do You Have A Humidifier? No Information not available 08/10/2023 Where Do You Live? SingleLevelHouse Information not available 08/10/2023 Do You Have Moisture Problems In Your Home? Yes Dry At Home Information not available 08/10/2023 What Was The Date Of Your Most Recent Tobacco Screening? 01/26/2023 Information not available 08/10/2023 Do You Have Any Pets? Yes Information not available 08/10/2023 Do You Use Your Seat Belt Or Car Seat Routinely? Yes Information not available 08/10/2023 Do You Have Smoke And Carbon Monoxide Detectors In Your Home? Yes Information not available 08/10/2023 Are You Passively Exposed To Smoke? Yes Information not available 08/10/2023 How Much Tobacco Do You Smoke? 0.5 PPD [id number] Information not available 11/17/2022 Do You Feel Stressed (tense, Restless, Nervous, Or Anxious, Or Unable To Sleep At Night)? [id number] Information not available 08/10/2023 Do You Use Sunscreen Routinely? No Information not available 08/10/2023 Have You Recently Traveled Abroad? No Information not available 08/10/2023 Do You Have Any Dietary Restrictions? No Information not available 08/10/2023 Sex: Unknown Functional Status Question Answer Note LastModified by Organizat ion Details LastModified Time What is your exercise level? None [id number] Information not available 11/17/2022 Mental Status None recorded. Family History Relationship Description Onset Age of this Age Resolved Age Notes LastModified by Organization Details LastModified Time Mother Hypertensive disorder [id number] Not available 11/17/2022 16:39:21 Unspecified Relation Diabetes mellitus aunts [id number] Not available 11/17/2022 16:39:21 Sister Asthma Not available 07/2023 11:40:38 Brother Asthma Not available 11:40:44 Maternal Uncle Asthma Not available 12/28/2022 11:40:50 Maternal Aunt Asthma Not availa ble 12/28/2022 11:40:54 Notes:stroke - grandmother, cancer- maternal family history Medical History Condition Response OSTEOPOROSIS Y ARTHRITIS Y GOUT Y HYPERTENSION Y ANEMIA/BLOOD DISORDER Y Gynecological HistoryNo gynecological history recorded. Obstetrics History GPAL:G 0 P 0 0 0 0 Past Encounters Encounter ID Performer Location Encounter Start Date Encounter Closed Date Diagnosis/Indication Diagnosis SNOMED-CT Code Diagnosis ICD10 Code Diagnosis Note [id number] [facility] [address] [place] [address] 05/19/2021 00:00:00 05/19/2021 10:35:24 [id number] [facility] [address], [address] [place] [address] 11/30/2021 00:00:00 11/30/2021 12:20:52 [id number] [facility] [address], [facility] [address] [place] [address] 12/07/2021 00:00:00 12/07/2021 15:39:33 [id number] [facility] [address], [facility] [address] [place] [address] 01/04/2022 00:00:00 01/04/2022 10:10:01 [id number] [facility] [address], [facility] [address] [place] [address] 01/11/2022 00:00:00 01/11/2022 11:58:12 [id number] [facility] [address], [facility] [address] [place] [address] 02/04/2022 00:00:00 02/04/2022 11:18:41 [id number] [facility] [address], [address] [address] 05/13/2022 00:00:00 05/13/2022 14:02:16 [id number] [facility] [address] [address] 11/11/2022 00:00:00 11/11/2022 11:21:37 [id number] Tanner Perry MD [facility] [address] [address] 12/28/2022 11:16:53 12/29/2022 08:24:46 Dyspnea on exertion 00387066 R06.09 Smoker 57838128 F17.218 F17.219 Z87.891 [id number] Tanner Perry MD [facility] [address] [address] 01/26/2023 11:45:51 01/27/2023 08:24:18 Dyspnea on exertion 49723667 R06.09 Smoker 15209065 F17.218 F17.219 Z87.891 Hypogammaglobulinemia 11 7352866 D80.1 [id number] Asya Martinez MD [facility] General Surgery [address] [place] [address] 08/10/2023 11:32:08 08/10/2023 12:31:23 Exocrine pancreatic insufficiency 89929521 K86.81 Crohn's di sease of small intestine 72002167 K50.90 [id number] Asya Martinez MD [facility] General Surgery [address] [address] 11/02/2023 10:32:50 11/02/2023 11:44:36 Crohn's disease of small intestine 34160818 K50.90 Exocrine p ancreatic insufficiency 96512737 K86.81 CONT CREON [id number] Asya Martinez MD [facility] General Surgery [address] [place], [place] [address]., [place] [address] 02/08/2024 09:59:46 02/08/2024 10:30:23 Crohn's disease of small intestine 54283765 K50.90 Exocrine p ancreatic insufficiency 90831888 K86.81 CONT CREON [id number] Asya Martinez MD [facility] General Surgery [address] [place] [address] Ave., [place] [address] 08/27/2024 12:27:15 08/27/2024 12:44:22 Crohn's disease of small intestine 60826308 K50.90 Exocrine p ancreatic insufficiency 16622460 K86.81 CONT CREON Health Concerns Section Related Observation LastModified by Organization Detai ls LastModified Time None Recorded Concern Status LastModified by Organization Details LastModified Time None Recorded Advance Directives Directive None Recorded Payers Encounter Date Sequence Insurance Name Policy Number Policy Barreto Covered Member ID Barreto Member ID Guarantor Name 01/26/2023 1 [facility] 03/19/21 (MEDICAID REPLACEMENT - HMO) Mely Francois [id number] Mely Francois 08/10/2023 1 [facility] AFTER 03/19/21 (MEDICAID REPLACEMENT - HMO) Mely Francois [id number] Mely Francois 11/02/2023 1 [facility] AFTER 03/19/21 (MEDICAID REPLACEMENT - HMO) Mely Francois [id number] Mely Francois 02/08/2024 1 [facility] OR AFTER 03/19/21 (MEDICAID REPLACEMENT - HMO) Mely Francois [id number] Mely Francois 08/27/2024 1 [facility] OR AFTER 03/19/21 (MEDICAID REPLACEMENT - HMO) Mely Francois [id number] Mely Francois Notes Date Note Type Note Provider Name and Address Organization Details Recorded Time 01/26/2023 text/html Primary care/Ref erring provider: Madeline Hillman PA-C Patient is here to go over her methacholine testing as part of her shortness of breath evaluation/management. Initial development of shortness of breath: 2016Duration of shortness of breath: 7 yearsCondition of shortness of breath: stableTiming of shortness of breath: noneFrequency: up to 2 times a dayLimits activities: yesAggravating factors: walking, going up stairsAlleviating factors: rest for 5 minutes Modified [employer] (mMRC) Dyspnea Scale - Grade 2Grade 0 I only get breathless with strenuous exercise .Grade 1 I get short of breath when hurrying on the level or walking up a slight hill .Grade 2 I walk slower than people of the same age on the level because of breathlessness or have to stop for breath when walking at my own pace on the level .Grade 3 I stop for breath after walking about 100 yards or after a few minutes on the level .Grade 4 I am too breathless to leave the house or I am breathless when dressing . Treatment history: Albuterol HFA as needed since 2015 Spiriva Handihaler 1 daily 2019 only Symbicort 160/4.5 mcg 2 puffs BID since 10/2022 Other symptoms:Drooling: noDysarthria: noNeck pain: noOdynophagia: noDysphagia: noWeak mastication: noFacial weakness: noNasal speech: noProtruding tongue: noProductive cough: whiteWheezing: noChest tightness: yesOrthopnea: noFrequent throat clearing or swallowing: yesPalpitations: noHeartburn: noEdema: no Environmental exposures:Nicotine smoke: 1/2 ppd 1995-present = 13.5 pack yearsPaint: noDye: noDust mites: yesMold: noDamp basement: noWood burning stove: noAnimal dander: cats and dogCockroaches: noPollen: yesArsenic: noAsbestos: noBeryllium: noCadmium: noChromium: noCoal smoke: noDiesel fumes: noNickel: noSilica: noSoot: no EPWORTH SLEEPINESS SCALE (ESS) CHANCE OF DOZING SCORE0 = would never doze1 = slight chance of dozing2 = moderate chance of dozing3 = high chance of dozing SITUATION AND CHANCE OF DOZINGSitting and reading - 3Watching television - 3Sitting inactive in a public place (e.g. a theater or meeting) - 3As a passenger in a car for an hour without a break - 2Lying down to rest in the afternoon when circumstances permit - 3Sitting and talking to someone - 2Sitting quietly after lunch without alcohol - 2In a car, while stopped for a few minutes in the traffic - 1TOTAL SCORE 19Subjectively, patient has a high chance of dozing. Tanner Perry MD [address] [facility], [place] [address], [place], [address], [employer] 01/26/2023 12:08:04 08/10/2023 text/html CANDY WAS SEEN IN THE OFFICE TODAY FOR EVALUATION . PT HAS IBD-CD OF THE SMALL BOWEL . SHE IS S/P NUMEROUS SURGIES . PT IS C/O DIARRHEA 20 X DAILY . RECENT STOOL STUDIES SHOE FECAL ELASTASE 52 (L) , STOOL CALPROTECTIN 12 . PT IS ON CREON 36 K AND THIS IS NOT HELPING . SHE REPORTS BLOATING AND MILD WT LOSS. SHE DENIES MALODOR AND DIFFICULTY FLUSHING . PT IS ON ENTYVIO 300 MG EVERY 8 WEEKS . LAST INFUSION WAS X 8 WEEKS AGO . Asya Martinez MD [address] [facility], [address], [place], [address], [employer] [facility] [employer] 08/10/2023 12:55:35 11/02/2023 text/html CANDY WAS SEEN IN THE OFFICE TODAY FOR A F/U. PT HAS EPI. SHE WAS RXED CREON . PT C/O BLOATING AND CONSTIPATION IF SHE TAKES IT RXED . PT HAS IBD- CD . S/P MULTIPLE SURGERIES .SHE IS ON ENTYVIO 300 MG IV Q 8 WEEKS . NO COMPLAINTS FOR THIS NOW Asya Martinez MD [address], [place], [address], [employer] [facility] [employer] 11/02/2023 13:34:49 02/08/2024 text/html CANDY WAS SEEN IN THE OFFICE TODAY FOR A F/U. PT HAS IBD- CD OF THE SMALL /LARGE INTESTINES . PT ALSO HAS EPI . SHE IS ON CREON . TODAY SHE REPORTS FREQUENT DIARRHEA 3-4X DAILY IT USE TO BE 14 X DAILY . WT LOSS X 20 LBS SINCE LAST VISIT . PT ADMITS THE DIFFICULTY IN PREPARING FOOD FOR HER FAMILY AND HERSELF. SHE DOES DEVIATE A BIT FROM THE LOW FAT DIET . Asya Martinez MD [address], [place], [address], [employer] [facility] [employer] 02/08/2024 10:38:48 08/27/2024 text/html CANDY WAS SEEN IN THE OFFICE TODAY FOR A F/U. PT HAS IBD-CD OF BOTH LARGE /SMALL INTESTINE . PT IS ON ENTYVIO . TODAY SHE REPORTS THAT SHE HAD THE FLU SHOT. SHE THEM BECAME CONFUSED AND WAS HOSPITALIZED . PT IS SCHEDULED TO SEE A NEUROLOGIST . SHE HAS NOT BEEN TAKING HER CREON B/C SHE REPORTEDLY WAS NOT EATING . Asya Martinez MD [address], [place], [address], [employer] [facility] [employer] 08/27/2024 12:48:03 OBGyn Episode No OBEpisode recorded.
--- OUTSIDE RECORDS SUMMARY | 2024-12-30 20:30 | XMS_ITS | Data Portability ---
Author Organization [facility] Tamara [facility] Address [address] [place] [address] Care Team Providers Care Relay Shop Supervisor Name Role Phone MITCH KENNEDY Psychiatrist MAGDALENE (OB) Counseling Program Leader LENKA GARCÍA Primary Care Provider Unavailabl e Assessment Encounter Date Assessment Date Assessment LastModified by Organization Details LastModified Time 07/23/2024 07/23/2024 LADONNA Pittman Not available 07/23/2024 15:40:41 08/29/2024 08/29/2024 Garland DOUGHERTY [email or web address] Not available 08/29/2024 17:35:37 Plan of Treatment Reminders Order Date Submit Date Provider Last Modified By Organization Details Last Modified Time Details Appointments NEW PATIENT 15 2024 11:45A M Bhargav Osorio MD Not available Not available Not available NEW PATIENT 30 2024 10:30A M Rodo Iraheta MD Not available Not available Not available ANY 30 2024 09:00A M LENKA GARCÍA PA-C Not available Not available Not available Lab TSH + free T4, serum 2024 025 JOSE ALFREDO [facility], [address], [place], [address], 12/11/2024 08:26:59 T3, free, serum or plasma 2024 025 JOSE ALFREDO [facility], [address], [place], [address], 12/11/2024 08:27:00 vitamin D, 25-hydrox y, total, serum 2024 025 JOSE ALFREDO [facility], [address], [place], [address], 12/11/2024 08:27:01 CMP, serum or plasma 2023 024 JOSE ALFREDO [facility], [address], [place], [address], 08/21/2024 11:12:13 lipid panel, serum 2023 024 JOSE ALFREDO [facility], [address], [place], [address], 07/24/2024 10:16:31 TSH + free T4, serum 2023 024 JOSE ALFREDO [facility], [address], [place], [address], 07/24/2024 13:13:52 T3, free, serum or plasma 2023 024 JOSE ALFREDO [facility], [address], [place], [address], 07/24/2024 13:13:54 vitamin D, 25-hydrox y, total, serum 2023 024 JOSE ALFREDO [facility], [address], [place], [address], 07/24/2024 13:13:55 CMP, serum or plasma 2023 024 JOSE ALFREDO [facility], [address], [place], [address], 07/24/2024 10:16:33 albumin/c reatinine , mass ratio, urine 2023 024 JOSE ALFREDO [facility], [address], [place], [address], 07/24/2024 13:13:51 CBC w/ auto diff 2023 024 CROCKETT [facility], [address], [place], [address], 07/24/2024 10:16:35 Referral None recorded. Procedures pulse oximetry (PROC) 2024 025 [id number] In-Office Order, Internal Use Only DO Not Attach Compendium DO Not Attach Compendium, Do Not Delete/merge, [id number] 12/10/2024 13:07:30 Surgeries None recorded. Imaging XR, shoulder, 2 or more view 2023 024 [facility] ([facility]), [address], [place], [address], 07/23/2024 17:29:39 Medication Orders metoprolo l succinate ER 50 mg tablet,ex tended release 24 hr 2024 025 [id number], [address], [place], [address], 12/10/2024 13:07:39 guaifenes in ER 600 mg tablet, extended release 12 hr 2024 025 [id number], [address], [place], [address], 12/12/2024 09:28:47 fenofibra te 160 mg tablet 2024 025 [id number], [address], [place], [address], 12/10/2024 13:07:40 levothyro xine 150 mcg tablet 2024 025 [id number], [address], [place], [address], 12/10/2024 13:07:40 ergocalci ferol (vitamin D2) 1,250 mcg (50,000 unit) capsule 2024 025 [id number], [address] , [place], [address], 12/10/2024 13:07:41 albuterol sulfate HFA 90 mcg/actua tion aerosol inhaler 2024 025 [id number], [address] [place], [address], 12/10/2024 13:07:40 famotidin e 40 mg tablet 2024 025 [id number], [address] [place], [address], 12/10/2024 13:07:42 losartan 50 mg tablet 2024 025 [id number], [address] [place], [address], 12/10/2024 13:07:38 benzonata te 100 mg capsule 2023 024 [facility], [address] [place] [address], [id number], 09/03/2024 12:27:[address] C[address]-Jessica st Congestio n DM 5 mg-100 mg/5 mL oral liquid 2023 025 [id number], [address] [place], [address], 12/10/2024 12:54:29 neomycin- polymyxin -hydrocor t 3.5 mg-10,000 unit/mL-1 % ear drops,neto p 2023 025 [id number], [address] , [place], [address], 12/10/2024 12:53:50 fenofibra te 160 mg tablet 2023 [id number], [address], [place], [address], 07/23/2024 16:09:31 levothyro xine 150 mcg tablet 2023 [id number], [address], [place], [address], 07/23/2024 16:09:32 ergocalci ferol (vitamin D2) 1,250 mcg (50,000 unit) capsule 2023 [id number], [address], [place], [address], 07/23/2024 16:09:32 famotidin e 40 mg tablet 2023 [id number], [address], [place], [address], 07/23/2024 16:09:31 losartan 50 mg tablet 2023 [id number], [address], [place], [address], 07/23/2024 16:09:33 meloxicam 15 mg tablet 2023 024 [id number], [address], [place], [address], 07/23/2024 16:09:30 Patient TargetsNo targets recorded. Patient Instructions Encounter Date Encounter Id Patient Instructions Last Modified By Organization Details Last Modified Time 07/23/2024 [id number] A healthy lifestyle: care instructions Not available 07/23/2024 15:39:14 learning about high blood pressure [email or web address] Not available 07/23/2024 15:39:14 crohn's disease: care instructions [email or web address] Not available 07/23/2024 15:39:15 08/20/2024 [id number] A healthy lifestyle: care instructions [email or web address] Not available 08/20/2024 14:54:37 hypokalemia: car e instructions [email or web address] Not available 08/20/2024 13:25:02 08/29/2024 [id number] A healthy lifestyle: care instructions [email or web address] Not available 08/29/2024 17:45:48 Quitting Tobacco : Care Instructions [email or web address] Not available 08/29/2024 17:45:48 cough: care instructions Not available 08/29/2024 17:45:48 09/03/2024 [id number] A healthy lifestyle: care instructions Not available 09/03/2024 12:53:02 12/10/2024 [id number] A healthy lifestyle: care instructions [email or web address] Not available 12/10/2024 13:07:31 wheezing or bronchoconstricti on: care instructions [email or web address] Not available 12/10/2024 13:07:30 learning about high blood pressure [email or web address] Not available 12/10/2024 13:07:30 crohn's disease: care instructions [email or web address] Not available 12/10/2024 13:07:30 Reason for Referral None Reported. Results Created Date Observation Date Name Description Value Unit Range Abnormal Flag Note LastModifiedBy Organization Detail LastModifiedTime 07/16/2007/16/2024 urina lysis , dipst ick Leukocytes Negati ve Not Available In-Office Order Internal Use Only DO Not Attach Compendium DO Not Attach Compendium, Do Not Delete/merge, [id number] 07/16/2024 13:07:19 07/16/2007/16/2024 urina lysis , dipst ick Nitrite negati ve Not Available In-Office Order Internal Use Only DO Not Attach Compendium DO Not Attach Compendium, Do Not Delete/merge, [id number] 07/16/2024 13:07:19 07/16/2007/16/2024 urina lysis , dipst ick Urobilinogen .2 Not Available In-Of fice Order Internal Use Only DO Not Attach Compendium DO Not Attach Compendium, Do Not Delete/merge, [id number] 07/16/2024 13:07:19 07/16/20 24 07/16/2024 urina lysis , dipst ick Protein Negati ve Not Available In-Office Order Internal Use Only DO Not Attach Compendium DO Not Attach Compendium, Do Not Delete/merge, [id number] 07/16/2024 13:07:19 07/16/20 24 07/16/2024 urina lysis , dipst ick pH 5.0 Not Available In-Office Order Internal Use Only DO Not Attach Compendium DO Not Attach Compendium, Do Not Delete/merge, [id number] 07/16/2024 13:07:19 07/16/20 24 07/16/2024 urina lysis , dipst ick Blood Negati ve Not Available In-Office Order Internal Use Only DO Not Attach Compendium DO Not Attach Compendium, Do Not Delete/merge, [id number] 07/16/2024 13:07:19 07/16/20 24 07/16/2024 urina lysis , dipst ick Specific Bryant 1.025 Not Available In-Off ice Order Internal Use Only DO Not Attach Compendium DO Not Attach Compendium, Do Not Delete/merge, [id number] 07/16/2024 13:07:19 07/16/2007/16/2024 urina lysis , dipst ick Ketone Negati ve Not Available In-Office Order Internal Use Only DO Not Attach Compendium DO Not Attach Compendium, Do Not Delete/merge, [id number] 07/16/2024 13:07:19 07/16/2007/16/2024 urina lysis , dipst ick Bilirubin Negati ve Not Available In-Office Order Internal Use Only DO Not Attach Compendium DO Not Attach Compendium, Do Not Delete/merge, [id number] 07/16/2024 13:07:19 07/16/2007/16/2024 urina lysis , dipst ick Glucose Negati ve Not Available In-Office Order Internal Use Only DO Not Attach Compendium DO Not Attach Compendium, Do Not Delete/merge, [id number] 07/16/2024 13:07:19 07/23/20 24 07/24/2024 LIPID PANEL cholesterol, total 195 mg/dL 100-19 9 Not Available [facility] ([facility]) [address] [facility] [place], [address], 07/24/2024 10:16:31 07/23/20 24 07/24/2024 LIPID PANEL triglyceride s 436 mg/dL 0-149 above high normal Not Available [facility] ([facility]) [address] [place], [address], 07/24/2024 10:16:31 07/23/20 24 07/24/2024 LIPID PANEL HDL cholesterol 8 mg/dL >39 below low normal Not Available [facility] ([facility]) [address] [place], [address], 07/24/2024 10:16:31 07/23/20 24 07/24/2024 LIPID PANEL VLDL cholesterol eden 76 mg/dL 5-40 above high normal Not Available [facility] ([facility]) [address] [place], [address], 07/24/2024 10:16:31 07/23/20 24 07/24/2024 LIPID PANEL LDL chol calc ([facility]) 111 mg/dL 0-99 above high normal Not Available [facility] ([facility]) [address] [place], [address], 07/24/2024 10:16:31 07/23/20 24 07/24/2024 COMP. METAB OLIC PANEL (14) glucose 83 mg/dL 70-99 Not Available [facility] ([facility]) [address] [place], [address], 07/24/2024 10:16:33 07/23/20 24 07/24/2024 COMP. METAB OLIC PANEL (14) BUN 5 mg/dL 6-24 below low normal Not Available [facility] ([facility]) [address] [place], [address], 07/24/2024 10:16:33 07/23/20 24 07/24/2024 COMP. METAB OLIC PANEL (14) creatinine 0.67 mg/dL 0.57-1 .00 Not Available [facility] ([facility]) [address] [place], [address], 07/24/2024 10:16:33 07/23/20 24 07/24/2024 COMP. METAB OLIC PANEL (14) eGFR 110 mL/mi n/1.7 3 >59 Not Available [facility] ([facility]) [address] [place], [address], 07/24/2024 10:16:33 07/23/20 24 07/24/2024 COMP. METAB OLIC PANEL (14) BUN/creatini ne ratio 7 9-23 below low normal Not Available [facility] ([facility]) [address], [place], [address], 07/24/2024 10:16:33 07/23/20 24 07/24/2024 COMP. METAB OLIC PANEL (14) sodium 140 mmol/ L 134-14 4 Not Available [facility] ([facility]) [address] [place], [address], 07/24/2024 10:16:33 07/23/20 24 07/24/2024 COMP. METAB OLIC PANEL (14) potassium 4.6 mmol/ L 3.5-5. 2 Not Available [facility] ([facility]) [address] [place], [address], 07/24/2024 10:16:33 07/23/20 24 07/24/2024 COMP. METAB OLIC PANEL (14) chloride 109 mmol/ L 96-106 above high normal Not Available [facility] ([facility]) [address] [place], [address], 07/24/2024 10:16:33 07/23/20 24 07/24/2024 COMP. METAB OLIC PANEL (14) carbon dioxide, total 19 mmol/ L 20-29 below low normal Not Available [facility] ([facility]) [address], [place], [address], 07/24/2024 10:16:33 07/23/20 24 07/24/2024 COMP. METAB OLIC PANEL (14) calcium 9.5 mg/dL 8.7-10 .2 Not Available [facility] ([facility]) [address] [place], [address], 07/24/2024 10:16:33 07/23/20 24 07/24/2024 COMP. METAB OLIC PANEL (14) protein, total 6.5 g/dL 6.0-8. 5 Not Available [facility] ([facility]) [address] [place], [address], 07/24/2024 10:16:33 07/23/20 24 07/24/2024 COMP. METAB OLIC PANEL (14) albumin 4.2 g/dL 3.9-4. 9 Not Available [facility] ([facility]) [address] [place], [address], 07/24/2024 10:16:33 07/23/20 24 07/24/2024 COMP. METAB OLIC PANEL (14) globulin, total 2.3 g/dL 1.5-4. 5 Not Available [facility] ([facility]) [address] [place], [address], 07/24/2024 10:16:33 07/23/20 24 07/24/2024 COMP. METAB OLIC PANEL (14) bilirubin, total <0.2 mg/dL 0.0-1. 2 Not Available [facility] ([facility]) [address] [place], [address], 07/24/2024 10:16:33 07/23/20 24 07/24/2024 COMP. METAB OLIC PANEL (14) alkaline phosphatase 106 IU/L 44-121 Not Available [facility] ([facility]) [address], [place], [address], 07/24/2024 10:16:33 07/23/20 24 07/24/2024 COMP. METAB OLIC PANEL (14) AST (SGOT) 25 IU/L 0-40 Not Available [facility] ([facility]) [address], [place], [address], 07/24/2024 10:16:33 07/23/20 24 07/24/2024 COMP. METAB OLIC PANEL (14) ALT (SGPT) 12 IU/L 0-32 Not Available [facility] ([facility]) [address], [place], [address], 07/24/2024 10:16:33 07/23/20 24 07/24/2024 CBC WITH DIFFE RENTI AL/PL ATELE T WBC 16.1 x10e3 /uL 3.4-10 .8 above high normal Not Available [facility] ([facility]) [address], [place], [address], 07/24/2024 10:16:35 07/23/20 24 07/24/2024 CBC WITH DIFFE RENTI AL/PL ATELE T RBC 3.16 x10e6 /uL 3.77-5 .28 below low normal Not Available [facility] ([facility]) [address], [place], [address], 07/24/2024 10:16:35 07/23/20 24 07/24/2024 CBC WITH DIFFE RENTI AL/PL ATELE T hemoglobin 10.6 g/dL 11.1-1 5.9 below low normal Not Available [facility] ([facility]) [address] [place], [address], 07/24/2024 10:16:35 07/23/20 24 07/24/2024 CBC WITH DIFFE RENTI AL/PL ATELE T hematocrit 32.3 % 34.0-4 6.6 below low normal Not Available [facility] ([facility]) [address], [place], [address], 07/24/2024 10:16:35 07/23/20 24 07/24/2024 CBC WITH DIFFE RENTI AL/PL ATELE T MCV 102 fL 79-97 above high normal Not Available [facility] ([facility]) [address], [place], [address], 07/24/2024 10:16:35 07/23/20 24 07/24/2024 CBC WITH DIFFE RENTI AL/PL ATELE T MCH 33.5 pg 26.6-3 3.0 above high normal Not Available [facility] ([facility]) [address], [place], [address], 07/24/2024 10:16:35 07/23/20 24 07/24/2024 CBC WITH DIFFE RENTI AL/PL ATELE T MCHC 32.8 g/dL 31.5-3 5.7 Not Available [facility] ([facility]) [address], [place], [address], 07/24/2024 10:16:35 07/23/20 24 07/24/2024 CBC WITH DIFFE RENTI AL/PL ATELE T RDW 14.2 % 11.7-1 5.4 Not Available [facility] ([facility]) [address], [place], [address], 07/24/2024 10:16:35 07/23/20 24 07/24/2024 CBC WITH DIFFE RENTI AL/PL ATELE T platelets 732 x10e3 /uL 150-45 0 above high normal Not Available [facility] ([facility]) [address], [place], [address], 07/24/2024 10:16:35 07/23/20 24 07/24/2024 CBC WITH DIFFE RENTI AL/PL ATELE T neutrophils 56 % notest ab. Not Available [facility] ([facility]) [address], [place], [address], 07/24/2024 10:16:35 07/23/20 24 07/24/2024 CBC WITH DIFFE RENTI AL/PL ATELE T lymphs 31 % notest ab. Not Available [facility] ([facility]) [address], [place], [address], 07/24/2024 10:16:35 07/23/20 24 07/24/2024 CBC WITH DIFFE RENTI AL/PL ATELE T monocytes 8 % notest ab. Not Available [facility] ([facility]) [address], [place], [address], 07/24/2024 10:16:35 07/23/20 24 07/24/2024 CBC WITH DIFFE RENTI AL/PL ATELE T eos 1 % notest ab. Not Available [facility] ([facility]) [address] [facility], [place], [address], 07/24/2024 10:16:35 07/23/20 24 07/24/2024 CBC WITH DIFFE RENTI AL/PL ATELE T basos 1 % notest ab. Not Available [facility] ([facility]) [address] [facility], [place], [address], 07/24/2024 10:16:35 07/23/20 24 07/24/2024 CBC WITH DIFFE RENTI AL/PL ATELE T neutrophils (absolute) 9.2 x10e3 /uL 1.4-7. 0 above high normal Not Available [facility] ([facility]) [address] [facility], [place], [address], 07/24/2024 10:16:35 07/23/20 24 07/24/2024 CBC WITH DIFFE RENTI AL/PL ATELE T lymphs (absolute) 5.0 x10e3 /uL 0.7-3. 1 above high normal Not Available [facility] ([facility]) [address] [facility], [place], [address], 07/24/2024 10:16:35 07/23/20 24 07/24/2024 CBC WITH DIFFE RENTI AL/PL ATELE T monocytes(ab solute) 1.2 x10e3 /uL 0.1-0. 9 above high normal Not Available [facility] ([facility]) [address] [facility], [place], [address], 07/24/2024 10:16:35 07/23/20 24 07/24/2024 CBC WITH DIFFE RENTI AL/PL ATELE T eos (absolute) 0.2 x10e3 /uL 0.0-0. 4 Not Available [facility] ([facility]) [address] [facility], [place], [address], 07/24/2024 10:16:35 07/23/20 24 07/24/2024 CBC WITH DIFFE RENTI AL/PL ATELE T baso (absolute) 0.1 x10e3 /uL 0.0-0. 2 Not Available [facility] ([facility]) [address] [facility] [facility], [place], [address], 07/24/2024 10:16:35 07/23/20 24 07/24/2024 CBC WITH DIFFE RENTI AL/PL ATELE T immature granulocytes 3 % notest ab. Not Available [facility] ([facility]) [address] [facility], [place], [address], 07/24/2024 10:16:35 07/23/20 24 07/24/2024 CBC WITH DIFFE RENTI AL/PL ATELE T immature grans (abs) 0.4 x10e3 /uL 0.0-0. 1 above high normal (An eleva zuri perce ntage of Immat ure Granu locyt es has not been found to be clini sohail signi fican t as a sole clini eden predi ctor of disea se. Does NOT inclu de bands or blast cells . Pregn stephanie assoc iated physi ologi eden leuko cytos is may also show incre ased immat ure granu locyt es witho ut clini eden signi jyoti ce.) Not Available [facility] ([facility]) [address] [facility], [place], [address], 07/24/2024 10:16:35 07/23/20 24 07/24/2024 ALBUM IN/CR EATIN INE RATIO ,URIN E creatinine, urine 39.3 mg/dL notest ab. Not Available [facility] ([facility]) [address] [facility], [place], [address], 07/24/2024 13:13:51 07/23/20 24 07/24/2024 ALBUM IN/CR EATIN INE RATIO ,URIN E albumin, urine <3.0 ug/mL notest ab. Not Available [facility] ([facility]) [address] [facility], [place], [address], 07/24/2024 13:13:51 07/23/20 24 07/24/2024 ALBUM IN/CR EATIN INE RATIO ,URIN E alb/creat ratio <8 Krystal l: 0 - 29 Moder ately incre ased: 30 - 300 Sever svetlana incre ased: >300 Not Available [facility] ([facility]) [address] [facility], [place], [address], 07/24/2024 13:13:51 07/23/20 24 07/24/2024 TSH+F REE T4 TSH 1.840 uIU/m L 0.450- 4.500 Not Available [facility] ([facility]) [address] [place], [address], 07/24/2024 13:13:52 07/23/20 24 07/24/2024 TSH+F REE T4 T4,free(dire ct) 1.50 NG/dL 0.82-1 .77 Not Available [facility] ([facility]) [address] [place], [address], 07/24/2024 13:13:52 07/23/20 24 07/24/2024 TRIIO DOTHY BELGICA E (T3), FREE triiodothyro nine (T3), free 2.3 pg/mL 2.0-4. 4 Not Available [facility] ([facility]) [address] [facility], [place], [address], 07/24/2024 13:13:54 07/23/20 24 07/24/2024 VITAM IN D, 25-HY DROXY vitamin D, 25-hydroxy 33.5 NG/mL 30.0-1 00.0 Vitam in D defic iency has been defin ed by the Insti tute of Medic ine and an Endoc rine Socie ty pract ice guide line as a level of serum 25-OH vitam in D less than 20 ng/mL (1,2) . The Endoc rine Socie ty went on to furth er defin e vitam in D insuf ficie ncy as a level betwe en 21 and 29 ng/mL (2). 1. IOM (Inst itute of Medic ine). 2010. Dieta ry refer ence intak es for calci um and D. Shawna arreaga DC: [facility] . 2. Zoey medley MF, Ele greer [place], Vivian off-F errar i SCHRADER, et al. Evalu ation , treat ment, and preve ntion of vitam in D defic iency : an Endoc rine Socie ty clini eden pract ice guide line. JCEM. 2010; 96(7) :1911 -30. Not Available [facility] ([facility]) [address] [facility], [place], [address], 07/24/2024 13:13:55 08/20/20 24 08/21/2024 COMP. METAB OLIC PANEL (14) glucose 79 mg/dL 70-99 Not Available [facility] ([facility]) [address] [facility], [place], [address], 08/21/2024 11:12:13 08/20/20 24 08/21/2024 COMP. METAB OLIC PANEL (14) BUN 4 mg/dL 6-24 below low normal Not Available [facility] ([facility]) [address] [facility], [place], [address], 08/21/2024 11:12:13 08/20/20 24 08/21/2024 COMP. METAB OLIC PANEL (14) creatinine 3.22 mg/dL 0.57-1 .00 above high normal Not Available [facility] ([facility]) [address] [facility], [place], [address], 08/21/2024 11:12:13 08/20/20 24 08/21/2024 COMP. METAB OLIC PANEL (14) eGFR 17 mL/mi n/1.7 3 >59 below low normal Not Available [facility] ([facility]) [address] [facility], [place], [address], 08/21/2024 11:12:13 08/20/20 24 08/21/2024 COMP. METAB OLIC PANEL (14) BUN/creatini ne ratio 1 9-23 below low normal Not Available [facility] ([facility]) [address] [place], [address], 08/21/2024 11:12:13 08/20/20 24 08/21/2024 COMP. METAB OLIC PANEL (14) sodium 141 mmol/ L 134-14 4 Not Available [facility] ([facility]) [address] [place], [address], 08/21/2024 11:12:13 08/20/20 24 08/21/2024 COMP. METAB OLIC PANEL (14) potassium 4.6 mmol/ L 3.5-5. 2 Not Available [facility] ([facility]) [address] [place], [address], 08/21/2024 11:12:13 08/20/20 24 08/21/2024 COMP. METAB OLIC PANEL (14) chloride 110 mmol/ L 96-106 above high normal Not Available [facility] ([facility]) [address] [place], [address], 08/21/2024 11:12:13 08/20/20 24 08/21/2024 COMP. METAB OLIC PANEL (14) carbon dioxide, total 17 mmol/ L 20-29 below low normal Not Available [facility] ([facility] [address] [place], [id number], 08/21/2024 11:12:13 08/20/20 24 08/21/2024 COMP. METAB OLIC PANEL (14) calcium 8.5 mg/dL 8.7-10 .2 below low normal Not Available [facility] ([facility] [address] [place], [id number], 08/21/2024 11:12:13 08/20/20 24 08/21/2024 COMP. METAB OLIC PANEL (14) protein, total 5.8 g/dL 6.0-8. 5 below low normal Not Available [facility] ([facility] [address] [place], [id number], 08/21/2024 11:12:13 08/20/20 24 08/21/2024 COMP. METAB OLIC PANEL (14) albumin 3.3 g/dL 3.9-4. 9 below low normal Not Available [facility] ([facility]) [address] [place] [place], [address], 08/21/2024 11:12:13 08/20/20 24 08/21/2024 COMP. METAB OLIC PANEL (14) globulin, total 2.5 g/dL 1.5-4. 5 Not Available [facility] ([facility]) [address] [place], [address], 08/21/2024 11:12:13 08/20/20 24 08/21/2024 COMP. METAB OLIC PANEL (14) bilirubin, total <0.2 mg/dL 0.0-1. 2 Not Available [facility] ([facility]) [address] [facility] [place], [address], 08/21/2024 11:12:13 08/20/20 24 08/21/2024 COMP. METAB OLIC PANEL (14) alkaline phosphatase 157 IU/L 44-121 above high normal Not Available [facility] ([facility]) [address] [facility] [place], [address], 08/21/2024 11:12:13 08/20/20 24 08/21/2024 COMP. METAB OLIC PANEL (14) AST (SGOT) 28 IU/L 0-40 Not Available [facility] ([facility]) [address] [place] [place], [address], 08/21/2024 11:12:13 08/20/20 24 08/21/2024 COMP. METAB OLIC PANEL (14) ALT (SGPT) 18 IU/L 0-32 Not Available [facility] ([facility]) [address] [place] [place], [address], 08/21/2024 11:12:13 12/11/1912/11/2024 TSH+F REE T4 TSH 0.050 uIU/m L 0.450- 4.500 below low normal Not Available [facility] ([facility]) [address] [place], [address], 12/11/2024 08:26:59 12/11/1912/11/2024 TSH+F REE T4 T4,free(dire ct) 1.43 NG/dL 0.82-1 .77 Not Available [facility] ([facility]) [address] [place] [place], [address], 12/11/2024 08:26:59 12/11/19 25 12/11/2024 TRIIO DOTHY BELGICA E (T3), FREE triiodothyro nine (T3), free 2.3 pg/mL 2.0-4. 4 Not Available [facility] ([facility]) [address] [facility], [place], [address], 12/11/2024 08:27:00 12/11/1912/11/2024 VITAM IN D, 25-HY DROXY vitamin D, 25-hydroxy 48.3 NG/mL 30.0-1 00.0 Vitam in D defic iency has been defin ed by the Insti tute of Medic ine and an Endoc rine Socie ty pract ice guide line as a level of serum 25-OH vitam in D less than 20 ng/mL (1,2) . The Endoc rine Socie ty went on to furth er defin e vitam in D insuf ficie ncy as a level betwe en 21 and 29 ng/mL (2). 1. IOM (Inst itute of Medic ine). 2010. Cindy ry refer ence megan es for calci um and D. Shawna arreaga [place]: [facility] . 2. Zoey medley MF, Ele greer [place], Vivian off-F errar i SCHRADER, et al. Evalu ation , treat ment, and preve ntion of vitam in D defic iency : an Endoc rine Socie ty clini eden pract ice guide line. JCEM. 2010; 96(7) :1911 -30. Not Available [facility] ([facility]) [address] [facility], [place], [address], 12/11/2024 08:27:01 12/11/1912/10/2024 pulse oxime try (PROC ) Resting Pulse Ox 97 Not Available In-Off ice Order Internal Use Only DO Not Attach Compendium DO Not Attach Compendium, Do Not Delete/merge, [address] 12/10/2024 12:40:13 07/23/2007/23/2024 XR, alta kendra, 2 or more view No observ ation record ed. [address], [address], 07/25/2024 16:29:09 08/09/20 24 08/09/2024 MRI, shoul kendra, w/o contr ast No observ ation record ed. [facility] [address] [place], [address], 08/17/2024 17:22:20 08/12/20 24 08/12/2024 CT, head, w/o contr ast No observ ation record ed. [facility] [address] [place], [address], 08/17/2024 17:22:20 08/12/20 24 08/12/2024 XR, chest No observ ation record ed. [email or web address] [place], [address], 08/13/2024 08:52:10 08/13/20 24 08/13/2024 XR, chest No observ ation record ed. [email or web address] [address], [place], [address], 08/13/2024 10:17:35 08/13/20 24 08/13/2024 MRI, brain + brain stem, w/wo contr ast No observ ation record ed. [address] [address], [place], [address], 08/24/2024 17:37:14 08/13/20 24 08/13/2024 imagi ng/di agnos tic resul t No observ ation record ed. [address] [address], [place], [address], 08/24/2024 17:38:11 08/28/20 elect roenc ephal ogram No observ ation record ed. [email or web address] Not Available 2023 10:57:10 Result Notes None recorded. 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 Tx with Lialda 4 tabs daily. Has 4-5 BM per day. Saw general surgery regardin g LAD near cecum, likely reactive from Crohn's disease LENKA GARCÍA PA-C Attn: Accounting ,[address] [facility], [place], [address] , [place] - [facility] 3 10:02:23 Chronic pain 50991787 Active 2019 LENKA GARCÍA PA-C Attn: Accounting ,[address] [facility], [place], [address] , [place] [facility] 3 10:02:30 Rheumato id arthriti s 54141988 Active 2019 Taking plaqueni l, last eye exam was complete d February 2020, due again February 2021 Not Available [facility] 3 16:04:30 Hashimot o thyroidi tis 71583630 Active 2019 Not Available [facility] 3 16:04:29 Total hysterec chaya Active 2019 Not Available [facility] 3 16:04:29 Dysphagi a 73012119 Active 2019 EGD performe d in [place] on 10/10/19 showed small hiatal hernia but no evidence of esophagu s narrowin g. Hpylori testing and biopsy to rule out eosinoph ilic esophagi tis performe d Not Available [facility] 3 16:04:30 Divertic ulitis 509204855 Active 2019 2 episodes , last being December 2018 Not Available [facility] 3 16:04:30 Gastropa resis syndrome 764539168 Active 2019 Being tx'ed with reglan 4x/day Not Available [facility] 3 16:04:30 Polyp of vocal cord 1791500 Active 2019 Follow with ENT Not Available [facility] 3 16:04:30 Gastroes ophageal reflux disease without esophagi tis 638379096 Active 2019 Taking omeprazo le 40 mg BID LENKA GARCÍA PA-C Attn: Accounting ,[address] [place], [address] , [facility] - [facility] 4 10:12:14 Hiatal hernia 90805075 Active 2019 EGD performe d on 10/10/19, hiatal hernia seen, dilation performe d, biopsies taken. Not Available [facility] 3 16:04:30 Leukocyt osis 044757858 Active 2019 Not Available [facility] 3 16:04:29 Reactive thromboc ytosis 625248019 Active 2019 Not Available [facility] 3 16:04:30 Cyst of thyroid 66617983 Active Not Available [facility] 3 16:04:30 Mean corpuscu lar volume above referenc e range 643454930 Active 2020 Not Available [facility] 3 16:04:29 Impaired glucose toleranc e 7771714 Active 2021 Not Available [facility] 3 16:04:30 Obstruct thi sleep apnea syndrome 71760299 Active 2021 Not Available [facility] 3 16:04:30 Vitamin D deficien cy 60913102 Active 2021 Not Available [facility] 3 16:04:30 Serum vitamin B12 borderli ne low 757216720 Active 2021 Not Available [facility] 3 16:04:30 Palpitat ions 01699531 Active 2022 CAMPBELL GONZALEZ Attn: Accounting ,[address] [facility] [place], [address] , [place] - [facility] 3 08:48:24 Perforat ion of right tympanic membrane 69013124620 64347 Active 2022 ENT told her it was permanen t, intermit tent hearing loss from the R ear, does not like hearing aids CAMPBELL GONZALEZ Attn: Accounting ,[address] [facility], [place], [address] , [place] - [facility] 3 16:36:45 Pancreat ic insuffic iency 42441445 Active 2022 CAMPBELL GONZALEZ Attn: Accounting ,[address] [facility], [place], [address] , [place] - [facility] 3 16:07:00 History of splenect ben 812399191 Active 2022 CAMPBELL GONZALEZ Attn: Accounting ,[address] [facility], [place], [address] , [place] [facility] 3 16:26:26 Pain of left breast 9783004650 Active 2023 Shane Sullivan MD Attn: Accounting ,[address] [facility], [place], [address] , [place] - [facility] 4 15:51:[address] [facility] 75058982224 9104 Active 2023 Kami Crenshaw MD Attn: Accounting ,[address] [facility], [place], [address] , [place] - [facility] 4 08:02:53 Candidia sis of vagina 06729638 Completed 09/20/2019 CAMPBELL GONZALEZ Attn: Accounting ,[address] [facility], [place], [address] , [place] - [facility] 0 08:34:25 Menopaus al symptom 23309923 Active Hx of DENNYS-BSO Not Available [facility] 3 16:04:29 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 Procedures Surgical History Date Name Laterality Status Provider Name and Address Organization Details Recorded Time 2023 Date of Last Mammogram completed Isabel Lugo [place] [facility] 4 10:43:32 2022 fulguration of vulva completed CAMPBELL GONZALEZ Attn: Nadir evelyn,[address] [facility], [place], [address], [place] [facility] 3 15:20:16 2021 Vulvar Biopsy completed CAMPBELL OH Attn: Nadir evelyn,[address] [facility], [place], [address], [place] [facility] 2 16:05:25 2021 Date of Last Pap Smear completed Isabel Lugo [place] [facility] 4 15:03:21 2021 colonoscopy completed CAMPBELL GONZALEZ Attn: Nadir rivas,[address] [facility], [place], [address], [place] [facility] 2 15:18:49 2020 colonoscopy completed CAMPBELL GONZALEZ Attn: Nadir evelyn,[address] [facility], [place], [address], [place] [facility] 1 14:30:07 2020 esophagogastroduodenoscopy completed CAMPBELL DURON Attn: Nadir rivas,[address], [place], [address], [place] [facility] 1 08:32:09 2019 esophagogastroduodenoscopy completed CAMPBELL DURON Attn: Nadir evelyn,[address] [facility], [place], [address], [place] [facility] 0 08:52:19 2018 colonoscopy completed CAMPBELL GONZALEZ Attn: Nadir rivas,[address] [facility], [place], [address], [place] [facility] 0 08:52:03 2013 Appendectomy completed Esther Gore MA [place] - [facility] 4 10:30:53 2013 total hysterectomy with removal of both tubes and ovaries completed CAMPBELL [place] Attn: Nadir rivas,[address] [facility], [place], [address], [place] [facility] 2 15:03:33 2013 fulguration of vulva completed CAMPBELL GONZALEZ Attn: Nadir evelyn,[address] [facility], [place], [address], [place] [facility] 3 15:19:18 2013 thyroidectomy completed CAMPBELL GONZALEZ Attn: Nadir evelyn,[address] [facility], [place], [address], [place] [facility] 0 08:52:55 2001 Hernia Repair completed Esther Gore [place] [facility] 4 10:30:53 Laparoscopy splenectomy completed Melissa Gore [place] [facility] 4 10:30:53 Cholecystectomy completed Esther Gore [place] [facility] 4 10:30:53 Tubal Ligation completed Arian Guillen MD Attn: Nadir evelyn,[address] [facility], [place], [address], [place] [facility] 4 11:07:40 Imaging Results Imaging Date Name Status LastModified by Organization Details LastModified Time 07/23/2024 XR, shoulder, 2 or m ore view completed [facility] [address] [place], [address], 07/25/2024 16:29:09 08/09/2024 MRI, shoulder, w/o contrast completed [facility] [address] [place], [address], 08/17/2024 17:22:20 08/12/2024 CT, head, w/o contrast completed [email or web address] G [facility] [address] [place], [address], 08/17/2024 17:22:20 08/12/2024 XR, chest completed [address] [place], [address], 08/13/2024 08:52:10 08/13/2024 XR, chest completed [address], [address], 08/13/2024 10:17:35 08/13/2024 MRI, brain + brain stem, w/wo contrast completed [address], [address], 08/24/2024 17:37:14 08/13/2024 imaging/diagnostic result completed [address], [address], 08/24/2024 17:38:11 08/28/2024 electroencephalogram [email or web address] [id number] Info rmation not available 08/29/2024 10:57:10 Procedure Notes None recorded. Medical Equipment None Reported. Allergies Allergen ID Allergen Name Allergen Category Reaction Reaction Severity Criticality Documentation Date Start Date Code Code System Note Provider Name and Address Organization Details Recorded Time 352975 Levaquin medicatio n Not available Not available Not available 10/25/2019 83025 2 RxNorm Not Available Not Available Not Available 960215 levofloxa shanelle medicatio n rash severe Not available 12/29/2023 81865 RxNorm Not Available Not Available Not Available 593878 cefdinir medicatio n Not available Not available high 09/03/2024 78371 RxNorm C-dif f Not Available Not Available Not Available 3402 Product containin g penicilli n (product) medicatio n hives severe Not available 08/14/2014 96662 8001 SNOMED Not Available Not Available Not Available Medications Name Sig Start Date Stop Date Status Note LastModified by Organization Details LastModified Time multivita min tablet TAKE 1 TABLET BY MOUTH EVERY DAY 03/25 completed Not Available Not Available Not Available losartan 50 mg tablet TAKE 1 TABLET BY MOUTH EVERY DAY DIRECTED 2024 active Not Available Not Available Not Avai lable quetiapin e 25 mg tablet TAKE 1 TABLET BY MOUTH TWICE A DAY 12/20 completed Not Available Not Available Not Available cyclobenz aprine 10 mg tablet TAKE 1 TABLET BY MOUTH THREE TIMES A DAY NEEDED active Not Available Not Available No t Available silver sulfadiaz ine 1 % topical cream APPLY TO AFFECTED AREA TOPICALL Y EVERY DAY 03/31 completed Not Available Not Available Not Available hydralazi ne 10 mg tablet TAKE 1 TABLET BY MOUTH FOUR TIMES A DAY DIRECTED FOR 30 DAYS 06/02 completed Not Available Not Available Not Available bupropion HCl SR 150 mg tablet,12 hr sustained -release TAKE 1 TABLET BY MOUTH EVERY DAY 03/25 completed Not Available Not Available Not Available levothyro xine 137 mcg tablet TAKE 1 TABLET BY MOUTH EVERY DAY DIRECTED 05/03 completed Not Available Not Available Not Available pilocarpi ne 5 mg tablet TAKE 1 TABLET BY MOUTH THREE TIMES A DAY active Not Available Not Available No t Available nystatin 100,000 unit/mL oral suspensio n 09/20 completed Not Available Not Available Not Available prednison e 10 mg tablet TAKE 4 TABS DAILY X3 DAYS, 3 TABS DAILY X2 DAYS, 2 TABS DAILY X1 DAY, 1 TAB DAILY X1 DAY WITH FOOD 12/20 completed Not Available Not Available Not Available venlafaxi ne ER 75 mg capsule,e xtended release 24 hr TAKE 1 CAPSULE BY MOUTH EVERY DAY IN THE EVENING active Not Available Not Available No t Available doxycycli ne hyclate 100 mg capsule TAKE 1 CAPSULE BY MOUTH TWICE DAILY FOR 10 DAYS. START THE MORNING OF 817. 12/10 completed Not Available Not Available Not Available venlafaxi ne 75 mg tablet 09/20 completed Not Available Not Available Not Available nicotine 14 mg/24 hr daily transderm al patch 09/20 completed Not Available Not Available Not Available sulfasala zine 500 mg tablet Take 2 tablets 4 times a day by oral route. 04/22 completed Not Available Not Available Not Available quetiapin e 300 mg tablet TAKE 1 TABLET BY MOUTH EVERYDAY AT BEDTIME 12/20 completed Not Available Not Available Not Available Saline Mist 0.65 % nasal spray aerosol SPRAY 1 SPRAY INTO EACH NOSTRIL ONCE DAILY DIRECTED FOR 14 DAYS. 09/01 completed Not Available Not Available Not Available clindamyc in HCl 300 mg capsule TAKE ONE CAPSULE BY MOUTH TWICE DAILY UNTIL FINISJED 10/09 completed Not Available Not Available Not Available loperamid e 2 mg capsule 09/20 completed Not Available Not Available Not Available trazodone 50 mg tablet 09/20 completed Not Available Not Available Not Available cetirizin e 10 mg tablet TAKE 1 TABLET BY MOUTH EVERY DAY 12/10 completed Not Available Not Available Not Available azithromy shanelle 250 mg tablet TAKE 2 TABLETS BY MOUTH TODAY, THEN TAKE 1 TABLET DAILY FOR 4 DAYS DIRECTED active Not Available Not Available No t Available ibuprofen 800 mg tablet TAKE 1 TABLET BY MOUTH EVERY 6 TO 8 HOURS NEEDED 07/23 completed Not Available Not Available Not Available Lidocaine Viscous 2 % mucosal solution TAKE 5 ML BY MOUTH 4 TIMES DAILY 12/20 completed Not Available Not Available Not Available fluconazo le 150 mg tablet TAKE 1 TABLET BY MOUTH ONCE FOR 1 DOSE 07/08 completed Not Available Not Available Not Available metoprolo l succinate ER 50 mg tablet,ex tended release 24 hr TAKE 1 TABLET BY MOUTH EVERY DAY DIRECTED active Not Available Not Available No t Available sulfameth oxazole 400 mg-trimet hoprim 80 mg tablet 09/20 completed Not Available Not Available Not Available ranitidin e 300 mg tablet 09/20 completed Not Available Not Available Not Available clarithro mycin 500 mg tablet 09/20 completed Not Available Not Available Not Available hydrocodo ne 5 mg-acetam inophen 325 mg tablet TAKE 1 TABLET BY MOUTH EVERY 6 HOURS NEEDED FOR PAIN 06/09 completed Not Available Not Available Not Available promethaz ine 6.25 mg/5 mL oral syrup 09/20 completed Not Available Not Available Not Available sucralfat e 100 mg/mL oral suspensio n 09/20 completed Not Available Not Available Not Available meloxicam 15 mg tablet TAKE 1 TABLET BY MOUTH EVERY DAY FOR 30 DAYS active Not Available Not Available No t Available sucralfat e 1 gram tablet 02/24 completed Not Available Not Available Not Available venlafaxi ne 25 mg tablet active Not Available Not Available Not Available ondansetr on HCl 4 mg tablet 09/20 completed Not Available Not Available Not Available famotidin e 40 mg tablet TAKE 1 TABLET BY MOUTH EVERY DAY active Not Available Not Available No t Available prednison e 20 mg tablet TAKE 3 TABLETS BY MOUTH EVERY DAY active Not Available Not Available No t Available Tubersol 5 tub. unit/0.1 mL intraderm al injection solution Administ er .1ml interder megan 04/22 completed Not Available Not Available Not Available prednison e 5 mg tablet CONTINUE TO TAKE 2 MG EVERY OTHER DAY FOR THE NEXT 20 DAYS 04/19 completed Not Available Not Available Not Available quetiapin e 200 mg tablet TAKE 1 TABLET BY MOUTH EVERYDAY AT BEDTIME active Not Available Not Available No t Available terconazo le 0.8 % vaginal cream Insert 1 applicat orful every day by vaginal route at bedtime for 3 days. 10/25 completed Not Available Not Available Not Available clindamyc in HCl 150 mg capsule 09/20 completed Not Available Not Available Not Available venlafaxi ne ER 150 mg capsule,e xtended release 24 hr TAKE 1 CAPSULE BY MOUTH EVERY DAY IN THE MORNING active Not Available Not Available No t Available promethaz ine 6.25 mg-codein e 10 mg/5 mL syrup 09/20 completed Not Available Not Available Not Available leflunomi de 10 mg tablet TAKE 1 TABLET BY MOUTH EVERY DAY 09/16 completed Not Available Not Available Not Available topiramat e 25 mg tablet TAKE 1 TABLET BY MOUTH TWICE A DAY active Not Available Not Available No t Available hydralazi ne 25 mg tablet TAKE 1 TABLET BY MOUTH EVERY DAY DIRECTED active Not Available Not Available No t Available metronida zole 500 mg tablet TAKE 1 TABLET BY MOUTH EVERY 8 HOURS 06/17 completed Not Available Not Available Not Available azathiopr ine 50 mg tablet TAKE 2 TABLETS BY MOUTH DAILY 06/17 completed Not Available Not Available Not Available acetamino phen 300 mg-codein e 30 mg tablet TAKE 1 TABLET BY MOUTH EVERY 6 HOURS NEEDED FOR PAIN *NOT ON FORMULAR Y* 07/23 completed complete d Not Available Not Available Not Available dextromet horphan-g uaifenesi n 10 mg-100 mg/5 mL oral syrup Take 10 mL every 4 hours by oral route as directed for 4 days. 12/20 completed Not Available Not Available Not Available amlodipin e 5 mg tablet TAKE 1 TABLET BY MOUTH EVERY DAY IN THE MORNING 05/21 completed Not Available Not Available Not Available prochlorp erazine maleate 10 mg tablet 09/20 completed Not Available Not Available Not Available ciproflox acin 500 mg tablet TAKE 1 TABLET BY MOUTH EVERY 12 HOURS 06/17 completed Not Available Not Available Not Available sulfameth oxazole 800 mg-trimet hoprim 160 mg tablet TAKE 1 TABLET BY MOUTH EVERY 12 HOURS FOR 10 DAYS 12/10 completed Not Available Not Available Not Available omeprazol e 40 mg capsule,d elayed release TAKE 1 CAPSULE BY MOUTH EVERY DAY 06/09 completed Not Available Not Available Not Available leflunomi de 20 mg tablet TAKE 1 TABLET BY MOUTH EVERY DAY 03/25 completed Not Available Not Available Not Available tramadol 50 mg tablet TAKE 1/2 TABLET BY MOUTH EVERY 8 HOURS NEEDED 12/09 completed Not Available Not Available Not Available quetiapin e 100 mg tablet 10/25 completed Not Available Not Available Not Available acetamino phen 500 mg tablet TAKE 2 TABLETS (1,000 MG TOTAL) BY MOUTH EVERY 6 HOURS NEEDED FOR PAIN 06/09 completed Not Available Not Available Not Available triamcino lone acetonide 0.1 % topical cream 07/11 completed Not Available Not Available Not Available vancomyci n 125 mg capsule 09/20 completed Not Available Not Available Not Available ondansetr on 8 mg disintegr ating tablet DISSOLVE 1 TABLET ON THE TONGUE EVERY 8 HOURS active Not Available Not Available No t Available lamotrigi ne 25 mg tablet TAKE 1 TABLET BY MOUTH EVERY DAY 12/20 completed Not Available Not Available Not Available dexametha sone sodium phosphate 0.1 % eye drops 09/20 completed Not Available Not Available Not Available levothyro xine 100 mcg tablet 09/20 completed Not Available Not Available Not Available oxycodone -acetamin ophen 5 mg-325 mg tablet TAKE 2 TABLETS BY MOUTH ONCE EVERY 6 HOURS NEEDED FOR PAIN 03/25 completed Not Available Not Available Not Available levothyro xine 88 mcg tablet Take 1 tablet every day by oral route before meals for 30 days. 09/20 completed Not Available Not Available Not Available ofloxacin 0.3 % ear drops INSTILL 10 DROPS INTO AFFECTED EAR(S) BY OTIC ROUTE ONCE DAILY X 7 DAYS 09/01 completed Not Available Not Available Not Available alprazola m 0.25 mg tablet active Not Available Not Available Not Available citalopra m 20 mg tablet active Not Available Not Available Not Available potassium chloride ER 20 mEq tablet,ex tended release(p art/cryst ) active Not Available Not Available Not Available famotidin e 20 mg tablet Take 1 tablet twice a day by oral route. 01/19 completed Not Available Not Available Not Available amitripty line 25 mg tablet active Not Available Not Available No t Available metoclopr amide 5 mg tablet TAKE 1 TABLET BY MOUTH 4 TIMES DAILY (BEFORE MEALS AND NIGHTLY) . 12/28 completed Not Available Not Available Not Available estradiol 1 mg tablet TAKE 1 TABLET BY MOUTH EVERY DAY DIRECTED 07/23 completed taking 2 mg Not Available Not Available Not Available DOK 100 mg capsule 09/20 completed Not Available Not Available Not Available methotrex ate sodium 2.5 mg tablet 09/20 completed Not Available Not Available Not Available trazodone 100 mg tablet active Not Available Not Available Not Available Proctozon e-HC 2.5 % topical cream perineal applicato r 09/16 completed Not Available Not Available Not Available benzonata te 100 mg capsule Take 1 capsule 3 times a day by oral route as needed for 7 days. 2024 active Not Available Not Available Not Avai lable hydrocodo ne 7.5 mg-acetam inophen 325 mg tablet 09/20 completed Not Available Not Available Not Available pantopraz ole 40 mg tablet,de layed release TAKE 1 TABLET BY MOUTH TWICE A DAY active Not Available Not Available No t Available cyanocoba zeina (vit B-12) 1,000 mcg/mL injection solution INJECT 1 ML UNDER THE SKIN ONCE A MONTH active Not Available Not Available No t Available ferrous sulfate 325 mg (65 mg iron) tablet TAKE 1 TABLET BY MOUTH EVERY DAY active Not Available Not Available No t Available levothyro xine 125 mcg tablet 09/20 completed Not Available Not Available Not Available lisinopri l 10 mg tablet Take 1 tablet every day by oral route. 09/20 completed Not Available Not Available Not Available prednison e 50 mg tablet TAKE 1 TABLET BY MOUTH EVERY DAY DIRECTED FOR 10 DAYS 07/22 completed Not Available Not Available Not Available lidocaine 5 % topical patch UNWRAP AND APPLY 1 PATCH TOPICALL Y DAILY AND LEAVE ON MOST PAINFUL AREA FOR UP TO 12 HOURS 12/09 completed Not Available Not Available Not Available levothyro xine 150 mcg tablet TAKE 1 TABLET BY MOUTH EVERY DAY AT 6:30 AM active Not Available Not Available No t Available losartan 25 mg tablet TAKE 1 TABLET BY MOUTH EVERY DAY DIRECTED 12/28 completed Not Available Not Available Not Available nicotine 21 mg/24 hr daily transderm al patch APPLY 1 PATCH TO SKIN ONCE DAILY DIRECTED FOR 42 DAYS 08/05 completed Not Available Not Available Not Available venlafaxi ne 50 mg tablet 09/20 completed Not Available Not Available Not Available gabapenti n 300 mg capsule TAKE 1 CAPSULE BY MOUTH EVERYDAY AT BEDTIME 09/01 completed Not Available Not Available Not Available omeprazol e 20 mg capsule,d elayed release 09/20 completed Not Available Not Available Not Available estradiol 2 mg tablet TAKE 1 TABLET BY MOUTH EVERY DAY FOR MENOPAUS AL SYMPTOMS active Not Available Not Available No t Available diclofena c sodium 75 mg tablet,de layed release 09/20 completed Not Available Not Available Not Available folic acid 1 mg tablet TAKE 1 TABLET BY MOUTH EVERY DAY active Not Available Not Available No t Available hydrocort isone 2.5 % topical cream 09/20 completed Not Available Not Available Not Available monteluka st 10 mg tablet 09/20 completed Not Available Not Available Not Available hydrochlo rothiazid e 25 mg tablet TAKE 1 TABLET BY MOUTH EVERY DAY DIRECTED active Not Available Not Available No t Available furosemid e 20 mg tablet TAKE 1 TABLET BY MOUTH EVERY DAY X2 DAYS active Not Available Not Available No t Available gabapenti n 100 mg capsule TAKE 1 CAPSULE BY MOUTH EVERYDAY AT BEDTIME 08/05 completed Not Available Not Available Not Available estradiol 0.5 mg tablet TAKE 1 TABLET BY MOUTH EVERY DAY DIRECTED 03/31 completed Not Available Not Available Not Available metoprolo l succinate ER 25 mg tablet,ex tended release 24 hr TAKE 1 TABLET BY MOUTH EVERY DAY IN THE MORNING 03/31 completed Not Available Not Available Not Available ergocalci ferol (vitamin D2) 1,250 mcg (50,000 unit) capsule TAKE 1 CAPSULE BY MOUTH ONCE WEEKLY DIRECTED active Not Available Not Available No t Available budesonid e DR - ER 3 mg capsule,d elayed,ex tended release TAKE 3 CAPSULES BY MOUTH EVERY MORNING. 08/05 completed Not Available Not Available Not Available Cheratuss in AC 10 mg-100 mg/5 mL oral liquid active Not Available Not Available Not Available hydroxych loroquine 200 mg tablet TAKE 1 TABLET BY MOUTH EVERY DAY active Not Available Not Available No t Available ibuprofen 600 mg tablet TAKE 1 TABLET BY MOUTH EVERY 6 HOURS NEEDED FOR PAIN 07/23 completed Not Available Not Available Not Available polyethyl caryl glycol 3350 17 gram/dose oral powder 09/20 completed Not Available Not Available Not Available levofloxa shanelle 500 mg tablet TAKE 1 TABLET BY MOUTH EVERY DAY 07/23 completed Not Available Not Available Not Available zolpidem 10 mg tablet TAKE 1 TABLET BY MOUTH EVERY DAY AT BEDTIME NEEDED active Not Available Not Available No t Available methylpre dnisolone 4 mg tablets in a dose pack PLEASE SEE ATTACHED FOR DETAILED DIRECTIO NS 07/23 completed Not Available Not Available Not Available albuterol sulfate HFA 90 mcg/actua tion aerosol inhaler INHALE 2 PUFFS EVERY 4 HOURS BY INHALATI ON ROUTE NEEDED active Not Available Not Available No t Available celecoxib 100 mg capsule TAKE 1 CAPSULE BY MOUTH EVERY DAY NEEDED 12/20 completed Not Available Not Available Not Available ondansetr on 4 mg disintegr ating tablet 09/20 completed Not Available Not Available Not Available cefdinir 300 mg capsule Take 1 capsule every 12 hours by oral route as directed for 7 days. 09/03 completed Not Available Not Available Not Available fluticaso ne propionat e 50 mcg/actua tion nasal spray,neto pension SPRAY 1 SPRAY INTO BOTH NOSTRILS AT BEDTIME active Not Available Not Available No t Available doxycycli ne hyclate 100 mg tablet TAKE 1 TABLET BY MOUTH TWICE A DAY 07/23 completed Not Available Not Available Not Available loratadin e 10 mg tablet TAKE 1 TABLET BY MOUTH ONCE DAILY FOR 15 DAYS active Not Available Not Available No t Available naproxen 500 mg tablet TAKE 1 TABLET BY MOUTH TWICE A DAY 02/17 completed Not Available Not Available Not Available metoclopr amide 10 mg tablet TAKE 1 TABLET BY MOUTH FOUR TIMES A DAY 03/25 completed Not Available Not Available Not Available nicotine 7 mg/24 hr daily transderm al patch Apply 1 patch every day by transder mal route as directed for 14 days. 03/25 completed Not Available Not Available Not Available buspirone 15 mg tablet TAKE 1 TABLET BY MOUTH TWICE A DAY active Not Available Not Available No t Available tobramyci n 0.3 %-dexamet hasone 0.1 % eye drops,neto pension 09/20 completed Not Available Not Available Not Available oxycodone 5 mg tablet TAKE 1 TABLET BY MOUTH EVERY 4 HOURS NEEDED FOR PAIN 12/20 completed Not Available Not Available Not Available neomycin 3.5 mg/g-poly myxin B 10,000 unit/g-de xameth 0.1 % eye oint 09/20 completed Not Available Not Available Not Available neomycin- polymyxin -hydrocor t 3.5 mg-10,000 unit/mL-1 % ear drops,neto p 12/10 completed Not Available Not Available Not Available azithromy shanelle 500 mg tablet 09/20 completed Not Available Not Available Not Available escitalop thad 10 mg tablet TAKE 1 TABLET BY MOUTH EVERY DAY 05/03 completed Not Available Not Available Not Available escitalop thad 20 mg tablet TAKE 1 TABLET BY MOUTH EVERY DAY 05/03 completed Not Available Not Available Not Available Premarin 0.625 mg/gram vaginal cream INSERT 0.5 GRAM VAGINALL Y TWICE WEEKLY active Not Available Not Available No t Available cholestyr amine (with sugar) 4 gram powder for susp in a packet TAKE 1 PACKET BY MOUTH TWICE DAILY WITH MEALS. IF IT CAUSES CONSTIPA TION REDUCE TO ONCE DAILY 12/28 completed Not Available Not Available Not Available bupropion HCl XL 300 mg 24 hr tablet, extended release TAKE 1 TABLET BY MOUTH EVERY DAY IN THE MORNING 05/03 completed Not Available Not Available Not Available bupropion HCl XL 150 mg 24 hr tablet, extended release TAKE 1 TABLET BY MOUTH EVERY MORNING FOR 2 WEEKS AND THEN STOP 05/03 completed Not Available Not Available Not Available metoprolo l tartrate 25 mg tablet 09/20 completed Not Available Not Available Not Available topiramat e 50 mg tablet TAKE 1 TABLET BY MOUTH TWICE A DAY 12/10 completed Not Available Not Available Not Available Spiriva with HandiHale r 18 mcg and inhalatio n capsules Inhale 1 capsule every day by inhalati on route as directed for 30 days. 12/09 completed Not Available Not Available Not Available Pentasa 500 mg capsule,c ontrolled release 06/17 completed HOLD FOR NOW - PER GI Not Available Not Available Not Available lactulose 10 gram/15 mL oral solution 09/20 completed Not Available Not Available Not Available Flovent HFA 220 mcg/actua tion aerosol inhaler Inhale 1 puff every day by inhalati on route for 30 days. 10/25 completed Not Available Not Available Not Available fenofibra te 160 mg tablet TAKE 1 TABLET BY MOUTH EVERY DAY DIRECTED 2024 active Not Available Not Available Not Avai lable chlorhexi dine gluconate 0.12 % mouthwash RINSE WITH 15 ML BY MOUTH TWICE A DAY 12/10 completed Not Available Not Available Not Available quetiapin e 50 mg tablet 09/20 completed Not Available Not Available Not Available calcium 600 mg (as carbonate )-vitamin D3 10 mcg (400 unit) tablet TAKE 1 TABLET BY MOUTH TWICE DAILY 03/25 completed Not Available Not Available Not Available mesalamin e 1.2 gram tablet,de layed release Take 1 tablet 4 times a day by oral route for 30 days. 12/12 completed Not Available Not Available Not Available hydrochlo rothiazid e 12.5 mg tablet TAKE 1 TABLET BY MOUTH EVERY DAY IN THE MORNING 05/03 completed Not Available Not Available Not Available Symbicort 160 mcg-4.5 mcg/actua tion HFA aerosol inhaler INHALE 2 PUFFS INTO THE LUNGS TWICE A DAY DIRECTED FOR 30 DAYS 02/17 completed Not Available Not Available Not Available peg 3350 240 gram-elec trolytes 22.72 gram-6.72 g-5.84 g powdr for soln active Not Available Not Available Not Available diclofena c 1 % topical gel 01/19 completed Not Available Not Available Not Available calcium 600 mg (as carbonate )-vitamin D3 20 mcg (800 unit) tablet Take 1 tablet twice a day by oral route for 30 days. 09/20 completed Not Available Not Available Not Available Creon 36,000 unit-114, 000 unit-180, 000 unit capsule,d elayed release TAKE 2 CAPSULES BY MOUTH 3 TIMES A DAY WITH MEALS AND 1 CAPSULE WITH EACH SNACK active Not Available Not Available No t Available Anoro Ellipta 62.5 mcg-25 mcg/actua tion powder for inhalatio n 06/17 completed Not Available Not Available Not Available Nasacort 55 mcg nasal spray aerosol [place] 1 spray every day by intranas al route as needed for 30 days. 12/09 completed Not Available Not Available Not Available Delsym Cough-Jessica st Congestio n DM 5 mg-100 mg/5 mL oral liquid Take 20 mL every 4 hours by oral route as needed for 10 days. 12/10 completed Not Available Not Available Not Available guaifenes in ER 600 mg tablet, extended release 12 hr Take 1 tablet every 12 hours by oral route as needed for 10 days. 12/12 completed Not Available Not Available Not Available Entyvio 300 mg intraveno us solution Inject by intraven ous route. active Not Available Not Available No t Available Xeljanz XR 11 mg tablet,ex tended release 03/25 completed Not Available Not Available Not Available Humira(CF ) Pen 40 mg/0.4 mL subcutane ous kit Inject 0.4 mL every 2 weeks by subcutan eous route. 12/12 completed Not Available Not Available Not Available Afluria Quad 1094-1386 (PF) 60 mcg (15 mcg x 4)/0.5 mL IM syringe 09/20 completed Not Available Not Available Not Available Humira(CF ) Pen Crohn's-U lc Colitis-H id Sup Strt 80 mg/0.8 mL subcut kt 12/12 completed Not Available Not Available Not Available Xeljanz XR 22 mg tablet,ex tended release 12/09 completed Not Available Not Available Not Available Nurtec ODT 75 mg disintegr ating tablet Take by oral route for 30 days. 12/28 completed Not Available Not Available Not Available Daily-Vit e (with folic acid) 400 mcg tablet TAKE 1 TABLET BY MOUTH EVERY DAY DIRECTED active Not Available Not Available No t Available Vitals Date Recorded Body height Body mass index (BMI) Body weight Oxygen saturation Oxygen saturation in Arterial blood by Pulse oximetry Heart rate Body temperature Systolic blood pressure Diastolic blood pressure Provider Name and Address Organization Details Last Updated DateTime 4 144.78 cm 33.8 kg/m2 61938.8 1 g 97 % 97 % 74 /min 97.4 [degF] 128 mm[Hg] 78 mm[Hg] BROOKS Midd[place] [facility] 4 14:46:39 Date Recorded Body height Body mass index (BMI) Body weight Oxygen saturation Oxygen saturation in Arterial blood by Pulse oximetry Heart rate Systolic blood pressure Diastolic blood pressure Provider Name and Address Organization Details Last Updated DateTime 4 144.78 cm 33.8 kg/m2 50733.4 9 g 95 % 95 % 61 /min 122 mm[Hg] 86 mm[Hg] Nika Stewart MA [facility] 4 13:07:19 Date Recorded Body height Body mass index (BMI) Body weight Oxygen saturation Oxygen saturation in Arterial blood by Pulse oximetry Heart rate Body temperature Systolic blood pressure Diastolic blood pressure Provider Name and Address Organization Details Last Updated DateTime 4 144.78 cm 30.9 kg/m2 05946.7 1 g 99 % 99 % 68 /min 98.1 [degF] 122 mm[Hg] 82 mm[Hg] Katherine Nelson MA [facility] 4 17:10:15 Date Recorded Body height Body mass index (BMI) Body weight Body temperature Oxygen saturation Oxygen saturation in Arterial blood by Pulse oximetry Heart rate Systolic blood pressure Diastolic blood pressure Provider Name and Address Organization Details Last Updated DateTime 4 144.78 cm 31.2 kg/m2 66324.3 8 g 98.3 [degF] 98 % 98 % 84 /min 118 mm[Hg] 76 mm[Hg] Nika Stewart MA [facility] 4 11:54:41 Date Recorded Body height Body temperature Oxygen saturation Oxygen saturation in Arterial blood by Pulse oximetry Heart rate Body mass index (BMI) Body weight Systolic blood pressure Diastolic blood pressure Provider Name and Address Organization Details Last Updated DateTime 5 144.78 cm 98.2 [degF] 97 % 97 % 97 /min 30.4 kg/m2 33387.7 3 g 110 mm[Hg] 70 mm[Hg] Clau shepard [place] - [facility] 5 12:38:46 Social History Question Answer Notes LastModified by Organizat ion Details LastModified Time Tobacco Smoking Status Current Every Day Smoker Not Available [employer] 07/22/2020 03:39:31 Do You Have An Advance Directive? No [id number] Information not available 07/22/2020 What Is Your Level Of Alcohol Consumption? None [id number] Information not available 07/22/2020 Is Blood Transfusion Acceptable In An Emergency? Yes [id number] Information not available 07/22/2020 What Is Your Level Of Caffeine Consumption? Moderate [id number] Information not available 07/22/2020 How Much Tobacco Do You Chew? None [id number] Information not available 07/22/2020 In The 14 Days Before Symptom Onset, Have You Had Close Contact With A Laboratory-confir med COVID-19 While That Case Was Ill? No Information not available 11/25/2020 In The 14 Days Before Symptom Onset, Have You Had Close Contact With A Person Who Is Under Investigation For COVID-19 While That Person Was Ill? No Information not available 11/25/2020 Have You Been To An Area Known To Be High Risk For COVID-19? No Information not available 11/25/2020 Are You Currently Employed? No [id number] Information not available 07/22/2020 What Type Of Diet Are You Following? REGULAR [id number] Information not available 07/22/2020 Which Illicit Or Recreational Drugs Have You Used? None [id number] Information not available 07/22/2020 Do You Or Have You Ever Used E-cigarettes Or Vape? 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 With Others Information not available 08/12/2015 Marital Status [email or web address] Informatio n not available 08/14/2014 What Was The Date Of Your Most Recent Tobacco Screening? 12/10/2024 Information not available 12/10/2024 How Many Children Do You Have? 0 [id number] Information not available 07/22/2020 Performs Monthly Self-breast Exam? Yes Information no t available 08/12/2015 What Is Your Relationship Status? Single [id number] Information not available 07/22/2020 Seat Belts Used Routinely No Information not available 08/12/2015 Are You Sexually Active? No [id number] Information not available 07/22/2020 Do You Have Smoke And Carbon Monoxide Detectors In Your Home? Yes Information not available 11/25/2020 At What Age Did You Start Smoking Tobacco? 13 [id number] Information not available 07/22/2020 Are You Passively Exposed To Smoke? No Information no t available 11/25/2020 Do You Or Have You Ever Used Smokeless Tobacco? Never Used Smokeless Tobacco [id number] Information not available 07/22/2020 How Much Tobacco Do You Smoke? 0.5 PPD [id number] Information not available 07/22/2020 General Stress Level High Information not available 08/12/2015 Do You Use Sunscreen Routinely? Yes [id number] Information not available 07/22/2020 Has Tobacco Cessation Counseling Been Provided? Yes [email or web address] Information not available 08/27/2022 On What Date Was Tobacco Cessation Counseling Provided? 12/10/2024 Information not available 12/10/2024 How Many Years Have You Smoked Tobacco? 15 [id number] Information not available 07/22/2020 Sex: Female Functional Status Question Answer Note LastModified by Organization D etails LastModified Time What is your exercise level? Moderate [id number] Information not available 07/22/2020 Mental Status None recorded. Family History Relationship Description Onset Age of this Age Resolved Age Notes LastModified by Organization Details LastModified Time Mother Depressive disorder [email or web address] Not available 2014 12:00:00 Mother Hypertensive disorder [email or web address] Not available 2014 12:00:00 Mother Migraine [email or web address] Not availabl e 08/12/2015 12:00:00 Medical History Condition Response Coronary Artery Disease N Other N Atrial Fibrillation N High Blood Pressure Y Depression Y COPD N Blood Clots N Anxiety Disorder N Muscle, Joint, or Bone Problems N Acid Reflux (GERD) Y Cancer N Stroke N High Cholesterol N Liver Disease N Headaches N Kidney or Bladder Problems N Thyroid Problems Y GI Problems Y Skin Problems N Anemia Y Heart Attack (VT) N Diabetes N Seizures/Epilepsy N Asthma N Allergies N Hepatitis N Heart Failure N Osteoporosis N Gynecological History Statement/Question Response Abnormal Pap Y Date of Last Mammogram 04/17/2024 Date of LMP On BCP's at Conception? N STIs/STDs N HPV Vaccine N Age at Menarche 11 Current Control Method Hysterectom y Sexually Active? N Menses Monthly No Date of Last Pap Smear 08/27/2022 Sexual Problems? N Desired Control Method None Obstetrics History GPAL:G 0 P 0 0 0 0 Immunizations Vaccine Type Date Status Note Provider Nam e and Address Organization Details Recorded Time DTaP 6 completed Not Available [facility] 01/28/2023 16:04:30 pneumococcal polysaccharide PPV23 6 completed Not Available [facility] 07/01/2023 11:35:06 Influenza, split virus, quadrivalent, preservative 2 completed Ann Jaeger [place], [place] [facility] 06/09/2023 09:03:28 Influenza, MDCK, quadrivalent, PF 9 completed Annelvira [place] [facility] 06/09/2023 09:03:28 MMR 2 completed Annelvira [place] [facility] 06/09/2023 09:03:28 MMR 0 completed Ann [place] [facility] 06/09/2023 09:03:28 Tdap 6 completed Ann [place] [facility] 06/09/2023 09:03:29 Pneumococcal conjugate PCV 13 6 completed Ann Ja[place], [place] [facility] 06/09/2023 09:03:29 DTP 0 completed Ann Ja[place], [place] [facility] 06/09/2023 09:03:29 DTP 4 completed Ann Ja[place], [place] [facility] 06/09/2023 09:03:29 DTP 2 completed Ann [place], [place] [facility] 06/09/2023 09:03:29 DTP 3 completed Ann Ja[place], [place] [facility] 06/09/2023 09:03:29 DTP 5 completed Ann Ja[place], [place] [facility] 06/09/2023 09:03:29 OPV 0 completed Ann Ja[place], [place] [facility] 06/09/2023 09:03:29 OPV 4 completed Ann [place], [place] [facility] 06/09/2023 09:03:29 OPV 2 completed Ann [place], [place] [facility] 06/09/2023 09:03:29 OPV 3 completed Ann [place], [place] [facility] 06/09/2023 09:03:29 OPV 5 completed Ann Ja[place], [place] [facility] 06/09/2023 09:03:29 Influenza, split virus, trivalent, preservative 5 completed Ann [place], [place] [facility] 06/09/2023 09:03:29 Td (adult), 2 Lf tetanus toxoid, preservative free, adsorbed 4 completed Ann [place], [place] [facility] 06/09/2023 09:03:29 Hep B, adolescent or pediatric 7 completed Ann [place], [place] [facility] 06/09/2023 09:03:29 Hep B, adolescent or pediatric 7 completed Ann [place] [facility] 06/09/2023 09:03:29 Hep B, adolescent or pediatric 6 completed [place] [facility] 06/09/2023 09:03:29 Hep B, adolescent or pediatric 6 completed Ann [place] [facility] 06/09/2023 09:03:29 Influenza, split virus, quadrivalent, PF 6 completed [place] [facility] 06/09/2023 09:03:29 Influenza, split virus, quadrivalent, PF 5 completed [place] [facility] 06/09/2023 09:03:29 Pneumococcal conjugate PCV 13 1 completed America Hart [place] [facility] 01/19/2021 13:11:14 Influenza, split virus, quadrivalent, PF 1 completed America Hart [place] [facility] 06/17/2021 11:53:40 Influenza, split virus, quadrivalent, PF 3 completed Ann [place] [facility] 09/01/2023 11:02:39 Past Encounters Encounter ID Performer Location Encounter Start Date Encounter Closed Date Diagnosis/Indication Diagnosis SNOMED-CT Code Diagnosis ICD10 Code Diagnosis Note [id number] MD Magdalene Solorio (Adult Med) [address] [place] [address] [id number] 08/14/2014 10:01:26 08/14/2014 11:32:43 Cyst of thyroid 83336372 Chronic ob structive pulmonary disease 92368788 [id number] CATRACHITO Mullen (PRINT LINE FEEDER) [address] [place] [address] [id number] 08/20/2014 10:18:01 08/20/2014 11:10:37 [id number] Lucy Butler ([employer]) [address] [place] [address] [id number] 0 08/12/2015 10:48:18 08/12/2015 16:31:27 Gynecologic examination 80126925 Z01.095 [id number] MD Magdalene Roberts ([employer]ER) [address] [place] [address] [id number] 0 08/20/2016 15:25:06 08/24/2016 13:35:49 Pelvic mass 51466365 R19.00 Bacterial vaginosis 4197 61204 N76.0 Postcoital bleeding 4888 0000 N93.0 Dysuria 84729501 R30.0 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 s/p laser treatment at [facility]. Counseled about it. Offered VULVAR biopsy OF HER LESIONS. She wanted to do it next week [id number] Yanick Butler ([employer]ER) [address] [place] [address] [id number] 0 05/10/2017 11:50:51 05/10/2017 16:41:24 Hormone replacement therapy 079614096 Z79.890 Menopausal symptom 73900 002 N95.1 Mammogram at 38 yo. Atrophic vaginitis 61512 000 N95.2 Family rom nning surveillance 780527458 Z30.09 Chronic ob structive pulmonary disease 62067841 J44.9 [id number] Yanick Butler ([employer]) [address] [place] [address] [id number] 04/23/2019 10:15:57 04/24/2019 13:22:30 Vulval intraepithelial neoplasia grade 3 581633014 D07.1 Atrophic vaginitis 08518 000 N95.2 Candidiasis of vagina 72 047001 B37.3 Menopausal symptom 35211 002 N95.1 Mammogram at 38 yo. Screening mammography 24 450890 Z12.31 [id number] CAMPBELL GONZALEZ (Adult Med) [address] [place] [address] [id number] 0 09/20/2019 08:16:14 09/21/2019 09:31:19 Hypothyroidism 15819111 E03.9 Hx of thyroid cyst s/p removal of partial thyroidWas taking levo 137, ran out 1 week ago, states her TSH this month was still elevated at 5.4 - Will increase levo to 150 mcg,return to office in 6 weeks for repeat testing Essential hypertension 29747796 I10 BP Today: 150/90 and 144/94No medication this morningWas started on lisinopril 10 mg earlier this week, last one was yesterday Discussed DASH diet Advised 30 minutes of exercise minimum daily Advised tobacco, alcohol, caffeine all increase BP Advised goal for BP is <140/90 Contact office if BP is > 140/90 consistent ly DIscussed consequenc es of HTN including kidney, eye, heart damage, stroke, and even - Will start HCTZ 25 mg since patient was having adverse reaction to lisinopril - RTC in 6 weeks for BP check Crohn's disease 92458951 K50.90 Follows with VENANCIO Joseph for Crohn's disease Major depr essive disorder 777484496 F32.[address] Kennedy for psychiatri c care, he prescribes bupropion, quetiapine , venlafaxin e, and zolpidem. 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 Graf for rheumatolo gy careTakes pilocarpin e. Rheumatoid arthritis 698 [address] M06[address] Graf for rheumatolo gy care Takes leflunomid e [id number] CAMPBELL GONZALEZ [facility] (Adult Med) [address] [place] [address] [id number] 0 10/25/2019 09:40:24 10/26/2019 09:46:32 Essential hypertension 61656750 I10 BP Today: 110/80c/w HCTZ 25 mg Discussed DASH diet Advised 30 minutes of exercise minimum daily Advised tobacco, alcohol, caffeine all increase BP Advised goal for BP is <140/90 Contact office if BP is > 140/90 consistent ly DIscussed consequenc es of HTN including kidney, eye, heart damage, stroke, and even - Continue with medication - RTC in 6 weeks for BP check Hypothyroidism 23846839 E03.9 Hx of thyroid cyst s/p removal of partial thyroidWas on levo 137, levels still not normalIncr eased her to levothyrox ine 150 mcg about 5 weeks ago. Due to be recheck again in 1 week.- Provided her with orders Crohn's disease 94767566 K50.[address] [place], GI for Crohn's diseaseRec ent CT scan Major depr essive disorder 821381057 F32.[address] Kennedy for psychiatri c care, he prescribes bupropion, quetiapine , venlafaxin e, and zolpidem. Sj gren's syndrome 10676009 M35.[address] Graf for rheumatolo gy careTakes pilocarpin e. Rheumatoid arthritis 698 [address]40 M06[address] Graf for rheumatolo gy care Takes leflunomid e Upper resp iratory infection 49738937 J06.9 Admits to nasal congestion , rhinorrhea , cough, mild sore throat, and fatigue x 3 days. Admits to SOB due to coughing.H x of COPD On PE: inspirator y and expiratory wheezing noted on exam- continue supportive care at home- will start oral steroids due to wheezing Hyperlipidemia 64812133 E78.5 Needs refill on fenofibrat e- Will send to pharmacy [id number] CAMPBELL GONZALEZ (Adult Med) [address] [place] [address] [id number] 0 04/30/2020 11:19:24 04/30/2020 11:54:00 Hyperlipidemia 15038552 E78.5 Currently taking fenofibrat e 160 mg- will repeat labs - Will send to pharmacy Essential hypertension 98606942 I10 BP Today: 124/80Rece ntly switch from HCTZ to losartan due to low potassium levels per rheumatolo gy labs Now taking losartan 25 mg qd Discussed DASH diet Advised 30 minutes of exercise minimum daily Advised tobacco, alcohol, caffeine all increase BP Advised goal for BP is <140/90 Contact office if BP is > 140/90 consistent ly DIscussed consequenc es of HTN including kidney, eye, heart damage, stroke, and even - Continue with medication - RTC in 6 months for BP check Hypothyroidism [id number] E03.9 Hx of thyroid cyst s/p removal of partial thyroid10/20: TSH low and T4 high (levo 150 mcg)12/16/ 020: TSH low and T4 normal (levo 137)- will repeat today- will need refills once labs are completed Crohn's disease [id number] K50.[address] Zavaleta GI for Crohn's diseaseTry ing to switch her medication currently Major depr essive disorder [id number] F32.[address] Kennedy for psychiatri c care, he prescribes bupropion, quetiapine , venlafaxin e, and zolpidem. Sj gren's syndrome 73418147 M35.[address] Graf for rheumatolo gy careTakes pilocarpin e. Rheumatoid arthritis [id number] M06[address] Graf for rheumatolo gy care Takes leflunomid e Hypokalemia [id number] E87 .6 03/04/2020: potassium 2.6Likely due to HCTZ and possible GI lossSwitch ed BP medication from HCTZ to losartanPa tient did not return to office for repeat labs- will recheck K levels today Chronic ob structive pulmonary disease 44916112 J44.9 CT w/ contrast performed on 10/18/2019 showed moderate paraseptal emphysema within the R lung apex with associated moderate volume loss within the right upper lobe.Meme nt states she has had PFTs in the past, either at hospital in [place] or hospital in [facility] rrently using albuterol inhaler 3-4x/week- will start her on a maintenanc e inhaler for COPD- encouraged her to stop smoking- will try and located previous PFT records Adult heal th examination [id number] Z00.00 - will check annual labs Abscess [id number] L02.91 Recently went to for an abscess on the bottom of her R footThey completed an I&D at the and discharged her home with Clindamyci n which she is still takingOn PE today: On plantar aspect of R foot near MTP joint of 1st digit. Small incision noted with mild erythema surroundin g. Mildly TTP.- c/w abx- will send to podiatry for callus removal Foot callus [id number] L8 4 On PE: large callus noted on the plantar aspect of R foot over the MTP joint of 1st digit. Large and hypertroph ic skin- will send referral to podiatry [id number] CAMPBELL GONZALEZ (Adult Med) [facility] [place] [address] 07/11/2020 08:13:28 07/14/2020 08:34:17 Essential hypertension 69615333 I10 BP Today: 150/107 per patient (checked at home)Recen tly switch from HCTZ to losartan due to low potassium levels per rheumatolo gy labs Now taking losartan 25 mg qd States her BP has been running high for the past couple weeks. She went to ER earlier this week due to elevated BP, states imaging and labs were normal, they decreased her BP and sent her home with no medication changes. Advised tobacco, alcohol, caffeine all increase BP Advised goal for BP is <140/90 Contact office if BP is > 140/90 consistent ly - will increase losartan from 25 mg to 50 mg qd- continue to check BP daily- call office in 1 week to discuss BP readings [id number] CAMPBELL GONZALEZ (Adult Med) [address] [place] [address] 08/26/2020 08:28:23 08/27/2020 13:32:06 Acute exacerbation of chronic obstructive pulmonary disease [id number] J44.1 She developed nasal congestion , rhinorrhea , ear pressure and facial pain starting 1 week ago. Then on Tuesday, 3 days ago, she woke up with a productive cough (yellow mucus), mild SOB, pleuritic chest pain, and mild pain near her left lung which is worse with coughing.S he is currently using her COPD medication , including albuterol and spiriva to help with her symptoms. She has tried some OTC cold/cough medication but no improvemen t.Denies prior COPD exacerbati ons. Denies sick contacts or known COVID exposure.D enies fever, chills, nausea, vomiting, headaches, sore throat, palpitatio ns, and GUTIERREZ.- will order chest xray to rule out PNA- potential acute bronchitis vs COPD exacerbati on, will send abx due to length of symptoms and productive cough with yellow phlegm. She is allergic to PCN, multiple drug interactio ns with azithromyc in, and possible allergy to Levaquin but patient does not remember. Will send cefdinir x 5 days.- will refrain from steroids at this time, patient is already on multiple medication s for rheumatolo gical conditions - continue with COPD medication s and cough medication - Drink lots of fluids, whatever you like except for alcoholic beverages. - Run a cool-mist humidifier in your room at night. - Get extra rest and do not over-exert yourself. [id number] [facility] GON[facility] (Adult Med) [address] [place] [address] 10/16/2020 09:20:33 10/17/2020 09:09:21 Acute otitis media 7739634 H66.92 Complainin g of throbbing ear pain x 2 days, initially felt in both ears before localizing to the L ear. Experienci ng a cough and scratchy throat since the onset of her ear pain.Hx of seasonal allergies worsen w/ weather changes and previous episodes of AOM.Will treat patient for AOM with antibiotic s and flonase nasal spray.- Prescribed doxycyclin e hyclate 100mg and flonase nasal spray. [id number] CAMPBELL GONZALEZ (Adult Med) [address] [place] [address] 11/25/2020 08:36:32 11/27/2020 10:47:57 Allergic rhinitis 73440157 J30.9 Presents to phone visit for rhinorrhea , sneezing, itchy, watery eyes, post-nasal drip x 1.5 days.Treat ed for acute otitis media on 10/16/2020 with doxycyclin e and Flonase - Symptoms resolved at that timeHas had similar symptoms in the past with allergies and states her symptoms seem to worsen with the change in weatherNo significan t improvemen t with Benadryl and FlonaseNo fever, chills, sinus pressure, ear pain, sore throat, or cough Suspect allergic rhinitis at this time- Prescribed Zyrtec 10 mg QD and Nasacort nasal spray- Advised her to contact the office if symptoms worsen or do no improve in 7-10 days - Will consider antibiotic s at that time Pain of ri t shoulder joint [id number] M25.511 Complains of worsening right shoulder pain x 1 week No recent trauma or injury to the areaArea is tender to palpation, and the pain worsens with lifting and bending overImprov es with rest, unchanged with ibuprofen and acetaminop henNo similar pain in the pastSuspec t musculoske letal etiology at this time- Advised her supportive care with RICE therapy, heat, and NSAIDs- Prescribed diclofenac 1% topical gel for pain relief- Provided shoulder exercises and care instructio ns to perform at home- Consider PT and imaging if pain persists or worsens [id number] CAMPBELL GONZALEZ (Adult Med) [address] [place] [address] 01/19/2021 12:19:34 01/20/2021 11:50:05 Tuberculosis screening [id number] Z11.1 Pt with COPD, RA, Sjogren's and Crohn's in need of TB testing per GI doctor. Continues to take leflunomid e, hydroxychl oroqine, and sulfasalaz ine. - PPD skin test administer ed today - Return to clinic in 2-3 days for reading Active or passive immunization [id number] Z23 Pt with COPD, RA, Sjogren's and Crohn's in need of Prevnar 13 per GI doctor. Continues to take leflunomid e, hydroxychl oroqine, and sulfasalaz ine. PPSV 23 on 04/2016 - Will administer Prevnar 13 today. - She will need PPSV again in one year (repeat 5 years after initial due to being immunocomp romised) Pain in right foot [id number] 31050 M79.671 Pt reports constant tingling/ burning sensation over lateral aspect of right foot x1 day. She has not experience d this sensation previously . Pain is worse when walking, first steps, and standing after rest but she is able to ambulate normally. Not similar to RA joint pain. Denies fever, chills, edema, rash, injury/ fall, and symptoms at rest and supine and night. PE: overall normal - since only occurring x 1 day, discussed monitoring symptoms and supportive care at home first. If symptoms continue or get worse, contact office [id number] CAMPBELL GONZALEZ (Adult Med) [address] [place] [phone] 04/22/2021 10:40:35 04/23/2021 14:24:26 Osteoarthritis of hip 388081660 M16.9 Complainin g of left sided lateral hip pain x 2 months. States the pain started abruptly with no known inciting cause or injury.Fang t to [facility] for the hip pain, states an xray was completed and showed OA of the hip. Since then, the pain has been constant, she ranks it as 8-9/10 pain with only mild improvemen t with tylenol, ibuprofen, and muscle relaxer given from the ER.Admits to pain will radiate down the lateral/an terior aspect to her knee. Denies low back pain.- will send orthopedic referral for mild OA of the hip- will start celebrex for OA, avoid taking other NSAIDs with new medication - can try topical medication for hip, topical voltaren- ice affected area 3x/day- concern for possible radicular symptoms, may need further work-up of lower spine Acute sinusitis 78212895 J01.90 Complainin g of nasal congestion , green rhinorrhea , headaches, sinus pressure, bilateral ear pain, dry and wet cough with no mucus production , and mild sore throat x 1 week.No improvemen t with OTC medication .No prior COVID diagnosis, has not received the vaccine, and no known COVID exposure. Denies sick contacts.- will get COVID test to ensure not COVID, stay home and away from others until test results are back- will send medication to treat sinusitis - Drink lots of fluids, whatever you like except for alcoholic beverages. - Run a cool-mist humidifier in your room at night. - For sore throat, gargle warm salt water. - Get extra rest and do not over-exert yourself. - Do not mix multiple medication s with similar ingredient s (for instance Theraflu Non-drowsy and Tylenol Sinus). Doubling up on acetaminop hen and/or decongesta nts such as pseudephed rine can be dangerous. [id number] CAMPBELL GONZALEZ (Adult Med) [address] [place] [address] 06/17/2021 10:41:43 06/17/2021 22:47:12 Osteoarthritis of hip 521894394 M16.9 Since last visit, she is now following with orthopedic s for her hip pain, a steroid injection was completed in the office for trochanter ic bursitis which provided moderate relief. Oral steroids were also given but she didnt take due to her multiple other medical conditions .She is working with PT currently and feels like her hips are improving. - c/w orthopedic s Essential hypertension 80629685 I10 BP today: 106/80- c/w medication s- will check labs Yonis thyroiditis 21 791182 E06.3 Well controlled on current medication - will send refills and check levels Leukocytosis 727008196 D 72.829 WBC 14.8, stable compared to prior labs drawn here and by rheumatolo gy- likely due to medication s and/or chronic inflammato ry diseases- continue to monitor Hyperlipidemia 68009754 E78.5 Triglyceri veronica elevated and HDL slightly lowCurrent ly taking fenofibrat e 160 mg- c/w medication s Active or passive immunization 698383908 Z23 Pt with COPD, RA, Sjogren's and Crohn's in need of Prevnar 13 per GI doctor. Continues to take leflunomid e, hydroxychl oroqine, and sulfasalaz ine. PPSV 23 on 04/2016, PCV 13 01/19/2021, - She will need PPSV again 01/2020 (repeat 5 years after initial due to being immunocomp romised)- declined COVID vaccine after long discussion - influenza vaccine completed today Seasonal a llergic rhinitis 715878945 J30.2 She is requesting new allergy medication , states her allergies have been severe the last few weeks and nothing seems to help other than pseudofed. She does not like using flonase, states it dries her out and causes her nose to bleed.Does not think oral medication s like cetirizine or jim work for her.- will try Nasacort instead, encouraged her to use every other day if too drying to her nose- provided her with a sample of Xyzal to see if it works [id number] CAMPBELL GONZALEZ (Adult Med) [address] [place] [address] 12/09/2021 11:17:00 12/10/2021 12:22:05 Pre-surgery evaluation 713416741 Z01.818 PMHx of COPD, HTN, Crohn's, Yonis' s, and RA presents for surgery clearance. She is having multiple warts on bilateral soles of her feet removed. There is no date planned for the surgery yet. Her SHx includes hysterecto my, appendecto my, cholecyste ctomy, hernia repair, and spleen repair. Pt has done well with surgeries in the past and denies ever having an issue [facility] anesthesia .HTN of HTN, no other underlying cardiac issues. Denies chest pain, palpitatio ns, SOB, and GUTIERREZ- routine pre surgery labs including CBC, PT/PTT, CMP, beta hCG, A1C- will fax clearance letter to Dr. Bean once results are back Essential hypertension 43204398 I10 BP today: 130/80Curr ent therapy: losartan 50 mg (pt has been without for 3 months)- decrease losartan 50 mg to losartan 25 mg since bp is barely elevated today and she has been without for 3 months- will continue to monitor Gastroesop hageal reflux disease without esophagitis 208794876 K21.9 Pt states she has been having heartburn since being without these meds x3 months. She takes the omeprazole in the morning and the famotidine at night.Pt notes getting in coughing fits while laughing and it sounding like the croup cough.- refill omeprazole 40 mg and famotidine 40 mg- will see if restarting antacids helps with her cough Menopausal symptom 42333 002 N95.1 Has been having hot flashes since she has been out x3 months- refill estradiol, reminded patient to monitor her symptoms, if hot flashes resolve, goal is to come off medication , goal is to be HRT for shortest amount of time possible Crohn's disease 60809005 K50.[address] Zavaleta, GI for Crohn's diseaseTry ing to switch her medication currently- c/w folic acid supplement [id number] CAMPBELL GONZALEZ (Adult Med) [address] [place] [phone] 03/25/2022 09:23:25 03/26/2022 12:02:46 Tachycardia 0368948 R00.0 Today: HR 117 after walking to exam room, HR 104 after sitting x 10 minutesRec ent history of COVID and still having issues with SOB upon exertion, productive cough and wheezing- likely from deconditio gregorio and current bacterial infection in upper/lowe r respirator y tract- tx infection, will f/u with patient in 2 weeks to ensure all has improved Essential hypertension 51475183 I10 BP today: 154/100 and 150/96Curr ent therapy: losartan 25 mgAt least visit, decreased losartan 50 mg to losartan 25 mg since bp looked only borderline and she had been without medication x 3 months- increase back up to losartan 50 mg- f/u in 2 weeks COVID-19 697202079 U07.1 She went to about 1 month ago due to COVID symptoms, she tested positive for COVID and was discharged home with supportive care. Symptoms consisted of low grade fever, body aches, nasal congestion and wet cough. Acute bronchitis 9384749 2 J20.9 COVID positive 1 month agoAll of her symptoms improved besides her cough, notes her cough is about the same still as it was 1 month ago with no improvemen t. She admits to feeling SOB with activity and has heard intermitte nt wheezing.- start antibiotic s today to cover for possible PNA- c/w daily steroids, inhalers, and supportive care medication - get lots of rest and drink plenty of fluids [id number] CATRACHITO Ewing (Adult Med) [address] [place] [address] 04/08/2022 09:56:27 04/09/2022 18:51:52 [id number] CAMPBELL GONZALEZ (Adult Med) [address] [place] [address] 04/19/2022 11:27:21 04/20/2022 11:28:20 Essential hypertension 91475397 I10 BP today: 152/94. Second measuremen t 152/92.Cur rent therapy: Losartan 50 mg, Hydrochlor othiazide 12.5mg. - recent uncontroll ed BP possibly from recent long-term steroid use, will make small dose adjustment but hopefully levels may come back down now that she is off the steroids-C /w Losartan 50 mg- Increase from Hydrochlor othiazide 25mg daily to 50 mg daily (take 2 tablets of 25 mg tabs at once for now since she has enough at home)-F/u w/ BP readings in 1wk on, online portal.-Pt has h/o GEORGINA, and has CPAP but does not use d/t unfitted mask. Consider referral if no BP decrease on increased Hydrochlor othiazide dose.-If no improvemen t w. increased hydrochlor othiazide dose, consider evaluating for secondary cause. Check aldosteron e, cortisol, renal US for stenosis or FMD. Yonis thyroiditis 21 732200 E06.3 TSH and Free T4 normal as of 09/2021.Pu lse today: 110 bpmRecent COVID infection- Check TSH to evaluate for secondary cause of HTN and tachycardi a d/t Levothyrox ine. Hypercalcemia 83004361 E 83.52 Previous elevated Calcium of 10.3 as of 12/09/2021 . -Check PTH intact + Calcium, ionized-BM P-Vitamin D-Phosphor us Obstructiv e sleep apnea syndrome 89957841 G47.33 Pt has h/o GEORGINA. Received CPAP, but mask does not currently fit. Pt not using CPAP, currently. -If BP doesn't improve w/ 25mg Hydrochlor othiazide, consider referring back to to pulmonolog ist. [id number] CAMPBELL GONZALEZ (Adult Med) [address] [place] [address] 05/03/2022 09:43:39 05/04/2022 08:54:51 Hyponatremia 97451892 E87.1 Hospital admission on 04/23/22 due to sodium 124 mEq/LCorre cted in the hospital with fluid restrictio n and stopping HCTZ-CMP at nephrology appt 04/27/22 WNL-will recheck Na levels in 4-6 wk Hypokalemia 96889233 E87 .6 Hospital admission on 04/23/22 due to sodium 124 mEq/L-hypo kalemia noted on CMP in hospital-C MP at nephrology appt 04/27/22 WNL- Losartan continued, HCTZ stopped. BP stable today-will recheck K levels in 4-6 wk Yonis thyroiditis 21 236020 E06.3 hx of hypothyroi d, was taking levothyrox ine 137 mcg which was then increased to 150mg daily on 04/23/22 while in hospital-P ulse today: 110 bpm-Check TSH in 4-6 weeks due to medication dosage increase Headache 79386299 R51.9 Recently hospitaliz ed 04/23-04/24 for hyponatrem ia. Had headache and nausea upon admissionL evels were replenishe d, HCTZ was stopped, psych meds changed, and levothyrox ine increased. Since discharge, headache has been constant and only better when sleeping. OTC meds do not help. It is right sided, throbbing pressure like with photophobi a and phonophobi a. Admits it seems to be getting worse, 8-9/10 pain today.On daily steroids which have SE of headaches but has been on for months.Hx of migraines but has not had one in many years. Sounds like migraine other than the fact that is has been present x 10 days. Sounds like tension headaches since no meds help, neck muscles tight and stiff on exam, but it is one sided. Also slightly worried because of acute hyponatrem ia and replenish of her levels in the hospital, does not have red flag symptoms for osmotic demyelinat ion syndrome but obviously wanted to rule out due to recent history. Pt has hx of migraines and states this feels similar. -Prescribe d nurtec for acute headache symptoms to see if this helps- discussed supportive care options for tension SCHRADER- Discussed with Dr. Janes Saleh, not too concerned about ODS. Plan to treat for migraine/t ension SCHRADER-RTC if sx worsen or pt notices confusion, balance problems, changes in vision, slurred speech e [id number] CAMPBELL OGNZALEZ (Adult Med) [address] [place] [address] 05/25/2022 11:37:00 05/26/2022 11:59:24 Essential hypertension 59727118 I10 BP today: 158/92Curr ent therapy: Losartan 50 mg and Hydralazin e 10 mg TIDSince last visit, stopped the amlodipine due to worsening of her lower leg swelling. Since being off amlodipine , lower leg swelling has resolved and legs are back to her baseline.T olerating hydralazin e TID well now, BP range of 135-160/85 -95. Still having intermitte nt headaches which NUrtec is helping. Still taking daily high dose steroids for her IBD per GI, hoping to come off this medication in the next month. Hydrochlor othiazide 12.5mg stopped in the hospital due to electrolyt e imbalance. Amlodipine stopped due to severe LE swelling -C/w Losartan 50 mg- Increase hydralazin e to 20 mg TID (total of 60 mg daily). Reach out in a few days, if still elevated then plan for 20 mg QID (total of 80 mg).-Pt has h/o GEORGINA, and has CPAP but does not use d/t unfitted mask. [id number] CAMPBELL GONZALEZ (Adult Med) [address] [place] [address] 08/05/2022 12:03:14 08/06/2022 09:51:55 Essential hypertension 89296456 I10 BP today: 116/80Curr ent therapy: Losartan 50 mg, metoprolol 25 mg qd, and Hydralazin e 25 qd She officially finished her steroids for her IBD 07/20/2022. She is now taking losartan, metoprolol , and hydralazin e once daily which has been controllin g her BP well. She is checking her levels at home regularly. - c/w medication s and watching BP at home- If Bp starts to decrease, can stop the hydralazin e first Loss of hair 973660155 L 65.9 She has been noticing more hair falling out when brushing her hair, in the shower and when running her fingers through her hair. Feels like her hair has way less volume than it used to. Hx of Vit. B12 def. from her IBD, used to get injections but has not completed those injections for awhile.- will check for nutritiona l def.- thyroid levels have been off in the past, will recheck Gastroesop hageal reflux disease without esophagitis 001498923 K21.9 Well controlled with medication s, needs refills Migraine with aura 74414 06 G43.109 Also still having migraines 3-4x/month . Was on nurtec in the past which majorly helped but no longer covered by insurance, not taking anything for her migraines currently. - triptans likely avoided due to uncontroll ed BP and HRT use in the past. Will check on options for further treatment- BP finally controlled today but with hx of IBD, patient may need to return to taking high dose steroids which could cause increase in BP again. Also multiple drug interactio ns with triptans and her current medication s including metoclopra mide and venlafaxin e.- will try to reorder Nurtec, this medication worked for patient is way more safe for patient to take as needed compared to triptans and the >10 possible drug interactio ns Impaired g lucose tolerance 4577363 R73.03 hgbA1c 5.8 with last check- due for repeat today Menopausal symptom 34995 002 N95.1 Still taking estrogen 2 mg daily s/p DENNYS-BSO in 2013. Admits to mild intermitte nt hot flashes still but much more improved since when she first started HRT.- had a long discussion about HRT and risks vs benefits today, goal of tx is to be on smallest dose for shortest amount of time. Goal to have her off completely at 10 years for sure.- agreed to decrease to 1 mg for now, will continue to monitor symptoms Hyperlipidemia 84420805 E78.5 Triglyceri veronica elevated and HDL slightly lowCurrent ly taking fenofibrat e 160 mg- c/w medication s Morbid obesity 954807113 E66.01 Advised decreased portion sizes, good food choices, limited eating out or fast food and eliminate soda and juice from diet. Advised physical activity daily and offered encouragem ent to continue with positive changes made so far. [id number] CAMPBELL ANNA ([employer]ER) [address] [place] [address] 08/27/2022 14:10:51 09/01/2022 10:45:13 Gynecologic examination 43600557 Z01.419 Cervical cancer screening: Last Pap (vaginal) ASCUS/HPV+ , vaginal Pap today due to historyBre ast cancer screening: Normal CBE. Reviewed recommenda tions for initiation at age 40 with annual screening. Discussed SBEDiet/ex ercise: Counseled regarding importance of physical activity, healthy diet and appropriat e calcium intake.RTC in 1yr Screening for malignant neoplasm of breast 538499813 Z12.31 Last mammo 2019 wnl. Annual screening order provided today. Lesion of vulva 17327576 6 N90.89 H/o VIN3 s/p laser treatment ~10 years ago. PE today with multiple areas of hypo and hyper pigmented patches and plaques on vulva. Two biopsies were obtained as detailed in the procedure note. Will follow up with path results. [id number] CAMPBELL GONZALEZ (Adult Med) [address] [place] [address] 12/20/2022 10:49:45 12/21/2022 13:50:58 Cyst of thyroid 74615898 E04.1 Last month she palpated a painless nodule on the right side of her thyroid, it has since decreased in size or resolved but patient still worried due to her prior history of nodule on left side of thyroid s/p partial thyroidect ben of left side with nodule. Taking medication s daily as prescribed .Recent labs showed normal thyroid levels- US ordered Essential hypertension [id number] I10 BP today: 120/80Curr ent therapy: Losartan 50 mg, metoprolol 25 mg qd, and Hydralazin e 25 qd She officially finished her steroids for her IBD 07/20/2022. She is now taking losartan, metoprolol , and hydralazin e once daily which has been controllin g her BP well. She is checking her levels at home regularly. - c/w medication s and watching BP at home- okay to stop hydralazin e, monitor BP at home, if BP raises - restart hydralazin e Chronic ob structive pulmonary disease 38804633 J44.9 CT w/ contrast performed on 10/18/2019 showed moderate paraseptal emphysema within the R lung apex with associated moderate volume loss within the right upper lobe.Meme nt states she has had PFTs in the past, either at hospital in [place] or hospital in [facility] rrently using albuterol inhaler 3-4x/weekS aw Pulm recently, completed labs and PFTs again, has f/u later this week- c/w Pulm and medication s- encouraged her to stop smoking Vulval intraepithelial neoplasia grade 3 [id number] D07.1 Saw MANAGER ICU again this past month, pathology showed continued reports of JULIO III, recently underwent laser removal treatment 12/07/2022. Patient states the area is very painful, using pain medication as prescribed and topical cream. Has f/u later this week. Still taking oral HRT, OBGYN did not have concern with this but patient still willing to taper off treatment. 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 Currently taking nurtec which provides great relief- triptans likely avoided due to uncontroll ed BP and HRT use in the past. Plus multiple DI with other drugs. Will check on options for further treatment- will try to reorder Nurtec, this medication worked for patient is way more safe for patient to take as needed compared to triptans and the >10 possible drug interactio ns Menopausal symptom 27207 002 N95.1 Still taking oral HRT, OBGYN did not have concern with this but patient still willing to taper off treatment. S/p DENNYS-BSO in 2013. Admits to mild intermitte nt hot flashes still but much more improved since when she first started HRT.- had a long discussion about HRT and risks vs benefits today, goal of tx is to be on smallest dose for shortest amount of time. Goal to have her off completely at 10 years for sure.- agreed to decrease to 0.5 mg for now, will continue to monitor symptoms Crohn's disease 00511207 K50.[address] Zavaleta, GI for Crohn's diseaseTak es hydroxychl oroquine and folic acid- c/w folic acid Gastroesop hageal reflux disease without esophagitis [id number] K21.9 Well controlled with medication s, needs refills Serum stone min B12 borderline low 056105679 R79.89 C/w monthly injections Vitamin D deficiency 347 35655 E55.9 Obesity 352535025 E66.9 Advised decreased portion sizes, good food choices, limited eating out or fast food and eliminate soda and juice from diet. Advised physical activity daily and offered encouragem ent to continue with positive changes made so far. Infection of tooth 17780 8007 K04.7 Dealing with infected tooth, dentist can't see her until 02/2023- requesting abx to cover for current inflammati on and pain- Allergic to PCN, clinda showed be avoided in patient's with colitis issues, metronidaz ole has DI with hydroxyclo roquine. Will treat with 10 days course of cefdinir Depression screening 171 825696 Z13.31 Positive in the office today, working with psychiatrrupesh ramirez, they are changing some of her medicaiton s currently. Denies HI/SI today [id number] [facility] (Adult Med) [address] [place] [address] 03/31/2023 11:26:24 04/04/2023 14:13:17 Palpitations 20529064 R00.2 Cardiology wanted metoprolol 25 mg BID but not covered by insurance, increased to 50 mg once daily. Just began taking it so unsure if helpingHR and BP NL today -No improvemen t yet, will give a couple more weeks. If still no improvemen t, will refer to another cardiologi st Essential hypertension 98128432 I10 BP today: 116/78Curr ent therapy: Losartan 50 mg, metoprolol 50 mg dailyShe is checking her levels at home regularly. - c/w medication s and watching BP at home Vulval intraepithelial neoplasia grade 3 [id number] D07.1 Saw MANAGER ICU again this past month, pathology showed continued reports of JULIO III, recently underwent laser removal treatment 12/07/2022. Patient states the area is very painful, using pain medication as prescribed and topical cream. Has f/u later this week. Still taking oral HRT, OBGYN did not have concern with this but patient still willing to taper off treatment. 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 Currently taking nurtec which provides great relief- Recent hx of uncontroll ed HTN. On HRT. Multiple drug interactio ns with triptans. Nurtec if safest option for PRN drug for migraines and works well.- will try to reorder Nurtec, this medication worked for patient is way more safe for patient to take as needed compared to triptans and the >10 possible drug interactio ns Menopausal symptom 71542 002 N95.1 Still taking oral HRT, OBGYN did not have concern with this but patient still willing to taper off treatment. S/p DENNYS-BSO in 2013. Admits to mild intermitte nt hot flashes still but much more improved since when she first started HRT.Attemp zuri to decrease dose to 0.5 mg of estrogen but hot flashes became severely worse. Would like to increase back up to 1 mg.- had a long discussion about HRT and risks vs benefits today, goal of tx is to be on smallest dose for shortest amount of time. Goal to have her off completely at 10 years for sure.- Did not tolerate 0.5mg, increased back to 1mg Crohn's disease 36288608 K50.[address] Zavaleta, GI for Crohn's diseaseTak es injection every 8 weeks currently which is working well- c/w folic acid and injections Obesity 982738405 E66.9 BMI 35.1Advise d decreased portion sizes, good food choices, limited eating out or fast food and eliminate soda and juice from diet. Advised physical activity daily and offered encouragem ent to continue with positive changes made so far. -lost 21 lbs since last visit (01/09) since psychiatri st placed on topamax to aid in weight loss Perforatio n of right tympanic membrane [id number] 958227 H72.91 ENT told her it was permanent, intermitte nt hearing loss from the R ear, does not like hearing aidsAdmits to irritation in the R ear after swimming this last week and nasal congestion - will send medication s to treat for allergies and otitis externa, please see below Allergic disposition [id number] 236084 T78.40XS Admits to irritation in the R ear after swimming this last week and nasal congestion with clear rhinorrhea - will send medication s to treat for allergies and otitis externa [id number] [facility] [address] [place] [address] 06/09/2023 08:46:26 06/10/2023 12:35:36 Obesity 117804582 E66.9 BMI 36.5Advise d decreased portion sizes, good food choices, limited eating out or fast food and eliminate soda and juice from diet. Advised physical activity daily and offered encouragem ent to continue with positive changes made so far. Non-infect thi diarrhea 94846685 R19.7 Hx of crohn's disease, follows with GI currently. Hx of intermitte nt constipati on and diarrhea. Now complainin g of constant diarrhea with urgency and incontinen ce at night while sleeping x 1-2 months. Went to the ER 03/2023, diagnosed with gastroente ritis and discharged home with bactrim. States this made her diarrhea worse so was told to stop taking it. Diarrhea is very watery, in large amounts and foul odor and little to no formed stool. Hx of C.diff in the past and notes this seems similar. GI is aware of this issue, was prescribed cholestyra mine but it does not seem to be helping. Denies fever, severe abdominal pain, and blood in the stool. - stool cultures ordered- food allergy panel- avoids some dairy but still eats cheese and products with milk in it, discussed in depth today considerin g to remove dairy completely from diet- consider medication induced if everything comes back normal Acute sinusitis 23215280 J01.90 Complainin g of nasal congestion , yellow rhinorrhea , headaches, sinus pressure x 1 week.No improvemen t with OTC medication . Home COVID test negativeNo prior COVID diagnosis, has not received the vaccine, and no known COVID exposure. Denies sick contacts.- will send medication to treat sinusitis- Drink lots of fluids, whatever you like except for alcoholic beverages. - Run a cool-mist humidifier in your room at night.- For sore throat, gargle warm salt water.- Get extra rest and do not over-exert yourself.- Do not mix multiple medication s with similar ingredient s (for instance Theraflu Non-drowsy and Tylenol Sinus). Doubling up on acetaminop hen and/or decongesta nts such as pseudephed rine can be dangerous. [id number] [facility] [address] [place] [phone] 07/01/2023 11:33:49 07/04/2023 15:48:56 Non-infective diarrhea 74245007 R19.7 Hx of crohn's disease, follows with GI currently. Hx of intermitte nt constipati on and diarrhea. Now complainin g of constant diarrhea with urgency and incontinen ce at night while sleeping x 1-2 months. Went to the ER 03/2023, diagnosed with gastroente ritis and discharged home with bactrim. States this made her diarrhea worse so was told to stop taking it. Diarrhea is very watery, in large amounts and foul odor and little to no formed stool. Hx of C.diff in the past and notes this seems similar. GI is aware of this issue, was prescribed cholestyra mine, helps only when she takes it but does not want to continue taking. Denies fever, severe abdominal pain, and blood in the stool. - discussed stool culture results which were normal- discussed possible medication s as a cause, plans to discuss with GI next month- avoids some dairy but still eats cheese and products with milk in it, discussed in depth today considerin g to remove dairy completely from diet Obesity 448241299 E66.9 BMI 35.5Curren tly on topiramate which has been helpful- Advised decreased portion sizes, good food choices, limited eating out or fast food and eliminate soda and juice from diet. Advised physical activity daily and offered encouragem ent to continue with positive changes made so far. Palpitations 68185791 R0 0.2 Cardiology wanted metoprolol 25 mg BID but not covered by insurance, increased to 50 mg once daily. feels like increased dose is helpingHR and BP NL today -c/w dose- discussed possible SE of diarrhea with metoprolol , plans to discuss with GI next month Essential hypertension 83579536 I10 BP today: 120/80Curr ent therapy: Losartan 50 mg, metoprolol 50 mg dailyShe is checking her levels at home regularly. - c/w medication s and watching BP at home Migraine with aura 82160 06 G43.109 Was having migraines 3-4x/month . Currently taking nurtec which provides great relief - Recent hx of uncontroll ed HTN. On HRT. Multiple drug interactio ns with triptans. Nurtec if safest option for PRN drug for migraines and works well.- will try to reorder Nurtec, this medication worked for patient is way more safe for patient to take as needed compared to triptans and the >10 possible drug interactio ns Menopausal symptom 97969 002 N95.1 Still taking oral HRT, OBGYN did not have concern with this but patient still willing to taper off treatment. S/p DENNYS-BSO in 2013. Admits to mild intermitte nt hot flashes still but much more improved since when she first started HRT.Attemp zuri to decrease dose to 0.5 mg of estrogen but hot flashes became severely worse. Would like to increase back up to 1 mg.- had a long discussion about HRT and risks vs benefits today, goal of tx is to be on smallest dose for shortest amount of time. Goal to have her off completely at 10 years for sure.- Did not tolerate 0.5mg, increased back to 1mg Crohn's disease 17930650 K50.[address] Zavaleta, GI for Crohn's diseaseTak es injection every 8 weeks currently which is working wellHas apt with Dr. Martinez in [place] next month, requested new GI doctor because did not feel like Dr. zavaleta was listening to her complaints - c/w folic acid and injections Hyperlipidemia 85721721 E78.5 Triglyceri veronica elevated and HDL slightly lowCurrent ly taking fenofibrat e 160 mg- c/w medication s Cyst of thyroid 62815278 E04.1 S/p partial thyroidect ben of left side with nodule. US showed no nodule present.Ta antonia medication s daily as prescribed .Recent labs showed normal thyroid levels- c/w levo 150 mcg- recheck levels today Gastroesop hageal reflux disease without esophagitis 556924852 K21.9 Well controlled with medication s, needs refills Serum stone min B12 borderline low 780801708 R79.89 C/w monthly injections Vitamin D deficiency 347 10086 E55.9 Due to recheck today Impaired g lucose tolerance 4943861 R73.03 hgbA1c 5.8 with last check- due for repeat today Depression screening 171 793353 Z13.31 PHQ 2/9 was negative in office today (0 out of 27) [id number] [facility] (Adult Med) [address] [place] [address] 09/01/2023 09:33:37 09/05/2023 16:05:24 Body mass index 30+ - obesity 433734406 Z68.35 BMI- 35.6 Depression screening 171 005014 Z13.31 PHQ9- positivePt sees behavioral health at [facility] screening 471848444 Z13.39 GAD7- PositivePt sees behavioral health at [facility] e Administra tion of influenza vaccine 43054494 Z23 Crohn's disease 50547023 K50.90 Patient to follow up with GIContinue medication Continue dietCall office for any issues Essential hypertension 96041759 I10 Uncontroll ed Hypertensi on potential risks, heart attack, , stroke, kidney failure etc. Hypertensi on is the silent Killer Take your Hypertensi on medication daily keep appointmen ts stop concentrat ed sugars--fo llow 1500 meal plan exercise 50-60 minutes daily on most days see eye doctor once a year see dentist every 6 monthsBP Goal: {{Less than 140/90* Le ss than 150/90}}BP Controlled : {{yes* no} }Healthy Weight: {{4'10= 91-118 lbs 4'11= 94-123 lbs 5'= 97-127 lbs 5'1= 100-131 lbs 5'2= 104-135 5' 3= 107-140 lbs 5'4= 110-144 lbs 5'5= 115-149 lbs 5'6= 118-154 lbs 5'7= 121-158 lbs 5'8= 125-163 lbs 5'9= 128-168 lbs 5'10= 132-173 lbs 5'11= 136-178 lbs 6'= 140-183 lbs 6'1= 144-188 lbs 6'2= 148-193 lbs 6'3= 152-199 lbs 6'4= 156-204 lbs}}Discu ssed: Low sodium balanced diet, moderate exercise at least 3-4 times per week for an average of 40 minutes, limiting alcohol to 1 drink per day (F) or 2 drinks per day (M), and smoking cessation if currently smoking.Ne xt Visit: {{1 2 3 4* 5 6 7 8 9 10 11 12} }{{week(s) month(s)* }} [id number] [facility] (Adult Med) [address] [place] [address] 09/22/2023 10:40:20 09/23/2023 16:07:24 Depression screening 373818592 Z13.31 PHQ9- positivePt sees behavioral health at [facility] Mental hea lth screening 533182464 Z13.39 GAD7- PositivePt sees behavioral health at [facility] Acute maxi llary sinusitis 52548860 J01.00 Gargle with warm salt water once an hour to help reduce swelling and relieve discomfort . Use 1 teaspoon of salt mixed in 1 cup of warm water. Take an over-the-c ounter pain medicine, such as acetaminop hen (Tylenol), ibuprofen (Advil, Motrin), or naproxen (Aleve). Read and follow all instructio ns on the label. Be careful when taking over-the-c ounter cold or flu medicines and Tylenol at the same time. Many of these medicines have acetaminop hen, which is Tylenol. Read the labels to make sure that you are not taking more than the recommende d dose. Too much acetaminop hen (Tylenol) can be harmful. Drink plenty of fluids. Fluids may help soothe an irritated throat. Hot fluids, such as tea or soup, may help decrease throat pain. Use over-the-c ounter throat lozenges to soothe pain. Regular cough drops or hard candy may also help. These should not be given to young children because of the risk of choking. Do not smoke or allow others to smoke around you. If you need help quitting, talk to your doctor about stop-smoki ng programs and medicines. These can increase your chances of quitting for good. Use a vaporizer or humidifier to add moisture to your bedroom. Follow the directions for cleaning the machine. Allergic rhinitis 568788 04 J30.9 [id number] [facility] (Adult Med) [address] [place] [address] 12/29/2023 09:40:05 12/30/2023 11:24:08 Crohn's disease 08140546 K50.90 Patient to follow up with GI who prescribes her medication .Last OV in [place] ue medication Continue dietCall office for any issues Essential hypertension 28275947 I10 BP today: 120/80BP Goal: {{Less than 140/90* Le ss than 150/90}}BP Controlled : {{yes* no} }Healthy Weight: {{4'10= 91-118 lbs* 4'11= 94-123 lbs 5'= 97-127 lbs 5'1= 100-131 lbs 5'2= 104-135 5' 3= 107-140 lbs 5'4= 110-144 lbs 5'5= 115-149 lbs 5'6= 118-154 lbs 5'7= 121-158 lbs 5'8= 125-163 lbs 5'9= 128-168 lbs 5'10= 132-173 lbs 5'11= 136-178 lbs 6'= 140-183 lbs 6'1= 144-188 lbs 6'2= 148-193 lbs 6'3= 152-199 lbs 6'4= 156-204 lbs}}Discu ssed: Low sodium balanced diet, moderate exercise at least 3-4 times per week for an average of 40 minutes, limiting alcohol to 1 drink per day (F) or 2 drinks per day (M), and smoking cessation if currently smoking. Uncontroll ed Hypertensi on potential risks, heart attack, , stroke, kidney failure etc. Hypertensi on is the silent Killer Take your Hypertensi on medication daily keep appointmen ts stop concentrat ed sugars--fo llow 1500 meal plan exercise 50-60 minutes daily on most days see eye doctor once a year see dentist every 6 monthsNext Visit: {{1 2 3 4 5 6* 7 8 9 10 11 12} }{{week(s) month(s)* }}Labs todayC/W Losartan 50mg daily Body mass index 30+ - obesity 851164161 Z68.35 BMI- 35.6 Depression screening 171 600244 Z13.31 PHQ9- {{Negative Positive Mild Moder ate Severe *}} (21 out of 27)Pt sees behavioral health at [facility] [place] at this time Mental hea lth screening 604221255 Z13.39 GAD7- {{Negative Positive Mild Moder ate Severe *}} (17 out of 21)Pt sees behavioral health at [facility] at this time Gastroesop hageal reflux disease without esophagitis 507964043 K21.9 Doing well on famotidine C/W famotidine 40mg daily Hyperlipidemia 58411504 E78.5 Labs todayC/W fenofibrat e 160mg daily Pancreatic insufficiency 12985306 K86.89 Patient to follow up with GI who prescribes her medication .Last OV in Oct4Contin ue medication Continue dietCall office for any issues Vitamin D deficiency 347 92287 E55.9 Labs todayC/W weekly supplement Cyst of thyroid 17016865 E04.1 C/W levothyrox ine 150mcgLabs todayWill order U/S if labs are very elevatedDi scussed referral to endocrinol ogy if labs are very elevated Pain of bi lateral knee joints [id number] 50351 M25.561 M25.562 Crepitus on PE today- bilaterall yGet XR doneStart meloxicam 15mg daily for pain- DO NOT TAKE OTHER NSAIDS WHILE ON THIS MEDICATION Loss of hair 898028326 L 65.9 [id number] [facility] (Adult Med) [address] [place] [address] 02/29/2024 14:32:08 03/01/2024 15:48:10 Depression screening 197339555 Z13.31 PHQ9- {{Negative Positive Mild Moder ate Severe *}} (17 out of 27)Pt sees behavioral health at [facility] at this time Mental hea lth screening 464361687 Z13.39 GAD7- {{Negative Positive Mild Moder ate Severe *}} (16 out of 21)Pt sees behavioral health at [facility] at this time Acute pharyngitis 685403 003 J02.9 Gargle with warm salt water once an hour to help reduce swelling and relieve discomfort . Use 1 teaspoon of salt mixed in 1 cup of warm water. Take an over-the-c ounter pain medicine, such as acetaminop hen (Tylenol), ibuprofen (Advil, Motrin), or naproxen (Aleve). Read and follow all instructio ns on the label. Be careful when taking over-the-c ounter cold or flu medicines and Tylenol at the same time. Many of these medicines have acetaminop hen, which is Tylenol. Read the labels to make sure that you are not taking more than the recommende d dose. Too much acetaminop hen (Tylenol) can be harmful. Drink plenty of fluids. Fluids may help soothe an irritated throat. Hot fluids, such as tea or soup, may help decrease throat pain. Use over-the-c ounter throat lozenges to soothe pain. Regular cough drops or hard candy may also help. These should not be given to young children because of the risk of choking. Do not smoke or allow others to smoke around you. If you need help quitting, talk to your doctor about stop-smoki ng programs and medicines. These can increase your chances of quitting for good. Use a vaporizer or humidifier to add moisture to your bedroom. Follow the directions for cleaning the machine. Start Zpak Cough 50125514 R05.9 Start guaifenesi n q12h as needed for coughC/w allergy medication [id number] MD Magdalene ZULUAGA ([employer]) [address] [place] [address] 04/02/2024 14:42:54 04/20/2024 19:31:47 Screening for malignant neoplasm of breast 997950979 Z12.39 >2 years since last mammogramW ill obtain Perimenopausal state 332 5687262 03282 Z78.0 discussed option of increased estradiol vs tapering off completely ; patient wished to proceed with increasing the dose in order to get better control over her perimenopa usal symptomsif she continues to have symptoms or does not tolerate the increase, we will consider a taper offRTC in 6 weeks to follow upvaginal estrogen cream for lubricatio n and sexual intercours e prescribed Pain of left breast 1010 447403 N64.4 only found on physical exam today; patient had not noticed it previously advised stretching and this is likely MSK in naturewill re-assess on 6 week follow up Gynecologi c examination 30012025 Z01.378 [id number] MD Magdalene [facility] ([employer]) [address] [place] [address] 07/16/2024 11:34:50 07/20/2024 08:44:52 Perimenopausal state 8526027613 30308 Z78.0 Assessment : Recent estradiol dose change from 1mg to 2mg for premenopau yola sxs. Pt reports improvemen t of her sxs and would like to continue the current dose. Recent normal mammogram. Up to date w/ colonoscop y and pap smear (2021). THBSO in 2013. Plan:- Continue taking your medication as prescribed - F/u as needed if symptoms worsen or change.- Mammogram in a year. [id number] [facility] (Adult Med) [address] [place] [address] 07/23/2024 14:32:21 07/23/2024 16:09:50 Obesity 162352676 E66.9 BMI 33.8 Advised decreased portion sizes, good food choices, limited eating out or fast food and eliminate soda and juice from diet. Advised physical activity daily and offered encouragem ent to continue with positive changes made so far. Essential hypertension 10892462 I10 BP today: 128/78BP Goal: {{Less than 140/90* Le ss than 150/90}}BP Controlled : {{yes* no} }Healthy Weight: {{4'10= 91-118 lbs* 4'11= 94-123 lbs 5'= 97-127 lbs 5'1= 100-131 lbs 5'2= 104-135 5' 3= 107-140 lbs 5'4= 110-144 lbs 5'5= 115-149 lbs 5'6= 118-154 lbs 5'7= 121-158 lbs 5'8= 125-163 lbs 5'9= 128-168 lbs 5'10= 132-173 lbs 5'11= 136-178 lbs 6'= 140-183 lbs 6'1= 144-188 lbs 6'2= 148-193 lbs 6'3= 152-199 lbs 6'4= 156-204 lbs}}Discu ssed: Low sodium balanced diet, moderate exercise at least 3-4 times per week for an average of 40 minutes, limiting alcohol to 1 drink per day (F) or 2 drinks per day (M), and smoking cessation if currently smoking. Uncontroll ed Hypertensi on potential risks, heart attack, , stroke, kidney failure etc. Hypertensi on is the silent Killer Take your Hypertensi on medication daily keep appointmen ts stop concentrat ed sugars--fo llow 1500 meal plan exercise 50-60 minutes daily on most days see eye doctor once a year see dentist every 6 monthsNext Visit: {{1 2 3 4 5 6* 7 8 9 10 11 12} }{{week(s) month(s)* }}Labs todayC/W Losartan 50mg daily Gastroesop hageal reflux disease without esophagitis 786924060 K21.9 Doing well on famotidine C/W famotidine 40mg daily Hyperlipidemia 15702896 E78.5 Labs todayC/W fenofibrat e 160mg daily Vitamin D deficiency 347 43891 E55.9 Labs todayC/W weekly supplement Cyst of thyroid 87739351 E04.1 C/W levothyrox ine 150mcgLabs todayWill order U/S if labs are very elevatedDi scussed referral to endocrinol ogy if labs are very elevated Crohn's disease [id number] K50.90 Patient to follow up with GI who prescribes her medication .Last OV in [place] medication Continue dietCall office for any issues Pancreatic insufficiency 57766862 K86.89 Patient to follow up with GI who prescribes her medication .Last OV in Oct ue medication Continue dietCall office for any issues Depression screening 171 306058 Z13.31 PHQ9- {{Negative Positive Mild Moder ate* Sever e}} (13 out of 27)Pt sees behavioral health at [facility] [place] at this time Mental hea lth screening 871759402 Z13.39 GAD7- {{Negative Positive Mild Moder ate* Sever e}} (11 out of 21)Pt sees [facility] health [facility] at this time Pain of ri ght shoulder joint [id number] 4483669 M25.511 Start meloxicam 15 mg once dailyShoul kendra XR ordered [id number] DIALLO TRAN (Adult Med) [address] [place] [address] 84400-253 0 08/20/2024 12:07:11 08/23/2024 13:01:45 Hypokalemia 55319071 E87.6 CMP ordered today Otitis externa 8216121 H 60.93 Start neomcyin-p olymyxin-h ydorcortis one dropsC/W cefdinir given at ER Obesity 253654576 E66.9 BMI 33.8 Advised decreased portion sizes, good food choices, limited eating out or fast food and eliminate soda and juice from diet. Advised physical activity daily and offered encouragem ent to continue with positive changes made so far. [id number] DIALLO TRAN (Adult Med) [address] [place] [address] [phone] 08/29/2024 17:01:18 08/30/2024 14:49:02 Cough 17697088 R05.9 Pt said she was told today from ER that lumbar puncture was positive for Viral meningitis Discussed ER precaution s Smoker 94441867 F17.200 Obesity 029065709 E66.9 BMI 33.8 Advised decreased portion sizes, good food choices, limited eating out or fast food and eliminate soda and juice from diet. Advised physical activity daily and offered encouragem ent to continue with positive changes made so far. [id number] DIALLO TRAN (Adult Med) [address] [place] [address] [phone] 09/03/2024 11:11:37 09/07/2024 08:53:09 Persistent cough 727262265 R05.3 Start benzonate 100mg TID PRN Obesity 495259207 E66.9 BMI 31.2 Advised decreased portion sizes, good food choices, limited eating out or fast food and eliminate soda and juice from diet. Advised physical activity daily and offered encouragem ent to continue with positive changes made so far. Depression screening 171 563766 Z13.31 PHQ9- {{Negative * Positive Mild Mode rate Sever e}} (0 out of 27)Pt sees behavioral health at [facility] [place] at [place] time Mental hea [facility] screening 263509922 Z13.39 GAD7- {{Negative * Positive Mild Mode rate Sever e}} (0 out of 21)Pt sees behavioral health at [facility] [place] at this time [id number] DIALLO TRAN (Adult Med) [address] [place] [address] [phone] 12/10/2024 12:27:09 12/12/2024 13:38:43 Essential hypertension 44377501 I10 BP today: 110/70BP Goal: {{Less than 140/90* Le ss than 150/90}}BP Controlled : {{yes* no} }Healthy Weight: {{4'10= 91-118 lbs* 4'11= 94-123 lbs 5'= 97-127 lbs 5'1= 100-131 lbs 5'2= 104-135 5' 3= 107-140 lbs 5'4= 110-144 lbs 5'5= 115-149 lbs 5'6= 118-154 lbs 5'7= 121-158 lbs 5'8= 125-163 lbs 5'9= 128-168 lbs 5'10= 132-173 lbs 5'11= 136-178 lbs 6'= 140-183 lbs 6'1= 144-188 lbs 6'2= 148-193 lbs 6'3= 152-199 lbs 6'4= 156-204 lbs}}Discu ssed: Low sodium balanced diet, moderate exercise at least 3-4 times per week for an average of 40 minutes, limiting alcohol to 1 drink per day (F) or 2 drinks per day (M), and smoking cessation if currently smoking. Uncontroll ed Hypertensi on potential risks, heart attack, , stroke, kidney failure etc. Hypertensi on is the silent Killer Take your Hypertensi on medication daily keep appointmen ts stop concentrat ed sugars--fo llow 1500 meal plan exercise 50-60 minutes daily on most days see eye doctor once a year see dentist every 6 monthsNext Visit: {{1 2 3 4 5 6* 7 8 9 10 11 12} }{{week(s) month(s)* }} C/W Losartan 50mg daily Gastroesop hageal reflux disease without esophagitis [id number] K21.9 Doing well on famotidine C/W famotidine 40mg daily Hyperlipidemia 38643521 E78.5 Labs todayC/W fenofibrat e 160mg daily Vitamin D deficiency 347 89727 E55.9 Labs todayC/W weekly supplement Cyst of thyroid 08850655 E04.1 C/W levothyrox ine 150mcgLabs todayDiscu ssed referral to endocrinol davey if labs are very elevated Crohn's disease 30311174 K50.90 Patient to follow up with GI who prescribes her medication .Last OV in [place] medication Continue dietCall office for any issues Pancreatic insufficiency 07026270 K86.89 Patient to follow up with GI who prescribes her medication .Last OV in [place] medication Continue dietCall office for any issues Obesity 164279232 E66.9 BMI 30.4 Advised decreased portion sizes, good food choices, limited eating out or fast food and eliminate soda and juice from diet. Advised physical activity daily and offered encouragem ent to continue with positive changes made so far. Palpitations 73585927 R0 0.2 c/w metoprolol Wheezing 56141041 R06.2 Start albuterol 2 puffs every 4 hours as needed Productive cough 8093940 5 R05.9 Start guaifenesi n 600 mg every 12 hours for 10 days Health Concerns Section Related Observation LastModified by Organization Detai ls LastModified Time None Recorded Concern Status LastModified by Organization Details LastModified Time None Recorded Advance Directives Directive N: Payers Encounter Date Sequence Insurance Name Policy Number Policy Barreto Covered Member ID Barreto Member ID Guarantor Name 07/23/2024 1 [facility] ON OR AFTER 03/19/21 (MEDICAID REPLACEMENT - HMO) Mely Altom [id number] Mely Alto 08/20/2024 1 [facility] ON OR AFTER 03/19/21 (MEDICAID REPLACEMENT - HMO) Mely Altom [id number] Mely Altom 08/29/2024 1 [facility] ON OR AFTER 03/19/21 (MEDICAID REPLACEMENT - HMO) Mely Altom [id number] Mely Altom 09/03/2024 1 [facility] ON OR AFTER 03/19/21 (MEDICAID REPLACEMENT - HMO) Mely Altom [id number] Mely Altom 12/10/2024 1 [facility] ON OR AFTER 03/19/21 (MEDICAID REPLACEMENT - HMO) Mely Alto [id number] Mely Shell Notes Date Note Type Note Provider Name and Address Organization Details Recorded Time 07/23/2024 text/html 43 y.o. Cauc[place] n female who presents for right shoulder pain. Pt fell onto her outstretched hand last week and is complaining of right shoulder pain since the injury. She states that she has decreased pain with flexion, and weakness to the right arm. Denies temperature, or sensation changes. She has been taking Tylenol as needed 2-3 times a day for the pain. She states that she has been having frontal headaches since the injury, but denies head trauma or LOC. She has left ear pain that has been present for the past 2 weeks with associated nasal congestion. Denies hearing loss, tinnitus, or discharge from the ear at this time. Pt is requesting refills of her medications and new lab work at this time. LENKA GARCÍA PA-C Attn: [address] [place], [address], [facility] 07/23/2024 15:49:50 08/20/2024 text/html 43 y/o F here for ER f/u.Pt went to [facility] ER and was dx with UTI then went to [place] and was dx with possible sepsis.Went to Urgent care before then and was told she had a double ear infection and sinus infection.Pt is currently taking cefdinir, on day 3 or 4 of taking it. Pt states she was having altered mental status when she went to the ER at [facility] and was discharged that way but then her boyfriend took her to [place] where they did more testing and told he she possibly had sepsis. She has been feeling slightly better but is still having some ear fullness and sinus issues.Denies SOB, CP, SCHRADER, N/V/D at this time. LENKA GARCÍA PA-C Attn: [address] [facility], [place], [address], [facility] 08/20/2024 14:55:20 08/29/2024 text/html A 43 y/o Caucasi an F presents today for an ER follow up and a cough. Pt says she went to the ER 2 weeks ago when they told her she had a UTI and on the way home she started to experience forgetfulness and delirium. She went back into the ER and they thought she might have sepsis, and that they just reached out to her today stating a lumbar puncture came back positive for viral meningitis. Pt says she is a bit congested and has a sore throat for the past few days. She says the cough is productive and coughs up green mucus. She is worried because she doesn't have a spleen and tried to be proactive if she needs antibiotics. Pt says other than the cough, she is feeling much better, is just worried after getting sick recently. Pt denies CP, SOB, SCHRADER, NVD. LENKA GARCÍA PA-C Attn: [address] [facility], [place], [address], [facility] 08/29/2024 17:46:11 09/03/2024 text/html 43 y/o F here c/o cough. Denies SOB, CP, SCHRADER, N/V/D LENKA GARCÍA PA-C Attn: [address] [facility], [place], [address], [facility] 09/03/2024 12:53:45 12/10/2024 text/html 43-year-old female here for follow-up hypertension and medication refill. Patient is also complaining of cough. Pt denies fever, chills, N/V/D. LENKA GARCÍA PA-C Attn: [address] [facility], [place], [address], [facility] 12/10/2024 13:07:50 OBGyn Episode No OBEpisode recorded.
[2024-12-30 20:44] VITALS: BP 128/82; PULSE 86; RESP 16; TEMP 36.5; O2SAT 99
--- NOTE | 2024-12-30 22:13 | ED.ANIMALBIT ---
HPI - Animal Bite General Chief Complaint: Animal Bite Stated Complaint: Dog bite Time Seen by Provider: 12/30/24 22:08 Source: patient Mode of arrival: ambulatory Limitations: no limitations History of Present Illness HPI narrative: This is a 44-year-old female that presents to the emergency department after a dog bite. Reports she was in front of her house. Two dogs ran up to her and 1 of them bit her. She is unsure who is dog this is or if it is up-to-date on its vaccinations. Patient is not up-to-date on her tetanus vaccination. She did clean the wound with soap and water. Related Data Home Medications ?Medication ?Instructions ?Recorded ?Confirmed ?Last Taken ?Type estradiol 2 mg tablet 1 mg PO DAILY 03/10/21 08/29/24 04/23/22 History famotidine 40 mg tablet 40 mg PO DAILY 03/10/21 08/29/24 04/23/22 History fenofibrate 160 mg tablet 160 mg PO DAILY 03/10/21 08/29/24 04/23/22 History hydroxychloroquine 200 mg tablet 200 mg PO DAILY 03/10/21 08/29/24 04/23/22 History losartan 50 mg tablet 50 mg PO DAILY 03/10/21 08/29/24 04/23/22 History venlafaxine 150 mg 150 mg PO DAILY 03/10/21 08/29/24 04/23/22 History capsule,extended release 24 hr budesonide 3 mg 3 mg PO DAILY 04/23/22 08/29/24 04/23/22 History capsule,delayed,extended release folic acid 1 mg tablet 1 mg PO DAILY 04/23/22 08/29/24 04/23/22 History multivitamin with folic acid 400 400 tablet PO DAILY 04/23/22 08/29/24 04/23/22 History mcg tablet (Daily-Solomon (with folic acid)) ondansetron 8 mg disintegrating 8 mg PO DAILY 04/23/22 08/29/24 04/23/22 History tablet quetiapine 300 mg tablet 300 mg PO HS 04/23/22 08/29/24 04/23/22 History zolpidem 10 mg tablet 10 mg PO HS PRN Insomnia 04/23/22 08/29/24 04/23/22 History buspirone 15 mg tablet 15 mg BID 08/13/24 08/29/24 Unknown History cyanocobalamin (vitamin B-12) 1,000 mcg IM WEEKLY 08/13/24 08/29/24 Unknown History 1,000 mcg/mL injection solution ferrous sulfate 325 mg (65 mg 325 mg PO DAILY 08/13/24 08/29/24 Unknown History iron) tablet tyulbx-fyekygov-nghomxu 2 cap PO TID 08/13/24 08/29/24 Unknown History 36,000-114,000-180,000 unit capsule,delay rel (Creon) metoprolol succinate 50 mg 50 mg PO DAILY 08/13/24 08/29/24 Unknown History tablet,extended release 24 hr pantoprazole 40 mg tablet,delayed 40 mg PO DAILY 08/13/24 08/29/24 Unknown History release topiramate 25 mg capsule,extended 25 mg PO DAILY 08/13/24 08/29/24 Unknown History release 24 hr vedolizumab 300 mg intravenous 300 mg IV ONCE 08/29/24 08/29/24 Unknown History solution (Entyvio) venlafaxine 75 mg capsule,extended 75 mg PO DAILY 08/29/24 08/29/24 Unknown History release 24 hr Allergies Allergy/AdvReac Type Severity Reaction Status Date / Time cefdinir Allergy Unknown Diarrhea Verified 12/30/24 20:27 Penicillins Allergy Unknown Verified 12/30/24 20:27 Review of Systems Review of Systems: All systems reviewed & are unremarkable except as noted in HPI and below PMFSH Past Medical History Medical History (Updated 12/30/24 @ 23:38 by Violet Shane PA-C) Viral meningitis Hemolytic anemia Status post splenectomy. Depression with anxiety Crohn's disease Sjogren's syndrome Rheumatoid arthritis Hypothyroidism Dyslipidemia Hypertension Surgical History Surgical History History of cholecystectomy History of ventral hernia repair History of splenectomy (2006) History of partial thyroidectomy History of hysterectomy Family History Family History Other Hypertension Social History Social History Social History: Surrogate medical decision maker: Enrique Del Toro, significant other. Code status: Full code. Smoking packs per day: 0.5 Smoking cigarettes per day: 10.0 Years smoked: 25 Smoking pack-years: 12.50 Smoking status: Current every day smoker Alcohol intake: never Alcohol use details: occasional Substance use: never Do You Feel Safe in your Home?: Yes Lack of Transportation: No Lack of Food: Never True Current Housing: I Have Housing Concerned About Future Housing: No Difficulty Paying Gas/Electric Bills: No Difficulty Paying for Meds: No Currently Unemployed: No Education: High School Diploma/GED Difficulty w/ Childcare or Family Care: No Living arrangements: with family Additional occupation/education comments: On disability. Spiritual care concerns: No Exam Narrative: GENERAL: Well-appearing, well-nourished, and in no acute distress. HEAD: Normocephalic, atraumatic. EYES: EOMI. EXTREMITIES: Normal range of motion. No edema. Superficial bite wound to the right calf with surrounding ecchymosis. Normal DP pulse. Compartments are soft SKIN: Warm, dry, no rash. NEURO: No focal deficits. Alert and oriented x3. PSYCH: Normal mood and affect Course Consultations Consultation #1: Spoke with Dhara. Recommends starting rabies vaccination/give immune globulin and she will follow up Date: 12/30/24 Vital Signs Vital signs: Vital Signs Temperature 97.7 F 12/30/24 20:44 Pulse Rate 86 12/30/24 20:44 Respiratory Rate 16 12/30/24 20:44 Blood Pressure 128/82 12/30/24 20:44 Pulse Oximetry 99 12/30/24 20:44 Temperature 97.7 F 12/30/24 20:44 Pulse Rate 86 12/30/24 20:44 Respiratory Rate 16 12/30/24 20:44 Blood Pressure 128/82 12/30/24 20:44 Pulse Oximetry 99 12/30/24 20:44 MDM - Animal Bite MDM Narrative Medical decision making narrative: Patient presents to the emergency department for above throat dog attack with bite the right calf. Unknown vaccination status of dog. She has a wound to the right calf. This was irrigated and covered with antibiotic ointment and a bandage. Spoke with Dhara. Recommends starting rabies vaccination/give immune globulin and she will follow up. Patient will be started on prophylactic antibiotics Differential Diagnosis Differential diagnosis: Likely dog bite and rabies contact Critical Care Time Critical Care Time Critical Care Time: No Discharge Plan Discharge Clinical Impression: Dog bite Qualifiers: Encounter type: initial encounter Qualified Code(s): W54.0XXA - Bitten by dog, initial encounter Patient Disposition: Home Condition: Stable Instructions: Antibiotic Form, Animal Bite (ED) Additional Instructions: Return to the emergency department if you experience fever, redness or swelling of your wound, abnormal drainage from your wound, or any other symptoms that are concerning to you. Apply antibiotic ointment daily. Do not soak the wound. Clean with mild soap and water daily. Take oral antibiotics as prescribed. You will be given a prescription for the further rabies vaccination series. This will be done on 01/02, 01/06, 01/13 Follow-up with infection control. They should be getting ahold of you tomorrow for follow-up Patient Language: Citizen Of [place] Prescriptions: New doxycycline hyclate 100 mg tablet 100 mg PO BID 5 Days Qty: 10 0RF metronidazole 500 mg tablet 500 mg PO Q8H 5 Days Qty: 15 0RF No Action venlafaxine 75 mg capsule,extended release 24hr 75 mg PO DAILY Entyvio 300 mg recon soln 300 mg IV ONCE Rx Instructions: administer over 30 mins losartan 50 mg tablet 50 mg PO DAILY famotidine 40 mg tablet 40 mg PO DAILY venlafaxine 150 mg capsule,extended release 24hr 150 mg PO DAILY estradiol 2 mg tablet 1 mg PO DAILY hydroxychloroquine 200 mg tablet 200 mg PO DAILY fenofibrate 160 mg tablet 160 mg PO DAILY budesonide 3 mg capsule,delayed,extend.release 3 mg PO DAILY quetiapine 300 mg tablet 300 mg PO HS ondansetron 8 mg tablet,disintegrating 8 mg PO DAILY folic acid 1 mg tablet 1 mg PO DAILY zolpidem 10 mg tablet 10 mg PO HS PRN (Reason: Insomnia) multivitamin with folic acid [Daily-Solomon (with folic acid)] 400 mcg tablet 400 tablet PO DAILY levothyroxine [Synthroid] 150 mcg Tablet 150 mcg PO DAILY@0630 30 Days Qty: 30 0RF metoprolol succinate 50 mg tablet extended release 24 hr 50 mg PO DAILY pantoprazole 40 mg tablet,delayed release (DR/EC) 40 mg PO DAILY cyanocobalamin (vitamin B-12) 1,000 mcg/mL solution 1,000 mcg IM WEEKLY ferrous sulfate 325 mg (65 mg iron) tablet 325 mg PO DAILY buspirone 15 mg tablet 15 mg BID Creon 36,000-114,000- 180,000 unit capsule,delayed release(DR/EC) 2 cap PO TID Rx Instructions: with meals topiramate 25 mg Capsule,Extended Release 24hr 25 mg PO DAILY Follow-up/Referrals: Leander,CAMPBELL Stevens [Non-Staff] -
--- NOTE | 2024-12-30 22:33 | PC.NURSE ---
patient given education paperwork on tetanus vaccine at this time.
--- OUTSIDE RECORDS SUMMARY | 2024-12-30 22:43 | XMS_ITS | Encounter Summary ---
Author Organization [facility] Address [address] [place] [address] Phone Care Team Providers Care Clinical Data Management Director Name Role Phone Niall Beard MD Unavailable Yanick Law DO Unavailable [phone] Yesica Castle APRN, PRODUCT MARKETING SPECIALIST Unavailable Homar Zee MD Unavailable Madeline Hillman PAC Primary Care Provider Monique Shook APRN, PRODUCT MARKETING SPECIALIST Unavailable Yue Saba MD Unavailable [phone] Reason for Visit * Reason Comments Medication Refill Encounter Details Date Type Department Care Team (Late st Contact Info) Description 01/01/2022 Refill [facility] - [facility]enterology - [place] [address] [place] [address] Kaley Mcqueen Viola, PAC [address] [place] [address] Medication Refill Social History Tobacco Use Types [...] Description 02/06/2025 10:30 AM CDT Clinical Support [facility] [address] [place] [id number] Discharge Disposition: Discharged to home or Selfcare documented as of this encounter Visit Diagnoses Not on filedocumented in this encounter Additional Health Concerns Infection Onset Date Last Indicated Resolved Time C. difficile Rule-Out 06/24/2023 06/24/20232022 12:18 AM CDT Assessment Noted Time PHQ-9 Depression Total Score: 0 06/16/20 17 11:53 AM CDT documented as of this encounter Care Teams Clinical Data Management Director Relationship Specialty Start Date End Date Madeline Hillman PAC [address] [place] [address] PCP - General Physician Banquet Pilot 10/08/19 [place] [address] [place] [address] Internal Medicine 09/30/15 [place] [address] [place] [address] Gastroenterology 03/12/16 08/29/23 Yesica Castle APRN, PRODUCT MARKETING SPECIALIST [address] [place] [address] Nurse Practitioner Advanced Practice Nurse 03/12/16 Homar Zee MD [address] [place] [address] Rheumatology 03/15/19 Monique Shook APRN, PRODUCT MARKETING SPECIALIST [address] [place] [address] Nurse Practitioner Advanced Practice Nurse 06/17/23 Yue Saba MD [address] [place] [address] Consulting Physician Gastroenterology 04/21/23 documented as of this encounter
--- OUTSIDE RECORDS SUMMARY | 2024-12-30 22:43 | XMS_ITS | Encounter Summary ---
Author Organization [facility] Address [address] [place] [address] Phone Care Team Providers Care Collection Correspondent Name Role Phone Niall Beard MD Unavailable [phone] Yanick Law DO Unavailable [phone] Yesica Castle APRN, AIR TABLE OPERATOR Unavailable Homar Zee MD Unavailable Madeline Hillman PAC Primary Care Provider [phone] Monique Shook APRN, AIR TABLE OPERATOR Unavailable Yue Saba MD Unavailable [phone] Reason for Visit * Reason Comments Medication Refill Encounter Details Date Type Department Care Team (Late st Contact Info) Description 05/21/2022 Refill [facility] - [facility]enterology - [place] [address] [place] [address] Kaley Mcqueen Viola, PAC [address] [place] [address] Medication Refill Social History Tobacco Use Types [...] 02/06/2025 10:30 AM CDT Clinical Support [facility] [address] [place] [address] Discharge Disposition: Discharged to home [...] documented as of this encounter Care Teams Collection Correspondent Relationship Specialty Start Date End Date Madeline Hillman, [facility] [address] [place] [address] PCP - General Physician Exhibit Specialist 10/08/19 [place] [address] [place] [address] Internal Medicine 09/30/15 [place] [address] [place] [address] Gastroenterology 03/12/16 08/29/23 Yesica Castle APRN, AIR TABLE OPERATOR [address] [place] [address] Nurse Practitioner Advanced Practice Nurse 03/12/16 Homar Zee MD [address] [place] [address] Rheumatology 03/15/19 Monique Shook APRN, AIR TABLE OPERATOR [address] [place] [address] Nurse Practitioner Advanced Practice Nurse 06/17/23 Yue Saba MD [address] [place] [address] Consulting Physician Gastroenterology 04/21/23 documented as of this encounter
--- OUTSIDE RECORDS SUMMARY | 2024-12-30 22:43 | XMS_ITS | Encounter Summary ---
Author Organization [facility] Address [address] [place] [address] Phone Care Team Providers Care Creel Operator Name Role Phone Niall Beard MD Unavailable Yanick Law DO Unavailable [phone] Yesica Castle APRN, CLINICAL NUTRITIONIST Unavailable [phone] Homar Zee MD Unavailable [phone] Madeline Hillman PAC Primary Care Provider Monique Shook APRN, CLINICAL NUTRITIONIST Unavailable Yue Saba MD Unavailable [phone] Reason for Visit * Reason Comments Medication Refill Encounter Details Date Type Department Care Team (Late st Contact Info) Description 03/03/2022 Refill [facility] - Gastroenterology [facility] [address] [place] [address] Yue Saba MD [address] [place] [address] Medication Refill Social History Tobacco Use Types [...] Description 02/06/2025 10:30 AM CDT Clinical Support [facility] Oncology Services [address] [place] [address] Discharge Disposition: Discharged to home or Selfcare [...] documented as of this encounter Care Teams Creel Operator Relationship Specialty Start Date End Date Madeline Hillman PAC [address] [place] [address] PCP - General Physician Senior Revenue Accountant 10/08/19 [place] [address] [place] [address] Internal Medicine 09/30/15 [place] [address] [place] [address] Gastroenterology 03/12/16 08/29/23 Yesica Castle APRN, CLINICAL NUTRITIONIST [address] [place] [address] Nurse Practitioner Advanced Practice Nurse 03/12/16 Homar Zee MD [address] [place] [address] Rheumatology 03/15/19 Monique Shook APRN, CLINICAL NUTRITIONIST [address] [place] [address] Nurse Practitioner Advanced Practice Nurse 06/17/23 Yue Saba MD [address] [place] [address] Consulting Physician Gastroenterology 04/21/23 documented as of this encounter
--- OUTSIDE RECORDS SUMMARY | 2024-12-30 22:43 | XMS_ITS ---
Author Organization [facility] Address [address] [place] [address] Phone Care Team Providers Care Jacquard Loom Weaver Name Role Phone Niall Beard MD Unavailable [phone] Homar Zee MD Unavailable [phone] Madeline Hillman Primary Care Provider [phone] Monique Shook APRN, AIRPORT CLERK Unavailable Yue Saba MD Unavailable [phone] [facility] Status:Enrolled (Active) Start date:10/17/2024 Enrollment date:10/17/2024 Related social drivers of health:Social Connections, Alcohol Use, Tobacco Use, Financial Resource Strain, Depression, Stress, Physical Activity, Food Insecurity, Transportation Needs, Housing Stability, Utilities Continued Care and Services Coordination
--- OUTSIDE RECORDS SUMMARY | 2024-12-30 22:43 | XMS_ITS | Encounter Summary ---
Author Organization [facility] Address [address] [place] [address] Phone Care Team Providers Care Baggagemaster Name Role Phone Niall Beard MD Unavailable Yanick Law DO Unavailable [phone] Yesica Castle APRN, ISO COORDINATOR Unavailable [phone] Homar Zee MD Unavailable [phone] Madeline Hillman PAC Primary Care Provider [phone] Monique Shook APRN, ISO COORDINATOR Unavailable Yue Saba MD Unavailable [phone] Reason for Visit * Reason Comments Medication Refill Encounter Details Date Type Department Care Team (Late st Contact Info) Description 08/10/2022 Refill [facility] - Gastroenterology [facility] [address] [place] [address] Yue Saba MD [address] [place] [address] Medication Refill Social History Tobacco Use Types [...] Radha Lou RN - 08/11/2022 8:47 AM TANDEM MILL OPERATOR Pharmacy requesting refill of: Requested Prescriptions [...] zofran order pended, please review and approve. EM MILL OPERATOR documented in this encounter Plan of Treatment Upcoming Encounters Date Type Department Care Team (Latest Contact Info) Description 02/06/2025 10:30 AM CDT Clinical Support [facility] Oncology Services [address] [place] [address] Discharge Disposition: Discharged to home or [...] documented as of this encounter Care Teams Baggagemaster Relationship Specialty Start Date End Date Madeline Hillman, [facility] [address] [place] [address] PCP - General Physician Pond Tender 10/08/19 [place] [address] [place] [address] Internal Medicine 09/30/15 [place] [address] [place] [address] Gastroenterology 03/12/16 08/29/23 Yesica Castle APRN, ISO COORDINATOR [address] [place] [address] Nurse Practitioner Advanced Practice Nurse 03/12/16 Homar Zee MD [address] [place] [address] Rheumatology 03/15/19 Monique Shook APRN, ISO COORDINATOR [address] [place] [address] Nurse Practitioner Advanced Practice Nurse 06/17/23 Yue Saba MD [address] [place] [address] Consulting Physician Gastroenterology 04/21/23 documented as of this encounter
--- OUTSIDE RECORDS SUMMARY | 2024-12-30 22:43 | XMS_ITS | Clinical Summary ---
Author Organization [facility] Address [address] [place] [address] Care Team Providers Care Coin Box Collector Name Role Phone None, Provider MD Primary [...] COVID-19 Vaccine ( season) 2024 PHQ-2 (Physician Odem) 09/19/2024 DTaP, Tdap and Td Vaccines (8 [...] Priority Date/Time Associated Diagnosis Comments COLONOSCOPY Routine MAINTENANCE SUPERINTENDENT from Last 3 Months or Most Recently Relevant to Health Maintenance Results * Colonoscopy ( MAINTENANCE SUPERINTENDENT) Narrative [facility] TO EPIC CONVERSION - MAINTENANCE SUPERINTENDENT Documented hx of procedure Procedure Note Md Generic MD Alon - 07/23/2018 Documented hx of procedure us Generic Conversion Md [facility] GI PROCEDURE ORDERABLES Final Result [facility] TO EPIC CONVERSION from Last 3 Months or Most Recently Relevant to Health Maintenance Insurance Care Teams Coin Box Collector Relationship Specialty Start Date End Date None, Provider, PCP - General UNKNOWN PHYSICIAN SPECIALTY 08/10/23
--- OUTSIDE RECORDS SUMMARY | 2024-12-30 22:43 | XMS_ITS | Encounter Summary ---
Author Organization [facility] Address [address] [place] [address] Phone Care Team Providers Care Courtesy Driver Name Role Phone Niall Beard MD Unavailable [phone] Yanick Law DO Unavailable [phone] Yesica Castle APRN, CASTING CLEANER Unavailable Homar Zee MD Unavailable Madeline Hillman PAC Primary Care Provider Monique Shook APRN, CASTING CLEANER Unavailable Yue Saba MD Unavailable [phone] Reason for Visit * Reason Comments Medication Refill Encounter Details Date Type Department Care Team (Late st Contact Info) Description 02/01/2023 Refill [facility] - Gastroenterology [facility] [address] [place] [address] Yue Saba MD [address] [place] [address] Medication Refill Social History Tobacco Use Types [...] Dept 07/15/22 Office Visit Yue Saba MD [facility] [place] 06/17/22 Office Visit Yue Saba MD [facility] [place] 02/18/22 Office Visit Yue Saba MD [facility] [place] Showing recent visits within past 365 days and meeting all other requirements Future Appointments No visits were found meeting these conditions. Showing future appointments within next 90 days and meeting all other requirements documented in this encounter Plan of Treatment Upcoming Encounters Date Type Department Care Team (Latest Contact Info) Description 02/06/2025 10:30 AM CDT Clinical Support [facility] Oncology Services [address] [place] [address] Discharge Disposition: Discharged to home or Selfcare documented as of this encounter Visit Diagnoses Not on filedocumented in this encounter Additional Health Concerns Infection Onset Date Last Indicated Resolved Time C. difficile Rule-Out 06/24/2023 06/24/20232022 12:18 AM CDT Assessment Noted Time PHQ-9 Depression Total Score: 0 06/16/20 17 11:53 AM CDT documented as of this encounter Care Teams Courtesy Driver Relationship Specialty Start Date End Date Madeline Hillman PAC [address] [place] [address] PCP - General Physician Digital Media Producer 10/08/19 [place] [address] [place] [address] Internal Medicine 09/30/15 [place] [address] [place] [address] Gastroenterology 03/12/16 08/29/23 Yesica Castle APRN, CASTING CLEANER [address] [place] [address] Nurse Practitioner Advanced Practice Nurse 03/12/16 Homar Zee MD [address] [place] [address] Rheumatology 03/15/19 Monique Shook APRN, CASTING CLEANER [address] [place] [address] Nurse Practitioner Advanced Practice Nurse 06/17/23 Yue Saba MD [address] [place] [address] Consulting Physician Gastroenterology 04/21/23 documented as of this encounter
--- OUTSIDE RECORDS SUMMARY | 2024-12-30 22:43 | XMS_ITS | Encounter Summary ---
Author Organization [facility] Address [address] [place] [address] Phone Care Team Providers Care Branch Office Administrator Name Role Phone Niall Beard MD Unavailable [phone] Yanick Law DO Unavailable [phone] Yesica Castle APRN, MATERIAL MOVERS Unavailable Homar Zee MD Unavailable [phone] Madeline Hillman PAC Primary Care Provider [phone] Monique Shook APRN, MATERIAL MOVERS Unavailable Yue Saba MD Unavailable [phone] Reason for Visit * Reason Comments Medication Refill Encounter Details Date Type Department Care Team (Late st Contact Info) Description 11/13/2022 Refill [facility] - Gastroenterology [facility] [address] [place] [address] Yue Saba MD [address] [place] [address] Medication Refill Social History Tobacco Use Types [...] Coronavirus/COVID-19? No / Unsure 10/29/2022 12:49 PM LEAD ATHLETE documented as of this encounter Miscellaneous Notes [...] 07/15/22 Next Office Visit with GI: n/a ATHLETE documented in this encounter Plan of Treatment Upcoming Encounters Date Type Department Care Team (Latest Contact Info) Description 02/06/2025 10:30 AM CDT Clinical Support [facility] Oncology Services [address] [place] [address] Discharge Disposition: Discharged to home or Selfcare [...] documented as of this encounter Care Teams Branch Office Administrator Relationship Specialty Start Date End Date Madeline Hillman, PAC [address] [place] [address] PCP - General Physician Employee Operations Examiner 10/08/19 [place] [address] [place] [address] Internal Medicine 09/30/15 [place] [address] [place] [address] Gastroenterology 03/12/16 08/29/23 Yesica Castle APRN, MATERIAL MOVERS [address] [place] [address] Nurse Practitioner Advanced Practice Nurse 03/12/16 Homar Zee MD [address] [place] [address] Rheumatology 03/15/19 Monique Shook APRN, MATERIAL MOVERS [address] [place] [address] Nurse Practitioner Advanced Practice Nurse 06/17/23 Yue Saba MD [address] [place] [address] Consulting Physician Gastroenterology 04/21/23 documented as of this encounter
--- OUTSIDE RECORDS SUMMARY | 2024-12-30 22:43 | XMS_ITS | Encounter Summary ---
Author Organization [facility] Address [address] [place] [address] Phone Care Team Providers Care Machine Iii Coremaker Name Role Phone Niall Beard MD Unavailable Yanick Law DO Unavailable [phone] Yesica Castle APRN, WORKFORCE MANAGEMENT ANALYST Unavailable Homar Zee MD Unavailable [phone] Madeline Hillman PAC Primary Care Provider Monique Shook APRN, WORKFORCE MANAGEMENT ANALYST Unavailable Yue Saba MD Unavailable [phone] Reason for Visit * Reason Comments Medication Refill Encounter Details Date Type Department Care Team (Late st Contact Info) Description 12/17/2021 Refill [facility] - Gastroenterology - [place] [address] [place] [address] Kaley Mcqueen Viola, PAC [address] [place] [address] Medication Refill Social History Tobacco Use Types [...] Description 02/06/2025 10:30 AM CDT Clinical Support [facility] Oncology Services [address] [place] [address] Discharge Disposition: Discharged to home or Selfcare documented as of this encounter Visit Diagnoses Not on filedocumented in this encounter Additional Health Concerns Infection Onset Date Last Indicated Resolved Time C. difficile Rule-Out 06/24/2023 06/24/20232022 12:18 AM CDT Assessment Noted Time PHQ-9 Depression Total Score: 0 06/16/20 17 11:53 AM CDT documented as of this encounter Care Teams Machine Iii Coremaker Relationship Specialty Start Date End Date Madeline Hillman PAC [address] [place] [address] PCP - General Physician Ssis Ssrs Developer 10/08/19 [place] [address] [place] [address] Internal Medicine 09/30/15 [place] [address] [place] [address] Gastroenterology 03/12/16 08/29/23 Yesica Castle APRN, WORKFORCE MANAGEMENT ANALYST [address] [place] [address] Nurse Practitioner Advanced Practice Nurse 03/12/16 Homar Zee MD [address] [place] [address] Rheumatology 03/15/19 Monique Shook APRN, WORKFORCE MANAGEMENT ANALYST [address] [place] [address] Nurse Practitioner Advanced Practice Nurse 06/17/23 Yue Saba MD [address] [place] [address] Consulting Physician Gastroenterology 04/21/23 documented as of this encounter
--- OUTSIDE RECORDS SUMMARY | 2024-12-30 22:43 | XMS_ITS | Encounter Summary ---
Author Organization [facility] Address [address] [place] [address] Phone Care Team Providers Care Traffic Court Magistrate Name Role Phone Niall Beard MD Unavailable [phone] Yanick Law DO Unavailable [phone] Yesica Castle APRN, 21 DEALER Unavailable [phone] Homar Zee MD Unavailable Madeline Hillman PAC Primary Care Provider [phone] Monique Shook APRN, 21 DEALER Unavailable Yue Saba MD Unavailable [phone] Reason for Visit * Reason Comments Medication Refill Encounter Details Date Type Department Care Team (Late st Contact Info) Description 04/11/2023 Refill [facility] - Gastroenterology [facility] [address] [place] [address] Yue Saba MD [address] [place] [address] Medication Refill Social History Tobacco Use Types [...] Dept 07/15/22 Office Visit Yue Saba MD [facility] 06/17/22 Office Visit Yue Saba MD [facility] Showing recent visits within past 365 days and meeting all other requirements Future Appointments No visits were found meeting these conditions. Showing future appointments within next 90 days and meeting all other requirements documented in this encounter Plan of Treatment Upcoming Encounters Date Type Department Care Team (Latest Contact Info) Description 02/06/2025 10:30 AM CDT Clinical Support [facility] Oncology Services [address] [place] [address] Discharge Disposition: Discharged to home [...] documented as of this encounter Care Teams Traffic Court Magistrate Relationship Specialty Start Date End Date Madeline Hillman [facility] [address] [place] [address] PCP - General Physician Environmental Resource Specialist 10/08/19 [place] [address] [place] [address] Internal Medicine 09/30/15 [place] [address] [place] [address] Gastroenterology 03/12/16 08/29/23 Yesica Castle APRN, 21 DEALER [address] [place] [address] Nurse Practitioner Advanced Practice Nurse 03/12/16 Homar Zee MD [address] [place] [address] Rheumatology 03/15/19 Monique Shook APRN, 21 DEALER [address] [place] [address] Nurse Practitioner Advanced Practice Nurse 06/17/23 Yue Saba MD [address] [place] [address] Consulting Physician Gastroenterology 04/21/23 documented as of this encounter
--- OUTSIDE RECORDS SUMMARY | 2024-12-30 22:43 | XMS_ITS | Encounter Summary ---
Author Organization [facility] Address [address] [place] [address] Care Team Providers Care Collections Officer Name Role Phone No, Physician Primary Care Provider [phone] Encounter Details Date Type Department Care Team (Late st Contact Info) Description 12/24/2012 Orders Only [facility] Information Management [address] [place] [address] Scanning, Provider Social History Tobacco Use Types Packs/Day Years Used Date Smoking Tobacco: Never Assessed Comments Unknown Sex and Gender Information Value Date Recorded Sex Assigned at Not on file Legal Sex Female 3:04 AM ELECTRICAL ACCESSORIES ASSEMBLER Gender Identity Female 09/14/2022 10:54 AM ELECTRICAL ACCESSORIES ASSEMBLER Sexual Orientation Straight 09/14/2022 10 :54 AM ELECTRICAL ACCESSORIES ASSEMBLER documented as of this encounter Plan of Treatment Not on file documented as of this encounter Procedures Procedure Name Priority Date/Time Associated Diagnosis Comments SCAN - RADIOLOGY/IMAGING 12/24/2012 documented in this encounter Results * SCAN - RADIOLOGY/IMAGING (12/24/2012) Anatomical Region Laterality Modality Other us Provider Scanning Final Result documented in this encounter Visit Diagnoses Not on filedocumented in this encounter Care Teams Collections Officer Relationship Specialty Start Date End Date No, Physician PCP - General 09/29/22 documented as of this encounter
--- OUTSIDE RECORDS SUMMARY | 2024-12-30 22:43 | XMS_ITS | Encounter Summary ---
Author Organization [facility] Address [address] [place] [address] Care Team Providers Care Laundry Machine Mechanic Name Role Phone No, Physician Primary Care Provider [phone] Encounter Details Date Type Department Care Team (Late st Contact Info) Description 01/09/2014 Orders Only [facility] Health Information Management [address] [place] [address] Scanning, Provider Social History Tobacco Use Types Packs/Day Years Used Date Smoking Tobacco: Every Day Comments Unknown Sex and Gender Information Value Date Recorded Sex Assigned at Not on file Legal Sex Female 3:04 AM PERSONNEL DIRECTOR Gender Identity Female 09/14/2022 10:54 AM PERSONNEL DIRECTOR Sexual Orientation Straight 09/14/2022 10 :54 AM PERSONNEL DIRECTOR documented as of this encounter Plan of Treatment Not on file documented as of this encounter Procedures Procedure Name Priority Date/Time Associated Diagnosis Comments SCAN - LABS 01/09/2014 documented in this encounter Results * SCAN - LABS (01/09/2014) us Provider Scanning Final Result documented in this encounter Visit Diagnoses Not on filedocumented in this encounter Care Teams Laundry Machine Mechanic Relationship Specialty Start Date End Date No, Physician PCP - General 09/29/22 documented as of this encounter
--- OUTSIDE RECORDS SUMMARY | 2024-12-30 22:44 | XMS_ITS | Encounter Summary ---
Author Organization [facility] Address [address] [place] [address] Phone Care Team Providers Care Mapping Analyst Name Role Phone Niall Beard MD Unavailable [phone] Yanick Law DO Unavailable [phone] Yesica Castle APRN, INSOLE COVERER Unavailable Homar Zee MD Unavailable Madeline Hillman [facility] Primary Care Provider Monique Shook APRN, INSOLE COVERER Unavailable Yue Saba MD Unavailable [phone] Reason for Visit * Reason Comments Medication Refill Encounter Details Date Type Department Care Team (Late st Contact Info) Description 01/21/2021 Refill [facility] - Gastroenterology - [place] [address] [place] [address] Yanick Law, DO [address] [address] Medication Refill Social History Tobacco [...] Description 02/06/2025 10:30 AM CDT Clinical Support [facility] Oncology Services [address] [place] [address] Discharge Disposition: Discharged to home [...] documented as of this encounter Care Teams Mapping Analyst Relationship Specialty Start Date End Date Madeline Hillman PAC [address] [place] [address] PCP - General Physician Sole Inker 10/08/19 [place] [address] [place] [address] Internal Medicine 09/30/15 [place] [address] [place] [address] Gastroenterology 03/12/16 08/29/23 Yesica Castle APRN, INSOLE COVERER [address] [place] [address] Nurse Practitioner Advanced Practice Nurse 03/12/16 Homar Zee MD [address] [place] [address] Rheumatology 03/15/19 Monique Shook APRN, INSOLE COVERER [address] [place] [address] Nurse Practitioner Advanced Practice Nurse 06/17/23 Yue Saba MD [address] [place] [address] Consulting Physician Gastroenterology 04/21/23 documented as of this encounter
--- OUTSIDE RECORDS SUMMARY | 2024-12-30 22:44 | XMS_ITS | Encounter Summary ---
Author Organization [facility] Address [address] [place] [address] Phone Care Team Providers Care Screed Person Name Role Phone Niall Beard MD Unavailable Homar Zee MD Unavailable Madeline Hillman Primary Care Provider [phone] Monique Shook APRN, JOE Unavailable Yue Saba MD Unavailable [phone] Reason for Visit * Reason Comments Medication Refill Encounter Details Date Type Department Care Team (Late st Contact Info) Description 01/24/2024 Refill [facility] [address] [place] [address] Yanick Newman MD [address] [place] [address] Medication Refill Social History Tobacco [...] 10:30 AM CDT Clinical Support [facility] Oncology Services [address] [place] [address] Discharge Disposition: Discharged to home or Selfcare documented as of this encounter Visit Diagnoses Diagnosis Thrombocytosis Essential thrombocythemia documented in this encounter Additional Health Concerns Assessment Noted Time PHQ-9 Depression Total Score: 0 06/16/20 17 11:53 AM CDT documented as of this encounter Care Teams Screed Person Relationship Specialty Start Date End Date Madeline Hillman PAC [address] [place] [address] PCP - General Physician Director Title 10/08/19 [place] [address] [place] [address] Internal Medicine 09/30/15 Homar Zee MD [address] [place] [address] Rheumatology 03/15/19 Monique Shook APRN, DELIVERY MAN [address] [place] [address] Nurse Practitioner Advanced Practice Nurse 06/17/23 Yue Saba MD [address] [place] [address] Consulting Physician Gastroenterology 04/21/23 documented as of this encounter
--- OUTSIDE RECORDS SUMMARY | 2024-12-30 22:44 | XMS_ITS | Encounter Summary ---
Author Organization [facility] Address [address] [place] [address] Phone Care Team Providers Care Slip Caster Name Role Phone Niall Beard MD Unavailable [phone] Yanick Law DO Unavailable [phone] Yesica Castle APRN, NON DESTRUCTIVE TESTING SCIENTIST Unavailable [phone] Homar Zee MD Unavailable Madeline Hillman PAC Primary Care Provider [phone] Monique Shook APRN, NON DESTRUCTIVE TESTING SCIENTIST Unavailable Yue Saba MD Unavailable [phone] Reason for Visit * Reason Comments Medication Refill Encounter Details Date Type Department Care Team (Late st Contact Info) Description 07/08/2023 Refill [facility] - Gastroenterology [facility] [address] [place] [id number] Yue Saba MD [address] [place] [address] Medication Refill Social History Tobacco Use Types [...] Office Visit Yue Saba MD [facility] Showing recent visits within past 365 days and meeting all other requirements Future Appointments No visits were found meeting these conditions. Showing future appointments within next 90 days and meeting all other requirements documented in this encounter Plan of Treatment Upcoming Encounters Date Type Department Care Team (Latest Contact Info) Description 02/06/2025 10:30 AM CDT Clinical Support [facility] [address] [place] [address] Discharge Disposition: Discharged to home or Selfcare documented as of this encounter Visit Diagnoses Diagnosis Diarrhea, unspecified type documented in this encounter Additional Health Concerns Assessment Noted Time PHQ-9 Depression Total Score: 0 06/16/20 17 11:53 AM CDT documented as of this encounter Care Teams Slip Caster Relationship Specialty Start Date End Date Madeline Hillman PAC [address] [place] [address] PCP - General Physician Lion Trainer 10/08/19 [place] [address] [place] [address] Internal Medicine 09/30/15 [place] [address] [place] [address] Gastroenterology 03/12/16 08/29/23 Yesica Castle, [employer], NON DESTRUCTIVE TESTING SCIENTIST [address] [place] [address] Nurse Practitioner Advanced Practice Nurse 03/12/16 Homar Zee MD [address] [place] [address] Rheumatology 03/15/19 Monique Shook APRN, NON DESTRUCTIVE TESTING SCIENTIST [address] [place] [address] Nurse Practitioner Advanced Practice Nurse 06/17/23 Yue Saba MD [address] [place] [address] Consulting Physician Gastroenterology 04/21/23 documented as of this encounter
--- OUTSIDE RECORDS SUMMARY | 2024-12-30 22:44 | XMS_ITS | Continuity of Care Document ---
Author Organization [facility] Address [address] [facility] [place] [address] [place] [address] Phone Care Team Providers Care Cashier Supervisor Name Role Phone Micky Bailey MD Unavailable [...] route every day 2 MG - Active pilocarpine 5 mg tablet take 1 tablet by oral route 3 times every day 5 MG - Active Synthroid 150 mcg tablet take 1 tablet by oral route every day 150 MCG - Active Pepcid 40 mg tablet take 1 tablet by ora l route every day 40 MG - Active Ambien 10 mg tablet take 1 tablet by ora l route every day at bedtime 10 MG - Active losartan 50 mg tablet take 1 tablet by o ral route every day 50 MG - Active Plaquenil 200 mg tablet take 1 tablet by oral route 2 times every day 200 MG - Active Effexor XR 75 mg capsule,extended release take 1 capsule by oral route every day with food 75 MG - Active metoprolol succinate ER 50 mg tablet,extended release 24 hr take 1 tablet by oral route every day 50 MG - Active buspirone 15 mg tablet take 1 tablet by oral route 2 times every day 15 MG - Active fenofibrate 160 mg tablet take 1 tablet by oral route every day 160 MG - Active Seroquel 200 mg tablet take 1 tablet by oral route every bedtime 200 MG - Active Protonix 40 mg tablet,delayed release take 1 tablet by oral route every day 40 MG - Active Entyvio Pen 108 mg/0.68 mL subcutaneous pen injector inject (108MG) by subcutaneous route every 2 weeks 108 MG - Active Effexor XR 150 mg capsule,extended release take 1 capsule by oral route every day 150 MG - Active prednisone 20 mg tablet [...] Diagnoses Date Provider Providers Copied on Encounter [facility], [address], [place], [address], tel:[phone] [facility] No Information Dec-0 5 Leo Weeks. [address], [place], [place], [address] , [place]. tel:[phone] OFFICE/OUTPA TIENT VISIT, [facility], [address] [place], [address], [place] tel:[phone] [facility] cough1 (chief complaint) thyroid1 (chief complaint) HTN (chief complaint) GERD1 (chief complaint) Acute bronchitisHashimoto 's thyroiditisGERD w/o esophagitisEssentia l (primary) hypertensionCrohn's diseaseGeneralized Anxiety Disorder 5 Leo Sousa [address], [place], [place], [address] , [place]. [phone] OFFICE/OUTPA TIENT VISIT, [facility], [address] [place], [address], [place] tel:[phone] [facility] thyroid1 (chief complaint) weight loss1 (chief complaint) chronic pain1 (chief complaint) Remberto's thyroiditisAbnormal weight lossChronic pain syndrome 2-201 9 Leo Sousa [address], [place], [place], [address] , [place]. tel:[phone] Referring Provider: Micky Bailey, [address], [place], [place], [address]. tel:[phone] OFFICE/OUTPA TIENT VISIT, [facility], [address] [place], [address], [place] tel:[phone] [facility] thyroid (chief complaint) HLP (chief complaint) sjogren (chief complaint) Remberto's thyroiditisHyperlip idemiaChronic pain syndrome 9 Leo Weeks. [address], [place], [place], [address] , [place]. tel:[phone] Referring Provider: Sofia Eve[address], [place], [place], [address]. tel:[phone] PREV VISIT, EST, AGE 40-64 [facility], [address], [place], [place], [address], [place] tel:[phone] [facility] Physical (chief complaint) Encntr for general adult medical exam w/o abnormal findings 9 Leo Weeks. [address], [address], [place], [place], [address] , [place]. [phone] Referring Provider: Sofia [address], [place], [place], [address]. tel:[phone] OFFICE/OUTPA TIENT VISIT, [facility], [address], [place], [place], [address], [place] tel:[phone] [facility] breast1 (chief complaint) chronic pain (chief complaint) sick (chief complaint) Inconclusive mammogramChronic pain syndromeViral infection 9 Leo Weeks. [address], [place], [place], [address] , [place]. [phone] Referring Provider: [address], [place], [place], [address]. tel:[phone] OFFICE/OUTPA TIENT VISIT, [facility], [address], [place], [place], [address], [place] tel:[phone] [facility] mammogram1 (chief complaint) sjogren1 (chief complaint) b12 (chief complaint) Inconclusive mammogramSicca syndrome, unspecifiedLeukocyt osisThrombocytopeni aPostmenopausal status NOS 9 Leo Weeks. [address], [place], [place], [address] , [place]. [phone] Referring Provider: Sofia [address], [place], [place], [address]. tel:[phone] OFFICE/OUTPA TIENT VISIT, [facility], [address], [place], [place], [address], [place] tel:[phone] [facility] chronic pain1 (chief complaint) hypothyroi dism1 (chief complaint) headache1 (chief complaint) anxiety1 (chief complaint) Remberto's thyroiditisHeadache Sicca syndrome, unspecifiedGenerali zed Anxiety Disorder 9 Leo Weeks. [address], [place], [place], [address] , [place]. tel:[phone] Referring Provider: Sofia Eve[address] [facility] [address], [place], [place], [address]. tel:[phone] OFFICE/OUTPA TIENT VISIT, [facility], [address], [place], [place], [address], [place] tel:[phone] [facility] fatty liver1 (chief complaint) diveriticu litis1 (chief complaint) sjogren1 (chief complaint) HTN (chief complaint) Sicca syndrome, unspecifiedDivertic ulitis of large intestine without perforation without bleedingFatty liverEssential (primary) hypertensionEncount er for oth screening for malignant neoplasm of breast 9 Leo Weeks. [address], [place], [place], [address] , [place]. tel:[phone] Referring Provider: Sofia Eve[address], [place], [place], [address]. tel:[phone] OFFICE/OUTPA TIENT VISIT, [facility], [address] [place], [address], [place] tel:[phone] [facility] chronic pain1 (chief complaint) diverticul itis1 (chief complaint) Diverticulitis of large intestine without perforation without bleedingSicca syndrome, unspecified 9 Leo Weeks. [address], [address], [place], [place], [address] , [place]. tel:[phone] Referring Provider: Micky Bailey [address], [place], [place], [address]. tel:[phone] OFFICE/OUTPA TIENT VISIT, [facility], [address], [place], [place], [address], [place] tel:[phone] [facility] diverticul itis1 (chief complaint) tinnitus1 (chief complaint) HLP (chief complaint) Body mass index (BMI) 35.0-35.9, adultDiverticulitis of large intestine without perforation without bleedingTinnitus, bilateralHyperlipid emiaSicca syndrome, unspecifiedInsomnia 9 Leo Weeks. [address], [place], [place], [address] , [place]. tel:[phone] Referring Provider: Sofia Everett [facility] [address], [place], [place], [address]. tel:[phone] OFFICE/OUTPA TIENT VISIT, [facility], [address], [place], [place], [address], [place] tel:[phone] [facility] dizziness1 (chief complaint) Tobacco1 (chief complaint) HTN (chief complaint) fatigue1 (chief complaint) Epidemic vertigoInsomniaEsse ntial (primary) hypertensionFatigue Tinnitus, bilateral 9 Leo Sousa [address], [place], [place], [address] , [place]. tel:[phone] Referring Provider: Sofia Eve[address], [place], [place], [address]. tel:[phone] OFFICE/OUTPA TIENT VISIT, [facility], [address] [place], [address], [place] tel:[phone] [facility] head injury1 (chief complaint) tobacco1 (chief complaint) Sjogren1 (chief complaint) HLP (chief complaint) HeadacheTobacco useSicca syndrome, unspecifiedHyperlip idemia 8 Leo Sousa [address], [place], [place], [address] , [place]. tel:[phone] Referring Provider: Sofia Everett [facility] [address], [place], [place], [address]. tel:[phone] OFFICE/OUTPA TIENT VISIT, [facility], [address], [place], [place], [address], [place] tel:[phone] [facility] sick (chief complaint) postmeno1 (chief complaint) tobacco1 (chief complaint) Acute bronchitisPostmenop ausal statusTobacco useSicca syndrome, unspecified 8 Leo Sousa [address], [place], [place], [address] , [place]. [phone] Referring [facility]: [facility] [place], [place], [address]. tel:[phone] OFFICE/OUTPA TIENT VISIT, [facility], [address], [place], [place], [address], [place] tel:[phone] [facility] HLP (chief complaint) chronic pain1 (chief complaint) postmenopa usal (chief complaint) Sicca syndrome, unspecifiedHyperlip idemiaPostmenopausa l statusHormone replacement therapy 8 Leo Sousa [address], [place], [place], [address] , [place]. [phone] Referring Provider: Sofia Eve[address], [place], [place], [address]. tel:[phone] OFFICE/OUTPA TIENT VISIT, [facility], [address], [place], [place], [address], [place] tel:[phone] [facility] fever1 (chief complaint) HLP (chief complaint) leukocytos is1 (chief complaint) HyperlipidemiaLeuko cytosisFeverEssenti al (primary) hypertension 8 Leo Sousa [address], [place], [place], [address] , [place]. tel:[phone] Referring Provider: Sof[address], [place], [place], [address]. tel:[phone] PREV VISIT, EST, AGE 18-39 [facility], [address], [place], [place], [address], [place] [phone] [facility] Physical (chief complaint) Encounter for general adult medical exam w abnormal findingsLeukocytosi sSicca syndrome, unspecifiedAnemiaHa shimoto's thyroiditis 8 Leo Weeks. [address], [place], [place], [address] , [place]. [phone] Referring Provider: Sof[address] Eve[address], [place], [place], [address]. tel:[phone] OFFICE/OUTPA TIENT VISIT, [facility], [address], [place], [place], [address], [place] tel:[phone] [facility] sjogren1 (chief complaint) thyroid nodule1 (chief complaint) HTN1 (chief complaint) Sicca syndrome, unspecifiedHashimot o's thyroiditisEssentia l (primary) hypertensionCrohn's disease of large intestine without complications 8 Leo Weeks. [address], [place], [place], [address] , [place]. [phone] Referring Provider: Sofia Eve[address], [place], [place], [address]. tel:[phone] OFFICE/OUTPA TIENT VISIT, [facility], [address], [place], [place], [address], [place] tel:[phone] [facility] Medicine HTN (chief complaint) hypothyroi dism (chief complaint) sjogren1 (chief complaint) Essential (primary) hypertensionSicca syndrome, unspecified 8 Leo Weeks. [address], [place], [place], [address] , [place]. [phone] Referring Provider: Micky Bailey, [address], [place], [place], [address]. tel:[phone] OFFICE/OUTPA TIENT VISIT, [facility], [address], [place], [place], [address], [place] tel:[phone] [facility] thyroid nodule1 (chief complaint) sjogen1 (chief complaint) crohn disease1 (chief complaint) Remberto's thyroiditisSicca syndrome, unspecifiedCrohn's disease of large intestine without complicationsGERD w/ esophagitis 8201 8 Leo Sousa [address], [place], [place], [address] , [place]. tel:[phone] OFFICE/OUTPA TIENT VISIT, [facility], [address], [place], [place], [address], [place] tel:[phone] [facility] thyroid1 (chief complaint) GERD1 (chief complaint) sjogen1 (chief complaint) gastropare sis1 (chief complaint) Body mass index (BMI) 32.0-32.9, adultHashimoto's thyroiditisGastropa resisSicca syndrome, unspecifiedGERD w/ esophagitis 2 0 8 Leo Sousa [address], [place], [place], [address] , [place]. tel:[phone] Referring Provider: Sofia Eve[address], [place], [place], [address]. tel:[phone] OFFICE/OUTPA TIENT VISIT, [facility], [address], [place], [place], [address], [place] tel:[phone] [facility] toothache1 (chief complaint) thyroid nodule1 (chief complaint) crohn disease1 (chief complaint) fall1 (chief complaint) Remberto's thyroiditisSicca syndrome, unspecifiedEssentia l (primary) hypertensionAtypica l facial painCrohn's disease of large intestine without complications Nov-2 3201 8 Leo Sousa [address], [place], [place], [address] , [place]. tel:[phone] Referring Provider: Sofia Eve[address], [place], [place], [address]. tel:[phone] OFFICE/OUTPA TIENT VISIT, [facility], [address], [place], [place], [address], [place] tel:[phone] [facility] GERD1 (chief complaint) jont pain1 (chief complaint) thyroid1 (chief complaint) sick1 (chief complaint) Remberto's thyroiditisGastropa resisSicca syndrome, unspecifiedAcute bronchitis, unspecified 8 Leo Weeks. [address], [place], [place], [address] , [place]. [phone] Referring Provider: Sofia Eve[address], [place], [place], [address]. tel:[phone] OFFICE/OUTPA TIENT VISIT, [facility], [address], [place], [place], [address], [place] tel:[phone] [facility] jonit pain1 (chief complaint) thyroid1 (chief complaint) glucose1 (chief complaint) Remberto's thyroiditisHypergly cemiaSicca syndrome, unspecifiedLeukocyt osis 8 Leo Weeks. [address], [place], [place], [address] , [place]. [phone] Referring Provider: Sofia Eve[address], [place], [place], [address]. tel:[phone] OFFICE/OUTPA TIENT VISIT, [facility], [address], [place], [place], [address], [place] tel:[phone] [facility] foot pain1 (chief complaint) sjogren1 (chief complaint) hypothyroi dism1 (chief complaint) GERD1 (chief complaint) Other specified congenital deformities of feetHashimoto's thyroiditisSicca syndrome, unspecifiedGastropa resis 7 Leo Weeks. [address], [place], [place], [address] , [place]. tel:[phone] Referring Provider: Sofia Eve[address], [place], [place], [address]. tel:[phone] OFFICE/OUTPA TIENT VISIT, [facility], [address], [place], [place], [address], [place] tel:[phone] [facility] HTn (chief complaint) gastropare sis1 (chief complaint) hasthimoto (chief complaint) sjogren (chief complaint) sick1 (chief complaint) Essential (primary) hypertensionSicca syndrome, unspecifiedHashimot o's thyroiditisAcute upper respiratory infection, unspecified 7 Leo Weeks. [address], [place], [place], [address] , [place]. tel:[phone] Referring Provider: Sofia Everett [facility] [address], [place], [place], [address]. tel:[phone] OFFICE/OUTPA TIENT VISIT, [facility], [address], [place], [place], [address], [place] tel:[phone] [facility] gastropare sis1 (chief complaint) hypothyroi dism (chief complaint) kcl (chief complaint) Remberto's thyroiditisHypokale miaGastroparesis 7 Leo Sousa [address], [place], [place], [address] , [place]. tel:[phone] Referring Provider: Sofia Everett [address], [place], [place], [address]. tel:[phone] OFFICE/OUTPA TIENT VISIT, [facility], [address] [place] [place], [place], [address], [place] tel:[phone] [facility] GERD1 (chief complaint) C diff (chief complaint) sinus1 (chief complaint) thyroid (chief complaint) Remberto's thyroiditisSicca syndrome, unspecifiedEnteroco litis due to Clostridium difficile, recurrentAcute upper respiratory infection, unspecified 7 Bailey Micky. [address], [place], [place], [address] , [place]. tel:[phone] Referring Provider: Sofia Eve[address], [place], [place], [address]. tel:[phone] OFFICE/OUTPA TIENT VISIT, [facility], [address], [place], [place], [address], [place] tel:[phone] [facility] hypothyroi dism1 (chief complaint) weight loss1 (chief complaint) kcl (chief complaint) Remberto's thyroiditisSicca syndrome, unspecifiedAbnormal wt lossHypokalemia Leo Sousa [address], [place], [place], [address] , [place]. tel:[phone] Referring Provider: Sofia Eve[address], [place], [place], [address]. tel:[phone] OFFICE/OUTPA TIENT VISIT, [facility], [address], [place], [place], [address], [place] tel:[phone] [facility] WBC (chief complaint) UTI1 (chief complaint) thyroid1 (chief complaint) HLP (chief complaint) Sjogren1 (chief complaint) Other specified disease of bloodHashimoto's thyroiditisHyperlip idemiaSicca syndrome, unspecified [address], [place], [place], [address] , [place]. tel:[phone] Referring Provider: Sofia Everett [address], [place], [place], [address]. tel:[phone] PREV VISIT, NEW, AGE 18-39 [facility], [address], [place], [place], [address], [place] tel:[phone] [facility] Physical. (chief complaint) Encntr for general adult medical exam w/o abnormal findings [address], [place], [place], [address] , [place]. tel:[phone] Referring Provider: Sofia [place], [address]. tel:[phone] Family History Family Member Type Diagnosis Age At Onset Father Problem (finding) Unknown Sister Problem (finding) Alive and well Mother Problem (finding) Lymphoma Payers Payer name Insurance type Covered republican ID Hubert muniz(s) [facility] CI [id number] Social History Type Description Quantity Date Captured Comments Alcohol Use Details Unknown Caffeine Use Details Unknown Tobacco Use Status Smoking Status No Information Sex Female Chief Complaint And Reason For Visit No Information Plan Of Treatment Date Type Action Status Goal Tobacco cessation counseling completed Goal Special [...] ordered Referral Referred To: BRANDY MILES [address] [facility] [place], [place], [phone] Ordered: Referrals: BRANDY MILES. Evaluate and treat ordered Referral Ordered: Hemal Kinsey (related to Remberto's thyroiditis) ordered Referral Referred To: Hemal Kinsey [address] [place], [place] [id number] Ordered: Referrals: Hemal Kinsey. Evaluate and treat ordered Referral Ordered: SMALL BOWEL SERIES ordered Referral Ordered: US THYROID ordered History Of Present Illness Encounter Date Complaint History Of Prese nt Illness cough1 Pt c/o productiv e cough with [...] dysphagia or neck pain. Pt takes synthroid HTN Pt has HTN Pt ta kes losartan and his bp is stable. GERD1 Pt has chronic G ERD Pt takes protonix and pepcid and doing ok. Pt takes zofran PRN for occasional nausea chronic pain1 Pt has sjogren a nd joint pain Pt sees rheumatology pt told me she has RA but I do not see it on rheumatology note thyroid1 Pt is on 137 mcg synthroid. Pt denies any palpitation or chest pain Pt feels slightly poor appetite and also early satiety since taking higher dose of thyroid weight loss1 Pt lost some renata ght pt states that she has slight poor appetite and she feels sick to her stomach after food since taking higher dose of synthroid thyroid Pt patient has H ashimoto thyroiditis. Patient takes Synthroid. She is slightly under replaced. Patient denies any fatigue or weight gain. HLP Patient has not ever triglyceride. Patient takes fenofibrate. Patient denies myalgia. sjogren Patient has Sjog dorothy's disease. Patient has multiple joint pain. Patient takes [place] PRN for pain. Patient failed NSAID and [...] had manual breast exam done by her [employer] ATTENDANT last week. chronic pain Pt has chronic j oint pain Pt has sjogren and she is seeing final dressing cutter. pt needs norco refilled Pt failed NSAID [...] hematology pt is getting b12 shot monthly chronic pain1 Pt has chronic j oint pain due to sjogren disease Pt takes norco PRN for pain but not working anymore Pt states that it does not help with pain at all hypothyroidism1 Pt has low thyro id. pt takes synthroid. Pt denies any dysphagia Pt just had vocal cord cyst removed which was benign. Pt denies any hoarseness. headache1 Pt c/o intermitt ent migraine headache for several years. Pt denies any head injury or waking up at night with headache. Pt never had MRI of brain. pt sometimes notices headache from back of neck radiating to scalp. Pt c/o photophobia with nausea with headache. Pt has headache 2-3 per month. pt notices more headache lately since starting wellbutrin. anxiety1 Pt has chronic a nxiety and depression. Pt is on effexor 150 mg in Am and 75 mg at night Pt also was started on wellbutrin by her psychiatrist recently for smoking cessation and for depression. pt states that she does not feel happy on effexor Pt denies any suicidal or homicidal thought fatty liver1 Pt has fatty geraldine er Pt denies any abdominal pain diveriticulitis1 Pt has acute le ft lower [...] Pt denies any chest pain or headache chronic pain1 Pt has Sjogren a nd [...] has been off metoprolol for a while. tobacco1 Pt has been on t he patch and she smokes about 4-5 cig per day now. Sjogren1 Pt has sjogren a nd joint pain Pt needs norco refilled. Pt failed NSAID and ultram HLP Pt has HLP Pt ta kes [...] vision change. pt denies any sinus drainage sick Pt c/o running n ose with [...] denies any recent travel or sick contact postmeno1 Pt had bone dens ity done which was normal. Pt is on HRT Pt takes calcium and D tobacco1 Pt smokes close to 1 PPD daily pt wants to try patch to quit smoking HLP Pt has HLP Pt st arted feno last month pt denies any myalgia. pt is trying low fat and low carb diet chronic pain1 pt has sjogren s yndrome and crohn disease. Pt has joint pain. Pt take [place] PRn for pain. Pt denies any worsening pain. Pt sees final dressing cutter postmenopausal Pt is postmenopa usal. Pt had [...] Pt denies any tachycardia or chest pain HTN Pt does not have any heart disease Pt is taking metoprolol 25 mg once per day for several months now. Her BP is rather low. pt denies any dizziness. Pt was started on metoprolol by previous MD for HTN. hypothyroidism Pt is on synthro id Pt will have left thyroidectomy in 3 weeks sjogren1 Pt has sjogren d isease and she has chronic joint pain. Pt takes norco PRN for pain pt failed NSAID. Pt doing ok thyroid nodule1 Pt had thyroid b iopsy [...] since not working. Pt currently doing ok thyroid1 Pt takes synthro id. Pt has remberto disease Pt has thyroid nodule. Pt just seen endo and she supposes to have thyroid biopsy next week. Pt denies any dysphagia GERD1 Pt has daily LAURA D with esophagitis. Pt is on omeprazole daily. Pt denies any GI symptoms her GI is giving her omeprazole now sjogen1 Pt has sjogen di sease and joint pain. Pt takes norco PRN for pain. Pt sees rheumatology gastroparesis1 Pt has gastropar esis. Pt has been taking reglan which is not working. pt is on omeprazole. Pt was told to stop reglan by GI and she was started on something else which helps better but she does not remember the name toothache1 Pt c/o left uppe r toothache for several days with facial pain. pt could not get into dentist until next month pt denies any fever, ear pain thyroid nodule1 Pt has thyroid n odule. Pt takes synthroid. pt missed her appointment with thyroid doctor. crohn disease1 Pt has crohn dis ease. Pt told me she had benign colonoscopy last year. pt is on sulfasalazine and some other pills for it. Pt has chronic constipation and diarrhea without blood. Pt sees GI fall1 Pt states that s he fell [...] Pt does not have any heart disease GERD1 Pt has GERD with gastric delaying [...] any fever Pt denies any GI issue jonit pain1 Pt has diffuse j oint pain and foot pain. Pt has sjogren and fibromylaiga, Pt is seeing foot dotor now. Pt sees rheumatology. Pt takes plaqunil and aziothioprine. Pt takes norco for pain PRN thyroid1 Pt has thyroid c yst and hypothyroidism. Pt is on synthroid. Her TSH is ok now. Pt still has not heard from endo glucose1 Pt has mild high glucose on recnet lab. Pt denies any polyuria polydipsia. 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 Pt recenlty went to ER for foot pain. Pt wants to be referred to email campaign specialist. 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 Pt takes norco PRn for pain. Pt sees final dressing cutter hypothyroidism1 Pt has remberto disease Pt takes [...] Pt deneis any fever or recent travel gastroparesis1 Pt has chronic g astroparesis and postprandial nausea. Pt is on omeprazole. Pt will do EGD soon. Pt takes zofran PRN for nausea. hypothyroidism Pt has remberto . Pt takes synthroid. her TSH is slighlty suppressed Pt denies any chset pain or headache kcl Pt had mild low kcl. Pt denies any chest pain or headache. her KCL is ok now along with mag GERD1 Pt states that o meprazole is helping her with GERD Pt still has postprandial nausea. pt had gastric empty study but results not available. C diff Pt was admited t o hospital and she was admitted to hospital for C diff by GI recently.. Pt deneis any abd pain or diarrhea. Pt denies any bleeding sinus1 Pt c/o acute sin us congestion, sore throat, running nose , ear congestion for two days. Pt denies any fever or headahe Pt denies travel thyroid Pt has low thyro id. Pt had thyroid ultrsound done but not availab today. Pt has not done lab yet. Pt is on synthroid hypothyroidism1 Pt is on 137 syn throid. Pt has not done thyroid ultrasound yet. Pt denies any chest pain or headache weight loss1 Pt has been losi ng [...] Pt denies any chest pain or palpitation WBC Pt has mild high WBC and [...] Weight management Related to Inc onclusive mammogram Increase physical activity Relat ed to Inconclusive mammogram Quit smoking Related to Incon clusive mammogram Weight management Related to Inc onclusive mammogram Special diet education Related t o Body mass index (BMI) 34.0-34.9, adult Quit smoking Related to Curt corona's thyroiditis [...] adult Increase physical activity Relat ed to Diverticulitis of large intestine without perforation without bleeding Quit smoking Related to Diver ticulitis of large intestine without perforation without bleeding Weight management Related to Div erticulitis of large intestine without perforation without bleeding Special diet education Related t o Body mass index (BMI) 34.0-34.9, adult Increase physical activity Relat ed to Epidemic vertigo Quit smoking Related to Epide pato vertigo [...] bronchitis Quit smoking Related to Acute bronchitis Increase physical activity Relat ed to Sicca syndrome, unspecified Quit smoking Related to Sicca syndrome, unspecified Weight management Related to Sic ca syndrome, unspecified Stop smoking. Related to Hyper lipidemia Special diet education Related t o Body mass index (BMI) 33.0-33.9, adult Special diet education Related t o Body mass index (BMI) 32.0-32.9, adult Quit smoking Related to Hyper lipidemia Special diet education Related t o Body mass index (BMI) 33.0-33.9, adult Quit smoking Related to Encou nter for general adult medical exam w abnormal findings Special diet education Related t o Body mass index (BMI) 32.0-32.9, adult Weight management Related to Sic ca syndrome, unspecified Weight management Related to Sic ca syndrome, unspecified Special diet education Related t o Body mass index (BMI) 32.0-32.9, adult Increase activity. Related to Es sential (primary) hypertension Stop smoking. Related to Essen tial (primary) hypertension Follow a low sodium diet. 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 Related to [...]
--- OUTSIDE RECORDS SUMMARY | 2024-12-30 22:44 | XMS_ITS | Referral Summary ---
Author Organization [facility] Address [address] [place] [address] Care Team Providers Care Farm Management Supervisor Name Role Phone No, Physician Primary Care Provider [phone] Allergies Active Allergy Reactions Criticality Noted Date [...] tabletIndications:h ypothyroidism Take 150 mcg by mouth copywriter before breakfast Active hydrOXYchloroQUINE (PLAQUENIL) 200 mg [...] records except ECC result. ECC benign per [facility] review - 08/02/13: JULIO 3 on biopsies left vulvar and perineal. +bilateral margins. 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 Lost to follow up - 09/21/22: [facility] vulvar biopsy obtained 08/2022 (Left perineum, R upper labia majora) with HSIL/VIN3 on [facility] internal path review - 10/22/22: Circumferential [...] on file Legal Sex Female 3:04 AM MARIONETTE PERFORMER Gender Identity Female 09/14/2022 10:54 AM MARIONETTE PERFORMER Sexual Orientation Straight 09/14/2022 10 :54 AM MARIONETTE PERFORMER Last Filed Vital Signs Vital Sign Reading [...] Comments PAP ONLY Routine 10/22/2022 2:42 PM MARIONETTE PERFORMER from Last 3 Months or Most Recently Relevant to Health Maintenance Results * (ABNORMAL) Pap Only (10/22/2022 2:42 PM MARIONETTE PERFORMER) Pap test 10/22/2022 2:42 PM MARIONETTE PERFORMER 10/22/2022 5:25 PM MARIONETTE PERFORMER Narrative 11/02/2022 5:27 PM MARIONETTE PERFORMER EPIC results best viewed via link to PDF [facility]ology [place], [place] [id number] Note to Patients: This report may contain [...] Gender: F : 1980 (Age: 41) Address: [address] [place] [id number] Hospital #: [id number] Service: UNKNOWN Location: Patient Type: [facility] SPECIMEN Taken: 10/22/2022 Received: 10/22/2022 Accessioned: [...] clinical information and biopsy results as indicated. [facility] Clinical Laboratory Improvement Amendments (CLIA) mandate that cytologic and histologic results be correlated for laboratory quality assurance intern & improvement standards. FOR ALL HIGH-GRADE CASES [...] 68. This HPV test was performed at [facility] in [place], [place] utilizing the Gen-Probe Aptima assay. By [...] determined by the Surgical Pathology Department at [facility] as part of an ongoing quality assurance advisor program and in compliance with federally mandated [...] determined by the Surgical Pathology Department of [facility]. It has not been cleared or approved by the U. S. Food and Drug Administration. Fe Shelton MD LAB CYTOLOGY ORDERABLES F inal Result from Last 3 Months or Most Recently Relevant to Health Maintenance Insurance [facility] Care Teams Farm Management Supervisor Relationship Specialty Start Date End Date No, Physician PCP - General 09/29/22
--- OUTSIDE RECORDS SUMMARY | 2024-12-30 22:44 | XMS_ITS | Encounter Summary ---
Author Organization [facility] Address [address] [place] [address] Care Team Providers Care Rv Mechanic Name Role Phone Unknown, Provider Primary Care Provider Micky Engle MD Primary Care Provider [phone] Madeline Hillman PA-C Primary Care Provider + Moises Tabor Primary Care Provider [phone] Encounter Details Date Type Department Care Team (Late st Contact Info) Description 12/09/2015 Lab Requisition [facility] Ce - Lab Cytogenetics [address] [place] [address] Beata Bernardo MD [address] [facility] 5th [place] [phone] Avila's syndrome Social History Tobacco Use Types [...] Visit [facility] - Rheumatology [address] [facility], [place] [address] Luis Eduardo North MD [address] [facility] 2L [place] [address] documented as of this encounter Procedures Procedure Name Priority Date/Time Associated Diagnosis Comments CYTOGENETICS CANCER PANEL Routine 12/09/2015 1:36 PM CDT Avila's syndrome documented in this encounter Results * CYTOGENETICS CANCER PANEL (12/09/2015 1:36 PM CDT) Indication for Study Short Stature / Myalgia / Arthralgia / R/O Avila Syndrome 12/23/2015 7:48 AM T [facility] CYTOGENOMIC LAB Results Cytogenetics Analysis of 200 interphase cells hybridized to X, Y and SHOX specific fluorescent labeled probes* showed the following results: nuc daily (DXZ1x2,DYZ1x0,SH OXx2)Normal ========= Analysis of 5 cells and count of 30 cells (6 cells karyotyped, GTL-banding) from 2 different types of stimulated peripheral blood cultures 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 12/23/2015 7:48 AM T [facility] CYTOGENOMIC [facility] Interpretation FISH was negative [...] 95% confidence limits. 12/23/2015 7:48 AM T [facility] CYTOGENOMIC [facility] Preliminary result electronically signed by Geeta Jurado, PhD [facility] on 12/17/2015 at 9:11 AM Disclaimer *This test was developed, and its performance characteristics determined by [facility] Molecular Cytogenetics Laboratory as required by CLIA '88 Regulations. It has not been cleared or approved for specific uses by the U.S. Food and Drug Administration. The FDA has determined that such clearance or approval is not necessary. This test is used for clinical purposes. It should not be reported as investigational or for research. 12/23/2015 7:48 AM CDT [facility] CYTOGENOMIC LAB Client Information [facility] - [id number] [facility] Lab Numbers: [id number] 12/23/2015 7:48 AM CDT [facility] CYTOGENOMIC LAB Other BLOOD SPECIMEN / Unknown 12/09/2015 1:36 PM CDT 12/09/2015 3:51 PM CDT Beata Bernardo MD LAB - PATHOLOGY/CYTOLOGY OR DERABLES Final Result Performing Organization Address City/State/[facility] Co de Phone Number [facility] CYTOGENOMIC LAB [address] [place] [address] documented in this encounter 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
--- OUTSIDE RECORDS SUMMARY | 2024-12-30 22:44 | XMS_ITS | Encounter Summary ---
Author Organization [facility] Address [address] [place] [address] Care Team Providers Care Service Counselor Name Role Phone Cammy Beard MD Primary Care Provider [phone] None, Provider Primary Care Provider Unavaila ble Encounter Details Date Type Department Care Team (Late st Contact Info) Description 05/08/2015 Abstract [facility] [address] [facility] [place] [address] , Generic Conversion, Social History [...] on filedocumented in this encounter Care Teams Service Counselor Relationship Specialty Start Date End Date Cammy Beard MD PCP - General 10/11/14 08/09/23 None, ProviderMD PCP - General UNKNOWN PHYSICIAN SPECIALTY 08/10/23 documented as of this encounter
--- OUTSIDE RECORDS SUMMARY | 2024-12-30 22:44 | XMS_ITS | Continuity of Care Document ---
Author Organization [facility] Address [address] [place] [address] Phone Care Team Providers Care Stick Roller Name Role Phone Unavailable Unavailable Unavailable Medications [...] Diagnoses Date Provider Providers Copied on Encounter [facility], [address], [place], [place], [id number] , [place] tel: [phone] [facility] No Information No Information [facility], [address], [place], [place], [id number] , [place] tel: [phone] [facility] [place] No Information 3 No Information OFFICE/OUTPA TIENT VISIT, NEW [facility], [address], [place], [place], [id number] , [place] tel: [phone] [facility] [place] physical exam (chief complaint) Other acquired absence [...] s Payers Payer name Insurance type Covered green party ID Authoriza tion(s) No Information Social History Type Description Quantity Date Captured Comments Sex Female Smoking Status No Information Chief Complaint And Reason For Visit No Information Reason For Referral Reason For Referral No Information Plan Of Treatment Date Type Action Status Goal BMP fasting. Due on 013 due Referral Referred To: [address], [phone] Ordered: Referral: [facility]. Colonoscopy. Diagnostic testing. ordered History Of Present Illness Encounter Date Complaint History Of Prese nt Illness No Information Functional Status Date Functional Assessmen t No Information Instructions Date Instruction Additional Infor mation No Information Assessments Type Assessment Date No Information Patient Care Teams Name Effective Dates (start - stop) Status Members No Information
--- OUTSIDE RECORDS SUMMARY | 2024-12-30 22:44 | XMS_ITS | Encounter Summary ---
Author Organization [facility] Address [address] [place] [address] Phone Care Team Providers Care Hiv Cts Specialist Name Role Phone Niall Beard MD Unavailable [phone] Yanick Law DO Unavailable [phone] Yesica Castle APRN, MECHANICAL ENGINEERING MANAGER Unavailable [phone] Homar Zee MD Unavailable Madeline Hillman PAC Primary Care Provider [phone] Monique Shook APRN, MECHANICAL ENGINEERING MANAGER Unavailable Yue Saba MD Unavailable [phone] Reason for Visit * Reason Comments Medication Refill Encounter Details Date Type Department Care Team (Late st Contact Info) Description 07/26/2023 Refill [facility] - Gastroenterology [facility] [address] [place] [phone] Yue Saba MD [address] [place] [address] Medication Refill Social History Tobacco Use Types [...] Radha Lou RN - 07/26/2023 8:31 AM BLENDING SUPERVISOR Medication failed the protocol, provider to review [...] Dept 04/21/23 Office Visit Yue Saba MD [facility] [place] Showing recent visits within past 365 days and meeting all other requirements Future Appointments No visits were found meeting these conditions. Showing future appointments within next 90 days and meeting all other requirements DING SUPERVISOR documented in this encounter Plan of Treatment Upcoming Encounters Date Type Department Care Team (Latest Contact Info) Description 02/06/2025 10:30 AM CDT Clinical Support [facility] [address] [place] [address] Discharge Disposition: Discharged to home or Selfcare documented as of this encounter Visit Diagnoses Diagnosis Gastro-esophageal reflux disease without esophagitis Esophageal reflux documented in this encounter Additional Health Concerns Assessment Noted Time PHQ-9 Depression Total Score: 0 06/16/20 17 11:53 AM CDT documented as of this encounter Care Teams Hiv Cts Specialist Relationship Specialty Start Date End Date Madeline Hillman PAC [address] [place] [address] PCP - General Physician Quality Tech 10/08/19 [place] [address] [place] [address] Internal Medicine 09/30/15 [place] [address] [place] [address] Gastroenterology 03/12/16 08/29/23 Yesica Castle APRN, MECHANICAL ENGINEERING MANAGER [address] [place] [address] Nurse Practitioner Advanced Practice Nurse 03/12/16 Homar Zee MD [address] [place] [address] Rheumatology 03/15/19 Monique Shook APRN, MECHANICAL ENGINEERING MANAGER [address] [place] [address] Nurse Practitioner Advanced Practice Nurse 06/17/23 Yue Saba MD [address] [place] [address] Consulting Physician Gastroenterology 04/21/23 documented as of this encounter
--- OUTSIDE RECORDS SUMMARY | 2024-12-30 22:44 | XMS_ITS | Encounter Summary ---
Author Organization [facility] Address [address] [facility] [address] [place] [address] Care Team Providers Care Marketing Support Manager Name Role Phone No, Physician Primary Care Provider [phone] Encounter Details Date Type Department Care Team (Late st Contact Info) Description 07/04/2011 Orders Only [facility] Information Management [address] [place] [address] Scanning, Provider Social History Tobacco Use Types Packs/Day Years Used Date Smoking Tobacco: Never Assessed Comments Unknown Sex and Gender Information Value Date Recorded Sex Assigned at Not on file Legal Sex Female 3:04 AM STEM PROCESSING MACHINE OPERATOR Gender Identity Female 09/14/2022 10:54 AM STEM PROCESSING MACHINE OPERATOR Sexual Orientation Straight 09/14/2022 10 :54 AM STEM PROCESSING MACHINE OPERATOR documented as of this encounter Plan of Treatment Not on file documented as of this encounter Procedures Procedure Name Priority Date/Time Associated Diagnosis Comments SCAN - RADIOLOGY/IMAGING 07/04/2011 documented in this encounter Results * SCAN - RADIOLOGY/IMAGING (07/04/2011) Anatomical Region Laterality Modality Other us Provider Scanning Final Result documented in this encounter Visit Diagnoses Not on filedocumented in this encounter Care Teams Marketing Support Manager Relationship Specialty Start Date End Date No, Physician PCP - General 09/29/22 documented as of this encounter
--- OUTSIDE RECORDS SUMMARY | 2024-12-30 22:44 | XMS_ITS | Clinical Summary ---
Author Organization [facility] Address [address] [facility] [place] [address] Care Team Providers Care Home Health Care Provider Name Role Phone LeanderMoises Primary Care Provider [phone] Source Comments [facility],non-owned Affiliates and Associated Physician Practices is amultiple site organization consisting of ambulatory clinics and hospital sitesin [place], [place], [place] and [place]. This disclosure is being madepursuant to the Care Everywhere program and may not contain all information available regarding this patient. Last updated 18.[facility] Allergies Active Allergy Reactions Criticality Noted Date [...] Active vitamin D, ergocalciferol, (Drisdol) 1.25 MG (47062 UT) capsule Take 1 (one) capsule by [...] 2 times daily 09/26/19 24 Active Creon 58701-491976 units capsule TAKE 2 CAPSULES BY MOUTH [...] - 12/19/2024 11:59 PM CDT Hospital Encounter [facility] [address] [place] [address] Luis Eduardo North MD Discharge Disposition: Home or Self Care 12/19/2024 11:00 AM CDT Office Visit [facility] - Rheumatology [address] [place] [phone] Luis Eduardo North MD Sjogren's syndrome, with unspecified organ involvement (HCC) (Primary Dx); Pain in both hands; Crohn's disease with complication, unspecified gastrointestinal tract location (HCC); Encounter for monitoring of hydroxychloroquine therapy; Sicca syndrome (HCC) 12/19/2024 Travel 10/15/2024 Travel 10/15/2024 Refill [facility] - Rheumatology [address] [place] [phone] Luis Eduardo North MD Refill Request from [...] CDT Respiratory Rate 18 09/08/2022 11:41 AM LONGWALL MACHINE OPERATOR HELPER Oxygen Saturation 98% 04/18/2024 11:08 AM CDT [...] Office Visit [facility] - Rheumatology [address] [place] [address], [place] [phone] Luis Eduardo North MD [address] [place] [address] [place] [phone] Health Maintenance Due Date Last Done Comments [...] 7 - 26 mg/dL 04/18/2024 1:29 PM [facility] Creatinine 0.71 0.56 - 0.96 mg/dL 04/18/2024 1:29 PM [facility] Sodium 134(L) 136 - 145 mmol/L 04/18/2024 1:29 PM [facility] Potassium 3.7 3.5 - 4.5 mmol/L 04/18/2024 1:29 PM [facility] Chloride 107 98 - 107 mmol/L 04/18/2024 1:29 PM [facility] CO2 18(L) 22 - 29 mmol/L 04/18/2024 1:29 PM [facility] Glucose 80 70 - 115 mg/dL 04/18/2024 1:29 PM [facility] Calcium 10.0 8.4 - 10.2 mg/dL 04/18/2024 1:29 PM [facility] Protein Total 7.6 6.0 - 8.3 g/dL 04/18/2024 1:29 PM [facility] Albumin 4.3 3.4 - 5.0 g/dL 04/18/2024 1:29 PM [facility] Bilirubin Total 0.2 0.2 - 1.2 mg/dL 04/18/2024 1:29 PM [facility] Alkaline Phosphatase 113 40 - 150 U/L 04/18/2024 1:29 PM [facility] ALT 15 5 - 55 U/L 04/18/2024 1:29 PM [facility] AST 27 5 - 34 U/L 04/18/2024 1:29 PM [facility] Anion Gap 9 6 - 16 04/18/2024 1:29 PM [facility] BUN/Creatinine Ratio 7 7 - 23 04/18/2024 1:29 PM [facility] Osmolality Calculated 274(L) 275 - 295 mOsm/kg 04/18/2024 1:29 PM [facility] Albumin/Globulin Ratio 1.3 1.1 - 2.3 04/18/2024 1:29 PM [facility] eGFR by CKD-EPI >90 >=90 mL/min/1.7 3 m2 04/18/2024 1:29 PM CDT [facility] Blood BLOOD SPECIMEN / Unknown Lab Venipuncture / Unknown 04/18/2024 12:03 PM CDT 04/18/2024 12:37 PM CDT us Luis Eduardo North MD LAB - CHEMISTRY ORDERABLES Fi nal Result Performing Organization Address City/[facility]/ZIP Co de Phone Number [facility] [address] [place] [address], [facility] [phone] * HEPATITIS C ANTIBODY (12/09/2015 1:35 PM CDT) Hepatitis C Antibody Non-react [facility] Comment: Hepatitis C Antibody screen indicates no [...] MD LAB - CHEMISTRY ORDERABLES Final Result [facility] [address] [place] [address], [facility] [phone] from Last 3 Months or Most Recently Relevant to Health Maintenance [place] [address] [address] [address] [facility] Advance Directives * Full Code (Latest Code Status on File) Date Activated Date Inactivated Comments 04/04/2018 10:19 AM 04/04/2018 5:13 PM Care Teams Home Health Care Provider Relationship Specialty Start Date End Date Moises Tabor [address] [place] [address] PCP - General 10/30/24
--- OUTSIDE RECORDS SUMMARY | 2024-12-30 22:44 | XMS_ITS | Encounter Summary ---
Author Organization [facility] Address [address] [place] [address] Care Team Providers Care Liberal Arts Teacher Name Role Phone No, Physician Primary Care Provider [phone] Encounter Details Date Type Department Care Team (Late st Contact Info) Description 12/04/2012 Orders Only [facility] Information Management [address] [place] [address] Scanning, Provider Social History Tobacco Use Types Packs/Day Years Used Date Smoking Tobacco: Never Assessed Comments Unknown Sex and Gender Information Value Date Recorded Sex Assigned at Not on file Legal Sex Female 3:04 AM CORPORATE ADMINISTRATIVE ASSISTANT Gender Identity Female 09/14/2022 10:54 AM CORPORATE ADMINISTRATIVE ASSISTANT Sexual Orientation Straight 09/14/2022 10 :54 AM CORPORATE ADMINISTRATIVE ASSISTANT documented as of this encounter Plan of [...] on filedocumented in this encounter Care Teams Liberal Arts Teacher Relationship Specialty Start Date End Date No, Physician PCP - General 09/29/22 documented as of this encounter
--- OUTSIDE RECORDS SUMMARY | 2024-12-30 22:44 | XMS_ITS | Clinical Summary ---
Author Organization [facility] Address [address] [place] [address] Phone Care Team Providers Care Band Director Name Role Phone Niall Beard MD Unavailable [phone] Homar Zee MD Unavailable [phone] Madeline Hillman Primary Care Provider Monique Shook APRN, ODD TICKET CLERK Unavailable Yue Saba MD Unavailable [phone] Allergies Active Allergy Reactions Criticality Noted Date [...] DIRECTED 04/09/20 23 Active ergocalciferol (VITAMIN D) 15041 UNIT Capsule TAKE 1 CAPSULE EVERY WEEK [...] 1 Capsule by mouth daily. Active PEG 1340-CHu-EeXna-N aCl-NaSulf (PEG 3350/Electrolyte s) 240 g Recon [...] Description 12/12/2024 10:30 AM CDT [facility] [address] [place] [id number] Asya Martinez MD Crohn's disease of small [...] (142 lb 11.2 oz) 024 10:26 AM ART MUSEUM AIDE Height 144.8 cm (4' 9 ) 10/25/2023 10:0 5 AM ART MUSEUM AIDE Body Mass Index 30.88 10/25/2023 10:05 AM ART MUSEUM AIDE Plan of Treatment Upcoming Encounters Date Type Department Care Team (Latest Contact Info) Description 02/06/2025 10:30 AM CDT Clinical Support [facility] [address] [place] [address] Discharge Disposition: Discharged to home [...] A IGM ANTIBODY NON DETECTED NON DETECTED [facility] ARCH [id number] A 01/16/2021 3:19 PM CDT [facility] Comment: IGM Antibodies to HAV not detected. Does not exclude early acute or recovered HAV infection. HEP B CORE AB (IGM) NON DETECTED NON DETECTED [facility] ARCH [id number] A 01/16/2021 3:19 PM CDT [facility] Comment:IGM anti-HBC not det ected. Does not exclude the possibility of exposure to or infection with HBV. HEPATITIS B SURFACE ANTIGEN NON DETECTED NON DETECTED [facility] ARCH [id number] B 01/16/2021 3:19 PM CDT [facility] Comment:A nonreactive test r esult does not exclude the possibility of exposure to or infection with Hepatitis B virus. A nonreactive test result in individuals with prior exposure to hepatitis B may be due to antigen levels below the detection limit of this assay or lack of antigen reactivity to the antibodies in this assay. hepatitis C antibody 0.13 <1 S/CO [facility] ARCH [id number] B 01/16/2021 3:19 PM CDT [facility] Comment: Signal/Cutoff ratio < 0.79 is Nondetected Signal/Cutoff ratio 0.80-0.99 is Grayzone Signal/Cutoff ratio > 0.99 is Detected Supplemental assays are recommended if signal/cutoff ratio is >/=1.00. Signal/cutoff ratio result >/= 5.00 is 97% predictive of positivity for recombinant immunoblot assay (RIBA) and will be reported to the [place] Department of Public Health as required. Blood Venipuncture / Unknown 01/15/2021 4:22 PM CDT 01/15/2021 4:22 PM CDT us Yanick Law DO HEMATOLOGY ORDERABLES Final Res ult Performing Organization Address City/State/[facility] Co de Phone Number [facility] [address] [place] [address], [place] from Last 3 Months or Most Recently Relevant to Health Maintenance Insurance MEDICAID [facility] [employer] MEDICAID [facility] Care Teams Band Director Relationship Specialty Start Date End Date Madeline Hillman PAC [address] [place] [address] PCP - General Physician Shear Operator 10/08/19 [place] [address] [place] [address] Internal Medicine 09/30/15 Homar Zee MD [address] [place] [address] Rheumatology 03/15/19 Monique Shook APRN, ODD TICKET CLERK [address] [place] [address] Nurse Practitioner Advanced Practice Nurse 06/17/23 Yue Saba MD [address] [place] [address] Consulting Physician Gastroenterology 04/21/23
--- OUTSIDE RECORDS SUMMARY | 2024-12-30 22:44 | XMS_ITS | CONTINUITY OF CARE DOCUMENT ---
Author Name adamtemo adamtemo Address Unknown Organization [facility] Address [address] [place] [address] Phone [phone] Care Team Providers Care Admission Discharge Rn Name Role Phone Benny Gaspar MD Unavailable RITO HOPSON Unavailable RITO HOPSON Unavailable [phone] PROBLEMS Condition Status Date Provider Notes Cardiology [...] In-person encounter Office Visit Benny Gaspar MD [facility] - In-person encounter Office Visit Benny Gaspar MD [facility] Cardiology examinationGERDHTNRheumatoid arthritisDepressionDiverticulitis OSAHypothyroidismObesityPalpitati onsCrohn's DiseaseShortness of breath ?asthma VITAL SIGNS Date Observation Value Provider Body Mass Index (Ratio) 38.30 kg/m2 Breanna Gaspar MD blood pressure, diastolic -1 mm[Hg] Lana nkLog blood pressure, systolic 128 mm[Hg] [facility] blood pressure, diastolic 89 mm[Hg] Kaylin [...] mg tablet completed 02/16 - 02/16 Benny Gaspra MD Daily-Solomon (with folic acid) 400 mcg [...] Policy type / Coverage type Jarett red green party ID [place] MEDICAID (2) Medicaid [id number] ADVANCE DIRECTIVES Name Date DISCUSSED - NO DECISION MADE TREATMENT PLAN Date Name Performer [id number],C, I mproved. She reports her breathing test was negative for both COPD and asthma. Benny Gaspar MD [id number],C, C ontinues to have palpitations. Her telemonitor showed PVC?s, ventricular bigeminy, trigeminy, and PAC?s. As she remains symptomatic, we will start her on metoprolol succinate 25 mg daily. As her BP is well controlled on her current medications and she may become hypotensive with this beta karolina, I will stop her hydralazine. Benny Gaspar MD [id number],S, O n famotidine. Benny Gaspar MD [id number],S, F glenna with rheumatology. On hydroxychloroquine. Benny Gaspar MD [id number],S, N ow on antivia infusions. There has been an improvement of symptoms of abdominal pain and bowel motion. She also has diverticulitis disease/ Benny Gaspar MD [id number],C,B lood pressure control is satisfactory. Benny Gaspar MD [id number],C, O n replacement therapy. Benny Gaspar MD [id number],C,Weight loss a dvised. Benny Gaspar MD [id number],C,F ollows with rheumatology. On hydroxychloroquine. Benny Gaspar MD [id number],C,On famotidine . Benny Gaspar MD [id number],C,On antidepres sants. Benny Gaspar MD [id number],C,N ow on antivia infusions. There has been an improvement of symptoms of abdominal pain and bowel motion. She also has diverticulitis disease/ Benny Gaspar MD [id number],C,B lood pressure control is satisfactory. On losartan and hydralazine. Her diuretics were discontinued because of hyponitremia. Benny Gaspar MD [id number],C,O n bronchodilater inhalers. Recent PFTs as per patient were normal. SHe is planned to undergo methocoholine test. Benny Gaspar MD [id number],C,S he has been having palpitations for 2 [...]
--- OUTSIDE RECORDS SUMMARY | 2024-12-30 22:44 | XMS_ITS | Clinical Summary ---
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 ECC benign per [facility] review - 08/02/13: JULIO 3 on biopsies left vulvar and perineal. +bilateral margins. 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 KEEPER Gender Identity Female 09/14/2022 10:54 AM FURNACE KEEPER Sexual Orientation Straight 09/14/2022 10 :54 AM FURNACE KEEPER Obstetrics History Last Filed Vital Signs Vital [...] Comments PAP ONLY Routine 10/22/2022 2:42 PM FURNACE KEEPER from Last 3 Months or Most Recently Relevant to Health Maintenance Results * (ABNORMAL) Pap Only (10/22/2022 2:42 PM FURNACE KEEPER) Pap test 10/22/2022 2:42 PM FURNACE KEEPER 10/22/2022 5:25 PM FURNACE KEEPER Narrative 11/02/2022 5:27 PM FURNACE KEEPER EPIC results best viewed via link to PDF [facility] [place] [address] Note to Patients: This report may contain [...] Gender: F : 1980 (Age: 41) Address: [address] [place], [place] [address] Hospital #: [id number] Service: UNKNOWN Location: Patient Type: [facility] SPECIMEN Taken: 10/22/2022 Received: 10/22/2022 Accessioned: 10/26/2022 [...] clinical information and biopsy results as indicated. [facility] Clinical Laboratory Improvement Amendments (CLIA) mandate that cytologic and histologic results be correlated for laboratory quality facilitator & improvement standards. FOR ALL HIGH-GRADE CASES [...] 68. This HPV test was performed at [facility] in [place], [place] utilizing the Gen-Probe Aptima assay. By this [...] determined by the Surgical Pathology Department at [facility] as part of an ongoing auditor/quality program and in compliance with federally mandated [...] determined by the Surgical Pathology Department of [facility]. It has not been cleared or approved by the U. S. Food and Drug Administration. Fe Shelton MD LAB CYTOLOGY ORDERABLES F inal Result from Last 3 Months or Most Recently Relevant to Health Maintenance Insurance [facility] Care Teams Counsellors Relationship Specialty Start Date End Date No, Physician PCP - General 09/29/22
[2024-12-30] MEDS: RABIES VACCINE (RABAVERT) 2.5 UNITS VIAL IM (22:50)
[2024-12-30] MEDS: TETANUS,DIPHTHERIA,AC PERTUSSIS ADULT (0.5 ML) BOOSTRIX IM (22:52)
== END 2024-12-31 00:05 | disposition home or self-care (01) ==
PROVIDERS: Emergency Provider Physician Assistant; PCP Emergency Medicine
DX: S81.851A Open bite, right lower leg, initial encounter (principal); Z23 Encounter for immunization; I10 Essential (primary) hypertension; K50.90 Crohn's disease, unspecified, without complications; M35.00 Sjogren syndrome, unspecified; M06.9 Rheumatoid arthritis, unspecified; E78.5 Hyperlipidemia, unspecified; E89.0 Postprocedural hypothyroidism; F17.210 Nicotine dependence, cigarettes, uncomplicated; F41.8 Other specified anxiety disorders; Z90.49 Acquired absence of other specified parts of digestive tract; Z90.81 Acquired absence of spleen; Z90.710 Acquired absence of both cervix and uterus; W54.0XXA Bitten by dog, initial encounter
CPT/HCPCS: 90471; 90472; 90675; 90715; 99283

== ENCOUNTER 2025-01-02 12:40 | Outpatient (RCR) | payer OTHER, SELFPAY ==
--- NOTE | 2025-01-02 13:40 | PC.NURSE ---
01/02/25 Patient states she is experiencing diarrhea; however, the patient states she does not know if it is from her Crohn's disease or not. Assessed the dog bite on the patient's right posterior calf. It appears clean and dry with bruising. No drainage or redness. Puncture sites are scabbed over.
[2025-01-02] MEDS: RABIES VACCINE (RABAVERT) 2.5 UNITS VIAL IM (13:42)
--- NOTE | 2025-01-03 09:21 | PC.NURSE ---
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 The series will not be stopped. Notified Marycruz at [facility].
== END 2025-04-02 23:59 | disposition home or self-care (01) ==
LOC: ANHVASCINF 12:40
PROVIDERS: PCP Emergency Medicine; Visit Provider Physician Assistant
DX: Z20.3 Contact with and (suspected) exposure to rabies (principal); Z29.14 Encounter for prophylactic rabies immune globulin
CPT/HCPCS: 90471; 90675

== ENCOUNTER 2025-07-10 11:58 | Outpatient (CLI) | payer OTHER, SELFPAY ==
--- NOTE | ~2025-07-10 | XR_ITS ---
EXAMINATION: XR chest 2V, 07/10/2025 12:00 CDT HISTORY: chest pain on breathing ALLERGIES NO FEVER COMPARISON: No comparisons available. Technique: 2 views obtained. Findings: The lungs are clear, no effusion. No pneumothorax. Heart is normal size. Mediastinal and hilar contours are within normal limits. Bony thorax no acute abnormality. Impression: No acute cardiopulmonary abnormality. Reviewed, dictated and finalized at location P. Impression: No acute cardiopulmonary abnormality.
== END 2025-07-10 11:59 | disposition home or self-care (01) ==
PROVIDERS: PCP Emergency Medicine; Visit Provider Emergency Medicine
DX: R07.1 Chest pain on breathing (principal)
CPT/HCPCS: 71046